=== PATIENT | male | born 1975 | race Caucasian/White ===

== ENCOUNTER 2023-03-08 08:37 | Outpatient (OUT) | payer OTHER, SELFPAY ==
--- NOTE | 2023-03-08 08:51 | CT_ITS ---
[address] [address] Patient Name: BUCK DISLA MRN: [id number] date: 1975 Sex: M Assigned Patient Location: CT Current Patient Location: CT Accession/Order Number: [id number] Exam Date: 03/08/2023 08:54 Report Date: 03/08/2023 15:41 At the request of: MAYNOR HILLMAN Procedure: CT chest wo con EXAMINATION: CT chest wo con HISTORY: Solitary Lung Nodule R91.1 COMPARISON: CTA chest 12/01/2021 TECHNIQUE: Multi-planar CT images were obtained without and/or with IV contrast as indicated by examination type. Axial, Coronal, and Sagittal images. Dose reduction techniques were achieved by using automated exposure control and/or adjustment of mA and/or kV according to patient size and/or use of iterative reconstruction technique. FINDINGS: LUNGS: Stable 5 mm opacity within right middle lobe; scarring versus nodule. No new or suspicious nodules. No acute infiltrates or significant chronic interstitial changes. PLEURA: No mass, effusion, or pneumothorax. VASCULATURE: No abnormality. HANK: No mass or adenopathy. MEDIASTINUM: No mass or adenopathy. CARDIAC: No enlargement, pericardial thickening, or significant calcification. AORTA: No aneurysm or dissection. CHEST WALL: No mass or axillary adenopathy. BONES: No bone lesion or fracture. LIMITED ABDOMEN: Left nephrolithiasis. Limited images of the upper abdomen. OTHER: Negative. CT/CT chest wo con IMPRESSION: 1. Stable right middle lobe 5 mm nodule versus scarring. No suspicious nodules. No additional follow-up recommended. 2. No acute infiltrates. 3. Left nephrolithiasis. Electronically authenticated by: VINAYAK ROSS Date: 03/08/2023 15:41
[2023-03-08 09:03] LABS: Basophils Absolute Auto 0.1 10^3/uL (0.0-0.1); Eosinophils Absolute Auto 0.6 10^3/uL (0.0-0.7); Eosinophils Percent Auto 6.5 % (0.9-7.0); Hematocrit 46.6 % (42.0-54.0); Hemoglobin 15.8 g/dL (14.0-18.0); Immature Granulocytes Abs Auto 0.05 10^3/uL (0.00-0.03); Immature Granulocytes Pct Auto 0.6 % (0.0-0.5); Lymphocytes Absolute Auto 2.7 10^3/uL (1.2-3.8); Mean Corpuscular HGB Conc 33.9 g/dL (29.9-35.2); Mean Corpuscular Hemoglobin 31.7 pg (25.9-34.0); Mean Corpuscular Volume 93.4 fL (80.0-94.0); Monocytes Absolute Auto 0.7 10^3/uL (0.3-0.8); Monocytes Percent Auto 8.1 % (1.7-12.0); Neutrophils Absolute Auto 4.9 10^3/uL (1.4-6.5); Neutrophils Percent Auto 53.8 % (43.0-75.0); Platelet Count 344 10^3/uL (150-450); Red Blood Count 4.99 10^6/uL (4.70-6.10); Red Cell Distribution Width 11.9 % (11.0-15.0); White Blood Count 9.1 10^3/uL (4.0-11.0)
[2023-03-08 10:12] LABS: Alanine Aminotransferase 47 U/L (16-63); Albumin Level 3.7 g/dL (3.4-5.0); Alkaline Phosphatase 109 U/L (46-116); Aspartate Amino Transferase 31 U/L (15-37); BUN Creatinine Ratio 20.2; Bilirubin Total 0.5 mg/dL (0.2-1.0); Calcium 9.4 mg/dL (8.5-10.1); Carbon Dioxide 25.5 mmol/L (21.0-32.0); Chloride 103 mmol/L (98-107); Chol HDL Ratio 4.4; Cholesterol 242 mg/dL (<=200); Estimated GFR (African America >60 (>=60); Estimated GFR (Non-African Ame >60 (>=60); Globulin 3.8 g/dL; Glucose 112 mg/dL (74-106); HDL Cholesterol 55 mg/dL (40-60); Potassium 4.5 mmol/L (3.5-5.1); Sodium 136 mmol/L (136-145); Total Protein 7.5 g/dL (6.4-8.2); Triglycerides 213 mg/dL (<=150); VLDL CHOLESTEROL 42.6 mg/dL
[2023-03-08 10:23] LABS: Prostate Specific Antigen Scrn 1.03 ng/mL (<=4.00)
[2023-03-08 10:46] LABS: Estimated Average Glucose 123 mg/dL; Glycohemoglobin A1C 5.9 % (4.5-6.2)
== END 2023-03-08 08:38 | disposition home or self-care (01) ==
LOC: CT 08:37
PROVIDERS: PCP Family Medicine; Visit Provider Family Medicine
DX: E78.5 Hyperlipidemia, unspecified (principal); Z00.00 Encounter for general adult medical examination without abnormal findings; R73.09 Other abnormal glucose; Z12.5 Encounter for screening for malignant neoplasm of prostate; R91.1 Solitary pulmonary nodule; N20.0 Calculus of kidney
CPT/HCPCS: 36415; 71250; 80053; 80061; 83036; 85025; G0103

== ENCOUNTER 2023-09-27 08:15 | Outpatient (OUT) | payer OTHER, SELFPAY ==
--- NOTE | 2023-09-27 08:18 | US_ITS ---
The [address] [address] Patient Name: BUCK DISLA MRN: [id number] date: 1975 Sex: M Assigned Patient Location: US Current Patient Location: Accession/Order Number: [id number] Exam Date: 09/27/2023 08:45 Report Date: 09/27/2023 14:57 At the request of: MAYNOR HILLMAN Procedure: US renal bladder EXAMINATION: US renal bladder HISTORY: Gross Hematuria R31.0 ; right flank pain COMPARISON: No relevant comparison available. TECHNIQUE: Ultrasound examination was performed of the kidneys and urinary bladder. FINDINGS: RIGHT KIDNEY: No evidence of pelvocaliectasis, mass, or calculi. Normal renal cortical parenchymal echogenicity. Color Doppler demonstrates blood flow within the kidney. Kidney: 11.5 x 6.9 x 5.3 cm LEFT KIDNEY: Contains 2 nonobstructing stones, largest is 7 mm. No evidence of pelvocaliectasis or mass. Normal renal cortical parenchymal echogenicity. Color Doppler demonstrates blood flow within the kidney. Kidney: 12.6 x 6.3 x 6.7 cm BLADDER: No visible wall thickening, mass, or calculi. Post void residual: 0 mL URETERAL JETS: Visualized bilaterally. US/US renal bladder IMPRESSION: 1. Nonobstructing left nephrolithiasis. Otherwise unremarkable kidneys and bladder. Electronically authenticated by: VINAYAK ROSS Date: 09/27/2023 14:57
--- OUTSIDE RECORDS SUMMARY | 2023-09-27 08:22 | XMS_ITS | CCD ---
Author Organization [facility] Care Team Providers Care Resource Technician Name Role Phone Maynor Hough MD Unavailable AMINATA, DR ROJAS Admitting Unavailable ABBSHERICE, DR ROJAS Attending Unavailable KADY, DR MCGUIRE Primary Care Unavailable AMINATA, DR ROJAS Consulting Unavailable KADY, DR MCGUIRE Primary Care Unavailable NELSY, DR JOELLEN Martel Consulting Unavailable FAWWAD, WREN H Admitting Unavailable FAWDAVID, WREN H Attending Unavailable KADY, DR MCGUIRE Consulting Unavailable SILVA, DR VIRGILIO Lan Consulting Unavailable ANITA, DR BUCK Pritchett Consulting Unavailable Trinh, DR Doll Consulting Unavailable SAMSA, LEANNE Consulting Unavailable FAWWAD, WREN H Consulting Unavailable WONG, SATURNINO Consulting Unavailable KADY, DR MCGUIRE Admitting Unavailable KADY, DR MCGUIRE Attending Unavailable KADY, DR MCGUIRE Primary Care Unavailable KADY, DR MCGUIRE Consulting Unavailable Trinh, DR Doll Consulting Unavailable KADY, DR MCGUIRE Admitting Unavailable KADY, DR MCGUIRE Attending Unavailable KADY, DR MCGUIRE Primary Care Unavailable KADY, DR MCGUIRE Consulting Unavailable ANITA, DR BUCK Pritchett Consulting Unavailable KADY, DR MCGUIRE Admitting Unavailable KADY, DR MCGUIRE Attending Unavailable KADY, DR MCGUIRE Primary Care Unavailable KADY, DR MCGUIRE Consulting Unavailable Trinh, DR Doll Consulting Unavailable Jessica Borjas PA-C Admitting Unavail able Jessica Borjas PA-C Attending Unavail able MAYNOR HOUGH Primary Care Unavailable Maynor Hough Primary Care Unavailable Iesha Carlisle Attending Unavailable Iesha Carlisle Admitting Unavailable Problems Active Problems Problem Classification Problem Date Documented Da te Episodic/Chronic Other injuries and conditions due to external causes (1 source) Unspecified injury of left foot, initial encounter; Translations: [Unspecified injury of left foot, initial encounter] Onset: 4 Episodic Other nervous system disorders (1 source) Other chronic pain; Translations: [OTHER CHRONIC PAIN] Onset: 2 Chronic Phlebitis; thrombophlebitis and thromboembolism (10 sources) Phlebitis and thrombophlebitis of superficial vessels of left lower extremity; Translations: [Acute embolism and thrombosis of unspecified deep veins of left lower extremity] Onset: 2 Episodic Substance-related disorders (1 source) Nicotine dependence, cigarettes, uncomplicated; Translations: [NICOTINE DEPEND CIGARETTES UNCOMP] Onset: 2 Chronic Unclassified (1 source) Acute embolism and thrombosis of left peroneal vein; Translations: [ACUTE EMBOL AND THROMBOS LT PERONL VN] Onset: 2 Unclassified (1 source) CONTACT W/AND (SUSP) EXPOS COVID-19; Translations: [CONTACT W/AND (SUSP) EXPOS COVID-19] Onset: 2 Unclassified (1 source) LOW BACK PAIN, UNSPECIFIED; Translations: [LOW BACK PAIN, UNSPECIFIED] Onset: 2 Past or Other Problems Problem Classification Problem Date Documented Da te Episodic/Chronic Other aftercare (1 source) FDC (current) use of anticoagulants; Translations: [FOLD SKIVER CURRNT USE ANTICOAGULANTS] Onset: 12-13-2021 Episodic Other lower respiratory disease (1 source) Other nonspecific abnormal finding of lung field; Translations: [OTH NONSPECIFIC ABN FIND LNG FIELD] Onset: 12-13-2021 Episodic Other screening for suspected conditions (not mental disorders or infectious disease) (2 sources) Abnormal coagulation profile; Translations: [Encounter for screening for malignant neoplasm of prostate] Onset: 11-26-2021 Episodic Pulmonary heart disease (1 source) Other pulmonary embolism without acute cor pulmonale; Translations: [OTH PULM EMBO W/O AC COR PULMONALE] Onset: 12-13-2021 Episodic Residual codes; unclassified (4 sources) Edema, unspecified; Translations: [EDEMA UNSPECIFIED] Onset: 11-23-2021 Episodic Spondylosis; intervertebral disc disorders; other back problems (1 source) Radiculopathy, lumbar region; Translations: [RADICULOPATHY LUMBAR REGION] Onset: 12-13-2021 Episodic Results Test Name Value Interpretation Reference Range Facility XR foot LT min 3V*on 024 XR foot LT min 3V* [facility] [place] [address] [place], [place] [address] XRay Report Signed Patient: Buck Disla MR#: [id number] 56 : 1975 Acct:[id number] Age/Sex: 48 / M ADM Date: 06/14/23 Loc: [id number] Room: Type: [facility] Attending Dr: Iesha Carlisle LICENSED 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 LEFT FOOT - 3 views CLINICAL HISTORY: Injury to left foot today. Now with pain distal metatarsals. COMPARISON: None FINDINGS: Soft tissue swelling is noted. 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 Contour deformity involving the distal aspect of the third digit. Questionable linear lucency involving the proximal phalanx of the first digit possibly related to fracture. Plantar spurring. Scattered degenerative change without bony erosions. XR/XR foot LT min 3V* IMPRESSION: SOFT TISSUE SWELLING IS NOTED WITH SOFT TISSUE CONTOUR DEFORMITY INVOLVING THE DISTAL ASPECT OF THE THIRD DIGIT. QUESTIONABLE LINEAR LUCENCY INVOLVING THE PROXIMAL PHALANX OF THE FIRST DIGIT POSSIBLY RELATED TO UNDERLYING FRACTURE. FOLLOW-UP IS RECOMMENDED. Impression dictated by: Antonio Ramirez Jr., D.O.06/14/2023 10:19 AM Dictation Location: [place] [address] Transcribed By: [facility] 06/14/23 1019 Dictated By: Antonio Ramirez Jr, DO 06/14/23 1017 Signed By: 06/14/23 1019 [facility] Coding Summaryon 07-20-2022 Coding Summary HTMLBase 64 DdeffvorRJt4oOx+PGhlYW Q+WA5TIZYrS07ssBFbuV1N M6qHJQ6PFDLGSLIKOH9NVF 7uiUY3YWfmQ5MdbgFp IczftPQiEM32JZr0ZFG5qX egIMdudL9pjGIiZ9q6EiNe PX62tR39ULfcNKLbJaI2Jp ZpbjsgbWFy R8puQxCftUQmSug+PHRhYm xlIHdpZHRoPScxMDAlJyBz hAehAX7gEc9fDTVxZEJvtA xhcHNlOiBj j3zyOUKzQLixEA8tlZgeU8 FbzGO4GAUud9w5Ol37nFM+ BLJwAHB3iOavBFksk043Zg Tag9zdKLX5 nOYfVXyoSPL8K62rv9H2HQ UeUVAtVRG8yZD9dY1ztSzh cnslQ2HtdHVsRiD3ORN3lF HsvH8dcDex saohbR8dGgy+Y15LFD9KGO JJKU4ZVrn5L6OzMlnrzDY+ OG83UZLbGF10jBCthLOck3 fscGa4MeTv RIJrRQL0jQwuRHbgp7YmNT GzW70mkFAec8R5YBZzjLvc sRYbDeNehEP1gG9aHCgoif dim8tliouo Whexy4lskp54tP41C29nFY ivLUMbKKA2GHSaRHUdxWhw ft2urA7lXb7+WCbco7xff4 wizUs5LxNk GSRcoiOgyYrnAKA1p3UtWg 00I2YjjJykp6VcMpj4ga35 eYSoo7N6oOL8EQdcSTSnxU 6lZAlgCwR3 KDXvGtApiW24jQCpJEnvYm 2hpKnhjQezTJ6rVIJxmbli NAIesB1xSXEalIGwqIoiEV 4wNTBpbjtm y100NuBqLFT4KIWngCInS0 MbgB6bIsDdDYGzXNUcI4Gd yPPyKAapZ749JKpeOwP5XS SwetEvM6Pc FFJuaKjgSxB4h4V5Ke4Es8 NeejquONI6KJaxLFM6NyXf NzIhTcU8J4IkYev7VXVtaD kiWN8bS1Yu JEFkphqyjcrudIN6GNRcQJ HexA65pGJoYBgpQf5by4Q6 n102VZBcHUMlfJ40Mt4cpT ogMTBwdCBU lX6ryfnbu1lvekdwMkQpRC YyVZm2QYx0XAQaaZnaTcBw EWV5KeD6QBR1nSXajO8teN vquvqwoI9u Oyc+O11nxD7kQSU7XHK1ed xqJOTusoGzEK38IS00W5Um PjwvdGFibGU+PGRpdiBzdH mcJA6kZiAk k3qvn0CkWDqeX2UdTIMlYE gmYpy6JDRbNUO2kMO6nG2y GNDqEDpby2V0sOC6H2Bktd Lhbj6dt4yx XIPnKBrcR44haRSvm9V6GC ZepSL5UVBewMfwZmJbpE50 Oyc+SWOxvLbfh7AgNstqu6 tag2rwhHb3 ViYmIHMgwiHmzLbtUII3x2 SoCp40M27bUTisMURlHTPe BFOgGUJxlDlzvi5khU4bDx 8+PGNvbCB3 nYF8dI5gMJVbTxC3JWwyZ3 95RgQeyYXmHvpvf0wsk1ht vPq5KnFiYVQrgmPszVibNV T5a3CuQz72 N68eLMvbOGQrAKNdXURiGD CwqJtbfr9hwY6qKi6+PC9j j0smju89pA11nCG+PHRkIH A2kJemUWbk SLQosZ2tSRosNrO9LASfVf KskH41rCZiFRdeQi8xfZbq gUspWO8zOJGlnihze960Or Uvm9rkCNPx mEIdFRiyVHP1L30zm4S1IQ VqZWNhHBS8jYZ6fG3gfUdh bjogbGVmdDsgdmVydGljYW poSPduR586 IHRvcDsnPlBhdGllbnQgTm IuYWi0T2WeMtw5FQPcxRwa KK4ewVTxLDwlZt1cnGougB koRQ1pFWWr lsetw525OfGlh2ufZMYxzN TsKJtxXZG0W97in6C9RYCy ZYJzPFM0uBP8tA9wzNgfow ogbGVmdDsg maWcsNmtKTddZXqqM538RH RvcDsnPkJpcnRoIERhdGU6 RE22BK42cNSdq1T0kDH9L4 BhZGRpbmct qpashTZ0PUVtUMUjrT82Qa 4gpYrpLj3dEQKsFEN0ECBc bQHiY0VraQ3pArLxYBIuPJ CfH0KpoSMi SBetW363DFddDiX6NLZjao ChW4RwMKBmdZfpZdY8j7Z7 Zf5UX8Y7TD54KI80lHKgm7 H7iRL2N3Au KXCdviuztteqhQW0GJXdWN JshE79Zh3hjIbjNy4nFVRg BQM0BXGgjKLuA1GnrM2iPf AjMDAwMDAw T9DpjVNnVQlhC471FElcXc B4PGMdpwWlR8VqVNJcqDkp IeT8w9J8Dy4BKNc8SX20RZ 64sIOpn9X7 cJB0T8KjOSKxhmqctkhxfA I8NLWyQHUskZ36Gx1oeIvo Fp0bESHvUQJ2LZWuwWKaR9 YfjN2yZbJt RLDeUPEbV0FclVGmVCbpV0 78SUnvKaB4EYYmanFxA5Lf DEBcpEoyZwB3k3F9Sq4KKT YnAM20JQX4 oKP6ZH57JN52C1AxEookiF FibGU+PHRhYmxlIHdpZHRo GWdtRYRjTnRvnYprKZ7cOx 9yZGVyLWNv lIdtuRVdXyXxu3tsPGMwGM ndID2swTryL5EavSK9FDZo v2f4Rp27J71aO1KuzHX+PG ZreYH4iDR3 yA0pBnFkReW3HBvaG342Ki ChsBTzWbmxj7nsg8fejZb2 QuT5COKvwnOlmXapIMN6x7 QeVp31W05s IHdpZHRoPSIxNSUiIHZhbG sdlx4hxW5fBi1+PGNvbCB3 qVJ8bH1gKuWuQzL1UTgtH1 49InRvcCIv Oorje4jdq0lwfDj1JnCyJI ZwbfIvzXsiUWR8q0WtSe52 F8FmrDvqt1OxKcy2xq40dN Mrw8C4mRA0 T2RqHGQzpfpgtHQumAquKS 5aKUEucdudWPAdoU0kHXRg C7v2TgGrCgS5DVufC2Moeu Q0CCNkqTKn FTlcPBN4W33oe7U9HVGaBW BqBAT5dGT2gA9wlOalacfq bGVmdDsgdmVydGljYWwtYW wpL626LZFj bXkvZMFktW7gWCJpsCTwwI fbEE8oTCFczysvChEOBZuX XohoWJCESUViI2BTZdC3W8 WeUaj6IWBd aWkrNM3gfZNbUXnvRa3wwT vvbLxcTY9nSHVdtamhIYQe sH8xGTJwzFFfeWbyOH1zYY Wtdtwqy525 HvBqKKP1HJPnyGEdN5MfgE 1yFaWiCBYdQLDcL0MvhGJo HJacE848JKmpOkH9OKFyyr XsA0YvCJBx tZgyYgS5v4L9Nk4iXk5fIH 8nFGs5TG38HW85sTHhm4V7 gSG5P1YgOSTrdsisogzwqQ I7JVPlXWNn hS48hCGcDLhjJs1we8F1r3 13HEDxKFOqjR64Ig0ppDmn WRZxoYEZuN9zrdezt8ydsh ogIzAwMDAw LZy4EGb4VTSmrSpbGcBsOU U4HvT5JDG5gFCueW6zyBtm vfrvtD3jFvb+NDggWWVhcn Y3D7WxLsn8 RGTffUwuDE6dsMPrWTcnBx 8nrZhczVvfTS6xOXBowvif FTRnpZ3kMZCavKNboHziKO 4wNTBpbjtm x457FxQoPDQ3XZBxfGPxH1 QlnN1sTqFwNDIjRGCnF3Su uHHiRGauL637TKlaMcO4NI DuknAyI1Qj YPLvdQsiDpW1d8D6Bx4QPL iTCB26ZT27qHQyi0Z8wSW5 H9ImYXNbjkhtgffwnTX4RQ TwOMWdfN61 gHYvSJanIl1hf9J1c940BH KiBOKyeS29Ew5ioOzvALCt cRORgW9vlmpxi3zzoqvaJh AwMDAwMDt0 MJh6RXFzbZgfKvLrKQD9Ze S5ETA7zCEhpR0mxFqbqqpj pL2aYkw+N8Z7O8PrRwgerJ I+DO89CYIl UZ40rZRisKOlb6pbsHq7Zv CsGPOeTEI9dEnzBJghi7Tj JXYdC66qtPHma4X7PZTnrZ xhcHNlOyBl iOA1lV4zBZoymslze1qxbv hfXpobd3oixu80jL49P85b IHdpZHRoPSIzMCUiIHZhbG jcxv6sfF5j Ii8+KIWycAF1tGO7uN1bEz FcZaT6KQyxF674UgYovAXs Gfmdd7vdn6rieNn7VbHxRR IgdmFsaWdu LKN2v1WsMi59S77iRCykFU IcCIYpNWUcFJNifZfxws3n fH0nDl3+AW0di9dtgx91bK 48dHI+PHRk WYK3dQxcBHgaBZXsuE8iRG dvZlH9CTNmSmGqdK78sHIw QOviCh8luHtyxXsvAY3zWK Ebrhfex728 UqTae2mqPDCdpYTaWQiaEH D9J85wo7Z4UJShKECqHVN2 cAZ9iR5vrRgnobadeWGhiB sgdmVydGlj OEhgONeoH711YYBjtBopYt FnbOHuD0srwcNZIQ1hNgxk dGQ+THWbIWZ8wOvwVVwqAP PgfV4dDBUt H4g5AcRdFxU6WFvqB7Kzoy Q8LOAopOIqGZGyvENAhK9f jguqs6khjxfwUaRzCNXjZK i7IFw7CQUh wDjcZnOyZFN0CuG0PCD9wV WktK7qdEijrpealU6cUym+ RklOOjwvdGQ+VUUsWEZ4hL xlPSdwYWRk lC8pXVUoA2p3LyDuQyH6XR egD7LxhgZ9ZDTupCLmTVGr vFJRrJ6mujqie1cnlfwzDf AwMDAwMDt0 TQr3VEWruPtaKfXcCMN0Aj C8MJQ1zTUjfP7zrWgaltgn rW1sEdp+TVJOOjwvdGQ+PH SgYUM0oEpj KOiePTEezD0gPLBuI4k1Wm XoOvX9KNkzL3TdcxE4WTNx zJCiIWJroHCFfB1hnykgh4 xvcjogIzAw XWKrEOb3MMd0LFYhgAdvJn JtHCS0SqK4ERL7gIPtbT1f iWuvynkqxL2bDvl+UGF5ZX C7QN52ID18 E2NoWdcmmCAerEQ+PHRhYm xlIHdpZHRoPScxMDAlJyBz pMasQG5pHz8mLOPgIFYabP xhcHNlOiBj b2x (more content not included)... 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 COMPARISON: 03/15/2022. TECHNIQUE: Evaluation of the lower extremity venous system is performed bilaterally. Venous duplex examination performed using B-mode, color flow and spectral analysis. FINDINGS: The right lower extremity demonstrates no evidence of venous thrombus in the deep or superficial system. The left lower extremity demonstrates deep vein thrombus with a chronic appearance in the femoral, popliteal, and peroneal veins. There has been slight interval improvement, without evidence of interval propagation or development of acute deep vein thrombus. IMPRESSION: 1. Left femoral, popliteal and peroneal vein chronic deep vein thrombus which has improved in the interval. 2. The right leg is negative. Final Dictated by: Maurice Smith Dictated DT/TM: 07/19/22 11:41 Signed (Electronic Signature): Maurice Smith 07/19/22 3:13 pm Technologist: [facility] Provider Orderson 05-20-2022 Provider Orders [id number] [facility] US JUAN DOP LEG BILon 023 US JUAN DOP LEG BETO EXAMINATION: US JUAN DOP LEG BETO HISTORY: Venous embolism COMPARISON: Ultrasound venous Doppler leg left 12/31/2021 FINDINGS: REGION: Bilateral lower extremities THROMBI: Thrombus within left leg extending from proximal femoral vein through the posterior tibial vein. Partial compressibility of the proximal femoral vein and posterior tibial vein. Noncompressible mid and distal femoral vein and popliteal vein with no appreciable flow. No thrombus within right lower extremity. COMPRESSIBILITY: Noncompressible segments. FLOW: Areas of no flow within left leg. OTHER: None. IMPRESSION: 1. Right leg: No deep vein thrombus. 2. Left leg: Extensive deep vein thrombus; only slightly improved compared to 12/31/2021. Electronically authenticated by: VINAYAK ROSS Date: 2022-03-15 10:21 [facility] US JUAN DOP LEG LTon 10-21-20 22 US JUAN DOP LEG LT EXAMINATION: US JUAN DOP LEG LT HISTORY: Phlebitis of superficial veins of lower extremity COMPARISON: 12/06/2021 TECHNIQUE: Grayscale, color and Doppler ultrasound FINDINGS: Region: Left leg Thrombus: Extensive thrombus identified throughout the left leg extending from the common iliac vein to the posterior tibial vein and the midcalf this appears overall decreased from the prior exam Flow: Areas of decreased and absent flow corresponding to thrombus Compressibility: Decreased and absent corresponding to thrombus Augmentation: Absent Other: Subcutaneous edema Results called by the technologist to Monika at the ordering physician's office at the time of exam IMPRESSION: Extensive left leg deep vein thrombus decreased from the prior exam *Exam performed in accordance with [facility] practice guidelines- Peripheral venous ultrasound, June 06, 2009. Electronically authenticated by: BUCK HOWARD Date: 2021-12-31 15:22 Normal [facility] CBC AUTO DIFFon 12-07-2021 BASO # 0.1 103/ul Normal 0.0-0.1 [facility] Comment on above: Performed By: #### P TTHEP #### [facility] [address] [place] [address] Dr. Dimas Bustos Basophils/100 WBC (Bld) 0.8 % Normal 0.2-2.0 [facility] Comment on above: Performed By: #### P TTHEP #### [facility] [address] [place] [address] Dr. Dimas Bustos EO # 0.2 103/ul Normal 0.0-0.7 [facility] Comment on above: Performed By: #### P TTHEP #### [facility] [address] [place] [address] Dr. Dimas Bustos Eosinophils/100 WBC (Bld) 1.5 % Normal 0.9-7.0 [facility] Comment on above: Performed By: #### P TTHEP #### [facility] [address] [place] [address] Dr. Dimas Bustos Erythrocyte distribution width (RBC) [Ratio] 12.3 % Normal 11.0-15.0 [facility] Comment on above: Performed By: #### P TTHEP #### [facility] [address] [place] [address] [address] Dimas Bustos Hematocrit (Bld) [Volume fraction] 41.4 % Critically low 42.0-54.0 [facility] Comment on above: Performed By: #### P TTHEP #### [facility] [address] [place] [address] Dr. Dimas Bustos Hemoglobin (Bld) [Mass/Vol] 13.9 g/dL Critically low 14.0-18.0 [facility] Comment on above: Performed By: #### P TTHEP #### [facility] [address] [place] [address] [address] Dimas Bustos IG # 0.30 10e3/ul Critically high 0.00-0.03 [facility] Comment on above: Performed By: #### P TTHEP #### [facility] [address] [place] [address] Dr. Dimas Bustos IG % 2.5 % Critically high 0.0-0.5 [facility] Comment on above: Performed By: #### P TTHEP #### [facility] [address] [place] [address] Dr. Dimas Bustos LYMPH # 2.8 103/ul Normal 1.2-3.8 [facility] Comment on above: Performed By: #### P TTHEP #### [facility] [address] [place] [address] Dr. Dimas Bustos Lymphocytes/100 WBC (Bld) 23.3 % Normal 20.5-60.0 [facility] Comment on above: Performed By: #### P TTHEP #### [facility] [address] [place] [address] Dr. Dimas Bustos MANUAL DIFF REQ NO Normal [facility] Comment on above: Performed By: #### P TTHEP #### [facility] [address] [place] [address] Dr. Dimas Bustos MCH (RBC) [Entitic mass] 31.2 pg Normal 25.9-34.0 [facility] Comment on above: Performed By: #### P TTHEP #### [facility] [address] [place] [address] [address] Dimas Bustos MCHC (RBC) [Mass/Vol] 33.6 g/dL Normal 29.9-35.2 [facility] Comment on above: Performed By: #### P TTHEP #### [facility] [address] [place] [address] Dr. Dimas Bustos MCV (RBC) [Entitic vol] 93.0 fL Normal 80.0-94.0 [facility] Comment on above: Performed By: #### P TTHEP #### [facility] [address] [place] [address] Dr. Dimas Bustos MONO # 0.9 103/ul Critically high 0.3-0.8 [facility] Comment on above: Performed By: #### P TTHEP #### [facility] [address] [place] [address] Dr. Dimas Bustos Monocytes/100 WBC (Bld) 7.5 % Normal 1.7-12.0 [facility] Comment on above: Performed By: #### P TTHEP #### [facility] [address] [place] [address] Dr. Dimas Bustos NEUT # 7.8 103/ul Critically high 1.4-6.5 [facility] Comment on above: Performed By: #### P TTHEP #### [facility] [address] [place] [address] Dr. Dimas Bustos Neutrophils/100 WBC (Bld) 64.4 % Normal 43.0-75.0 [facility] Comment on above: Performed By: #### P TTHEP #### [facility] [address] [place] [address] Dr. Dimas Bustos Platelet mean volume (Bld) [Entitic vol] 8.9 fL Critically low 9.5-13.5 [facility] Comment on above: Performed By: #### P TTHEP #### [facility] [address] [place] [address] Dr. Dimas Bustos PLT 420 103/ul Normal 150-450 [facility] Comment on above: Performed By: #### P TTHEP #### [facility] [address] [address] [address] Dimas Bustos RBC 4.45 106/ul Critically low 4.70-6.10 [facility] Comment on above: Performed By: #### P TTHEP #### [facility] [address] [address] [address] Dimas Bustos WBC 12.1 103/ul Critically high 4.0-11.0 [facility] Comment on above: Performed By: #### P TTHEP #### [facility] [address] [place] [address] Dr. Dimas Bustos PROF 14(COMP METB)on 022 Albumin [Mass/Vol] 2.8 g/dL Critically low 3.4-5.0 [facility] Comment on above: Performed By: #### C MP #### [facility] [address] [place] [address] Dr. Dimas Bustos Albumin/Globulin [Mass ratio] 0.6 {ratio} Normal [facility] Comment on above: Performed By: #### C MP #### [facility] [address] [place] [address] Dr. Dimas Bustos ALP [Catalytic activity/Vol] 113 U/L Normal 46-116 [facility] Comment on above: Performed By: #### C MP #### [facility] [address] [address] [address] Dimas Bustos ALT [Catalytic activity/Vol] 56 U/L Normal 16-63 [facility] Comment on above: Performed By: #### C MP #### [facility] [address] [place] [address] Dr. Dimas Bustos Anion gap [Moles/Vol] 15.7 mmol/L Normal [facility] Comment on above: Performed By: #### C MP #### [facility] [address] [place] [address] Dr. Dimas Bustos AST [Catalytic activity/Vol] 22 U/L Normal 15-37 [facility] Comment on above: Performed By: #### C MP #### [facility] [address] [address] [address] Dimas Bustos Bilirubin [Mass/Vol] 0.2 mg/dL Normal 0.2-1.0 [facility] Comment on above: Performed By: #### C MP #### [facility] [address] [address] [address] Dimas Bustos Calcium [Mass/Vol] 9.4 mg/dL Normal 8.5-10.1 [facility] Comment on above: Performed By: #### C MP #### [facility] [address] [address] [address] Dimas Bustos Chloride [Moles/Vol] 100 mmol/L Normal 98-107 [facility] Comment on above: Performed By: #### C MP #### [facility] [address] [place] [address] Dr. Dimas Bustos CO2 [Moles/Vol] 24.5 mmol/L Normal 21.0-32.0 [facility] Comment on above: Performed By: #### C MP #### [facility] [address] [place] [address] Dr. Dimas Bustos Creatinine [Mass/Vol] 0.80 mg/dL Normal 0.70-1.30 [facility] Comment on above: Performed By: #### C MP #### [facility] [address] [place] [address] Dr. Dimas Bustos EGFR-AF QATARI >60 Normal >=60 [facility] Comment on above: Performed By: #### C MP #### [facility] [address] [place] [address] Dr. Dimas Bustos EGFR-NON AF QATARI >60 Normal >=60 [facility] Comment on above: Performed By: #### C MP #### [facility] [address] [place] [address] Dr. Dimas Bustos Globulin (S) [Mass/Vol] 4.5 g/dL Normal [facility] Comment on above: Performed By: #### C MP #### [facility] [address] [place] [address] Dr. Dimas Bustos Glucose [Mass/Vol] 123 mg/dL Critically high 74-106 [facility] Comment on above: Performed By: #### C MP #### [facility] [address] [address] [address] Dimas Bustos Potassium [Moles/Vol] 4.2 mmol/L Normal 3.5-5.1 [facility] Comment on above: Performed By: #### C MP #### [facility] [address] [address] [address] Dimas Bustos Protein [Mass/Vol] 7.3 g/dL Normal 6.4-8.2 [facility] Comment on above: Performed By: #### C MP #### [facility] [address] [address] [address] Dimas Bustos Sodium [Moles/Vol] 136 mmol/L Normal 136-145 [facility] Comment on above: Performed By: #### C MP #### [facility] [address] [address] [address] Dimas Bustos Urea nitrogen [Mass/Vol] 17.0 mg/dL Normal 7.0-18.0 [facility] Comment on above: Performed By: #### C MP #### [facility] [address] [address] [address] Dimas Bustos Urea nitrogen/Creatinine [Mass ratio] 21.2 mg/mg Normal [facility] Comment on above: Performed By: #### C MP #### [facility] [address] [address] [address] Dimas Bustos PROTIMEon 12-07-2021 INR Coag (PPP) [Relative time] 1.42 {INR} Normal [facility] Comment on above: Performed By: #### C VDTB #### [facility] [address] [address] [address] Dimas Bustos INR GUIDELINES SEE BELOW Normal [facility] Comment on above: Result Comment: GEOVANNI RED INR: 2.0 - 3.0 CONDITIONS NOT LISTED BELOW 2.5 - 3.5 FOR PROSTHETIC HEART VALVE REPLACEMENT 2.5 - 3.5 RECURRENT THROMBOSIS Performed By: #### C VDTBH #### [facility] [address] [place] [address] Dr. Dimas Bustos PT Coag (PPP) [Time] 15.0 s Critically high 9.0-11.6 [facility] Comment on above: Performed By: #### C VDTBH #### [facility] [address] [place] [address] Dr. Dimas Bustos PTT HEPARIN MONITORon 2021 aPTT Coag (Bld) [Time] 68.4 s Critically high 39.5-54.2 [facility] Comment on above: Performed By: #### C VDTBH #### [facility] [address] [place] [address] Dr. Dimas Bustos CBC AUTO DIFFon 12-06-2021 BASO # 0.1 103/ul Normal 0.0-0.1 [facility] Comment on above: Performed By: #### P TTHEP #### [facility] [address] [place] [address] Dr. Dimas Bustos Basophils/100 WBC (Bld) 0.7 % Normal 0.2-2.0 [facility] Comment on above: Performed By: #### P TTHEP #### [facility] [address] [place] [address] Dr. Dimas Bustos EO # 0.3 103/ul Normal 0.0-0.7 [facility] Comment on above: Performed By: #### P TTHEP #### [facility] [address] [place] [address] Dr. Dimas Bustos Eosinophils/100 WBC (Bld) 2.2 % Normal 0.9-7.0 [facility] Comment on above: Performed By: #### P TTHEP #### [facility] [address] [place] [address] Dr. Dimas Bustos Erythrocyte distribution width (RBC) [Ratio] 12.4 % Normal 11.0-15.0 [facility] Comment on above: Performed By: #### P TTHEP #### [facility] [address] [place] [address] Dr. Dimas Bustos Hematocrit (Bld) [Volume fraction] 42.3 % Normal 42.0-54.0 [facility] Comment on above: Performed By: #### P TTHEP #### [facility] [address] [place] [address] Dr. Dimas Bustos Hemoglobin (Bld) [Mass/Vol] 14.2 g/dL Normal 14.0-18.0 [facility] Comment on above: Performed By: #### P TTHEP #### [facility] [address] [address] [address] Dimas Bustos IG # 0.20 10e3/ul Critically high 0.00-0.03 [facility] Comment on above: Performed By: #### P TTHEP #### [facility] [address] [place] [address] Dr. Dimas Bustos IG % 1.8 % Critically high 0.0-0.5 [facility] Comment on above: Performed By: #### P TTHEP #### [facility] [address] [place] [address] Dr. Dimas Bustos LYMPH # 2.9 103/ul Normal 1.2-3.8 [facility] Comment on above: Performed By: #### P TTHEP #### [facility] [address] [place] [address] Dr. Dimas Bustos Lymphocytes/100 WBC (Bld) 25.1 % Normal 20.5-60.0 [facility] Comment on above: Performed By: #### P TTHEP #### [facility] [address] [place] [address] Dr. Dimas Bustos MANUAL DIFF REQ NO Normal [facility] Comment on above: Performed By: #### P TTHEP #### [facility] [address] [place] [address] Dr. Dimas Bustos MCH (RBC) [Entitic mass] 31.6 pg Normal 25.9-34.0 [facility] Comment on above: Performed By: #### P TTHEP #### [facility] [address] [address] [address] Dimas Bustos MCHC (RBC) [Mass/Vol] 33.6 g/dL Normal 29.9-35.2 [facility] Comment on above: Performed By: #### P TTHEP #### [facility] [address] [place] [address] Dr. Dimas Bustos MCV (RBC) [Entitic vol] 94.0 fL Normal 80.0-94.0 [facility] Comment on above: Performed By: #### P TTHEP #### [facility] [address] [place] [address] Dr. Dimas Bustos MONO # 0.9 103/ul Critically high 0.3-0.8 [facility] Comment on above: Performed By: #### P TTHEP #### [facility] [address] [place] [address] Dr. Dimas Bustos Monocytes/100 WBC (Bld) 7.7 % Normal 1.7-12.0 [facility] Comment on above: Performed By: #### P TTHEP #### [facility] [address] [place] [address] Dr. Dimas Bustos NEUT # 7.1 103/ul Critically high 1.4-6.5 [facility] Comment on above: Performed By: #### P TTHEP #### [facility] [address] [place] [address] Dr. Dimas Bustos Neutrophils/100 WBC (Bld) 62.5 % Normal 43.0-75.0 [facility] Comment on above: Performed By: #### P TTHEP #### [facility] [address] [place] [address] Dr. Dimas Bustos Platelet mean volume (Bld) [Entitic vol] 8.8 fL Critically low 9.5-13.5 [facility] Comment on above: Performed By: #### P TTHEP #### [facility] [address] [place] [address] Dr. Dimas Bustos PLT 373 103/ul Normal 150-450 [facility] Comment on above: Performed By: #### P TTHEP #### [facility] [address] [address] [address] Dimas Bustos RBC 4.50 106/ul Critically low 4.70-6.10 [facility] Comment on above: Performed By: #### P TTHEP #### [facility] [address] [address] [address] Dimas Bustos WBC 11.4 103/ul Critically high 4.0-11.0 [facility] Comment on above: Performed By: #### P TTHEP #### [facility] [address] [address] [address] Dimas Bustos PROF 14(COMP METB)on 022 Albumin [Mass/Vol] 2.7 g/dL Critically low 3.4-5.0 [facility] Comment on above: Performed By: #### P TTHEP #### [facility] [address] [place] [address] Dr. Dimas Bustos Albumin/Globulin [Mass ratio] 0.6 {ratio} Normal [facility] Comment on above: Performed By: #### P TTHEP #### [facility] [address] [address] [address] Dimas Bustos ALP [Catalytic activity/Vol] 100 U/L Normal 46-116 [facility] Comment on above: Performed By: #### P TTHEP #### [facility] [address] [address] [address] Dimas Bustos ALT [Catalytic activity/Vol] 51 U/L Normal 16-63 [facility] Comment on above: Performed By: #### P TTHEP #### [facility] [address] [address] [address] Dimas Bustos Anion gap [Moles/Vol] 8.8 mmol/L Normal [facility] Comment on above: Performed By: #### P TTHEP #### [facility] [address] [address] [address] Dimas Bustos AST [Catalytic activity/Vol] 21 U/L Normal 15-37 [facility] Comment on above: Performed By: #### P TTHEP #### [facility] [address] [address] [address] Dimas Bustos Bilirubin [Mass/Vol] 0.2 mg/dL Normal 0.2-1.0 [facility] Comment on above: Performed By: #### P TTHEP #### [facility] [address] [place] [address] Dr. Dimas Bustos Calcium [Mass/Vol] 9.6 mg/dL Normal 8.5-10.1 [facility] Comment on above: Performed By: #### P TTHEP #### [facility] [address] [address] [address] Dimas Bustos Chloride [Moles/Vol] 101 mmol/L Normal 98-107 [facility] Comment on above: Performed By: #### P TTHEP #### [facility] [address] [place] [address] Dr. Dimas Bustos CO2 [Moles/Vol] 31.2 mmol/L Normal 21.0-32.0 [facility] Comment on above: Performed By: #### P TTHEP #### [facility] [address] [place] [address] Dr. Dimas Bustos Creatinine [Mass/Vol] 0.84 mg/dL Normal 0.70-1.30 [facility] Comment on above: Performed By: #### P TTHEP #### [facility] [address] [place] [address] Dr. Dimas Bustos EGFR-AF QATARI >60 Normal >=60 [facility] Comment on above: Performed By: #### P TTHEP #### [facility] [address] [place] [address] Dr. Dimas Bustos EGFR-NON AF QATARI >60 Normal >=60 [facility] Comment on above: Performed By: #### P TTHEP #### [facility] [address] [place] [address] Dr. Dimas Bustos Globulin (S) [Mass/Vol] 4.5 g/dL Normal [facility] Comment on above: Performed By: #### P TTHEP #### [facility] [address] [address] [address] Dimas Bustos Glucose [Mass/Vol] 113 mg/dL Critically high 74-106 [facility] Comment on above: Performed By: #### P TTHEP #### [facility] [address] [address] [address] Dimas Bustos Potassium [Moles/Vol] 5.0 mmol/L Normal 3.5-5.1 [facility] Comment on above: Performed By: #### P TTHEP #### [facility] [address] [address] [address] Dimas Bustos Protein [Mass/Vol] 7.2 g/dL Normal 6.4-8.2 [facility] Comment on above: Performed By: #### P TTHEP #### [facility] [address] [place] [address] Dr. Dimas Bustos Sodium [Moles/Vol] 136 mmol/L Normal 136-145 [facility] Comment on above: Performed By: #### P TTHEP #### [facility] [address] [address] [address] Dimas Bustos Urea nitrogen [Mass/Vol] 14.0 mg/dL Normal 7.0-18.0 [facility] Comment on above: Performed By: #### P TTHEP #### [facility] [address] [place] [address] Dr. Dimas Bustos Urea nitrogen/Creatinine [Mass ratio] 16.7 mg/mg Normal [facility] Comment on above: Performed By: #### P TTHEP #### [facility] [address] [address] [address] Dimas Bustos PROTIMEon 12-06-2021 INR Coag (PPP) [Relative time] 1.22 {INR} Normal [facility] Comment on above: Performed By: #### P TTHEP #### [facility] [address] [place] [address] Dr. Dimas Bustos INR GUIDELINES SEE BELOW Normal [facility] Comment on above: Result Comment: GEOVANNI RED INR: 2.0 - 3.0 CONDITIONS NOT LISTED BELOW 2.5 - 3.5 FOR PROSTHETIC HEART VALVE REPLACEMENT 2.5 - 3.5 RECURRENT THROMBOSIS Performed By: #### P TTHEP #### [facility] [address] [place] [address] Dr. Dimas Bustos PT Coag (PPP) [Time] 13.0 s Critically high 9.0-11.6 [facility] Comment on above: Performed By: #### P TTHEP #### [facility] [address] [place] [address] Dr. Dimas Bustos PTTon 12-06-2021 aPTT Coag (Bld) [Time] 61.4 s Critically high 22.3-36.2 [facility] Comment on above: Performed By: #### P TTHEP #### [facility] [address] [place] [address] Dr. Dimas Bustos US JUAN DOP LEG LTon 12-07-19 US JUAN DOP LEG LT EXAMINATION: US JUAN DOP LEG LT HISTORY: Acute DVT of left femoral vein COMPARISON: Ultrasound venous Doppler leg left 11/23/2021 FINDINGS: REGION: Left lower extremity THROMBI: Occlusive thrombus extending from external iliac artery through the femoral, popliteal, and involving the proximal aspect of the posterior tibial, peroneal, and anterior tibial veins. Thrombus within the deep femoral vein and proximal great saphenous vein. COMPRESSIBILITY: Noncompressibility. FLOW: Absent flow. OTHER: None. IMPRESSION: 1. Extensive, occlusive deep vein thrombus throughout left lower extremity; progressed since prior study, now extending into the proximal calf veins. Electronically authenticated by: VINAYAK ROSS Date: 2021-12-06 09:03 Normal [facility] CBC AUTO DIFFon 12-05-2021 BASO # 0.1 103/ul Normal 0.0-0.1 [facility] Comment on above: Performed By: #### C BC #### [facility] [address] [place] [address] Dr. Dimas Bustos Basophils/100 WBC (Bld) 0.5 % Normal 0.2-2.0 [facility] Comment on above: Performed By: #### C BC #### [facility] [address] [address] [address] Dimas Bustos EO # 0.2 103/ul Normal 0.0-0.7 [facility] Comment on above: Performed By: #### C BC #### [facility] [address] [place] [address] Dr. Dimas Bustos Eosinophils/100 WBC (Bld) 1.6 % Normal 0.9-7.0 [facility] Comment on above: Performed By: #### C BC #### [facility] [address] [place] [address] Dr. Dimas Bustos Erythrocyte distribution width (RBC) [Ratio] 12.2 % Normal 11.0-15.0 [facility] Comment on above: Performed By: #### C BC #### [facility] [address] [place] [address] Dr. Dimas Bustos Hematocrit (Bld) [Volume fraction] 41.6 % Critically low 42.0-54.0 [facility] Comment on above: Performed By: #### C BC #### [facility] [address] [place] [address] Dr. Dimas Bustos Hemoglobin (Bld) [Mass/Vol] 13.8 g/dL Critically low 14.0-18.0 [facility] Comment on above: Performed By: #### C BC #### [facility] [address] [place] [address] Dr. Dimas Bustos IG # 0.09 10e3/ul Critically high 0.00-0.03 [facility] Comment on above: Performed By: #### C BC #### [facility] [address] [place] [address] Dr. Dimas Bustos IG % 0.9 % Critically high 0.0-0.5 [facility] Comment on above: Performed By: #### C BC #### [facility] [address] [place] [address] Dr. Dimas Bustos LYMPH # 2.1 103/ul Normal 1.2-3.8 [facility] Comment on above: Performed By: #### C BC #### [facility] [address] [place] [address] Dr. Dimas Bustos Lymphocytes/100 WBC (Bld) 20.2 % Critically low 20.5-60.0 [facility] Comment on above: Performed By: #### C BC #### [facility] [address] [place] [address] Dr. Dimas Bustos MANUAL DIFF REQ NO Normal [facility] Comment on above: Performed By: #### C BC #### [facility] [address] [place] [address] Dr. Dimas Bustos MCH (RBC) [Entitic mass] 30.7 pg Normal 25.9-34.0 [facility] Comment on above: Performed By: #### C BC #### [facility] [address] [place] [address] Dr. Dimas Bustos MCHC (RBC) [Mass/Vol] 33.2 g/dL Normal 29.9-35.2 [facility] Comment on above: Performed By: #### C BC #### [facility] [address] [place] [address] Dr. Dimas Bustos MCV (RBC) [Entitic vol] 92.4 fL Normal 80.0-94.0 [facility] Comment on above: Performed By: #### C BC #### [facility] [address] [place] [address] Dr. Dimas Bustos MONO # 0.9 103/ul Critically high 0.3-0.8 [facility] Comment on above: Performed By: #### C BC #### [facility] [address] [place] [address] Dr. Dimas Bustos Monocytes/100 WBC (Bld) 8.4 % Normal 1.7-12.0 [facility] Comment on above: Performed By: #### C BC #### [facility] [address] [place] [address] Dr. Dimas Bustos NEUT # 6.9 103/ul Critically high 1.4-6.5 [facility] Comment on above: Performed By: #### C BC #### [facility] [address] [place] [address] Dr. Dimas Bustos Neutrophils/100 WBC (Bld) 68.4 % Normal 43.0-75.0 [facility] Comment on above: Performed By: #### C BC #### [facility] [address] [place] [address] Dr. Dimas Bustos Platelet mean volume (Bld) [Entitic vol] 9.2 fL Critically low 9.5-13.5 [facility] Comment on above: Performed By: #### C BC #### [facility] [address] [place] [address] Dr. Dimas Bustos PLT 371 103/ul Normal 150-450 [facility] Comment on above: Performed By: #### C BC #### [facility] [address] [place] [address] Dr. Dimas Bustos RBC 4.50 106/ul Critically low 4.70-6.10 [facility] Comment on above: Performed By: #### C BC #### [facility] [address] [place] [address] Dr. Dimas Bustos WBC 10.1 103/ul Normal 4.0-11.0 [facility] Comment on above: Performed By: #### C BC #### [facility] [address] [place] [address] Dr. Dimas Bustos PROF 14(COMP METB)on 022 Albumin [Mass/Vol] 2.7 g/dL Critically low 3.4-5.0 [facility] Comment on above: Performed By: #### C MP #### [facility] [address] [place] [address] Dr. Dimas Bustos Albumin/Globulin [Mass ratio] 0.6 {ratio} Normal [facility] Comment on above: Performed By: #### C MP #### [facility] [address] [place] [address] Dr. Dimas Bustos ALP [Catalytic activity/Vol] 98 U/L Normal 46-116 [facility] Comment on above: Performed By: #### C MP #### [facility] [address] [place] [address] Dr. Dimas Bustos ALT [Catalytic activity/Vol] 43 U/L Normal 16-63 [facility] Comment on above: Performed By: #### C MP #### [facility] [address] [place] [address] Dr. Dimas Bustos Anion gap [Moles/Vol] 9.9 mmol/L Normal [facility] Comment on above: Performed By: #### C MP #### [facility] [address] [place] [address] Dr. Dimas Bustos AST [Catalytic activity/Vol] 17 U/L Normal 15-37 [facility] Comment on above: Performed By: #### C MP #### [facility] [address] [place] [address] Dr. Dimas Bustos Bilirubin [Mass/Vol] 0.3 mg/dL Normal 0.2-1.0 [facility] Comment on above: Performed By: #### C MP #### [facility] [address] [place] [address] Dr. Dimas Bustos Calcium [Mass/Vol] 9.5 mg/dL Normal 8.5-10.1 [facility] Comment on above: Performed By: #### C MP #### [facility] [address] [place] [address] Dr. Dimas Bustos Chloride [Moles/Vol] 103 mmol/L Normal 98-107 [facility] Comment on above: Performed By: #### C MP #### [facility] [address] [place] [address] Dr. Dimas Bustos CO2 [Moles/Vol] 28.2 mmol/L Normal 21.0-32.0 [facility] Comment on above: Performed By: #### C MP #### [facility] [address] [place] [address] Dr. Dimas Bustos Creatinine [Mass/Vol] 0.77 mg/dL Normal 0.70-1.30 [facility] Comment on above: Performed By: #### C MP #### [facility] [address] [place] [address] Dr. Dimas Bustos EGFR-AF QATARI >60 Normal >=60 [facility] Comment on above: Performed By: #### C MP #### [facility] [address] [address] [address] Dimas Bustos EGFR-NON AF QATARI >60 Normal >=60 [facility] Comment on above: Performed By: #### C MP #### [facility] [address] [address] [address] Dimas Bustos Globulin (S) [Mass/Vol] 4.6 g/dL Normal [facility] Comment on above: Performed By: #### C MP #### [facility] [address] [address] [address] Dimas Bustos Glucose [Mass/Vol] 119 mg/dL Critically high 74-106 [facility] Comment on above: Performed By: #### C MP #### [facility] [address] [address] [address] Dimas Bustos Potassium [Moles/Vol] 4.1 mmol/L Normal 3.5-5.1 [facility] Comment on above: Performed By: #### C MP #### [facility] [address] [address] [address] Dimas Bustos Protein [Mass/Vol] 7.3 g/dL Normal 6.4-8.2 [facility] Comment on above: Performed By: #### C MP #### [facility] [address] [address] [address] Dimas Bustos Sodium [Moles/Vol] 137 mmol/L Normal 136-145 [facility] Comment on above: Performed By: #### C MP #### [facility] [address] [address] [address] Dimas Bustos Urea nitrogen [Mass/Vol] 11.0 mg/dL Normal 7.0-18.0 [facility] Comment on above: Performed By: #### C MP #### [facility] [address] [address] [address] Dimas Bustos Urea nitrogen/Creatinine [Mass ratio] 14.3 mg/mg Normal [facility] Comment on above: Performed By: #### C MP #### [facility] [address] [place] [address] Dr. Dimas Bustos PROTIMEon 12-05-2021 INR Coag (PPP) [Relative time] 1.16 {INR} Normal [facility] Comment on above: Performed By: #### P TTHEP #### [facility] [address] [place] [address] Dr. Dimas Bustos INR GUIDELINES SEE BELOW Normal [facility] Comment on above: Result Comment: GEOVANNI RED INR: 2.0 - 3.0 CONDITIONS NOT LISTED BELOW 2.5 - 3.5 FOR PROSTHETIC HEART VALVE REPLACEMENT 2.5 - 3.5 RECURRENT THROMBOSIS Performed By: #### P TTHEP #### [facility] [address] [place] [address] Dr. Dimas Bustos PT Coag (PPP) [Time] 12.4 s Critically high 9.0-11.6 [facility] Comment on above: Performed By: #### P TTHEP #### [facility] [address] [place] [address] Dr. Dimas Bustos PTTon 12-05-2021 aPTT Coag (Bld) [Time] 50.7 s Critically high 22.3-36.2 [facility] Comment on above: Performed By: #### P TT #### [facility] [address] [place] [address] Dr. Dimas Bustos aPTT Coag (Bld) [Time] 51.3 s Critically high 22.3-36.2 [facility] Comment on above: Performed By: #### P TTHEP #### [facility] [address] [place] [address] Dr. Dimas Bustos aPTT Coag (Bld) [Time] 52.7 s Critically high 22.3-36.2 [facility] Comment on above: Performed By: #### C VDTBH #### [facility] [address] [place] [address] Dr. Dimas Bustos PTT HEPARIN MONITORon 2021 aPTT Coag (Bld) [Time] 42.3 s Normal 39.5-54.2 [facility] Comment on above: Performed By: #### P TTHEP #### [facility] [address] [place] [address] Dr. Dimas Bustos CBC AUTO DIFFon 12-04-2021 BASO # 0.0 103/ul Normal 0.0-0.1 [facility] Comment on above: Performed By: #### C BC #### [facility] [address] [place] [address] Dr. Dimas Bustos Basophils/100 WBC (Bld) 0.3 % Normal 0.2-2.0 [facility] Comment on above: Performed By: #### C BC #### [facility] [address] [place] [address] Dr. Dimas Bustos EO # 0.1 103/ul Normal 0.0-0.7 [facility] Comment on above: Performed By: #### C BC #### [facility] [address] [place] [address] Dr. Dimas Bustos Eosinophils/100 WBC (Bld) 1.2 % Normal 0.9-7.0 [facility] Comment on above: Performed By: #### C BC #### [facility] [address] [place] [address] Dr. Dimas Bustos Erythrocyte distribution width (RBC) [Ratio] 12.3 % Normal 11.0-15.0 [facility] Comment on above: Performed By: #### C BC #### [facility] [address] [place] [address] Dr. Dimas Bustos Hematocrit (Bld) [Volume fraction] 39.8 % Critically low 42.0-54.0 [facility] Comment on above: Performed By: #### C BC #### [facility] [address] [place] [address] Dr. Dimas Bustos Hemoglobin (Bld) [Mass/Vol] 13.5 g/dL Critically low 14.0-18.0 [facility] Comment on above: Performed By: #### C BC #### [facility] [address] [place] [address] Dr. Dimas Bustos IG # 0.07 10e3/ul Critically high 0.00-0.03 [facility] Comment on above: Performed By: #### C BC #### [facility] [address] [place] [address] Dr. Dimas Bustos IG % 0.6 % Critically high 0.0-0.5 [facility] Comment on above: Performed By: #### C BC #### [facility] [address] [place] [address] Dr. Dimas Bustos LYMPH # 1.8 103/ul Normal 1.2-3.8 [facility] Comment on above: Performed By: #### C BC #### [facility] [address] [place] [address] Dr. Dimas Bustos Lymphocytes/100 WBC (Bld) 16.6 % Critically low 20.5-60.0 [facility] Comment on above: Performed By: #### C BC #### [facility] [address] [place] [address] Dr. Dimas Bustos MANUAL DIFF REQ NO Normal [facility] Comment on above: Performed By: #### C BC #### [facility] [address] [place] [address] Dr. Dimas Bustos MCH (RBC) [Entitic mass] 31.5 pg Normal 25.9-34.0 [facility] Comment on above: Performed By: #### C BC #### [facility] [address] [place] [address] Dr. Dimas Bustos MCHC (RBC) [Mass/Vol] 33.9 g/dL Normal 29.9-35.2 [facility] Comment on above: Performed By: #### C BC #### [facility] [address] [place] [address] Dr. Dimas Bustos MCV (RBC) [Entitic vol] 92.8 fL Normal 80.0-94.0 [facility] Comment on above: Performed By: #### C BC #### [facility] [address] [place] [address] Dr. Dimas Bustos MONO # 0.9 103/ul Critically high 0.3-0.8 [facility] Comment on above: Performed By: #### C BC #### [facility] [address] [address] [address] Dimas Bustos Monocytes/100 WBC (Bld) 7.9 % Normal 1.7-12.0 [facility] Comment on above: Performed By: #### C BC #### [facility] [address] [address] [address] Dimas Bustos NEUT # 8.0 103/ul Critically high 1.4-6.5 [facility] Comment on above: Performed By: #### C BC #### [facility] [address] [address] [address] Dimas Bustos Neutrophils/100 WBC (Bld) 73.4 % Normal 43.0-75.0 [facility] Comment on above: Performed By: #### C BC #### [facility] [address] [place] [address] Dr. Dimas Bustos Platelet mean volume (Bld) [Entitic vol] 8.9 fL Critically low 9.5-13.5 [facility] Comment on above: Performed By: #### C BC #### [facility] [address] [place] [address] Dr. Dimas Bustos PLT 329 103/ul Normal 150-450 [facility] Comment on above: Performed By: #### C BC #### [facility] [address] [address] [address] Dimas Bustos RBC 4.29 106/ul Critically low 4.70-6.10 [facility] Comment on above: Performed By: #### C BC #### [facility] [address] [place] [address] Dr. Dimas Bustos WBC 10.9 103/ul Normal 4.0-11.0 [facility] Comment on above: Performed By: #### C BC #### [facility] [address] [place] [address] Dr. Dimas Bustos PROF 14(COMP METB)on 022 Albumin [Mass/Vol] 2.6 g/dL Critically low 3.4-5.0 e [facility] Comment on above: Performed By: #### C VDTBH #### [facility] [address] [address] [address] Dimas Bustos Albumin/Globulin [Mass ratio] 0.6 {ratio} Normal [facility] Comment on above: Performed By: #### C VDTBH #### [facility] [address] [address] [address] Dimas Bustos ALP [Catalytic activity/Vol] 97 U/L Normal 46-116 [facility] Comment on above: Performed By: #### C VDTBH #### [facility] [address] [address] [address] Dimas Bustos ALT [Catalytic activity/Vol] 33 U/L Normal 16-63 [facility] Comment on above: Performed By: #### C VDTBH #### [facility] [address] [address] [address] Dimas Bustos Anion gap [Moles/Vol] 12.8 mmol/L Normal [facility] Comment on above: Performed By: #### C VDTBH #### [facility] [address] [address] [address] Dimas Bustos AST [Catalytic activity/Vol] 13 U/L Critically low 15-37 [facility] Comment on above: Performed By: #### C VDTBH #### [facility] [address] [address] [address] Dimas Bustos Bilirubin [Mass/Vol] 0.2 mg/dL Normal 0.2-1.0 [facility] Comment on above: Performed By: #### C VDTBH #### [facility] [address] [address] [address] Dimas Bustos Calcium [Mass/Vol] 9.1 mg/dL Normal 8.5-10.1 [facility] Comment on above: Performed By: #### C VDTBH #### [facility] [address] [address] [address] Dimas Bustos Chloride [Moles/Vol] 102 mmol/L Normal 98-107 [facility] Comment on above: Performed By: #### C VDTBH #### [facility] [address] [address] [address] Dimas Bustos CO2 [Moles/Vol] 26.6 mmol/L Normal 21.0-32.0 [facility] Comment on above: Performed By: #### C VDTBH #### [facility] [address] [address] [address] Dimas Bustos Creatinine [Mass/Vol] 0.76 mg/dL Normal 0.70-1.30 [facility] Comment on above: Performed By: #### C VDTBH #### [facility] [address] [address] [address] Dimas Bustos EGFR-AF QATARI >60 Normal >=60 [facility] Comment on above: Performed By: #### C VDTBH #### [facility] [address] [address] [address] Dimas Bustos EGFR-NON AF QATARI >60 Normal >=60 [facility] Comment on above: Performed By: #### C VDTBH #### [facility] [address] [address] [address] Dimas Bustos Globulin (S) [Mass/Vol] 4.4 g/dL Normal [facility] Comment on above: Performed By: #### C VDTBH #### [facility] [address] [address] [address] Dimas Bustos Glucose [Mass/Vol] 117 mg/dL Critically high 74-106 [facility] Comment on above: Performed By: #### C VDTBH #### [facility] [address] [address] [address] Dimas Bustos Potassium [Moles/Vol] 4.4 mmol/L Normal 3.5-5.1 [facility] Comment on above: Performed By: #### C VDTBH #### [facility] [address] [address] [address] Dimas Bustos Protein [Mass/Vol] 7.0 g/dL Normal 6.4-8.2 [facility] Comment on above: Performed By: #### C VDTBH #### [facility] [address] [place] [address] Dr. Dimas Bustos Sodium [Moles/Vol] 137 mmol/L Normal 136-145 [facility] Comment on above: Performed By: #### C VDTBH #### [facility] [address] [place] [address] Dr. Dimas Bustos Urea nitrogen [Mass/Vol] 11.0 mg/dL Normal 7.0-18.0 [facility] Comment on above: Performed By: #### C VDTBH #### [facility] [address] [place] [address] Dr. Dimas Bustos Urea nitrogen/Creatinine [Mass ratio] 14.5 mg/mg Normal [facility] Comment on above: Performed By: #### C VDTBH #### [facility] [address] [place] [address] Dr. Dimas Bustos PROTIMEon 12-04-2021 INR Coag (PPP) [Relative time] 1.03 {INR} Normal [facility] Comment on above: Performed By: #### P TTHEP #### [facility] [address] [place] [address] Dr. Dimas Bustos INR GUIDELINES SEE BELOW Normal [facility] Comment on above: Result Comment: GEOVANNI RED INR: 2.0 - 3.0 CONDITIONS NOT LISTED BELOW 2.5 - 3.5 FOR PROSTHETIC HEART VALVE REPLACEMENT 2.5 - 3.5 RECURRENT THROMBOSIS Performed By: #### P TTHEP #### [facility] [address] [place] [address] Dr. Dimas Bustos PT Coag (PPP) [Time] 11.1 s Normal 9.0-11.6 [facility] Comment on above: Performed By: #### P TTHEP #### [facility] [address] [place] [address] Dr. Dimas Bustos PTT HEPARIN MONITORon 2021 aPTT Coag (Bld) [Time] 41.6 s Normal 39.5-54.2 [facility] Comment on above: Performed By: #### P TTHEP #### [facility] [address] [place] [address] Dr. Dimas Bustos aPTT Coag (Bld) [Time] 42.1 s Normal 39.5-54.2 [facility] Comment on above: Performed By: #### P TT #### [facility] [address] [place] [address] Dr. Dimas Bustos aPTT Coag (Bld) [Time] 42.4 s Normal 39.5-54.2 [facility] Comment on above: Performed By: #### P TTHEP #### [facility] [address] [place] [address] Dr. Dimas Bustos aPTT Coag (Bld) [Time] 40.7 s Normal 39.5-54.2 [facility] Comment on above: Performed By: #### C VDTBH #### [facility] [address] [place] [address] Dr. Dimas Bustos CBC AUTO DIFFon 12-03-2021 BASO # 0.0 103/ul Normal 0.0-0.1 [facility] Comment on above: Performed By: #### P TTHEP #### [facility] [address] [place] [address] Dr. Dimas Bustos Basophils/100 WBC (Bld) 0.3 % Normal 0.2-2.0 [facility] Comment on above: Performed By: #### P TTHEP #### [facility] [address] [place] [address] Dr. Dimas Bustos EO # 0.1 103/ul Normal 0.0-0.7 [facility] Comment on above: Performed By: #### P TTHEP #### [facility] [address] [place] [address] Dr. Dimas Bustos Eosinophils/100 WBC (Bld) 0.8 % Critically low 0.9-7.0 [facility] Comment on above: Performed By: #### P TTHEP #### [facility] [address] [place] [address] Dr. Dimas Bustos Erythrocyte distribution width (RBC) [Ratio] 12.3 % Normal 11.0-15.0 [facility] Comment on above: Performed By: #### P TTHEP #### [facility] [address] [place] [address] Dr. Dimas Bustos Hematocrit (Bld) [Volume fraction] 40.8 % Critically low 42.0-54.0 [facility] Comment on above: Performed By: #### P TTHEP #### [facility] [address] [place] [address] Dr. Dimas Bustos Hemoglobin (Bld) [Mass/Vol] 13.8 g/dL Critically low 14.0-18.0 [facility] Comment on above: Performed By: #### P TTHEP #### [facility] [address] [place] [address] Dr. Dimas Bustos IG # 0.06 10e3/ul Critically high 0.00-0.03 [facility] Comment on above: Performed By: #### P TTHEP #### [facility] [address] [place] [address] Dr. Dimas Bustos IG % 0.5 % Normal 0.0-0.5 [facility] Comment on above: Performed By: #### P TTHEP #### [facility] [address] [place] [address] Dr. Dimas Bustos LYMPH # 1.6 103/ul Normal 1.2-3.8 [facility] Comment on above: Performed By: #### P TTHEP #### [facility] [address] [place] [address] Dr. Dimas Bustos Lymphocytes/100 WBC (Bld) 13.7 % Critically low 20.5-60.0 [facility] Comment on above: Performed By: #### P TTHEP #### [facility] [address] [place] [address] Dr. Dimas Bustos MANUAL DIFF REQ NO Normal [facility] Comment on above: Performed By: #### P TTHEP #### [facility] [address] [place] [address] Dr. Dimas Bustos MCH (RBC) [Entitic mass] 31.4 pg Normal 25.9-34.0 [facility] Comment on above: Performed By: #### P TTHEP #### [facility] [address] [place] [address] Dr. Dimas Bustos MCHC (RBC) [Mass/Vol] 33.8 g/dL Normal 29.9-35.2 [facility] Comment on above: Performed By: #### P TTHEP #### [facility] [address] [place] [address] Dr. Dimas Bustos MCV (RBC) [Entitic vol] 92.7 fL Normal 80.0-94.0 [facility] Comment on above: Performed By: #### P TTHEP #### [facility] [address] [place] [address] Dr. Dimas Bustos MONO # 1.0 103/ul Critically high 0.3-0.8 [facility] Comment on above: Performed By: #### P TTHEP #### [facility] [address] [place] [address] Dr. Dimas Bustos Monocytes/100 WBC (Bld) 8.5 % Normal 1.7-12.0 [facility] Comment on above: Performed By: #### P TTHEP #### [facility] [address] [place] [address] Dr. Dimas Bustos NEUT # 8.8 103/ul Critically high 1.4-6.5 [facility] Comment on above: Performed By: #### P TTHEP #### [facility] [address] [place] [address] Dr. Dimas Bustos Neutrophils/100 WBC (Bld) 76.2 % Critically high 43.0-75.0 [facility] Comment on above: Performed By: #### P TTHEP #### [facility] [address] [place] [address] Dr. Dimas Bustos Platelet mean volume (Bld) [Entitic vol] 8.7 fL Critically low 9.5-13.5 [facility] Comment on above: Performed By: #### P TTHEP #### [facility] [address] [address] [address] Dimas Bustos PLT 309 103/ul Normal 150-450 [facility] Comment on above: Performed By: #### P TTHEP #### [facility] [address] [address] [address] Dimas Bustos RBC 4.40 106/ul Critically low 4.70-6.10 [facility] Comment on above: Performed By: #### P TTHEP #### [facility] [address] [address] [address] Dimas Bustos WBC 11.5 103/ul Critically high 4.0-11.0 [facility] Comment on above: Performed By: #### P TTHEP #### [facility] [address] [place] [address] Dr. Dimas Bustos PROF 14(COMP METB)on 022 Albumin [Mass/Vol] 2.7 g/dL Critically low 3.4-5.0 [facility] Comment on above: Performed By: #### P TTHEP #### [facility] [address] [address] [address] Dimas Bustos Albumin/Globulin [Mass ratio] 0.7 {ratio} [facility] Comment on above: Performed By: #### P TTHEP #### [facility] [address] [address] [address] Dimas Bustos ALP [Catalytic activity/Vol] 87 U/L Normal 46-116 [facility] Comment on above: Performed By: #### P TTHEP #### [facility] [address] [address] [address] Dimas Bustos ALT [Catalytic activity/Vol] 23 U/L Normal 16-63 [facility] Comment on above: Performed By: #### P TTHEP #### [facility] [address] [address] [address] Dimas Bustos Anion gap [Moles/Vol] 10.6 mmol/L Normal [facility] Comment on above: Performed By: #### P TTHEP #### [facility] [address] [address] [address] Dimas Bustos AST [Catalytic activity/Vol] 9 U/L Critically low 15-37 [facility] Comment on above: Performed By: #### P TTHEP #### [facility] [address] [address] [address] Dimas Bustos Bilirubin [Mass/Vol] 0.4 mg/dL Normal 0.2-1.0 [facility] Comment on above: Performed By: #### P TTHEP #### [facility] [address] [address] [address] Dimas Bustos Calcium [Mass/Vol] 8.7 mg/dL Normal 8.5-10.1 [facility] Comment on above: Performed By: #### P TTHEP #### [facility] [address] [place] [address] Dr. Dimas Bustos Chloride [Moles/Vol] 102 mmol/L Normal 98-107 [facility] Comment on above: Performed By: #### P TTHEP #### [facility] [address] [address] [address] Dimas Bustos CO2 [Moles/Vol] 26.5 mmol/L Normal 21.0-32.0 [facility] Comment on above: Performed By: #### P TTHEP #### [facility] [address] [place] [address] Dr. Dimas Bustos Creatinine [Mass/Vol] 0.71 mg/dL Normal 0.70-1.30 [facility] Comment on above: Performed By: #### P TTHEP #### [facility] [address] [address] [address] Dimas Bustos EGFR-AF QATARI >60 Normal >=60 [facility] Comment on above: Performed By: #### P TTHEP #### [facility] [address] [address] [address] Dimas Bustos EGFR-NON AF QATARI >60 Normal >=60 [facility] Comment on above: Performed By: #### P TTHEP #### [facility] [address] [address] [address] Dimas Bustos Globulin (S) [Mass/Vol] 4.1 g/dL Normal [facility] Comment on above: Performed By: #### P TTHEP #### [facility] [address] [address] [address] Dimas Bustos Glucose [Mass/Vol] 120 mg/dL Critically high 74-106 [facility] Comment on above: Performed By: #### P TTHEP #### [facility] [address] [place] [address] Dr. Dimas Bustos Potassium [Moles/Vol] 4.1 mmol/L Normal 3.5-5.1 [facility] Comment on above: Performed By: #### P TTHEP #### [facility] [address] [place] [address] Dr. Dimas Bustos Protein [Mass/Vol] 6.8 g/dL Normal 6.4-8.2 [facility] Comment on above: Performed By: #### P TTHEP #### [facility] [address] [place] [address] Dr. Dimas Bustos Sodium [Moles/Vol] 135 mmol/L Critically low 136-145 [facility] Comment on above: Performed By: #### P TTHEP #### [facility] [address] [place] [address] Dr. Dimas Bustos Urea nitrogen [Mass/Vol] 13.0 mg/dL Normal 7.0-18.0 [facility] Comment on above: Performed By: #### P TTHEP #### [facility] [address] [place] [address] Dr. Dimas Bustos Urea nitrogen/Creatinine [Mass ratio] 18.3 mg/mg Normal [facility] Comment on above: Performed By: #### P TTHEP #### [facility] [address] [place] [address] Dr. Dimas Bustos PROTIMEon 12-03-2021 INR Coag (PPP) [Relative time] 0.98 {INR} Normal [facility] Comment on above: Performed By: #### C VDTBH #### [facility] [address] [place] [address] Dr. Dimas Bustos INR GUIDELINES SEE BELOW Normal [facility] Comment on above: Result Comment: GEOVANNI RED INR: 2.0 - 3.0 CONDITIONS NOT LISTED BELOW 2.5 - 3.5 FOR PROSTHETIC HEART VALVE REPLACEMENT 2.5 - 3.5 RECURRENT THROMBOSIS Performed By: #### C VDTBH #### [facility] [address] [place] [address] Dr. Dimas Bustos PT Coag (PPP) [Time] 10.6 s Normal 9.0-11.6 [facility] Comment on above: Performed By: #### C VDTBH #### [facility] [address] [place] [address] Dr. Dimas Bustos PTT HEPARIN MONITORon 2021 aPTT Coag (Bld) [Time] 37.9 s Critically low 39.5-54.2 [facility] Comment on above: Performed By: #### P TTHEP #### [facility] [address] [place] [address] Dr. Dimas Bustos aPTT Coag (Bld) [Time] 35.2 s Critically low 39.5-54.2 [facility] Comment on above: Performed By: #### C MP #### [facility] [address] [place] [address] Dr. Dimas Bustos aPTT Coag (Bld) [Time] 39.3 s Critically low 39.5-54.2 [facility] Comment on above: Performed By: #### P TTHEP #### [facility] [address] [place] [address] Dr. Dimas Bustos aPTT Coag (Bld) [Time] 37.2 s Critically low 39.5-54.2 [facility] Comment on above: Performed By: #### P TTHEP #### [facility] [address] [place] [address] Dr. Dimas Bustos CARDIAC JOELLEN ADMITon 022 CK [Catalytic activity/Vol] 66 U/L Normal 39-308 [facility] Comment on above: Performed By: #### P TTHEP #### [facility] [address] [address] [address] Dimas Bustos CK.MB [Mass/Vol] 0.93 ng/mL Normal <=3.60 [facility] Comment on above: Performed By: #### P TTHEP #### [facility] [address] [address] [address] Dimas Bustos HSTROP 6.7 pg/mL Normal 4.0-76.1 [facility] Comment on above: Result Comment: CUT- OFF POINTS HAVE BEEN ESTABLISHED BASED ON THE FOURTH UNIVERSAL DEFINITIONS OF MYOCARDIAL INFARCTION. THE UPPER REFERENCE LIMIT (URL) OF TROPONIN, DEFINED THE 99TH PERCENTILE OF cTnI DISTRIBUTION IN A REFERENCE POPULATION, HAS BEEN CONFIRMED THE DECISION THRESHOLD FOR [place] DIAGNOSIS. Performed By: #### P TTHEP #### [facility] [address] [address] [address] Dimas Bustos KRIS 39 ng/mL Normal 16-96 [facility] Comment on above: Performed By: #### P TTHEP #### [facility] [address] [place] [address] Dr. Dimas Bustos CBC AUTO DIFFon 12-02-2021 BASO # 0.0 103/ul Normal 0.0-0.1 [facility] Comment on above: Performed By: #### P TT #### [facility] [address] [address] [address] Dimas Bustos Basophils/100 WBC (Bld) 0.3 % Normal 0.2-2.0 [facility] Comment on above: Performed By: #### P TT #### [facility] [address] [address] [address] Dimas Bustos EO # 0.1 103/ul Normal 0.0-0.7 [facility] Comment on above: Performed By: #### P TT #### [facility] [address] [place] [address] Dr. Dimas Bustos Eosinophils/100 WBC (Bld) 0.6 % Critically low 0.9-7.0 [facility] Comment on above: Performed By: #### P TT #### [facility] [address] [address] [address] Dimas Bustos Erythrocyte distribution width (RBC) [Ratio] 12.4 % Normal 11.0-15.0 [facility] Comment on above: Performed By: #### P TT #### [facility] [address] [place] [address] Dr. Dimas Bustos Hematocrit (Bld) [Volume fraction] 40.0 % Critically low 42.0-54.0 [facility] Comment on above: Performed By: #### P TT #### [facility] [address] [address] [address] Dimas Bustos Hemoglobin (Bld) [Mass/Vol] 13.7 g/dL Critically low 14.0-18.0 [facility] Comment on above: Performed By: #### P TT #### [facility] [address] [place] [address] Dr. Dimas Bustos IG # 0.07 10e3/ul Critically high 0.00-0.03 [facility] Comment on above: Performed By: #### P TT #### [facility] [address] [place] [address] Dr. Dimas Bustos IG % 0.5 % Normal 0.0-0.5 [facility] Comment on above: Performed By: #### P TT #### [facility] [address] [place] [address] Dr. Dimas Bustos LYMPH # 1.8 103/ul Normal 1.2-3.8 [facility] Comment on above: Performed By: #### P TT #### [facility] [address] [place] [address] Dr. Dimas Bustos Lymphocytes/100 WBC (Bld) 12.9 % Critically low 20.5-60.0 [facility] Comment on above: Performed By: #### P TT #### [facility] [address] [place] [address] Dr. Dimas Bustos MANUAL DIFF REQ NO Normal [facility] Comment on above: Performed By: #### P TT #### [facility] [address] [address] [address] Dimas Bustos MCH (RBC) [Entitic mass] 31.8 pg Normal 25.9-34.0 [facility] Comment on above: Performed By: #### P TT #### [facility] [address] [address] [address] Dimas Bustos MCHC (RBC) [Mass/Vol] 34.3 g/dL Normal 29.9-35.2 [facility] Comment on above: Performed By: #### P TT #### [facility] [address] [address] [address] Dimas Bustos MCV (RBC) [Entitic vol] 92.8 fL Normal 80.0-94.0 [facility] Comment on above: Performed By: #### P TT #### [facility] [address] [place] [address] Dr. Dimas Bustos MONO # 1.4 103/ul Critically high 0.3-0.8 [facility] Comment on above: Performed By: #### P TT #### [facility] [address] [place] [address] Dr. Dimas Bustos Monocytes/100 WBC (Bld) 10.0 % Normal 1.7-12.0 [facility] Comment on above: Performed By: #### P TT #### [facility] [address] [place] [address] Dr. Dimas Bustos NEUT # 10.3 103/ul Critically high 1.4-6.5 [facility] Comment on above: Performed By: #### P TT #### [facility] [address] [place] [address] Dr. Dimas Bustos Neutrophils/100 WBC (Bld) 75.7 % Critically high 43.0-75.0 [facility] Comment on above: Performed By: #### P TT #### [facility] [address] [place] [address] Dr. Dimas Bustos Platelet mean volume (Bld) [Entitic vol] 8.6 fL Critically low 9.5-13.5 [facility] Comment on above: Performed By: #### P TT #### [facility] [address] [place], [place] [address] Dr. Dimas Bustos PLT 280 103/ul Normal 150-450 [facility] Comment on above: Performed By: #### P TT #### [facility] [address] [place], [place] [address] Dr. Dimas Bustos RBC 4.31 106/ul Critically low 4.70-6.10 [facility] Comment on above: Performed By: #### P TT #### [facility] [address] [place], [place] [address] Dr. Dimas Bustos WBC 13.7 103/ul Critically high 4.0-11.0 [facility] Comment on above: Performed By: #### P TT #### [facility] [address] [place], [place] [address] Dr. Dimas Bustos ECHOCARDIO M/2D COMPLETEon 0 12-02-2021 ECHOCARDIO M/2D COMPLETE Patient: BUCK DISLA Exam Date: 12/02/2021 : 1975 Gender:M Ordering : SATURNINO WONG Admission #: [id number] Family : DR MAYNOR HOUGH . Order #: [id number] CLICK HERE TO VIEW EXAM ECHOCARDIOGRAM REPORT PROCEDURE: CARDIO PULMONARY ECHOCARDIO M/2D COMP INDICATIONS: Pulmonary embolism COMPARISON: None. DESCRIPTION: COMPLETE ECHOCARDIOGRAM Real-time transthoracic echocardiography with 2D, M-mode, spectral and color flow Doppler performed. QUALITY: Technical quality was good. LEFT VENTRICLE: Normal chamber size. Mild concentric left ventricular hypertrophy. Global left ventricular systolic function is normal. LV EF: Visual estimation of left ventricular ejection fraction is 60% DIASTOLIC: Normal diastolic function. ATRIAL SEPTUM: LEFT ATRIUM: Normal chamber size. RIGHT ATRIUM: Mild dilatation. RIGHT VENTRICLE: Normal chamber size. Normal right ventricular systolic function. TRICUSPID VALVE: Normal mobility and thickness. No stenosis with trivial regurgitation. No evidence of pulmonary hypertension. RVSP is 19 mmHg MITRAL VALVE: Normal mobility and thickness. No mitral valve prolapse. No evidence of mitral valve stenosis. There is no mitral annular calcification. No mitral regurgitation. AORTIC VALVE: Normal trileaflet appearance. No visible sclerosis. Normal leaflet mobility. No evidence of aortic valve stenosis. No aortic regurgitation. AORTIC ROOT: Normal diameter and appearance. PULMONIC VALVE: Normal thickness and mobility. No stenosis. No regurgitation. PERICARDIUM: No evidence of pericardial effusion. IVC: Collapses with inspirations. Normal size PLEURA: CONCLUSION: 1. Normal left ventricular systolic function. LVEF is 60%. 2. Normal right ventricular size and systolic function. 3. Mildly dilated right atrium. 4. No significant valvular dysfunction. 5. Normal right-sided pressures. 6. No pericardial effusion. Adult Echocardiography Procedure Report Left Ventricle LVEDD (3.7 - 5.6 cm): 4.96 cm LVESD (2.2 - 4.0 cm): 3.14 cm LVIVS thickness (0.6 - 1.2 cm): 1.19 cm LVPW thickness (0.5 - 1.0 cm): 0.88 cm e': 0.15 m/s E - e': 5.28 LVOT Max Gradient: 6.54 mm[Hg] Peak Velocity (LVOT): 1.28 m/s LVOT Diameter 2.17 cm Left Ventricular Ejection Fraction: 60% Left Atrium LA Volume Index (2D A2C): 77.53 ml, 77.53 ml Left Atrium Systolic Dimension: 4.40 cm Mitral Valve MV E to A Ratio: 0.85 Mitral Valve A-Wave Peak Velocity: 0.92 m/s Mitral Valve E-Wave Peak Velocity: 0.79 m/s Right Ventricle RV Internal Diastolic Dimension: 4.64 cm Aorta AO Root Diam: 3.15 cm Ascending Ao Diam: 3.11 cm Aortic Valve AoV Area (Peak Curtis): 3.38 cm2, 3.38 cm2 Peak Velocity(Antegrade Flow): 1.40 m/s Peak Gradient(Antegrade Flow): 7.87 mm[Hg] Mean Velocity(Antegrade Flow): 0.88 m/s Mean Gradient(Antegrade Flow): 3.71 mm[Hg] Velocity Time Integral: 25.19 cm Tricuspid Valve Peak Velocity (Regurgitant Flow): 1.31 m/s, 1.61 m/s, 2.06 m/s Pulmonic Valve Mean Gradient: 3.58 mm[Hg], 4.02 mm[Hg] Mean Velocity: 0.88 m/s, 0.94 m/s Peak Velocity: 1.31 m/s, 1.45 m/s Peak Gradient: 6.86 mm[Hg], 8.45 mm[Hg] Right Atrium Right Atrium Systolic Pressure: 103.30 ml, 103.30 ml Dictated by: See Davis M.D. on 12/03/2021 at 17:25 Approved by: See Davis M.D. on 12/03/2021 at 17:34 Normal [facility] MRI [place] WO CONon 12-03-19 MRI [place] WO CON EXAMINATION: MRI [place] WO CON HISTORY: Lumbar radiculopathy , left leg pain and weakness COMPARISON: No relevant comparison available. TECHNIQUE: A variety of imaging planes and parameters were utilized for visualization of suspected pathology. FINDINGS: For the purposes of numbering, sagittal T2 image # 8 extends from the T12 vertebral body superiorly to the S3 level inferiorly. PARASPINAL AREA: Normal with no visible mass. BONES: Normal alignment with no acute fracture or spondylolisthesis CORD/CAUDA EQUINA: Normal caliber, contour, and signal intensity. Cystic area posterior to S2, likely incidental DISC LEVELS: 12-L1: No significant disc/facet abnormality, spinal stenosis, or foraminal stenosis. L1-L2: Moderate disc space narrowing and disc desiccation. Mild diffuse disc/osteophyte complex. Moderate anterior spondylosis. No central canal or foraminal stenosis L2-L3: No significant disc/facet abnormality, spinal stenosis, or foraminal stenosis. L3-L4: No significant disc/facet abnormality, spinal stenosis, or foraminal stenosis. L4-L5: Disc desiccation. 2 mm anterolisthesis of L4 in relation L5. Bilateral facet osteoarthropathy. No significant disc bulge or herniation. Ligament flavum hypertrophy. Mild trefoil narrowing of the central canal axial image 19. No foraminal stenosis L5-S1: No significant disc/facet abnormality, spinal stenosis, or foraminal stenosis. IMPRESSION: Degenerative changes most significant at L1-L2 and L4-L5 as detailed above Electronically authenticated by: BUCK HOWARD Date: 2021-12-02 13:12 Normal [facility] PROF CHEM 8 (BAS METB)on Anion gap [Moles/Vol] 10.8 mmol/L Normal [facility] Comment on above: Performed By: #### C MP #### [facility] [address] [address] [address] Dimas Bustos Calcium [Mass/Vol] 8.6 mg/dL Normal 8.5-10.1 [facility] Comment on above: Performed By: #### C MP #### [facility] [address] [address] [address] Dimas Bustos Chloride [Moles/Vol] 102 mmol/L Normal 98-107 [facility] Comment on above: Performed By: #### C MP #### [facility] [address] [address] [address] Dimas Bustos CO2 [Moles/Vol] 25.1 mmol/L Normal 21.0-32.0 [facility] Comment on above: Performed By: #### C MP #### [facility] [address] [place] [address] Dr. Dimas Bustos Creatinine [Mass/Vol] 0.79 mg/dL Normal 0.70-1.30 [facility] Comment on above: Performed By: #### C MP #### [facility] [address] [place] [address] Dr. Dimas Bustos EGFR-AF QATARI >60 Normal >=60 [facility] Comment on above: Performed By: #### C MP #### [facility] [address] [place] [address] Dr. Dimas Bustos EGFR-NON AF QATARI >60 Normal >=60 [facility] Comment on above: Performed By: #### C MP #### [facility] [address] [address] [address] Dimas Bustos Glucose [Mass/Vol] 122 mg/dL Critically high 74-106 [facility] Comment on above: Performed By: #### C MP #### [facility] [address] [address] [address] Dimas Bustos Potassium [Moles/Vol] 3.9 mmol/L Normal 3.5-5.1 [facility] Comment on above: Performed By: #### C MP #### [facility] [address] [address] [address] Dimas Bustos Sodium [Moles/Vol] 134 mmol/L Critically low 136-145 [facility] Comment on above: Performed By: #### C MP #### [facility] [address] [place] [address] Dr. Dimas Bustos Urea nitrogen [Mass/Vol] 18.0 mg/dL Normal 7.0-18.0 [facility] Comment on above: Performed By: #### C MP #### [facility] [address] [place] [address] Dr. Dimas Bustos Urea nitrogen/Creatinine [Mass ratio] 22.8 mg/mg Normal [facility] Comment on above: Performed By: #### C MP #### [facility] [address] [place] [address] Dr. Dimas Bustos PTT HEPARIN MONITORon 2021 aPTT Coag (Bld) [Time] 36.5 s Critically low 39.5-54.2 [facility] Comment on above: Performed By: #### P TTHEP #### [facility] [address] [place] [address] Dr. Dimas Bustos aPTT Coag (Bld) [Time] 39.0 s Critically low 39.5-54.2 [facility] Comment on above: Performed By: #### P TTHEP #### [facility] [address] [place] [address] Dr. Dimas Bustos BNPon 12-01-2021 Natriuretic peptide B (Bld) [Mass/Vol] 153.0 pg/mL Normal <=450.0 [facility] Comment on above: Performed By: #### P TTHEP #### [facility] [address] [place] [address] Dr. Dimas Bustos CBC AUTO DIFFon 12-01-2021 BASO # 0.1 103/ul Normal 0.0-0.1 [facility] Comment on above: Performed By: #### P TT #### [facility] [address] [place] [address] Dr. Dimas Bustos Basophils/100 WBC (Bld) 0.4 % Normal 0.2-2.0 [facility] Comment on above: Performed By: #### P TT #### [facility] [address] [address] [address] Dimas Bustos EO # 0.1 103/ul Normal 0.0-0.7 [facility] Comment on above: Performed By: #### P TT #### [facility] [address] [address] [address] Dimas Bustos Eosinophils/100 WBC (Bld) 0.6 % Critically low 0.9-7.0 [facility] Comment on above: Performed By: #### P TT #### [facility] [address] [place] [address] Dr. Dimas Bustos Erythrocyte distribution width (RBC) [Ratio] 12.6 % Normal 11.0-15.0 [facility] Comment on above: Performed By: #### P TT #### [facility] [address] [place] [address] Dr. Dimas Bustos Hematocrit (Bld) [Volume fraction] 44.5 % Normal 42.0-54.0 [facility] Comment on above: Performed By: #### P TT #### [facility] [address] [place] [address] Dr. Dimas Bustos Hemoglobin (Bld) [Mass/Vol] 15.4 g/dL Normal 14.0-18.0 [facility] Comment on above: Performed By: #### P TT #### [facility] [address] [place] [address] Dr. Dimas Bustos IG # 0.09 10e3/ul Critically high 0.00-0.03 [facility] Comment on above: Performed By: #### P TT #### [facility] [address] [place] [address] Dr. Dimas Bustos IG % 0.6 % Critically high 0.0-0.5 [facility] Comment on above: Performed By: #### P TT #### [facility] [address] [place] [address] Dr. Dimas Bustos LYMPH # 1.9 103/ul Normal 1.2-3.8 [facility] Comment on above: Performed By: #### P TT #### [facility] [address] [place] [address] Dr. Dimas Bustos Lymphocytes/100 WBC (Bld) 13.1 % Critically low 20.5-60.0 [facility] Comment on above: Performed By: #### P TT #### [facility] [address] [place] [address] Dr. Dimas Bustos MANUAL DIFF REQ NO Normal [facility] Comment on above: Performed By: #### P TT #### [facility] [address] [place] [address] Dr. Dimas Bustos MCH (RBC) [Entitic mass] 31.8 pg Normal 25.9-34.0 [facility] Comment on above: Performed By: #### P TT #### [facility] [address] [place] [address] Dr. Dimas Bustos MCHC (RBC) [Mass/Vol] 34.6 g/dL Normal 29.9-35.2 [facility] Comment on above: Performed By: #### P TT #### [facility] [address] [place] [address] Dr. Dimas Bustos MCV (RBC) [Entitic vol] 91.9 fL Normal 80.0-94.0 [facility] Comment on above: Performed By: #### P TT #### [facility] [address] [place] [address] Dr. Dimas Bustos MONO # 1.3 103/ul Critically high 0.3-0.8 [facility] Comment on above: Performed By: #### P TT #### [facility] [address] [place] [address] Dr. Dimas Bustos Monocytes/100 WBC (Bld) 8.8 % Normal 1.7-12.0 [facility] Comment on above: Performed By: #### P TT #### [facility] [address] [place] [address] Dr. Dimas Bustos NEUT # 10.8 103/ul Critically high 1.4-6.5 [facility] Comment on above: Performed By: #### P TT #### [facility] [address] [address] [address] Dimas Bustos Neutrophils/100 WBC (Bld) 76.5 % Critically high 43.0-75.0 [facility] Comment on above: Performed By: #### P TT #### [facility] [address] [address] [address] Dimas Bustos Platelet mean volume (Bld) [Entitic vol] 8.7 fL Critically low 9.5-13.5 [facility] Comment on above: Performed By: #### P TT #### [facility] [address] [address] [address] Dimas Bustos PLT 313 103/ul Normal 150-450 [facility] Comment on above: Performed By: #### P TT #### [facility] [address] [place] [address] Dr. Dimas Bustos RBC 4.84 106/ul Normal 4.70-6.10 [facility] Comment on above: Performed By: #### P TT #### [facility] [address] [place] [address] Dr. Dimas Bustos WBC 14.2 103/ul Critically high 4.0-11.0 [facility] Comment on above: Performed By: #### P TT #### [facility] [address] [place] [address] Dr. Dimas Bustos CTA CHEST WO W CONon 12-01- 022 CTA CHEST WO W CON EXAMINATION: CTA JANY ST WO W CON HISTORY: SHORTNESS OF BREATH COMPARISON: No relevant comparison available. TECHNIQUE: Axial, Coronal, and Sagittal images were created without and with IV contrast. Dose reduction techniques were achieved by using automated exposure control and/or adjustment of mA and/or kV according to patient size and/or use of iterative reconstruction technique. FINDINGS: LUNGS: Moderate mosaic groundglass attenuation scattered throughout both lungs. Scattered subcentimeter pulmonary nodules largest measuring 5.9 mm right middle lobe, axial image 61 PLEURA: No mass, effusion, or pneumothorax. VASCULATURE: 5 mm filling defect is demonstrated in the right lower lobe pulmonary artery axial image 56 coronal image 60. HANK: No mass or adenopathy. MEDIASTINUM: No mass or adenopathy. CARDIAC: No enlargement, pericardial thickening, or significant calcification. No evidence of right ventricular strain AORTA: No aneurysm or dissection. CHEST WALL: No mass or axillary adenopathy. BONES: No bone lesion or fracture. LIMITED ABDOMEN: No suspicious findings. Limited images of the upper abdomen. OTHER: Findings discussed with the ordering physician the paKira, by telephone at 9:40 PM IMPRESSION: 5 mm focus of pulmonary thromboembolic disease right lower lobe pulmonary artery Moderate mosaic groundglass attenuation, consider a viral or atypical pnuemonia or pulmonary edema Scattered pulmonary nodules measuring up to 5.9 mm, nonspecific Electronically authenticated by: BUCK HOWARD Date: 2021-12-01 21:51 Normal [facility] Covid-19 PCR (CVDTBH)on 11-12 SARS-CoV-2 (COVID-19) RNA JURGEN+probe Ql (Unsp spec) Not detected Normal NOT DETECTED [facility] Comment on above: Result Comment: When diagnostic testing is negative, the possibility of a false negative should be considered in the context of a patient's recent exposures and the presence of clinical signs and symptoms consistent with SARS-CoV-2. This test is not yet approved or cleared by the [place] FDA. When there are no FDA-approved or cleared tests available, and other criteria are met, FDA can make tests available under an emergency access mechanism called an Emergency Use Authorization (EUA). The EUA for this test is supported by the [place] Inspector of Health and Human Service's declaration that circumstances exist to justify the emergency use of in vitro diagnostics for the detection and/or diagnosis of the virus that causes COVID-19. This EUA will remain in effect for the duration of the COVID-19 declaration justifying emergency of IVDs, unless it is terminated or revoked by the FDA (after which the test may no longer be used). Performed By: #### C VDTBH #### [facility] [address] [place] [address] Dr. Dimas Bustos PROF 14(COMP METB)on 022 Albumin [Mass/Vol] 3.4 g/dL Normal 3.4-5.0 [facility] Comment on above: Performed By: #### C MP #### [facility] [address] [place] [address] [id number] [address] Dimas Bustos Albumin/Globulin [Mass ratio] 0.8 {ratio} Normal [facility] Comment on above: Performed By: #### C MP #### [facility] [address] [place] [address] Dr. Dimas Bustos ALP [Catalytic activity/Vol] 121 U/L Critically high 46-116 [facility] Comment on above: Performed By: #### C MP #### [facility] [address] [place] [address] Dr. Dimas Bustos ALT [Catalytic activity/Vol] 26 U/L Normal 16-63 [facility] Comment on above: Performed By: #### C MP #### [facility] [address] [place] [address] Dr. Dimas Bustos Anion gap [Moles/Vol] 14.9 mmol/L Normal [facility] Comment on above: Performed By: #### C MP #### [facility] [address] [place] [address] Dr. Dimas Bustos AST [Catalytic activity/Vol] 13 U/L Critically low 15-37 [facility] Comment on above: Performed By: #### C MP #### [facility] [address] [place] [address] Dr. Dimas Bustos Bilirubin [Mass/Vol] 1.2 mg/dL Critically high 0.2-1.0 [facility] Comment on above: Performed By: #### C MP #### [facility] [address] [place] [address] Dr. Dimas Bustos Calcium [Mass/Vol] 9.2 mg/dL Normal 8.5-10.1 [facility] Comment on above: Performed By: #### C MP #### [facility] [address] [place] [address] Dr. Dimas Bustos Chloride [Moles/Vol] 100 mmol/L Normal 98-107 [facility] Comment on above: Performed By: #### C MP #### [facility] [address] [place] [address] Dr. Dimas Bustos CO2 [Moles/Vol] 23.0 mmol/L Normal 21.0-32.0 [facility] Comment on above: Performed By: #### C MP #### [facility] [address] [address] [address] Dimas Bustos Creatinine [Mass/Vol] 0.96 mg/dL Normal 0.70-1.30 [facility] Comment on above: Performed By: #### C MP #### [facility] [address] [address] [address] Dimas Bustos EGFR-AF QATARI >60 Normal >=60 [facility] Comment on above: Performed By: #### C MP #### [facility] [address] [address] [address] Dimas Bustos EGFR-NON AF QATARI >60 Normal >=60 [facility] Comment on above: Performed By: #### C MP #### [facility] [address] [place] [address] Dr. Dimas Bustos Globulin (S) [Mass/Vol] 4.2 g/dL Normal [facility] Comment on above: Performed By: #### C MP #### [facility] [address] [place] [address] Dr. Dimas Bustos Glucose [Mass/Vol] 127 mg/dL Critically high 74-106 [facility] Comment on above: Performed By: #### C MP #### [facility] [address] [place] [address] Dr. Dimas Bustos Potassium [Moles/Vol] 3.9 mmol/L Normal 3.5-5.1 [facility] Comment on above: Performed By: #### C MP #### [facility] [address] [address] [address] Dimas Bustos Protein [Mass/Vol] 7.6 g/dL Normal 6.4-8.2 [facility] Comment on above: Performed By: #### C MP #### [facility] [address] [address] [address] Dimas Bustos Sodium [Moles/Vol] 134 mmol/L Critically low 136-145 Th [facility] Comment on above: Performed By: #### C MP #### [facility] [address] [place] [address] Dr. Dimas Bustos Urea nitrogen [Mass/Vol] 13.0 mg/dL Normal 7.0-18.0 [facility] Comment on above: Performed By: #### C MP #### [facility] [address] [place] [address] Dr. Dimas Bustos Urea nitrogen/Creatinine [Mass ratio] 13.5 mg/mg Normal [facility] Comment on above: Performed By: #### C MP #### [facility] [address] [place] [address] Dr. Dimas Bustos PROTIMEon 12-01-2021 INR Coag (PPP) [Relative time] 0.98 {INR} Normal [facility] Comment on above: Performed By: #### P TT #### [facility] [address] [place] [address] Dr. Dimas Bustos INR GUIDELINES SEE BELOW Normal [facility] Comment on above: Result Comment: GEOVANNI RED INR: 2.0 - 3.0 CONDITIONS NOT LISTED BELOW 2.5 - 3.5 FOR PROSTHETIC HEART VALVE REPLACEMENT 2.5 - 3.5 RECURRENT THROMBOSIS Performed By: #### P TT #### [facility] [address] [place] [address] Dr. Dimas Bustos PT Coag (PPP) [Time] 10.6 s Normal 9.0-11.6 [facility] Comment on above: Performed By: #### P TT #### [facility] [address] [place] [address] Dr. Dimas Bustos PTTon 12-01-2021 aPTT Coag (Bld) [Time] 33.3 s Normal 22.3-36.2 [facility] Comment on above: Performed By: #### P TT #### [facility] [address] [place] [address] Dr. Dimas Bustos US JUAN DOP LEG LTon 11-24-19 US JUAN DOP LEG LT EXAMINATION: US JUAN DOP LEG LT HISTORY: Edema of left lower leg ; follow-up left leg thrombus COMPARISON: Ultrasound venous Doppler leg left 11/20/2021 FINDINGS: REGION: Left lower extremity THROMBI: Occlusive and nonocclusive thrombus extending from common iliac vein through popliteal vein. Thrombus also seen within the deep femoral vein and great saphenous vein. COMPRESSIBILITY: Compressible noncompressible segments. FLOW: Multiple areas with little to no flow. OTHER: None. IMPRESSION: 1. Extensive thrombus throughout the left lower extremity from common femoral vein through popliteal vein. Findings are stable to very minimally progressed. No improvement. Electronically authenticated by: VINAYAK ROSS Date: 2021-11-23 13:00 Normal [facility] INSULINon 11-22-2021 Insulin 16.3 uIU/mL Normal 2.6-24.9 [facility] Comment on above: Performed By: #### P TT #### [facility] [address] [address] [address] Dimas Bustos T4, T3U, FTI LABCORPon 11-21 Free Thyroxine Index 2.7 Normal 1.2-4.9 [facility] Comment on above: Performed By: #### P TT #### [facility] [address] [address] [address] Dimas Bustos T3 Uptake 26 % Normal 24-39 [facility] Comment on above: Performed By: #### P TT #### [facility] [address] [address] [address] Dimas Bustos T4 [Mass/Vol] 10.5 ug/dL Normal 4.5-12.0 [facility] Comment on above: Performed By: #### P TT #### [facility] [address] [address] [address] Dimas Bustos TESTOSTERONE, TOTALon 2021 Testosterone [Mass/Vol] 319 ng/dL Normal 264-916 [facility] Comment on above: Result Comment: Adul t male reference interval is based on a population of healthy nonobese males (BMI <30) between 19 and 39 years old. james Self.al. JCEM 2017,102;[id number]. PMID: [id number]. Performed By: #### P TTHEP #### [facility] [address] [address] [address] Dimas Bustos CBC AUTO DIFFon 11-20-2021 BASO # 0.1 103/ul Normal 0.0-0.1 [facility] Comment on above: Performed By: #### C MP #### [facility] [address] [address] [address] Dimas Bustos Basophils/100 WBC (Bld) 0.6 % Normal 0.2-2.0 [facility] Comment on above: Performed By: #### C MP #### [facility] [address] [address] [address] Dimas Bustos EO # 0.1 103/ul Normal 0.0-0.7 [facility] Comment on above: Performed By: #### C MP #### [facility] [address] [address] [address] Dimas Bustos Eosinophils/100 WBC (Bld) 0.8 % Critically low 0.9-7.0 [facility] Comment on above: Performed By: #### C MP #### [facility] [address] [place] [address] Dr. Dimas Bustos Erythrocyte distribution width (RBC) [Ratio] 12.9 % Normal 11.0-15.0 [facility] Comment on above: Performed By: #### C MP #### [facility] [address] [place] [address] Dr. Dimas Bustos Hematocrit (Bld) [Volume fraction] 47.7 % Normal 42.0-54.0 [facility] Comment on above: Performed By: #### C MP #### [facility] [address] [place] [address] Dr. Dimas Bustos Hemoglobin (Bld) [Mass/Vol] 16.1 g/dL Normal 14.0-18.0 [facility] Comment on above: Performed By: #### C MP #### [facility] [address] [place] [address] Dr. Dimas Bustos IG # 0.32 10e3/ul Critically high 0.00-0.03 [facility] Comment on above: Performed By: #### C MP #### [facility] [address] [place] [address] Dr. Dimas uBstos IG % 2.0 % Critically high 0.0-0.5 [facility] Comment on above: Performed By: #### C MP #### [facility] [address] [place] [address] Dr. Dimas Bustos LYMPH # 2.8 103/ul Normal 1.2-3.8 [facility] Comment on above: Performed By: #### C MP #### [facility] [address] [place] [address] Dr. Dimas Bustos Lymphocytes/100 WBC (Bld) 17.6 % Critically low 20.5-60.0 [facility] Comment on above: Performed By: #### C MP #### [facility] [address] [place] [address] Dr. Dimas Bustos MANUAL DIFF REQ NO Normal [facility] Comment on above: Performed By: #### C MP #### [facility] [address] [place] [address] Dr. Dimas Bustos MCH (RBC) [Entitic mass] 31.7 pg Normal 25.9-34.0 [facility] Comment on above: Performed By: #### C MP #### [facility] [address] [place] [address] Dr. Dimas Bustos MCHC (RBC) [Mass/Vol] 33.8 g/dL Normal 29.9-35.2 [facility] Comment on above: Performed By: #### C MP #### [facility] [address] [place] [address] Dr. Dimas Bustos MCV (RBC) [Entitic vol] 93.9 fL Normal 80.0-94.0 [facility] Comment on above: Performed By: #### C MP #### [facility] [address] [place] [address] Dr. Dimas Bustos MONO # 1.2 103/ul Critically high 0.3-0.8 [facility] Comment on above: Performed By: #### C MP #### [facility] [address] [place] [address] Dr. Dimas Bustos Monocytes/100 WBC (Bld) 7.7 % Normal 1.7-12.0 [facility] Comment on above: Performed By: #### C MP #### [facility] [address] [place] [address] Dr. Dimas Bustos NEUT # 11.3 103/ul Critically high 1.4-6.5 [facility] Comment on above: Performed By: #### C MP #### [facility] [address] [place] [address] Dr. Dimas Bustos Neutrophils/100 WBC (Bld) 71.3 % Normal 43.0-75.0 [facility] Comment on above: Performed By: #### C MP #### [facility] [address] [place] [address] Dr. Dimas Bustos Platelet mean volume (Bld) [Entitic vol] 8.9 fL Critically low 9.5-13.5 [facility] Comment on above: Performed By: #### C MP #### [facility] [address] [place] [address] Dr. Dimas Bustos PLT 331 103/ul Normal 150-450 [facility] Comment on above: Performed By: #### C MP #### [facility] [address] [place] [address] Dr. Dimas Bustos RBC 5.08 106/ul Normal 4.70-6.10 [facility] Comment on above: Performed By: #### C MP #### [facility] [address] [place] [address] Dr. Dimas Bustos WBC 15.8 103/ul Critically high 4.0-11.0 [facility] Comment on above: Performed By: #### C MP #### [facility] [address] [place] [address] Dr. Dimas Bustos CULTURE URINEon 11-20-2021 CULTURE URINE Culture Observations : NO GROWTH. Normal [facility] Comment on above: Performed By: #### C VDTBH #### [facility] [address] [place] [address] Dr. Dimas Bustos GLYCOHEMOGLOBIN A1Con 2021 ADA RECOMMENDATION SEE BELOW Normal [facility] Comment on above: Result Comment: ADA RECOMMENDED LIMIT 4.0 - 6.0 ADA THERAPEUTIC TARGET < 7.0 ACTION SUGGESTED > 7.0 Performed By: #### C VDTBH #### [facility] [address] [place] [address] Dr. Dimas Bustos Glucose [Mass/Vol] 117 mg/dL Normal [facility] Comment on above: Performed By: #### C VDTBH #### [facility] [address] [address] [address] Dimas Bustos HbA1c (Bld) [Mass fraction] 5.7 % Normal 4.5-6.2 [facility] Comment on above: Performed By: #### C VDTBH #### [facility] [address] [place] [address] Dr. Dimas Bustos LIPID PROFILEon 11-20-2021 CHOL-HDL RATIO NORM SEE BELOW Normal [facility] Comment on above: Result Comment: 3.3 - 4.4 LOW RISK 4.4 - 7.1 AVERAGE RISK 7.1 - 11.0 MODERATE RISK >11.0 HIGH RISK Performed By: #### P TTHEP #### [facility] [address] [place] [address] Dr. Dimas Bustos Cholesterol [Mass/Vol] 232 mg/dL Critically high <=200 [facility] Comment on above: Performed By: #### P TTHEP #### [facility] [address] [place] [address] Dr. Dimas Bustos Cholesterol in HDL [Mass/Vol] 73 mg/dL Critically high 40-60 [facility] Comment on above: Performed By: #### P TTHEP #### [facility] [address] [address] [address] Dimas Bustos Cholesterol in LDL [Mass/Vol] 138.8 mg/dL Normal [facility] Comment on above: Performed By: #### P TTHEP #### [facility] [address] [place] [address] Dr. Dimas Bustos Cholesterol.total/Ch olesterol in HDL [Mass ratio] 3.2 {ratio} Normal [facility] Comment on above: Performed By: #### P TTHEP #### [facility] [address] [address] [address] Dimas Bustos HDL NORMAL > or = 60 mg/dl - LO W CARDIOVASCULAR RISK <40 mg/dl - HIGH CARDIOVASCULAR RISK Normal [facility] Comment on above: Performed By: #### P TTHEP #### [facility] [address] [address] [address] Dimas Bustos LDL CALC NORMAL SEE BELOW Normal [facility] Comment on above: Result Comment: <100 mg/dl OPTIMAL 100 - 129 mg/dl NEAR OR ABOVE OPTIMAL 130 - 159 mg/dl BORDERLINE HIGH 160 - 189 mg/dl HIGH >190 mg/dl VERY HIGH Performed By: #### P TTHEP #### [facility] [address] [place] [address] Dr. Dimas Bustos Triglyceride [Mass/Vol] 101 mg/dL Normal <=150 [facility] Comment on above: Performed By: #### P TTHEP #### [facility] [address] [address] [address] Dimas Bustos VLDL CALC 20.2 mg/dL Normal [facility] Comment on above: Performed By: #### P TTHEP #### [facility] [address] [place] [address] Dr. Dimas Bustos PROF 14(COMP METB)on 022 Albumin [Mass/Vol] 3.7 g/dL Normal 3.4-5.0 [facility] Comment on above: Performed By: #### C VDTBH #### [facility] [address] [place] [address] Dr. Dimas Bustos Albumin/Globulin [Mass ratio] 0.9 {ratio} Normal [facility] Comment on above: Performed By: #### C VDTBH #### [facility] [address] [place] [address] Dr. Dimas Bustos ALP [Catalytic activity/Vol] 112 U/L Normal 46-116 [facility] Comment on above: Performed By: #### C VDTBH #### [facility] [address] [address] [address] Dimas Bustos ALT [Catalytic activity/Vol] 38 U/L Normal 16-63 [facility] Comment on above: Performed By: #### C VDTBH #### [facility] [address] [address] [address] Dimas Bustos Anion gap [Moles/Vol] 13.6 mmol/L Normal [facility] Comment on above: Performed By: #### C VDTBH #### [facility] [address] [address] [address] Dimas Bustos AST [Catalytic activity/Vol] 14 U/L Critically low 15-37 [facility] Comment on above: Performed By: #### C VDTBH #### [facility] [address] [address] [address] Dimas Bustos Bilirubin [Mass/Vol] 0.5 mg/dL Normal 0.2-1.0 [facility] Comment on above: Performed By: #### C VDTBH #### [facility] [address] [address] [address] Dimas Bustos Calcium [Mass/Vol] 9.2 mg/dL Normal 8.5-10.1 [facility] Comment on above: Performed By: #### C VDTBH #### [facility] [address] [address] [address] Dimas Bustos Chloride [Moles/Vol] 101 mmol/L Normal 98-107 [facility] Comment on above: Performed By: #### C VDTBH #### [facility] [address] [address] [address] Dimas Bustos CO2 [Moles/Vol] 29.9 mmol/L Normal 21.0-32.0 [facility] Comment on above: Performed By: #### C VDTBH #### [facility] [address] [address] [address] Dimas Bustos Creatinine [Mass/Vol] 0.88 mg/dL Normal 0.70-1.30 [facility] Comment on above: Performed By: #### C VDTBH #### [facility] [address] [address] [address] Dimas Bustos EGFR-AF QATARI >60 Normal >=60 [facility] Comment on above: Performed By: #### C VDTBH #### [facility] [address] [address] [address] Dimas Bustos EGFR-NON AF QATARI >60 Normal >=60 [facility] Comment on above: Performed By: #### C VDTBH #### [facility] [address] [address] [address] Dimas Bustos Globulin (S) [Mass/Vol] 3.9 g/dL Normal [facility] Comment on above: Performed By: #### C VDTBH #### [facility] [address] [place] [address] Dr. Dimas Bustos Glucose [Mass/Vol] 115 mg/dL Critically high 74-106 [facility] Comment on above: Performed By: #### C VDTBH #### [facility] [address] [address] [address] Dimas Bustos Potassium [Moles/Vol] 4.5 mmol/L Normal 3.5-5.1 [facility] Comment on above: Performed By: #### C VDTBH #### [facility] [address] [place] [address] Dr. Dmias Bustos Protein [Mass/Vol] 7.6 g/dL Normal 6.4-8.2 [facility] Comment on above: Performed By: #### C VDTBH #### [facility] [address] [address] [address] Dimas Bustos Sodium [Moles/Vol] 140 mmol/L Normal 136-145 [facility] Comment on above: Performed By: #### C VDTBH #### [facility] [address] [address] [address] Dimas Bustos Urea nitrogen [Mass/Vol] 17.0 mg/dL Normal 7.0-18.0 [facility] Comment on above: Performed By: #### C VDTBH #### [facility] [address] [place] [address] Dr. Dimas Bustos Urea nitrogen/Creatinine [Mass ratio] 19.3 mg/mg Normal [facility] Comment on above: Performed By: #### C VDTBH #### [facility] [address] [place] [address] Dr. Dimas Bustos TSHon 11-20-2021 TSH 3.616 uIU/mL Normal 0.358-3.740 [facility] Comment on above: Performed By: #### P TTHEP #### [facility] [address] [place] [address] Dr. Dimas Bustos UA RANDOM W/MICROSCOPICon BACTERIA NONE SEEN Normal NONE SEEN [facility] Comment on above: Performed By: #### P TT #### [facility] [address] [place] [address] Dr. Dimas Bustos Bilirubin Ql (U) Negative Normal NEGATIVE [facility] Comment on above: Performed By: #### P TT #### [facility] [address] [place] [address] Dr. Dimas Bustos CAST NONE SEEN Normal NONE SEEN [facility] Comment on above: Performed By: #### P TT #### [facility] [address] [place] [address] Dr. Dimas Bustos Clarity (U) CLEAR Normal CLEAR [facility] Comment on above: Performed By: #### P TT #### [facility] [address] [place] [address] Dr. Dimas Bustos Color (U) YELLOW Normal YELLOW [facility] Comment on above: Performed By: #### P TT #### [facility] [address] [place] [address] Dr. Dimas Bustos Crystals LM Nom (Urine sed) NONE SEEN Normal NONE SEEN [facility] Comment on above: Performed By: #### P TT #### [facility] [address] [place] [address] Dr. Dimas Bustos Epithelial cells LM Ql (Urine sed) RARE Normal NONE SEEN /RARE [facility] Comment on above: Performed By: #### P TT #### [facility] [address] [address] [address] Dimas Bustos Glucose Ql (U) Negative Normal NEGATIVE [facility] Comment on above: Performed By: #### P TT #### [facility] [address] [place] [address] Dr. Dimas Bustos Hemoglobin Ql (U) Negative Normal NEGATIVE [facility] Comment on above: Performed By: #### P TT #### [facility] [address] [address] [address] Dimas Bustos Ketones Ql (U) Negative Normal NEGATIVE [facility] Comment on above: Performed By: #### P TT #### [facility] [address] [place] [address] Dr. Dimas Bustos LEUKOCYTES Negative Normal NEGATIVE [facility] Comment on above: Performed By: #### P TT #### [facility] [address] [place] [address] Dr. Dimas Bustos MUCOUS NONE SEEN Normal NONE SEEN [facility] Comment on above: Performed By: #### P TT #### [facility] [address] [place] [address] Dr. Dimas Bustos Nitrite Ql (U) Negative Normal NEGATIVE [facility] Comment on above: Performed By: #### P TT #### [facility] [address] [place] [address] Dr. Dimas Bustos pH (U) 7.0 [pH] Normal 5-9 [facility] Comment on above: Performed By: #### P TT #### [facility] [address] [place] [address] Dr. Dimas Bustos RBC NONE SEEN Abnormal 0-2 [facility] Comment on above: Performed By: #### P TT #### [facility] [address] [place] [address] Dr. Dimas Bustos SPEC GRAVITY 1.015 Normal 1.005-<=1.025 [facility] Comment on above: Performed By: #### P TT #### [facility] [address] [place] [address] Dr. Dimas Bustos UA PROTEIN Negative Normal NEGATIVE/ TRACE [facility] Comment on above: Performed By: #### P TT #### [facility] [address] [address] [address] Dimas Bustos Urobilinogen Qn (U) 0.2 {Adeline'U}/dL Normal 0.2 - 1. 0 [facility] Comment on above: Performed By: #### P TT #### [facility] [address] [address] [address] Dimas Bustos WBC NONE SEEN Normal NONE SEEN [facility] Comment on above: Performed By: #### P TT #### [facility] [address] [address] [address] Dimas Bustos US JUAN DOP LEG LTon 11-21-19 US JUAN DOP LEG LT EXAMINATION: US JUAN DOP LEG LT HISTORY: Deep venous thrombosis of lower extremity (disorder) ; follow-up thrombus with patient on blood thinner COMPARISON: No relevant comparison available. FINDINGS: REGION: Left lower extremity THROMBI: Nonocclusive thrombus within common femoral vein, deep femoral vein, and femoral vein. Thrombus also noted within proximal great saphenous vein. COMPRESSIBILITY: Noncompressible segments. FLOW: Normal waveform and antegrade flow between 5 and 20 cm/s. OTHER: No thrombus within popliteal vein and calf veins. IMPRESSION: 1. Nonocclusive deep vein thrombus within common femoral vein through distal femoral vein, deep femoral vein, and great saphenous vein. 2. Patient is reportedly on blood thinner with known thrombus. No recent studies for comparison. Electronically authenticated by: VINAYAK ROSS Date: 2021-11-20 11:15 Normal [facility] Encounters Encounter Date Encounter Type Care Provider Facility Start: 06-14-2023 End: 06-14-2023 ambulatory Maynor Hough Facility:[facility] Start: 07-19-2022 End: 07-20-2022 ambulatory Jessica Borjas PA-C Facility:[facility] Start: 03-15-[address] CRYSTAL COATES Facility :[facility] Start: 12-31-2021 End: 01-01-[address] MAYNOR HOUGH Facility:[facility] Start: 12-02-2021 End: 12-07-2021 Evaluation and management of inpatient DR MAYNOR HOUGH Facility:[facility] Start: 11-26-2021 Encounter for genera l adult medical examination without abnormal findings DR MAYNOR HOUGH [facility] Start: 11-24-2021 Telephone encounter No Pcp Ref erring Physician Comment on above: External Referrals/r esources Start: 11-23-2021 End: 11-24-[address] MAYNOR HOUGH Facility:[facility] Start: 11-20-2021 End: 11-21-[address] MAYNOR HOUGH Facility:[facility] Start: 11-20-2021 End: 11-21-2021 Encounter for general adult medical examination without abnormal findings DR MAYNOR HOUGH Facility:[facility] Procedures Date Procedure Procedure Detail Performing Clinician Start: 11-20-[address] CRYSTAL COATES Comment on above: Performed By: #### P TTHEP #### [facility] [address] [place] [address] Dr. Dimas Bustos Payers Date Payer Category Payer Self-pay 1975 Unknown [id number] [id number] [id number] 1975 Unknown [id number] 2.16.84 [id number] 1975 Unknown [id number] 2.16.84 [id number] 1974 Unknown [id number] 2.16.84 [id number] 1974 Unknown [id number] 2.16.84 [id number] 1974 Unknown [id number] 2.16.8 [id number] 1959 Unknown [id number] Unknown [id number] 2.16.8 [id number] Social History Date Type Detail [facility] Start: 1975 Sex Assigned At Not on file [facility] Note 11-24-2021 Telephone Encounter - Natalie Glass - 11/24/2021 8:44 AM EDT Note Date & Type Note Facility 11-24-2021 Miscellaneous Notes Summary: VASCULAR Patient: Buck Disla Date of : 1975 Patient phone number: [phone] Referring Provider for the encounter: Maynor Hough Requesting Provider: Reason for requesting visit (RFV/signs and symptoms/diagnosis): deep venous thrombophlebitis leg Person calling: Via RP Fax Return call to: self Medical Records/Insurance Card scanned into [employer]: Comments: documented in this encounter [facility] Summary Purpose Family History No Family History Records FoundNo Family History Records FoundNo Family History Records Found Advance Directives No Advanced Directives Records FoundNo Advanced Directives Records FoundNo Advanced Directives Records Found Additional Source Comments Source Comments (unrecognize d section and content) In the event this informatio n is protected by the Federal Confidentiality of Alcohol and Drug Abuse Patient Records regulations: The Federal rules restrict any use of the information to criminally investigate or prosecute any alcohol or drug abuse patient.[facility] Reason for Visit (unrecogniz ed section and content) Reason Comments External Referrals/resources Care Teams (unrecognized sec tion and content) Resource Technician Relationship Specialty Start Date End Date Maynor Hough MD [address] [place] [address] Referring Family Practice 11/24/21 (unrecognized sect ion and content) No Status Records FoundNo Status Records FoundNo Status Records Found INFORMATION SOURCE (unrecogn ized section and content) DATE CREATED AUTHOR 03/15/2022 [facility] DATE CREATED AUTHOR 'S ORGANIZ ATION 07/21/2022 [facility] DATE CREATED AUTHOR AUTHOR'S ORGANYRIS ATION 06/15/2023 [facility] FOR RECORDS PERTAINING TO PATIENTS WHO ARE OR HAVE BEEN ENROLLED IN A CHEMICAL DEPENDENCY/SUBSTANCEABUSE PROGRAM, SOME INFORMATION MAY BE OMITTED. This clinical summary was aggregated from multiple sources. Caution should be exercised in using it in the provision of clinical care. This summary normalizes information from multiple sources, and as a consequence, information in this document may materially change the coding, format and clinical context of patient data. In addition, data may be omitted in some cases. CLINICAL DECISIONS SHOULD BE BASED ON THE PRIMARY CLINICAL RECORDS. [facility] [employer] [facility]. provides no warranty or guarantee of the accuracy or completeness of information in this document.
== END 2023-09-27 08:16 | disposition home or self-care (01) ==
LOC: US 08:15
PROVIDERS: PCP Family Medicine; Visit Provider Family Medicine
DX: R31.0 Gross hematuria (principal); N20.0 Calculus of kidney
CPT/HCPCS: 76770

== ENCOUNTER 2023-11-20 10:08 | Outpatient (OUT) | payer OTHER, SELFPAY ==
--- NOTE | 2023-11-20 10:13 | XR_ITS ---
The [address] [address] Patient Name: BUCK DISLA MRN: [id number] date: 1975 Sex: M Assigned Patient Location: [facility] Current Patient Location: Accession/Order Number: [id number] Exam Date: 11/20/2023 10:17 Report Date: 11/22/2023 09:30 At the request of: XIMENA OCHOA Procedure: XR abdomen 1V EXAMINATION: XR abdomen 1V HISTORY: Kidney Stone COMPARISON: No relevant comparison available. FINDINGS: KIDNEY/URETER - RIGHT: No visible renal or ureteral calcifications. KIDNEY/URETER - LEFT: 2 stones within lower pole, largest is 5 mm. PELVIS: No visible ureteral calcifications. Any visible calcifications favor phleboliths. BOWEL: No abnormal dilation or deviation. BONES: No acute abnormality. OTHER: Filter within IVC. XR/XR abdomen 1V IMPRESSION: 1. Left nephrolithiasis. Electronically authenticated by: VINAYAK ROSS Date: 11/22/2023 09:30
== END 2023-11-20 10:09 | disposition home or self-care (01) ==
LOC: RAD 10:09
PROVIDERS: PCP Family Medicine; Visit Provider Urology
DX: N20.0 Calculus of kidney (principal)
CPT/HCPCS: 74018

== ENCOUNTER 2024-04-30 08:49 | Outpatient (OUT) | payer OTHER, SELFPAY ==
--- NOTE | 2024-04-30 08:53 | CT_ITS ---
The [address] [address] Patient Name: BUCK DISLA MRN: [id number] date: 1975 Sex: M Assigned Patient Location: CT Current Patient Location: CT Accession/Order Number: [id number] Exam Date: 05/01/2024 12:26 Report Date: 05/01/2024 12:58 At the request of: MAYNOR HILLMAN MD Procedure: CT chest wo con CT CHEST WITHOUT CONTRAST COMPARISON: 03/08/2023 and 12/01/2021 CLINICAL DATA: Follow-up pulmonary nodule. Spiral images were obtained through the chest without contrast. Images were reviewed using both narrow and wide window settings. This CT exam was performed using one or more following dose reduction techniques: Automated exposure control, adjustment of the mA and/or kV according to patient size, or use of iterative reconstruction technique. The heart is within normal limits for size. No pericardial effusion is present. No aortic aneurysm is seen. There is no pathologic lymphadenopathy. Mild degenerative changes are noted at the spine. There is also subtle dextroscoliotic curvature. Minor patchy nodular parenchymal change is seen at the left lower lobe and perihilar left upper lobe, new since the prior. This might be infectious or inflammatory. No additional consolidation is present. No pleural effusion or pneumothorax is seen. There is nodular thickening associated with the major and right minor fissures. This may relate to intrapulmonary lymph nodes. In the right middle lobe, there is still in elongate nodular density approximately 7 - 8 mm in greatest dimension. It is slightly larger on lung windows though there is still no apparent soft tissue component. No other developing pulmonary nodularity is seen. Limited cuts through the upper abdomen suggest possible fatty liver. There is left nephrolithiasis. A partially imaged IVC filter is seen. CT/CT chest wo con IMPRESSION: DEVELOPING MINOR INFILTRATIVE CHANGE INVOLVING THE LEFT LUNG. RIGHT MIDDLE LOBE NODULAR DENSITY, SLIGHTLY LARGER. CT FOLLOW-UP IS SUGGESTED. Impression dictated by: Julia Duran M.D.05/01/2024 12:58 PM Dictation Location: [place] [address] Electronically authenticated by: [id number] Y Date: 05/01/2024 12:58
--- OUTSIDE RECORDS SUMMARY | 2024-04-30 08:59 | XMS_ITS | CCD ---
Author Organization [facility] CliniSyil Care Team Providers Care Meat Clerk Name Role Phone Maynor Hough MD Unavailable AMINATA, DR ROJAS Admitting Unavailable ABBSHERICE, DR ROJAS Attending Unavailable KADY, DR MCGUIRE Primary Care Unavailable AMINATA, DR ROJAS Consulting Unavailable KADY, DR MCGUIRE Primary Care Unavailable WHITTINGTON, DR JOELLEN Martel Consulting Unavailable FAWDAVID, WREN H Admitting Unavailable EVERETT WREN H Attending Unavailable KADY, DR MCGUIRE Consulting Unavailable SILVA, DR VIRGILIO Lan Consulting Unavailable ANITA, DR UBCK Pritchett Consulting Unavailable Trinh, DR Doll Consulting [...] Carlisle Attending Unavailable Iesha Carlisle Admitting Unavailable Maynor Hough Primary Care Physician [phone] Johnie OCHOA Attending Unavailable Maynor Hough Referring Unavailable Johnie OCHOA Admitting Unavailable Johnie OCHOA Attending Unavailable Johnie OCHOA Attending Unavailable Johnie OCHOA Attending Unavailable Johnie OCHOA Referring Unavailable Johnie OCHOA Admitting Unavailable Medications Current Medications Medication Drug Class(es) Dates Sig (Normalized) Sig (Original) 24 hr alfuzosin hydrochloride 10 mg extended release oral tablet (3 sources) alpha-Adrenergic Mark Anthony Start: 11-20-2023 End: 11-14-2024 take 1 tablet by mouth once daily alfuzosin 10 mg ER Tab 10 mg = 1 tab(s), Oral, Daily, X 30 day(s), # 30 tab(s), Refills(s) 11, Pharmacy: [facility] [id number], 190, cm, 11/20/23 9:10:00 EDT, Height/Length Dosing, 120, kg, 11/20/23 9:10:00 EDT, Weight Dosing Start Date: 11/20/23 Stop Date: 11/14/24 Status: Ordered apixaban 2.5 mg oral tablet (3 sources) Factor Xa Inhibitor Start: 11-20-2023 take 1 tablet by mouth twice daily Eliquis 2.5 mg oral tablet 2.5 mg = 1 tab(s), Oral, BID, # 60 tab(s), Refills(s) 0 Start Date: 11/20/23 Status: Ordered doxycycline hyclate 100 mg oral capsule (1 source) Tetracycline-cla ss Drug Start: 12-12-2023 End: 12-26-2023 take 1 capsule by mouth twice daily doxycycline hyclate 100 mg Cap 100 mg = 1 cap(s), Oral, BID, X 14 day(s), # 28 cap(s), Refills(s) 0, Pharmacy: [facility] [id number], 190, cm, 12/12/23 8:56:00 EDT, Height/Length Dosing, 120, kg, 12/12/23 8:56:00 EDT, Weight Dosing Start Date: 12/12/23 Stop Date: 12/26/23 Status: Ordered Completed/Discontinued Medications Medication Drug Class(es) Dates Sig (Normalized) Sig (Original) ciprofloxacin 500 mg oral tablet (3 sources) Quinolone Antimicrobial Start: 11-20-2023 Cipro 500 mg Tab 500 mg = 1 tab(s), Oral, As Directed, Patient to take 1 tab the day before procedure and the 2nd tab the day of procedure once completed, # 2 tab(s), Refills(s) 0, Pharmacy: [facility] [id number], 190, cm, 11/20/23 9:10:00 EDT, Height/Length Dosing, 120, kg, 11/20/23 9:10:00 EDT, Weight Dosing Start Date: 11/20/23 Status: Ordered Problems Active Problems Problem Classification Problem Date Documented Da te Episodic/Chronic Calculus of urinary tract (4 sources) Kidney stone; Translations: [Calculus of kidney] Onset: 4 Episodic Genitourinary symptoms and ill-defined conditions (4 sources) Blood in urine; Translations: [Gross hematuria] Onset: 4 Episodic Hyperplasia of prostate (4 sources) Benign prostatic hypertrophy with outflow obstruction; Translations: [Benign prostatic hyperplasia with lower urinary tract symptoms] Onset: 4 Chronic Other aftercare (1 source) Long-term current use of anticoagulant; Translations: [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] Onset: 4 Episodic Other and unspecified benign neoplasm (3 sources) Polyp of colon 11-15-2023 Episodic Other injuries and conditions due to external causes (1 source) Unspecified injury of left foot, initial encounter; Translations: [Unspecified injury of left foot, initial encounter] Onset: 4 Episodic Other lower respiratory disease (3 sources) Nodule of lung 11-15-2023 Episodic Other nervous system disorders (1 source) Other chronic pain; Translations: [OTHER CHRONIC PAIN] Onset: 2 Chronic Other screening for suspected conditions (not mental disorders or infectious disease) (3 sources) Abnormal coagulation profile; Translations: [Encounter for screening for malignant neoplasm of prostate] Onset: 2 Episodic Phlebitis; thrombophlebitis and thromboembolism (13 sources) Phlebitis and thrombophlebitis of superficial vessels of left lower extremity; Translations: [Acute embolism and thrombosis of unspecified deep veins of left lower extremity] Onset: 2 Episodic Pulmonary heart disease (4 sources) Other pulmonary embolism without acute cor pulmonale; Translations: [Pulmonary embolism] Onset: 2 11-15-2023 Episodic Screening and history of mental health and substance abuse codes (4 sources) H/O: Disorder; Translations: [Personal history of nicotine dependence] Onset: 4 Episodic Spondylosis; intervertebral disc disorders; other back problems (4 sources) Radiculopathy, lumbar region; Translations: [Lumbar radiculopathy] Onset: 2 11-15-2023 Episodic Substance-related disorders (1 source) Nicotine dependence, [...] Translations: [LOW BACK PAIN, UNSPECIFIED] Onset: 2 Unclassified (3 sources) Drug therapy finding 11-20-2023 Unclassified (3 sources) Patient encounter status 11-20-2023 Past or Other Problems Problem Classification Problem Date Documented Da te Episodic/Chronic Other aftercare (1 source) 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; Translations: [SHIP LINER CURRNT USE ANTICOAGULANTS] Onset: 12-13-2021 Episodic Other lower respiratory disease (1 source) Other nonspecific abnormal finding of lung field; Translations: [OTH NONSPECIFIC ABN FIND LNG FIELD] Onset: 12-13-2021 Episodic Residual codes; unclassified (4 sources) Edema, unspecified; Translations: [EDEMA UNSPECIFIED] Onset: 11-23-2021 Episodic Results Test Name Value Interpretation Reference Range Facility Main OR Intraoperative Recor don 12-12-2023 Main OR Intraoperative Record Main OR Intraoperative Record IntraOp Document Type FTURO Summary Primary Physician: Johnie OCHOA MD Finalized Date/Time: 12/12/23 09:44:49 Pt. Name: BUCK DISLA/Sex: 1975 Male Med Rec #: [id number] Physician: Johnie OCHOA MD Financial #: [id number] Pt. Type: O Room/Bed: / Admit/Disch: 12/12/23 08:09:22 - Institution: Case Times FTURO Entry 1 Patient Times In Room 12/12/23 09:28:00 Out Room 12/12/23 09:43:00 Procedure Times Start 12/12/23 09:32:00 Stop 12/12/23 09:36:00 Anesthesia Times Last Modified By: Sukhdeep AGUERO, Arcelia Acevedo 12/12/23 09:43:52 Case Attendance FTURO Entry 1 Entry 2 Entry 3 Case Attendee GABRIELA SOLANO, Johnie Tarango RN, Arcelia Multani CST, Tyra Acevedo Role Performed Surgeon - Primary Farmworker - Primary Scrub - Primary Time In 12/12/23 09:28:00 12/12/23 09:28:00 12/12/23 09:28:00 Time Out 12/12/23 09:43:00 12/12/23 09:43:00 12/12/23 09:43:00 Procedure CYSTOSCOPY LOCAL(.) CYSTOSCOPY LOCAL(.) CYSTOSCOPY LOCAL(.) Comments Last Modified By: Sukhdeep AGUERO, Arcelia Tarango RN, Arcelia Tarango RN, Arcelia Acevedo 12/12/23 Aileen Acevedo 12/12/23 Aileen Acevedo 12/12/23 09:44:12 09:44:12 09:44:12 Surgical Procedures FTURO Entry 1 Procedure Description Procedure CYSTOSCOPY LOCAL Modifiers . Surgeon Description CYSTOSCOPY Primary Procedure Yes Primary Surgeon Johnie OCHOA MD Start 12/12/23 09:32:00 Stop 12/12/23 09:36:00 Anesthesia Type Local Surgical Service Urology Wound Class 2 - Clean-Contaminated Last Modified By: Arcelia Tarango RN 12/12/23 09:36:14 General Case Data FTURO Pre-Care Text: Classifies surgical wound, implements aseptic technique, initiates traffic control Entry 1 Case Information OR URO 1 FT Case Level None Wound Class 2 - Clean-Contaminated Specialty Urology Preop Diagnosis HEMATURIA, KIDNEY STONE Postop Same As Preop Yes LEFT Postop Diagnosis HEMATURIA, KIDNEY STONE Outcomes Met? Yes LEFT Last Modified By: Sukhdeep AGUERO, Arcelia Acevedo 12/12/23 09:29:47 Post-Care Text: The patient is free from signs and symptoms of infection EU IntraOp - FTURO Pre-Care Text: Implements protective measures prior to operative or invasive procedure, confirms identity before the operative or invasive procedure, verifies operative procedure, surgical site, and laterality Entry 1 EU Perioperative Protocols Procedure(s) CYSTOSCOPY LOCAL(.) Patient Identity Birthday, ID Band Verified (select at Check, Patient least 2): Participation Consents / H and P H&P, Surgery/Procedure Operative Site N/A Verified Consent Marking Verified Surgical Site Yes Laterality Verified n/a Verified Procedure Verified Yes Correct Patient Yes Position Verified Availability Equipment, Medication Time Out Johnie OCHOA MD, Verified (If Participants Arcelia Tarango RN Applicable) Nerissa Collier CST, Kimberly A Time Out Complete 12/12/23 09:31:00 Allergies Reviewed? Yes Allergies Reviewed Self/Patient With Body Position Supine Prep Area PENIS Prep Agents Betadine Solution Skin. Condition Unable to Visualize Description PARTIALLY CLOTHED AND DRAPED Additional None Specimens Collected Vitals - EU Blood Pressure 149/87 Pulse 62 bpm Respirations 18 br/min SPO2 98 % I&O - EU Outcomes Met? Yes Last Modified By: Arcelia Tarango RN 12/12/23 09:31:45 Post-Care Text: The patient is free from signs and symptoms of injury caused by extraneous objects Sign Out FTURO Entry 1 Before Patient Leaves OR Nurse verbally Yes Nurse verbally Yes confirms with the confirms with the team the name of team that the procedure(s) instrument, sponge, recorded and needle counts are correct (or N/A) Nurse verbally n/a Nurse verbally n/a confirms with the confirms with the team how the team whether there specimen is labeled are any equipment (including patient problems to be name), if applicable addressed Sign Out Complete 12/12/23 09:36:00 Last Modified By: Arcelia Tarango RN 12/12/23 09:36:13 Case Comments Finalized By: Arcelia Tarango RN Document Signatures Signed By: Arcelia Tarango RN 12/12/23 09:44 Normal [facility] Main OR Preoperative Recordo n 12-12-2023 Main OR Preoperative Record Main OR Preoperative Record Holding Area Document Type FTURO Summary Primary Physician: Johnie OCHOA MD Finalized Date/Time: 12/12/23 08:56:33 Pt. Name: BUCK DISLA /Sex: 1975 Male Med Rec #: [id number] Physician: Johnie OCHOA MD Financial #: [id number] Pt. Type: O Room/Bed: / Admit/Disch: 12/12/23 08:09:22 - Institution: Case Times Holding FTURO Pre-Care Text: Verifies consent for planned procedure, identifies individual values and wishes concerning care, includes family members in perioperative teaching Secures patient's records' belongings, and valuables, maintains patient's dignity and privacy, and maintains patient confidentiality Entry 1 In Holding 12/12/23 08:54:00 Outcomes Met? Yes Last Modified By: Sarah Talbot 12/12/23 08:54:03 Post-Care Text: The patient participates in decisions affecting his or her perioperative plan of care The patient's right to privacy is maintained Surgery Checklist FTURO Entry 1 Patient Birthday, ID Band Procedure History and Physical, Identification: Check, Patient Verification: Surgical Consent, With Participation Patient NPO after Midnight: n/a Date/Time: 12/12/23 08:54:00 Personal Items clothes, phone and Limitations: n/a Comment: wallet Complaints of Pain: n/a Pain Comment: n/a Skin Integrity Unable to Visualize Vitals - EU Blood Pressure 149/87 Pulse 62 bpm Respirations 18 br/min SPO2 98 % Additional None Specimens Comment n/a Specimens Collected Residual Amount - 0 RN Reviewed Yes Post Void Last Modified By: Sarah Talbot 12/12/23 08:55:39 Finalized By: Sarah Talbot Document Signatures Signed By: Sarah Talbot 12/12/23 08:55 Sarah Talbot 12/12/23 08:56 Normal [facility] Operative Reporton Operative Report Operative Report Patient: BUCK DISLA Age: 48 years Sex: Male : 1975 Associated Diagnoses: None Author: Johnie OCHOA MD Procedure Operative Information Details: Date/ Time: 12/12/2023 09:46:00. Pre-Op Dx: Gross Hematuria - R31.0. Post-Op Dx: Same. Anesthesia Type: Local. Procedure: Local Cystoscopy. Complications: None. Risks/Benefits/Inform ed Consent: Surgical risks, benefits, details of the procedure have been explained to the patient, Full informed consent has been obtained. Intraoperative Information Prepped: Patient is brought back to the endoscopy suite, Patient is placed in supine position, Patient prepped in the usual fashion with Betadine solution, 2% Xylocaine Jelly is placed per Urethra, After waiting several minutes the Cystoscope is introduced. The Urethra is: Normal. The Prostatic Urethra is: Moderate Hypertrophy. The Bladder is: Trabeculated (Moderate (2), No bladder tumors). The ureteral orifices: Show efflux of clear urine. Devices Implanted: None. Removal: Cystoscope is removed, The patient tolerated it well. Postoperative Information Discharge: Patient is discharged home with antibiotic coverage, Follow up arranged. He will continue Uroxatrol. He will start doxycycline 100 mg twice daily for 2 weeks. We will evaluate his renal ultrasound.. Normal [facility] Comment on above: Result Comment: Elec tronically Signed By: GABRIELA SOLANO, Johnie Roberts.br\Date and Time Signed: 12/12/23 09:50 EDT Patient Educationon 12-12-19 Patient Education Patient Education Normal [facility] UroVysion Fish and Urine Cyt o ([facility])on 11-27-2023 UVFISH & UC Diagnosis Info Invalid Interpretation Code [facility] Comment on above: Result Comment: A:Ur ine,Urine:Voided Interpretation - Adequate cellularity for evaluation. Interpretation - The UroVysion FISH study detected normal copy numbers for chromosomes 3, 7, 17, and 9p21. 47 cells were analyzed in this evaluation. No evidence of aneuploidy for chromosomes 3, 7, or 17 or deletion of the 9p21 locus was found in cells present in this specimen. This test does not rule out the possibility of a low grade non-invasive papillary urothelial carcinoma. These findings should be correlated with cytology and cystoscopy results.* MicroScopic Description - MicroScopic Description - Electronically signed by : on: 11/27/2023 11:33:21 Performed By: #### 1 [id number] #### [facility] [address] [place] [address] Ambulatory Visit Summaryon 0 11-20-2023 Ambulatory Visit Summary Ambulatory Visit Summary BUCK DISLA :1975 Visit Date:11/20/2023 Ambulatory Visit Instructions Your Diagnosis Gross hematuria Kidney stone BPH with obstruction/lower urinary tract symptoms Screening PSA (prostate specific antigen) Anticoagulated Tests Performed XR Abdomen 1 View -- Results Pending -- Please visit your patient portal for your results or contact your primary care physician. 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 Discharge Vitals Heart Rate (Peripheral) 88 Blood Pressure 142/90 Height 190 cm Height 75 in Weight 120 kg Weight 264 lb BMI 33.24 What to do next You Need to Schedule the Following Appointments Follow Up with GABRIELA SOLANO, Johnie Martel, TORRIE When: Where: [facility] [address] [place] [address]- Medications What How Much When Instructions Unchanged apixaban (Eliquis 2.5 mg oral tablet) 1 Tablets By Mouth 2 times a day Contact prescribing physician if questions or concerns Allergies No Known Allergies Problems Ongoing - Any problem that you are currently receiving treatment for. Acute deep vein thrombosis of right lower extremity Anticoagulated Apical lung nodule Bilateral lumbar radiculopathy BPH with obstruction/lower urinary tract symptoms Colon polyp Gross hematuria Kidney stone Pulmonary embolism Screening PSA (prostate specific antigen) Patient Survey You may receive a survey via text or e-mail asking about your office visit. Please share your experience with us by completing your survey. We appreciate your feedback and thank you for choosing us for your care. Education Materials Dietary Guidelines to Help Prevent Kidney Stones Kidney stones are deposits of minerals and salts that form inside your kidneys. Your risk of developing kidney stones may be greater depending on your diet, your lifestyle, the medicines you take, and whether you have certain medical conditions. Most people can lower their risks of developing kidney stones by following these dietary guidelines. Your dietitian may give you more specific instructions depending on your overall health and the type of kidney stones you tend to develop. What are tips for following this plan? Reading food labels ? Choose foods with no salt added or low-salt labels. Limit your salt (sodium) intake to less than 1,500 mg a day. ? Choose foods with calcium for each meal and snack. Try to eat about 300 mg of calcium at each meal. Foods that contain 200?500 mg of calcium a serving include: ? 8 oz (237 mL) of milk, calcium-fortifiednon- dairy milk, and calcium-fortifiedfrui t juice. Calcium-fortified means that calcium has been added to these drinks. ? 8 oz (237 mL) of kefir, yogurt, and soy yogurt. ? 4 oz (114 g) of tofu. ? 1 oz (28 g) of cheese. ? 1 cup (150 g) of dried figs. ? 1 cup (91 g) of cooked broccoli. ? One 3 oz (85 g) can of sardines or mackerel. Most people need 1,000?1,500 mg of calcium a day. Talk to your dietitian about how much calcium is recommended for you. Shopping ? Buy plenty of fresh fruits and vegetables. Most people do not need to avoid fruits and vegetables, even if these foods contain nutrients that may contribute to kidney stones. ? When shopping for convenience foods, choose: ? Whole pieces of fruit. ? Pre-made salads with dressing on the side. ? Low-fat fruit and yogurt smoothies. ? Avoid buying frozen meals or prepared deli foods. These can be high in sodium. ? Look for foods with live cultures, such as yogurt and kefir. ? Choose high-fiber grains, such as whole-wheat breads, oat bran, and wheat cereals. Cooking ? Do not add salt to food when cooking. Place a salt shaker on the table and allow each person to add their own salt to taste. ? Use vegetable protein, such as beans, textured vegetable protein (TVP), or tofu, instead of meat in pasta, casseroles, and soups. Meal planning ? Eat less salt, if told by your dietitian. To do this: ? Avoid eating processed or pre-made food. ? Avoid eating fast food. ? Eat less animal protein, including cheese, meat, poultry, or fish, if told by your dietitian. To do this: ? Limit the number of times you have meat, poultry, fish, or cheese each week. Eat a diet free of meat at least 2 days a week. ? Eat only one serving each day of meat, poultry, fish, or seafood. ? When you prepare animal proteins, cut pieces into small portion sizes. For most meat and fish, one serving is about the size of the palm of your hand. ? Eat at least five serv (more content not included)... Normal [facility] UroVysion Fish and Urine Cyt o ([facility])on 11-20-2023 [facility] Method of Extraction Voided Normal [facility] Comment on above: Performed By: #### 1 [id number] #### [facility] [address] [place] [address] [facility] Number of Jars 1 Invalid Interpretation Code [facility] Comment on above: Performed By: #### 1 [id number] #### [facility] [address] [place] [address] [facility] Specimen Clean Catch Normal [facility] Comment on above: Performed By: #### 1 [id number] #### [facility] [address] [place] [address] [facility] Type of Service Technical Only Normal [facility] Comment on above: Performed By: #### 1 [id number] #### [facility] [address] [place] [address] XR foot LT min 3V*on 024 XR foot LT min 3V* [facility] Main [address] [address] XRay Report Signed Patient: Buck Disla MR#: [id number] 55 : 1975 Acct:[id number] Age/Sex: 48 / M ADM Date: 06/14/23 Loc: [id number] Room: Type: [facility] Attending Dr: Iesha Carlisle APRN Copies to: Iesha Carlisle APRN Ordering Provider: Iehsa Carlisle APRN Date of Service: 06/14/23 XR/XR [...] Ramirez Jr., D.O.06/14/2023 10:19 AM Dictation Location: [place] [address] Transcribed By: [facility] 06/14/23 1019 Dictated By: Antonio Ramirez Jr, DO 06/14/23 1017 Signed By: 06/14/23 1019 [facility] Coding Summaryon 07-20-2022 Coding Summary HTMLBase 64 IxqojwfxFVe0yUh+PGhlY WQ+ZR4NMWIoV34djSBaoC 3CU9zLCG7FPJIUXDBJNY3 PSD6cjWN6IYnjP4XgweDt BjawaNWyEQ43IUk4RTO1f FmsSHhqvI1foGGzE2r8Gr NkYX88yG63VPuwFUHiTfK 3LjZpbjsgbWFy D9pyZgOmoFDpGso+PHRhY mxlIHdpZHRoPScxMDAlJy CqbPomQK6eCs5sBXUmBUH vbGxhcHNlOiBj h6zzWACyIJwvJP6lcAdaY 6ZwkGT0OJQct5w6Ev55aK I+UDTsTJZ3zBkdDFqbx19 8TvTrw2jgURD1 qIPfJMtkUUT9R03wi6J4R BObTSXuNHP2uSR7oR2wzD nqigeqY5FipLNmDcI6IKF 5dROrjH0raDxy xlbuzB1xYcy+J26WOO5AH TZHDY3RSps8B1QfWbqehJ I+TU02VNPtCH49vEBwmUF ze2gdkEg4BeJg TTOcGHA6nIliEDidw7AiT TRnJ07zxPCxt5A7SXGkhT apjAWvMnCszET3jQ1pYVh novwfg7hbbqqr Luydm4akub43gG12V18xS OsdABJsLII4GNTtFUMnlH qsqj8xjW9nOl2+LVxcg5t tp0ecgGk0AhBa AGVexiVqzFtuBLL4o3KrV w22I2BmuVczm6GqVxt7yl 24qLLqz8U4gFL7GUahZAH baV2lEKdaBzA5 ZPPtYmYlbK91mMPsKJokQ s9qlWeegHldKI3dSBSfao pbUSRrsN0oDZYrbROusKf eBR5eLYKlxvhv f447GnScZKU2RBSgsNDhM 4YvyF3uXlXzJSVvGLNeX5 PluHUoCJnlU248ZYsjCbX 5RRGataAfC8No BYZvtTxwYoY4g9W1Vh9Ir 2LnbmkgJWZ7SItoUAV9Rm AhBiJzElM2B9GnXyc9OOB jzWeaLH9lR2Dk QLTqaaqqyswpfTH8LALhG IVukY54oXZcGGusAb5zv5 E9v454URTeIQUplN73Uj5 udDogMTBwdCBU wZ5dcifkw5yrcvqtQkVnB NMiYQq8ZZj4GTSijUhmIf PkAXK5BtM1KAY5yYYclW8 roUycepojtU8a Oyc+I06tgG5kFRT6SEH2c bofVQCgppYyWW73BD81J9 RyPjwvdGFibGU+PGRpdiB qxJnnXR9kHbLv m2tpt8ZaNLvzV3RfTPXlB BggKzm9QDBaHLJ8hDG0qZ 2uENVmELcpx8Q9kOM0R1N sdnYozj8tx0jm VPLoSNgwI42qfLKnx4S1Q VKslOY5NXLbzQtyHgTimY 93Oyc+XFJduFbed5DzLpz jk6sjb1iibQl3 RoTvIXGpibDhoOtbCFJ9n 7KzAa07K78oHSaxMGVdNJ UgGMMdXKVejZarnn1dhH8 wIi8+PGNvbCB3 iJB4xA5aUVHiDlJ6QEuoU 478XqBbfSTjXzamq9wpi7 manMp0BpYoPPYqccMkiAr jCYL3m1WxCw00 Z95zCEqdIUNqEZWtPZAwZ TRttGpkne9ehS7kTm3+PC 4kz0torj53uG80sFE+PHR uCQH8hDyoJQwi SCZtdX0mTToxJzS3NEEbR mPigS58pJNtAUyuZn7xyR aupPmlWM4gMOZjdixoc52 3PeEox8kuBVGv rMQmHWrpLHF1H31gr0L8Z PThMNOsNLM0nYQ7jR4ndW lnbjogbGVmdDsgdmVydGl uZQgaXQxuM580 IHRvcDsnPlBhdGllbnQgT nTvZEd6K6DzMii7TDFtyP qtSW5dmHIxWQcqOc0bbFs bbJnlFW6nYIYs mirpg677ZsLaw5ftCVJwq EJjXNdmJFO6L65oj6Z3BP HjRAEhUVR1pOA8kU3rhQi nbjogbGVmdDsg aoPpvLxkNIyxKSsgP752L HRvcDsnPkJpcnRoIERhdG G9UT45MH01wLJuy0M1dEX 2H9DxIYHtkutk nzneaHY1MWZcMHCmrW41L j4duKcjPr3aSITjDCK2TV GyuDGxO3XnfG8wExIrVQZ nCNZhQ8BgmEKz QVnnV734UCatQjE9SNWow dKqE2EaQWThrKugErF7b6 P3Po9MM6Y8KO15JP29cQJ hy0Y2hJT0P8Gk EALitrtdoochwEI2CKBlU AVniO63Jl2ueOfySt0tDN QgUUV2EIVvwDVgN8KbdM6 yOiAjMDAwMDAw F1CwbYQqVExhJ138ILikW hO6LJAiwvOeN8GySXUsvX gaVrD1g8V6Sk5CJOz0OI9 1HL77lOBad1Z9 wTP0M3SqPSZclavpmqygq QP0PIKmZWHmeD84Tp0piR lhQt6mDWGgWCV9YRBjyGM aP2RhaW2vDuGo WHYpWRZgN7YbtFWuLLkrI 697PEehIgD7DLAeybPbL0 RcYVJmyEkqDcT4f6A7Ne8 UZPJsGG87HVK8 gKX9IE99MD93R6SgVykrj GFibGU+PHRhYmxlIHdpZH RoPScxMDAlJyBzdHlsZT0 qRw2eZJXbRWNv qCqwhIUwDiAfs3bqSURhU KfhZG4vfIaxW3YkhHX2SL Msw9q0Tq18T74zU1ClbYC +NSEwvOE4iAK2 lF7vIuViKwN2DLlnV195Q uXsrQFdGurvf5nyi2mlgD p3ReN0JOTqxyAxdRewBGD 2i3UgIc66P11b IHdpZHRoPSIxNSUiIHZhb Yzloc3sjU6hFr1+PGNvbC M6vNQ9xM5sSiVzVfQ7ZFe gI599XhQobJCe Veooo2ahb2slkGi3UmIqH LGngqNsbJycXRY0y8KwEz 24D4IhtOrbn5JsThm8rc9 8pDRsi7O6zBE4 X6LcXAIulkpnoTGdgMprO L8bUNEcupwpMJPxmP8ePW RvS3g0IrYdLzR9PYetB3A bhmX3NKTzhMMo YThiAKC1Z50vo7G5OCOdI ULrFKT0wYX2zX9gpTxeyu ogbGVmdDsgdmVydGljYWw lYZiwG281PFHt jGulXSVpeX8rHDGxeDYja FqbGJ8lJTVdxmriGhGFVW xROscoEGQYBOMsW2JIUmZ 9D3ZdLdv0IXNm qOrxSK7zcAUsJMrqOv4gb UqjvEqvBM5gFDZmpiadKO AzyW6oVVJhbTDfnSbbIN9 gRLEsvkjnx412 ElJlTXK5FGBriYCjG4Gkn Z0kGsXqOWJiUOZyN7PwgB DbVOizZ961EGnuLhP1WXC xaoVhO6ZbHLZn nTzxLdY3z3F2Rj7dNj5oU P9rNFo7DT95PR13kUTey9 C4aHR2H9ZaRNRvfodmgzc saCG8NJKlQFUy xN16bNRqZApnUs2es8K3w 183DKGvXMQfzH27Pf1hxQ bgXLCdxFKOoH5waipwn2s vcjogIzAwMDAw IEd3MFu9KGGzvCgrUcAkM FI3BlW2GKB8nSFeeY9gtE mhfpwxnL0gEvr+NDggWWV aqcC3S4BaLgi5 OGQfdUtwVA5qeRUvGXahH f7fqYoixCmxKB4oRJHkhe wuHDJzyZ0lLCGcyJFjlYn zDY4eNMJqpmwz d048VuKpVSG6SRYxgZAaD 4DuzX9aTyLjSQIcKASeD1 ZoyXTwCFwiL424YMqzDzC 2HEPsleKgN3Kp GNPczDdsDtU6n8V5Ou5TG UwXEH86SO67oFVvm6V0tL H4F6BaVFYibyilvmcofXI 1AQZoKOIxdK65 uZJzEXfuQs2ys3N9f202K GFtNMSpwT86Jl7cmLksUY NltUIOlJ6sdzkls0filhg gIzAwMDAwMDt0 ZFp3UKLclPozNdOeVDA3H zQ3EOV9gJFgfG0laXoqns xqgQ4uQfk+Z4D0K5XuOtb vdHI+QA96RWUp AY14cGDthCHfs9grcMl2B aLoXQWwLZL7yBylBEulh1 YxNTCaF33uyFIah8H2BOG vbGxhcHNlOyBl nMA0cG1oEGexfqkmx8bba xrlSaxgb9nxqi59vD05R3 9sIHdpZHRoPSIzMCUiIHZ ngVwgsw4yyP1t Ii8+VKHxkUV1yRU3qV8qY xXcLnH2ACejD591OeMqmZ VrExeat7ahy9ppkLm0GrX wJSIgdmFsaWdu OLS3a2VeAi47F26iNSfvM HRoPSIyMCUiIHZhbGlnbj 8xfG7vJi2+TD9ow5accg4 1lQ48lGS+PHRk DGT0hDytBIelNXZblJ2oD QbmKyG2QLQyXfNobE80hD DpJQrmZw8plYpbeVjyUQ6 hQCIekwauh588 AeQst1nyQVNgvWMwUFzbK PG5S53dk1L9AAWmKSCrDT T7aKH0wH0lyRvnrkzbvLN mdDsgdmVydGlj WIrhHBhkV523CLYblSnbY tMmgTWuZ1meizDEDU2vAd wvdGQ+JGHtKQO4cCpqCYb pRWNwkX8gESCz W5a0WsEfIaB0JKchA2Zfk rA9FBNfhZRzOAFafOWGeV 6dvhbas8owdpurBoDvZFC zPCc1NSf1ASBo rOsgIkUbNFN7OmH1HTR0n ZUugV8dlLtfowlyyG0jRm c+RklOOjwvdGQ+PHRkIHN 0eWxlPSdwYWRk kB6fXWQsS2g5WgRuPkU2Y EstS7HsobJ9MFIspYVmIA SyaBUMvJ7zwileo9iufmt gIzAwMDAwMDt0 LXx7TLLjzUgePjXbSNZ5U jA9HFS9kFXteB2tnGejsb rrzX5pFfz+TVJOOjwvdGQ +XACdAJR6jRbo LWfqNLAfmC4zOPPrM0b5A rJsKgN9HVepA7HydoN4NW MyaQQoTIJqpTALtH0awkf bb1qdtyriYcRl KLMuLLn6RSc5QTBjsYfjL hGsLXM1CyZ3EQT9cIPcuK 8pdBrgjzocvH8uXan+UGF 4HTR6ZW22FV58 H3BvFpludEMunDR+PHRhY mxlIHdpZHRoPScxMDAlJy XpxYcvNA3kYt5zMFHnFBK vbGxhcHNlOiBj b2x (more content not included)... Normal [facility] US LE Venous Duplex Bilatera elaine [...] Signature): Maurice Smith 07/19/22 3:13 pm Technologist: BETINA Arciniega [facility] Provider Orderson 05-20-2022 Provider Orders [id number] [facility] US JUAN DOP LEG BILon 023 US [...] authenticated by: VINAYAK ROSS Date: 2022-03-15 10:21 Normal [facility] US JUAN DOP LEG LTon 01-01-20 22 US JUAN DOP LEG LT EXAMINATION: [...] prior exam *Exam performed in accordance with [facility]UM practice guidelines- Peripheral venous ultrasound, June 06, 2009. Electronically authenticated by: BUCK HOWARD Date: 2021-12-31 15:22 Normal [facility] CBC AUTO DIFFon 12-07-2021 BASO # 0.1 103/ul Normal 0.0-0.1 [facility] Comment on above: Performed By: #### P TTHEP #### [facility] [address] [place] [address] Dr. Dimas Bustos Basophils/100 WBC (Bld) 0.8 % Normal 0.2-2.0 [facility] Comment on above: Performed By: #### P TTHEP #### [facility] [address] [place] [address] Dr. Dimas Bustos EO # 0.2 103/ul Normal 0.0-0.7 [facility] Comment on above: Performed By: #### P TTHEP #### [facility] [address] [place] [address] Dr. Dimas Bustos Eosinophils/100 WBC (Bld) 1.5 % Normal 0.9-7.0 [facility] Comment on above: Performed By: #### P TTHEP #### [facility] [address] [place] [address] Dr. Dimas Bustos Erythrocyte distribution width (RBC) [Ratio] 12.3 % Normal 11.0-15.0 [facility] Comment on above: Performed By: #### P TTHEP #### [facility] [address] [place] [address] Dr. Dimas Bustos Hematocrit (Bld) [Volume fraction] 41.4 % Critically low 42.0-54.0 [facility] Comment on above: Performed By: #### P TTHEP #### [facility] [address] [place] [address] Dr. Dimas Bustos Hemoglobin (Bld) [Mass/Vol] 13.9 g/dL Critically low 14.0-18.0 [facility] Comment on above: Performed By: #### P TTHEP #### [facility] [address] [place] [address] Dr. Dimas Bustos IG # 0.30 10e3/ul Critically high 0.00-0.03 [facility] Comment on above: Performed By: #### P TTHEP #### [facility] [address] [place] [address] Dr. Dimas Bustos IG % 2.5 % Critically high 0.0-0.5 [facility] Comment on above: Performed By: #### P TTHEP #### [facility] [address] [place] [address] Dr. Dimas Bustos LYMPH # 2.8 103/ul Normal 1.2-3.8 [facility] Comment on above: Performed By: #### P TTHEP #### [facility] [address] [place] [address] Dr. Dimas Bustos Lymphocytes/100 WBC (Bld) 23.3 % Normal 20.5-60.0 [facility] Comment on above: Performed By: #### P TTHEP #### [facility] [address] [place] [address] Dr. Dimas Bustos MANUAL DIFF REQ NO Normal [facility] Comment on above: Performed By: #### P TTHEP #### [facility] [address] [place] [address] Dr. Dimas Bustos MCH (RBC) [Entitic mass] 31.2 pg Normal 25.9-34.0 [facility] Comment on above: Performed By: #### P TTHEP #### [facility] [address] [place] [address] Dr. Dimas Bustos MCHC (RBC) [Mass/Vol] 33.6 g/dL Normal 29.9-35.2 [facility] Comment on above: Performed By: #### P TTHEP #### [facility] [address] [place] [address] Dr. Dimas Bustos MCV (RBC) [Entitic vol] 93.0 fL Normal 80.0-94.0 [facility] Comment on above: Performed By: #### P TTHEP #### [facility] [address] [place] [address] Dr. Dimas Bustos MONO # 0.9 103/ul Critically high 0.3-0.8 [facility] Comment on above: Performed By: #### P TTHEP #### [facility] [address] [place] [address] Dr. Dimas Bustos Monocytes/100 WBC (Bld) 7.5 % Normal 1.7-12.0 [facility] Comment on above: Performed By: #### P TTHEP #### [facility] [address] [address] [address] Dimas Bustos NEUT # 7.8 103/ul Critically high 1.4-6.5 [facility] Comment on above: Performed By: #### P TTHEP #### [facility] [address] [address] [address] Dimas Bustos Neutrophils/100 WBC (Bld) 64.4 % Normal 43.0-75.0 [facility] Comment on above: Performed By: #### P TTHEP #### [facility] [address] [place] [address] Dr. Dimas Bustos Platelet mean volume (Bld) [Entitic vol] 8.9 fL Critically low 9.5-13.5 [facility] Comment on above: Performed By: #### P TTHEP #### [facility] [address] [place] [address] Dr. Dimas Bustos PLT 420 103/ul Normal 150-450 [facility] Comment on above: Performed By: #### P TTHEP #### [facility] [address] [place] [address] Dr. Dimas Bustos RBC 4.45 106/ul Critically low 4.70-6.10 [facility] Comment on above: Performed By: #### P TTHEP #### [facility] [address] [place] [address] Dr. Dimas Bustos WBC 12.1 103/ul Critically high 4.0-11.0 [facility] Comment on above: Performed By: #### P TTHEP #### [facility] [address] [place] [address] Dr. Dimas Bustos PROF 14(COMP METB)on 022 Albumin [Mass/Vol] 2.8 g/dL Critically low 3.4-5.0 [facility] Comment on above: Performed By: #### C MP #### [facility] [address] [address] [address] Dimas Bustos Albumin/Globulin [Mass ratio] 0.6 {ratio} Normal [facility] Comment on above: Performed By: #### C MP #### [facility] [address] [address] [address] Dimas Bustos ALP [Catalytic activity/Vol] 113 U/L Normal 46-116 [facility] Comment on above: Performed By: #### C MP #### [facility] [address] [place] [address] Dr. Dimas Bustos ALT [Catalytic activity/Vol] 56 U/L Normal 16-63 [facility] Comment on above: Performed By: #### C MP #### [facility] [address] [place] [address] Dr. Dimas Bustos Anion gap [Moles/Vol] 15.7 mmol/L Normal [facility] Comment on above: Performed By: #### C MP #### [facility] [address] [place] [address] Dr. Dimas Bustos AST [Catalytic activity/Vol] 22 U/L Normal 15-37 [facility] Comment on above: Performed By: #### C MP #### [facility] [address] [place] [address] Dr. Dimas Bustos Bilirubin [Mass/Vol] 0.2 mg/dL Normal 0.2-1.0 [facility] Comment on above: Performed By: #### C MP #### [facility] [address] [place] [address] Dr. Dimas Bustos Calcium [Mass/Vol] 9.4 mg/dL Normal 8.5-10.1 [facility] Comment on above: Performed By: #### C MP #### [facility] [address] [place] [address] Dr. Dimas Bustos Chloride [Moles/Vol] 100 mmol/L Normal 98-107 [facility] Comment on above: Performed By: #### C MP #### [facility] [address] [place] [address] Dr. Dimas Bustos CO2 [Moles/Vol] 24.5 mmol/L Normal 21.0-32.0 [facility] Comment on above: Performed By: #### C MP #### [facility] [address] [address] [address] Dimas Bustos Creatinine [Mass/Vol] 0.80 mg/dL Normal 0.70-1.30 [facility] Comment on above: Performed By: #### C MP #### [facility] [address] [address] [address] Dimas Bustos EGFR-AF MACANESE >60 Normal >=60 [facility] Comment on above: Performed By: #### C MP #### [facility] [address] [address] [address] Dimas Bustos EGFR-NON AF MACANESE >60 Normal >=60 [facility] Comment on above: Performed By: #### C MP #### [facility] [address] [address] [address] Dimas Bustos Globulin (S) [Mass/Vol] 4.5 g/dL Normal [facility] Comment on above: Performed By: #### C MP #### [facility] [address] [address] [address] Dimas Bustos Glucose [Mass/Vol] 123 mg/dL Critically high 74-106 [facility] Comment on above: Performed By: #### C MP #### [facility] [address] [address] [address] Dimas Bustos Potassium [Moles/Vol] 4.2 mmol/L Normal 3.5-5.1 [facility] Comment on above: Performed By: #### C MP #### [facility] [address] [address] [address] Dimas Bustos Protein [Mass/Vol] 7.3 g/dL Normal 6.4-8.2 [facility] Comment on above: Performed By: #### C MP #### [facility] [address] [address] [address] Dimas Bustos Sodium [Moles/Vol] 136 mmol/L Normal 136-145 [facility] Comment on above: Performed By: #### C MP #### [facility] [address] [place] [address] Dr. Dimas Bustos Urea nitrogen [Mass/Vol] 17.0 mg/dL Normal 7.0-18.0 [facility] Comment on above: Performed By: #### C MP #### [facility] [address] [place] [address] Dr. Dimas Bustos Urea nitrogen/Creatinine [Mass ratio] 21.2 mg/mg Normal [facility] Comment on above: Performed By: #### C MP #### [facility] [address] [place] [address] Dr. Dimas Bustos PROTIMEon 12-07-2021 INR Coag (PPP) [Relative time] 1.42 {INR} Normal [facility] Comment on above: Performed By: #### C VDTBH #### [facility] [address] [place] [address] Dr. Dimas Bustso INR GUIDELINES SEE BELOW Normal [facility] Comment on above: Result Comment: GEOVANNI RED INR: 2.0 - 3.0 CONDITIONS NOT LISTED BELOW 2.5 - 3.5 FOR PROSTHETIC HEART VALVE REPLACEMENT 2.5 - 3.5 RECURRENT THROMBOSIS Performed By: #### C VDTBH #### [facility] [address] [place] [address] Dr. Dimas Bustos PT Coag (PPP) [Time] 15.0 s Critically high 9.0-11.6 [facility] Comment on above: Performed By: #### C VDTBH #### [facility] [address] [place] [address] Dr. Dimas Bustos PTT HEPARIN MONITORon 2021 aPTT Coag (Bld) [Time] 68.4 s Critically high 39.5-54.2 [facility] Comment on above: Performed By: #### C VDTBH #### [facility] [address] [place] [address] Dr. Dimas Bustos CBC AUTO DIFFon 12-06-2021 BASO # 0.1 103/ul Normal 0.0-0.1 [facility] Comment on above: Performed By: #### P TTHEP #### [facility] [address] [place] [address] Dr. Dimas Bustos Basophils/100 WBC (Bld) 0.7 % Normal 0.2-2.0 [facility] Comment on above: Performed By: #### P TTHEP #### [facility] [address] [place] [address] Dr. Dimas Bustos EO # 0.3 103/ul Normal 0.0-0.7 [facility] Comment on above: Performed By: #### P TTHEP #### [facility] [address] [place] [address] Dr. Dimas Bustos Eosinophils/100 WBC (Bld) 2.2 % Normal 0.9-7.0 [facility] Comment on above: Performed By: #### P TTHEP #### [facility] [address] [place] [address] Dr. Dimas Bustos Erythrocyte distribution width (RBC) [Ratio] 12.4 % Normal 11.0-15.0 [facility] Comment on above: Performed By: #### P TTHEP #### [facility] [address] [place] [address] Dr. Dimas Bustos Hematocrit (Bld) [Volume fraction] 42.3 % Normal 42.0-54.0 [facility] Comment on above: Performed By: #### P TTHEP #### [facility] [address] [place] [address] Dr. Dimas Bustos Hemoglobin (Bld) [Mass/Vol] 14.2 g/dL Normal 14.0-18.0 [facility] Comment on above: Performed By: #### P TTHEP #### [facility] [address] [place] [address] Dr. Dimas Bustos IG # 0.20 10e3/ul Critically high 0.00-0.03 [facility] Comment on above: Performed By: #### P TTHEP #### [facility] [address] [place] [address] Dr. Dimas Bustos IG % 1.8 % Critically high 0.0-0.5 [facility] Comment on above: Performed By: #### P TTHEP #### [facility] [address] [place] [address] Dr. Dimas Bustos LYMPH # 2.9 103/ul Normal 1.2-3.8 [facility] Comment on above: Performed By: #### P TTHEP #### [facility] [address] [place] [address] Dr. Dimas Bustos Lymphocytes/100 WBC (Bld) 25.1 % Normal 20.5-60.0 [facility] Comment on above: Performed By: #### P TTHEP #### [facility] [address] [place] [address] Dr. Dimas Bustos MANUAL DIFF REQ NO Normal [facility] Comment on above: Performed By: #### P TTHEP #### [facility] [address] [place] [address] Dr. Dimas Bustos MCH (RBC) [Entitic mass] 31.6 pg Normal 25.9-34.0 [facility] Comment on above: Performed By: #### P TTHEP #### [facility] [address] [place] [address] Dr. Dimas Bustos MCHC (RBC) [Mass/Vol] 33.6 g/dL Normal 29.9-35.2 [facility] Comment on above: Performed By: #### P TTHEP #### [facility] [address] [place] [address] Dr. Dimas Bustos MCV (RBC) [Entitic vol] 94.0 fL Normal 80.0-94.0 [facility] Comment on above: Performed By: #### P TTHEP #### [facility] [address] [place] [address] Dr. Dimas Bustos MONO # 0.9 103/ul Critically high 0.3-0.8 [facility] Comment on above: Performed By: #### P TTHEP #### [facility] [address] [place] [address] Dr. Dimas Bustos Monocytes/100 WBC (Bld) 7.7 % Normal 1.7-12.0 [facility] Comment on above: Performed By: #### P TTHEP #### [facility] [address] [address] [address] Dimas Bustos NEUT # 7.1 103/ul Critically high 1.4-6.5 [facility] Comment on above: Performed By: #### P TTHEP #### [facility] [address] [address] [address] Dimas Bustos Neutrophils/100 WBC (Bld) 62.5 % Normal 43.0-75.0 [facility] Comment on above: Performed By: #### P TTHEP #### [facility] [address] [place] [address] Dr. Dimas Bustos Platelet mean volume (Bld) [Entitic vol] 8.8 fL Critically low 9.5-13.5 [facility] Comment on above: Performed By: #### P TTHEP #### [facility] [address] [place] [address] Dr. Dimas Bustos PLT 373 103/ul Normal 150-450 [facility] Comment on above: Performed By: #### P TTHEP #### [facility] [address] [place] [address] Dr. Dimas Bustos RBC 4.50 106/ul Critically low 4.70-6.10 [facility] Comment on above: Performed By: #### P TTHEP #### [facility] [address] [address] [address] Dimas Bustos WBC 11.4 103/ul Critically high 4.0-11.0 [facility] Comment on above: Performed By: #### P TTHEP #### [facility] [address] [place] [address] Dr. Dimas Bustos PROF 14(COMP METB)on 022 Albumin [Mass/Vol] 2.7 g/dL Critically low 3.4-5.0 [facility] Comment on above: Performed By: #### P TTHEP #### [facility] [address] [place] [address] Dr. Dimas Bustos Albumin/Globulin [Mass ratio] 0.6 {ratio} Normal [facility] Comment on above: Performed By: #### P TTHEP #### [facility] [address] [address] [address] Dimas Bustos ALP [Catalytic activity/Vol] 100 U/L Normal 46-116 [facility] Comment on above: Performed By: #### P TTHEP #### [facility] [address] [place] [address] Dr. Dimas Bustos ALT [Catalytic activity/Vol] 51 U/L Normal 16-63 [facility] Comment on above: Performed By: #### P TTHEP #### [facility] [address] [place] [address] Dr. Dimas Bustos Anion gap [Moles/Vol] 8.8 mmol/L Normal [facility] Comment on above: Performed By: #### P TTHEP #### [facility] [address] [place] [address] Dr. Dimas Bustos AST [Catalytic activity/Vol] 21 U/L Normal 15-37 [facility] Comment on above: Performed By: #### P TTHEP #### [facility] [address] [place] [address] Dr. Dimas Bustos Bilirubin [Mass/Vol] 0.2 mg/dL Normal 0.2-1.0 [facility] Comment on above: Performed By: #### P TTHEP #### [facility] [address] [place] [address] Dr. Dimas Bustos Calcium [Mass/Vol] 9.6 mg/dL Normal 8.5-10.1 [facility] Comment on above: Performed By: #### P TTHEP #### [facility] [address] [place] [address] Dr. Dimas Bustos Chloride [Moles/Vol] 101 mmol/L Normal 98-107 [facility] Comment on above: Performed By: #### P TTHEP #### [facility] [address] [place], [place] [address] Dr. Dimas Bustos CO2 [Moles/Vol] 31.2 mmol/L Normal 21.0-32.0 [facility] Comment on above: Performed By: #### P TTHEP #### [facility] [address] [place] [address] Dr. Dimas Bustos Creatinine [Mass/Vol] 0.84 mg/dL Normal 0.70-1.30 [facility] Comment on above: Performed By: #### P TTHEP #### [facility] [address] [place] [address] Dr. Dimas Bustos EGFR-AF MACANESE >60 Normal >=60 [facility] Comment on above: Performed By: #### P TTHEP #### [facility] [address] [place] [address] Dr. Dimas Bustos EGFR-NON AF MACANESE >60 Normal >=60 [facility] Comment on above: Performed By: #### P TTHEP #### [facility] [address] [place] [address] Dr. Dimas Bustos Globulin (S) [Mass/Vol] 4.5 g/dL Normal [facility] Comment on above: Performed By: #### P TTHEP #### [facility] [address] [place] [address] Dr. Dimas Bustos Glucose [Mass/Vol] 113 mg/dL Critically high 74-106 [facility] Comment on above: Performed By: #### P TTHEP #### [facility] [address] [place] [address] Dr. Dimas Bustos Potassium [Moles/Vol] 5.0 mmol/L Normal 3.5-5.1 [facility] Comment on above: Performed By: #### P TTHEP #### [facility] [address] [place] [address] Dr. Dimas Bustos Protein [Mass/Vol] 7.2 g/dL Normal 6.4-8.2 [facility] Comment on above: Performed By: #### P TTHEP #### [facility] [address] [place] [address] Dr. iDmas Bustos Sodium [Moles/Vol] 136 mmol/L Normal 136-145 [facility] Comment on above: Performed By: #### P TTHEP #### [facility] [address] [place] [address] Dr. Dimas Bustos Urea nitrogen [Mass/Vol] 14.0 mg/dL Normal 7.0-18.0 [facility] Comment on above: Performed By: #### P TTHEP #### [facility] [address] [place] [address] Dr. Dimas Bustos Urea nitrogen/Creatinine [Mass ratio] 16.7 mg/mg Normal [facility] Comment on above: Performed By: #### P TTHEP #### [facility] [address] [place] [address] Dr. Dimas Bustos PROTIMEon 12-06-2021 INR Coag (PPP) [Relative time] 1.22 {INR} Normal [facility] Comment on above: Performed By: #### P TTHEP #### [facility] [address] [place] [address] Dr. Dimas Bustos INR GUIDELINES SEE BELOW Normal [facility] Comment on above: Result Comment: GEOVANNI RED INR: 2.0 - 3.0 CONDITIONS NOT LISTED BELOW 2.5 - 3.5 FOR PROSTHETIC HEART VALVE REPLACEMENT 2.5 - 3.5 RECURRENT THROMBOSIS Performed By: #### P TTHEP #### [facility] [address] [place] [address] Dr. Dimas Bustos PT Coag (PPP) [Time] 13.0 s Critically high 9.0-11.6 [facility] Comment on above: Performed By: #### P TTHEP #### [facility] [address] [place] [address] Dr. Dimas Bustos PTTon 12-06-2021 aPTT Coag (Bld) [Time] 61.4 s Critically high 22.3-36.2 [facility] Comment on above: Performed By: #### P TTHEP #### [facility] [address] [place] [address] Dr. Dimas Bustos US JUAN DOP LEG [...] VINAYAK ROSS Date: 2021-12-06 09:03 Normal [facility] CBC AUTO DIFFon 12-05-2021 BASO # 0.1 103/ul Normal 0.0-0.1 [facility] Comment on above: Performed By: #### C BC #### [facility] [address] [place] [address] Dr. Dimas Bustos Basophils/100 WBC (Bld) 0.5 % Normal 0.2-2.0 [facility] Comment on above: Performed By: #### C BC #### [facility] [address] [place] [address] Dr. Dimas Bustos EO # 0.2 103/ul Normal 0.0-0.7 [facility] Comment on above: Performed By: #### C BC #### [facility] [address] [address] [address] Dimas Bustos Eosinophils/100 WBC (Bld) 1.6 % Normal 0.9-7.0 [facility] Comment on above: Performed By: #### C BC #### [facility] [address] [place] [address] Dr. Dimas Bustos Erythrocyte distribution width (RBC) [Ratio] 12.2 % Normal 11.0-15.0 [facility] Comment on above: Performed By: #### C BC #### [facility] [address] [place] [address] Dr. Dimas Bustos Hematocrit (Bld) [Volume fraction] 41.6 % Critically low 42.0-54.0 [facility] Comment on above: Performed By: #### C BC #### [facility] [address] [place] [address] Dr. Dimas Bustos Hemoglobin (Bld) [Mass/Vol] 13.8 g/dL Critically low 14.0-18.0 [facility] Comment on above: Performed By: #### C BC #### [facility] [address] [place] [address] Dr. Dimas Bustos IG # 0.09 10e3/ul Critically high 0.00-0.03 [facility] Comment on above: Performed By: #### C BC #### [facility] [address] [place] [address] Dr. Dimas Bustos IG % 0.9 % Critically high 0.0-0.5 [facility] Comment on above: Performed By: #### C BC #### [facility] [address] [place] [address] Dr. Dimas Bustos LYMPH # 2.1 103/ul Normal 1.2-3.8 [facility] Comment on above: Performed By: #### C BC #### [facility] [address] [place] [address] Dr. Dimas Bustos Lymphocytes/100 WBC (Bld) 20.2 % Critically low 20.5-60.0 [facility] Comment on above: Performed By: #### C BC #### [facility] [address] [place] [address] Dr. Dimas Bustos MANUAL DIFF REQ NO Normal [facility] Comment on above: Performed By: #### C BC #### [facility] [address] [place] [address] Dr. Dimas Bustos MCH (RBC) [Entitic mass] 30.7 pg Normal 25.9-34.0 [facility] Comment on above: Performed By: #### C BC #### [facility] [address] [place] [address] Dr. Dimas Bustos MCHC (RBC) [Mass/Vol] 33.2 g/dL Normal 29.9-35.2 [facility] Comment on above: Performed By: #### C BC #### [facility] [address] [address] [address] Dimas Bustos MCV (RBC) [Entitic vol] 92.4 fL Normal 80.0-94.0 [facility] Comment on above: Performed By: #### C BC #### [facility] [address] [address] [address] Dimas Bustos MONO # 0.9 103/ul Critically high 0.3-0.8 [facility] Comment on above: Performed By: #### C BC #### [facility] [address] [place] [address] Dr. Dimas Bustos Monocytes/100 WBC (Bld) 8.4 % Normal 1.7-12.0 [facility] Comment on above: Performed By: #### C BC #### [facility] [address] [place] [address] Dr. Dimas Bustos NEUT # 6.9 103/ul Critically high 1.4-6.5 [facility] Comment on above: Performed By: #### C BC #### [facility] [address] [place] [address] Dr. Dimas Bustos Neutrophils/100 WBC (Bld) 68.4 % Normal 43.0-75.0 [facility] Comment on above: Performed By: #### C BC #### [facility] [address] [address] [address] Dimas Bsutos Platelet mean volume (Bld) [Entitic vol] 9.2 fL Critically low 9.5-13.5 [facility] Comment on above: Performed By: #### C BC #### [facility] [address] [place] [address] Dr. Dimas Bustos PLT 371 103/ul Normal 150-450 [facility] Comment on above: Performed By: #### C BC #### [facility] [address] [place] [address] Dr. Dimas Bustos RBC 4.50 106/ul Critically low 4.70-6.10 [facility] Comment on above: Performed By: #### C BC #### [facility] [address] [address] [address] Dimas Bustos WBC 10.1 103/ul Normal 4.0-11.0 [facility] Comment on above: Performed By: #### C BC #### [facility] [address] [place] [address] Dr. Dimas Bustos PROF 14(COMP METB)on 022 Albumin [Mass/Vol] 2.7 g/dL Critically low 3.4-5.0 [facility] Comment on above: Performed By: #### C MP #### [facility] [address] [place] [address] Dr. Dimas Bustos Albumin/Globulin [Mass ratio] 0.6 {ratio} Normal [facility] Comment on above: Performed By: #### C MP #### [facility] [address] [place] [address] Dr. Dimas Bustos ALP [Catalytic activity/Vol] 98 U/L Normal 46-116 [facility] Comment on above: Performed By: #### C MP #### [facility] [address] [place] [address] Dr. Dimas Bustos ALT [Catalytic activity/Vol] 43 U/L Normal 16-63 [facility] Comment on above: Performed By: #### C MP #### [facility] [address] [place] [address] Dr. Dimas Bustos Anion gap [Moles/Vol] 9.9 mmol/L Normal [facility] Comment on above: Performed By: #### C MP #### [facility] [address] [place] [address] Dr. Dimas Bustos AST [Catalytic activity/Vol] 17 U/L Normal 15-37 [facility] Comment on above: Performed By: #### C MP #### [facility] [address] [place] [address] Dr. Dimas Bustos Bilirubin [Mass/Vol] 0.3 mg/dL Normal 0.2-1.0 [facility] Comment on above: Performed By: #### C MP #### [facility] [address] [address] [address] Dimas Bustos Calcium [Mass/Vol] 9.5 mg/dL Normal 8.5-10.1 [facility] Comment on above: Performed By: #### C MP #### [facility] [address] [address] [address] Dimas Bustos Chloride [Moles/Vol] 103 mmol/L Normal 98-107 [facility] Comment on above: Performed By: #### C MP #### [facility] [address] [address] [address] Dimas Bustos CO2 [Moles/Vol] 28.2 mmol/L Normal 21.0-32.0 [facility] Comment on above: Performed By: #### C MP #### [facility] [address] [place] [address] Dr. Dimas Bustos Creatinine [Mass/Vol] 0.77 mg/dL Normal 0.70-1.30 [facility] Comment on above: Performed By: #### C MP #### [facility] [address] [place] [address] Dr. Dimas Bustos EGFR-AF MACANESE >60 Normal >=60 [facility] Comment on above: Performed By: #### C MP #### [facility] [address] [place] [address] Dr. Dimas Bustos EGFR-NON AF MACANESE >60 Normal >=60 [facility] Comment on above: Performed By: #### C MP #### [facility] [address] [place] [address] Dr. Dimas Bustos Globulin (S) [Mass/Vol] 4.6 g/dL Normal [facility] Comment on above: Performed By: #### C MP #### [facility] [address] [place] [address] Dr. Dimas Bustos Glucose [Mass/Vol] 119 mg/dL Critically high 74-106 [facility] Comment on above: Performed By: #### C MP #### [facility] [address] [place] [address] Dr. Dimas Bustos Potassium [Moles/Vol] 4.1 mmol/L Normal 3.5-5.1 [facility] Comment on above: Performed By: #### C MP #### [facility] [address] [address] [address] Dimas Bustos Protein [Mass/Vol] 7.3 g/dL Normal 6.4-8.2 [facility] Comment on above: Performed By: #### C MP #### [facility] [address] [address] [address] Dimas Bustos Sodium [Moles/Vol] 137 mmol/L Normal 136-145 [facility] Comment on above: Performed By: #### C MP #### [facility] [address] [place] [address] Dr. Dimas Bustos Urea nitrogen [Mass/Vol] 11.0 mg/dL Normal 7.0-18.0 [facility] Comment on above: Performed By: #### C MP #### [facility] [address] [place] [address] Dr. Dimas Bustos Urea nitrogen/Creatinine [Mass ratio] 14.3 mg/mg Normal [facility] Comment on above: Performed By: #### C MP #### [facility] [address] [place] [address] Dr. Dimas Bustos PROTIMEon 12-05-2021 INR Coag (PPP) [Relative time] 1.16 {INR} Normal [facility] Comment on above: Performed By: #### P TTHEP #### [facility] [address] [place] [address] Dr. Dimas Bustos INR GUIDELINES SEE BELOW Normal [facility] Comment on above: Result Comment: GEOVANNI RED INR: 2.0 - 3.0 CONDITIONS NOT LISTED BELOW 2.5 - 3.5 FOR PROSTHETIC HEART VALVE REPLACEMENT 2.5 - 3.5 RECURRENT THROMBOSIS Performed By: #### P TTHEP #### [facility] [address] [place] [address] Dr. Dimas Bustos PT Coag (PPP) [Time] 12.4 s Critically high 9.0-11.6 [facility] Comment on above: Performed By: #### P TTHEP #### [facility] [address] [place] [address] Dr. Dimas Bustos PTTon 12-05-2021 aPTT Coag (Bld) [Time] 50.7 s Critically high 22.3-36.2 [facility] Comment on above: Performed By: #### P TT #### [facility] [address] [place] [address] Dr. Dimas Bustos aPTT Coag (Bld) [Time] 51.3 s Critically high 22.3-36.2 [facility] Comment on above: Performed By: #### P TTHEP #### [facility] [address] [place] [address] Dr. Dimas Bustos aPTT Coag (Bld) [Time] 52.7 s Critically high 22.3-36.2 [facility] Comment on above: Performed By: #### C VDTBH #### [facility] [address] [place] [address] Dr. Dimas Bustos PTT HEPARIN MONITORon 2021 aPTT Coag (Bld) [Time] 42.3 s Normal 39.5-54.2 [facility] Comment on above: Performed By: #### P TTHEP #### [facility] [address] [place] [address] Dr. Dimas Bustos CBC AUTO DIFFon 12-04-2021 BASO # 0.0 103/ul Normal 0.0-0.1 [facility] Comment on above: Performed By: #### C BC #### [facility] [address] [place] [address] Dr. Dimas Bustos Basophils/100 WBC (Bld) 0.3 % Normal 0.2-2.0 [facility] Comment on above: Performed By: #### C BC #### [facility] [address] [place] [address] Dr. Dimas Bustos EO # 0.1 103/ul Normal 0.0-0.7 [facility] Comment on above: Performed By: #### C BC #### [facility] [address] [address] [address] Dimas Bustos Eosinophils/100 WBC (Bld) 1.2 % Normal 0.9-7.0 [facility] Comment on above: Performed By: #### C BC #### [facility] [address] [place] [address] Dr. Dimas Bustos Erythrocyte distribution width (RBC) [Ratio] 12.3 % Normal 11.0-15.0 [facility] Comment on above: Performed By: #### C BC #### [facility] [address] [place] [address] Dr. Dimas Bustos Hematocrit (Bld) [Volume fraction] 39.8 % Critically low 42.0-54.0 [facility] Comment on above: Performed By: #### C BC #### [facility] [address] [place] [address] Dr. Dimas Bustos Hemoglobin (Bld) [Mass/Vol] 13.5 g/dL Critically low 14.0-18.0 [facility] Comment on above: Performed By: #### C BC #### [facility] [address] [place] [address] Dr. Dimas Bustos IG # 0.07 10e3/ul Critically high 0.00-0.03 [facility] Comment on above: Performed By: #### C BC #### [facility] [address] [place] [address] Dr. Dimas Bustos IG % 0.6 % Critically high 0.0-0.5 [facility] Comment on above: Performed By: #### C BC #### [facility] [address] [place] [address] Dr. Dimas Bustos LYMPH # 1.8 103/ul Normal 1.2-3.8 [facility] Comment on above: Performed By: #### C BC #### [facility] [address] [place] [address] Dr. Dimas Bustos Lymphocytes/100 WBC (Bld) 16.6 % Critically low 20.5-60.0 [facility] Comment on above: Performed By: #### C BC #### [facility] [address] [place] [address] Dr. Dimas Bustos MANUAL DIFF REQ NO Normal [facility] Comment on above: Performed By: #### C BC #### [facility] [address] [place] [address] Dr. Dimas Bustos MCH (RBC) [Entitic mass] 31.5 pg Normal 25.9-34.0 [facility] Comment on above: Performed By: #### C BC #### [facility] [address] [place] [address] Dr. Dimas Bustos MCHC (RBC) [Mass/Vol] 33.9 g/dL Normal 29.9-35.2 [facility] Comment on above: Performed By: #### C BC #### [facility] [address] [place] [address] Dr. Dimas Bustos MCV (RBC) [Entitic vol] 92.8 fL Normal 80.0-94.0 [facility] Comment on above: Performed By: #### C BC #### [facility] [address] [place] [address] Dr. Dimas Bustos MONO # 0.9 103/ul Critically high 0.3-0.8 [facility] Comment on above: Performed By: #### C BC #### [facility] [address] [place] [address] Dr. Dimas Bustos Monocytes/100 WBC (Bld) 7.9 % Normal 1.7-12.0 [facility] Comment on above: Performed By: #### C BC #### [facility] [address] [place] [address] Dr. Dimas Bustos NEUT # 8.0 103/ul Critically high 1.4-6.5 [facility] Comment on above: Performed By: #### C BC #### [facility] [address] [place] [address] Dr. Dimas Bustos Neutrophils/100 WBC (Bld) 73.4 % Normal 43.0-75.0 [facility] Comment on above: Performed By: #### C BC #### [facility] [address] [place] [address] Dr. Dimas Bustos Platelet mean volume (Bld) [Entitic vol] 8.9 fL Critically low 9.5-13.5 [facility] Comment on above: Performed By: #### C BC #### [facility] [address] [address] [address] Dimas Bustos PLT 329 103/ul Normal 150-450 [facility] Comment on above: Performed By: #### C BC #### [facility] [address] [place] [address] Dr. Dimas Bustos RBC 4.29 106/ul Critically low 4.70-6.10 [facility] Comment on above: Performed By: #### C BC #### [facility] [address] [place] [address] Dr. Dimas Bustos WBC 10.9 103/ul Normal 4.0-11.0 [facility] Comment on above: Performed By: #### C BC #### [facility] [address] [place] [address] Dr. Dimas Bustos PROF 14(COMP METB)on 022 Albumin [Mass/Vol] 2.6 g/dL Critically low 3.4-5.0 [facility] Comment on above: Performed By: #### C VDTBH #### [facility] [address] [place] [address] Dr. Dimas Bustos Albumin/Globulin [Mass ratio] 0.6 {ratio} Normal [facility] Comment on above: Performed By: #### C VDTBH #### [facility] [address] [place] [address] Dr. Dimas Bustos ALP [Catalytic activity/Vol] 97 U/L Normal 46-116 [facility] Comment on above: Performed By: #### C VDTBH #### [facility] [address] [place] [address] Dr. Dimas Bustos ALT [Catalytic activity/Vol] 33 U/L Normal 16-63 [facility] Comment on above: Performed By: #### C VDTBH #### [facility] [address] [address] [address] Dimas Bustos Anion gap [Moles/Vol] 12.8 mmol/L Normal [facility] Comment on above: Performed By: #### C VDTBH #### [facility] [address] [address] [address] Dimas Bustos AST [Catalytic activity/Vol] 13 U/L Critically low 15-37 [facility] Comment on above: Performed By: #### C VDTBH #### [facility] [address] [place] [address] Dr. Dimas Bustos Bilirubin [Mass/Vol] 0.2 mg/dL Normal 0.2-1.0 [facility] Comment on above: Performed By: #### C VDTBH #### [facility] [address] [place] [address] Dr. Dimas Bustos Calcium [Mass/Vol] 9.1 mg/dL Normal 8.5-10.1 [facility] Comment on above: Performed By: #### C VDTBH #### [facility] [address] [place] [address] Dr. Dimas Bustos Chloride [Moles/Vol] 102 mmol/L Normal 98-107 [facility] Comment on above: Performed By: #### C VDTBH #### [facility] [address] [place] [address] Dr. Dimas Bustos CO2 [Moles/Vol] 26.6 mmol/L Normal 21.0-32.0 [facility] Comment on above: Performed By: #### C VDTBH #### [facility] [address] [place] [address] Dr. Dimas Bustos Creatinine [Mass/Vol] 0.76 mg/dL Normal 0.70-1.30 [facility] Comment on above: Performed By: #### C VDTBH #### [facility] [address] [place] [address] Dr. Dimas Bustos EGFR-AF MACANESE >60 Normal >=60 [facility] Comment on above: Performed By: #### C VDTBH #### [facility] [address] [address] [address] Dimas Bustos EGFR-NON AF MACANESE >60 Normal >=60 [facility] Comment on above: Performed By: #### C VDTBH #### [facility] [address] [address] [address] Dimas Bustos Globulin (S) [Mass/Vol] 4.4 g/dL Normal [facility] Comment on above: Performed By: #### C VDTBH #### [facility] [address] [address] [address] Dimas Bustos Glucose [Mass/Vol] 117 mg/dL Critically high 74-106 [facility] Comment on above: Performed By: #### C VDTBH #### [facility] [address] [place] [address] Dr. Dimas Bustos Potassium [Moles/Vol] 4.4 mmol/L Normal 3.5-5.1 [facility] Comment on above: Performed By: #### C VDTBH #### [facility] [address] [place] [address] Dr. Dimas Bustos Protein [Mass/Vol] 7.0 g/dL Normal 6.4-8.2 [facility] Comment on above: Performed By: #### C VDTBH #### [facility] [address] [place] [address] Dr. Dimas Bustos Sodium [Moles/Vol] 137 mmol/L Normal 136-145 [facility] Comment on above: Performed By: #### C VDTBH #### [facility] [address] [place] [address] Dr. Dimas Bustos Urea nitrogen [Mass/Vol] 11.0 mg/dL Normal 7.0-18.0 [facility] Comment on above: Performed By: #### C VDTBH #### [facility] [address] [place] [address] Dr. Dimas Bustos Urea nitrogen/Creatinine [Mass ratio] 14.5 mg/mg Normal [facility] Comment on above: Performed By: #### C VDTBH #### [facility] [address] [place] [address] Dr. Dimas Bustos PROTIMEon 12-04-2021 INR Coag (PPP) [Relative time] 1.03 {INR} Normal [facility] Comment on above: Performed By: #### P TTHEP #### [facility] [address] [place] [address] Dr. Dimas Bustos INR GUIDELINES SEE BELOW Normal [facility] Comment on above: Result Comment: GEOVANNI RED INR: 2.0 - 3.0 CONDITIONS NOT LISTED BELOW 2.5 - 3.5 FOR PROSTHETIC HEART VALVE REPLACEMENT 2.5 - 3.5 RECURRENT THROMBOSIS Performed By: #### P TTHEP #### [facility] [address] [place] [address] Dr. Dimas Bustos PT Coag (PPP) [Time] 11.1 s Normal 9.0-11.6 [facility] Comment on above: Performed By: #### P TTHEP #### [facility] [address] [place] [address] Dr. Dimas Bustos PTT HEPARIN MONITORon 2021 aPTT Coag (Bld) [Time] 41.6 s Normal 39.5-54.2 [facility] Comment on above: Performed By: #### P TTHEP #### [facility] [address] [place] [address] Dr. Dimas Bustos aPTT Coag (Bld) [Time] 42.1 s Normal 39.5-54.2 [facility] Comment on above: Performed By: #### P TT #### [facility] [address] [place] [address] Dr. Dimas Bustos aPTT Coag (Bld) [Time] 42.4 s Normal 39.5-54.2 [facility] Comment on above: Performed By: #### P TTHEP #### [facility] [address] [place] [address] Dr. Dimas Bustos aPTT Coag (Bld) [Time] 40.7 s Normal 39.5-54.2 [facility] Comment on above: Performed By: #### C VDTBH #### [facility] [address] [place] [address] Dr. Dimas Bustos CBC AUTO DIFFon 12-03-2021 BASO # 0.0 103/ul Normal 0.0-0.1 [facility] Comment on above: Performed By: #### P TTHEP #### [facility] [address] [place] [address] Dr. Dimas Bustos Basophils/100 WBC (Bld) 0.3 % Normal 0.2-2.0 [facility] Comment on above: Performed By: #### P TTHEP #### [facility] [address] [place] [address] Dr. Dimas Bustos EO # 0.1 103/ul Normal 0.0-0.7 [facility] Comment on above: Performed By: #### P TTHEP #### [facility] [address] [place] [address] Dr. Dimas Bustos Eosinophils/100 WBC (Bld) 0.8 % Critically low 0.9-7.0 [facility] Comment on above: Performed By: #### P TTHEP #### [facility] [address] [place] [address] Dr. Dimas Bustos Erythrocyte distribution width (RBC) [Ratio] 12.3 % Normal 11.0-15.0 [facility] Comment on above: Performed By: #### P TTHEP #### [facility] [address] [place] [address] Dr. Dimas Bustos Hematocrit (Bld) [Volume fraction] 40.8 % Critically low 42.0-54.0 [facility] Comment on above: Performed By: #### P TTHEP #### [facility] [address] [place] [address] Dr. Dimas Bustos Hemoglobin (Bld) [Mass/Vol] 13.8 g/dL Critically low 14.0-18.0 [facility] Comment on above: Performed By: #### P TTHEP #### [facility] [address] [place] [address] Dr. Dimas Bustos IG # 0.06 10e3/ul Critically high 0.00-0.03 [facility] Comment on above: Performed By: #### P TTHEP #### [facility] [address] [place] [address] Dr. Dimas Bustos IG % 0.5 % Normal 0.0-0.5 [facility] Comment on above: Performed By: #### P TTHEP #### [facility] [address] [address] [address] Dimas Bustos LYMPH # 1.6 103/ul Normal 1.2-3.8 [facility] Comment on above: Performed By: #### P TTHEP #### [facility] [address] [place] [address] Dr. Dimas Bustos Lymphocytes/100 WBC (Bld) 13.7 % Critically low 20.5-60.0 [facility] Comment on above: Performed By: #### P TTHEP #### [facility] [address] [place] [address] Dr. Dimas Bustos MANUAL DIFF REQ NO Normal [facility] Comment on above: Performed By: #### P TTHEP #### [facility] [address] [place] [address] Dr. Dimas Bustos MCH (RBC) [Entitic mass] 31.4 pg Normal 25.9-34.0 [facility] Comment on above: Performed By: #### P TTHEP #### [facility] [address] [place] [address] Dr. Dimas Bustos MCHC (RBC) [Mass/Vol] 33.8 g/dL Normal 29.9-35.2 [facility] Comment on above: Performed By: #### P TTHEP #### [facility] [address] [place] [address] Dr. Dimas Bustos MCV (RBC) [Entitic vol] 92.7 fL Normal 80.0-94.0 [facility] Comment on above: Performed By: #### P TTHEP #### [facility] [address] [place] [address] Dr. Dimas Bustos MONO # 1.0 103/ul Critically high 0.3-0.8 [facility] Comment on above: Performed By: #### P TTHEP #### [facility] [address] [place] [address] Dr. Dimas Bustos Monocytes/100 WBC (Bld) 8.5 % Normal 1.7-12.0 [facility] Comment on above: Performed By: #### P TTHEP #### [facility] [address] [place] [address] Dr. Dimas Bustos NEUT # 8.8 103/ul Critically high 1.4-6.5 [facility] Comment on above: Performed By: #### P TTHEP #### [facility] [address] [place] [address] Dr. Dimas Bustos Neutrophils/100 WBC (Bld) 76.2 % Critically high 43.0-75.0 [facility] Comment on above: Performed By: #### P TTHEP #### [facility] [address] [place] [address] Dr. Dimas Bustos Platelet mean volume (Bld) [Entitic vol] 8.7 fL Critically low 9.5-13.5 [facility] Comment on above: Performed By: #### P TTHEP #### [facility] [address] [place] [address] Dr. Dimas Bustos PLT 309 103/ul Normal 150-450 [facility] Comment on above: Performed By: #### P TTHEP #### [facility] [address] [place] [address] Dr. Dimas Bustos RBC 4.40 106/ul Critically low 4.70-6.10 [facility] Comment on above: Performed By: #### P TTHEP #### [facility] [address] [place] [address] Dr. Dimas Bustos WBC 11.5 103/ul Critically high 4.0-11.0 [facility] Comment on above: Performed By: #### P TTHEP #### [facility] [address] [place] [address] Dr. Dimas Bustos PROF 14(COMP METB)on 022 Albumin [Mass/Vol] 2.7 g/dL Critically low 3.4-5.0 [facility] Comment on above: Performed By: #### P TTHEP #### [facility] [address] [place] [address] Dr. Dimas Bustos Albumin/Globulin [Mass ratio] 0.7 {ratio} Normal [facility] Comment on above: Performed By: #### P TTHEP #### [facility] [address] [place] [address] Dr. Dimas Bustos ALP [Catalytic activity/Vol] 87 U/L Normal 46-116 [facility] Comment on above: Performed By: #### P TTHEP #### [facility] [address] [place] [address] Dr. Dimas Bustos ALT [Catalytic activity/Vol] 23 U/L Normal 16-63 [facility] Comment on above: Performed By: #### P TTHEP #### [facility] [address] [place] [address] Dr. Dimas Bustos Anion gap [Moles/Vol] 10.6 mmol/L Normal [facility] Comment on above: Performed By: #### P TTHEP #### [facility] [address] [place] [address] Dr. Dimas Bustos AST [Catalytic activity/Vol] 9 U/L Critically low 15-37 [facility] Comment on above: Performed By: #### P TTHEP #### [facility] [address] [place] [address] Dr. Dimas Bustos Bilirubin [Mass/Vol] 0.4 mg/dL Normal 0.2-1.0 [facility] Comment on above: Performed By: #### P TTHEP #### [facility] [address] [place] [address] Dr. Dimas Bustos Calcium [Mass/Vol] 8.7 mg/dL Normal 8.5-10.1 [facility] Comment on above: Performed By: #### P TTHEP #### [facility] [address] [place] [address] Dr. Dimas Bustos Chloride [Moles/Vol] 102 mmol/L Normal 98-107 [facility] Comment on above: Performed By: #### P TTHEP #### [facility] [address] [address] [address] Dimas Bustos CO2 [Moles/Vol] 26.5 mmol/L Normal 21.0-32.0 [facility] Comment on above: Performed By: #### P TTHEP #### [facility] [address] [place] [address] Dr. Dimas Bustos Creatinine [Mass/Vol] 0.71 mg/dL Normal 0.70-1.30 [facility] Comment on above: Performed By: #### P TTHEP #### [facility] [address] [place] [address] Dr. Dimas Bustos EGFR-AF MACANESE >60 Normal >=60 [facility] Comment on above: Performed By: #### P TTHEP #### [facility] [address] [place] [address] Dr. Dimas Bustos EGFR-NON AF MACANESE >60 Normal >=60 [facility] Comment on above: Performed By: #### P TTHEP #### [facility] [address] [place] [address] Dr. Dimas Bustos Globulin (S) [Mass/Vol] 4.1 g/dL Normal [facility] Comment on above: Performed By: #### P TTHEP #### [facility] [address] [place] [address] Dr. Dimas Bustos Glucose [Mass/Vol] 120 mg/dL Critically high 74-106 [facility] Comment on above: Performed By: #### P TTHEP #### [facility] [address] [place] [address] Dr. Dimas Bustos Potassium [Moles/Vol] 4.1 mmol/L Normal 3.5-5.1 [facility] Comment on above: Performed By: #### P TTHEP #### [facility] [address] [place] [address] Dr. Dimas Bustos Protein [Mass/Vol] 6.8 g/dL Normal 6.4-8.2 [facility] Comment on above: Performed By: #### P TTHEP #### [facility] [address] [place] [address] Dr. Dimas Bustos Sodium [Moles/Vol] 135 mmol/L Critically low 136-145 Th [facility] Comment on above: Performed By: #### P TTHEP #### [facility] [address] [place] [address] Dr. Dimas Bustos Urea nitrogen [Mass/Vol] 13.0 mg/dL Normal 7.0-18.0 [facility] Comment on above: Performed By: #### P TTHEP #### [facility] [address] [place] [address] Dr. Dimas Bustos Urea nitrogen/Creatinine [Mass ratio] 18.3 mg/mg Normal [facility] Comment on above: Performed By: #### P TTHEP #### [facility] [address] [place] [address] Dr. Dimas Bustos PROTIMEon 12-03-2021 INR Coag (PPP) [Relative time] 0.98 {INR} Normal [facility] Comment on above: Performed By: #### C VDTBH #### [facility] [address] [place] [address] Dr. Dimas Bustos INR GUIDELINES SEE BELOW Normal [facility] Comment on above: Result Comment: GEOVANNI RED INR: 2.0 - 3.0 CONDITIONS NOT LISTED BELOW 2.5 - 3.5 FOR PROSTHETIC HEART VALVE REPLACEMENT 2.5 - 3.5 RECURRENT THROMBOSIS Performed By: #### C VDTBH #### [facility] [address] [place] [address] Dr. Dimas Bustos PT Coag (PPP) [Time] 10.6 s Normal 9.0-11.6 [facility] Comment on above: Performed By: #### C VDTBH #### [facility] [address] [place] [address] Dr. Dimas Bustos PTT HEPARIN MONITORon 2021 aPTT Coag (Bld) [Time] 37.9 s Critically low 39.5-54.2 [facility] Comment on above: Performed By: #### P TTHEP #### [facility] [address] [place] [address] Dr. Dimas Bustos aPTT Coag (Bld) [Time] 35.2 s Critically low 39.5-54.2 [facility] Comment on above: Performed By: #### C MP #### [facility] [address] [place] [address] Dr. Dimas Bustos aPTT Coag (Bld) [Time] 39.3 s Critically low 39.5-54.2 [facility] Comment on above: Performed By: #### P TTHEP #### [facility] [address] [place] [address] Dr. Dimas Bustos aPTT Coag (Bld) [Time] 37.2 s Critically low 39.5-54.2 [facility] Comment on above: Performed By: #### P TTHEP #### [facility] [address] [place] [address] Dr. Dimas Bustos CARDIAC JOELLEN ADMITon 022 CK [Catalytic activity/Vol] 66 U/L Normal 39-308 [facility] Comment on above: Performed By: #### P TTHEP #### [facility] [address] [place] [address] Dr. Dimas Bustos CK.MB [Mass/Vol] 0.93 ng/mL Normal <=3.60 [facility] Comment on above: Performed By: #### P TTHEP #### [facility] [address] [place] [address] Dr. Dimas Bustos HSTROP 6.7 pg/mL Normal 4.0-76.1 [facility] Comment on above: Result Comment: CUT- OFF POINTS HAVE BEEN ESTABLISHED BASED ON THE FOURTH UNIVERSAL DEFINITIONS OF MYOCARDIAL INFARCTION. THE UPPER REFERENCE LIMIT (URL) OF TROPONIN, DEFINED THE 99TH PERCENTILE OF cTnI DISTRIBUTION IN A REFERENCE POPULATION, HAS BEEN CONFIRMED THE DECISION THRESHOLD FOR MN DIAGNOSIS. Performed By: #### P TTHEP #### [facility] [address] [address] [address] Dimas Bustos KRIS 39 ng/mL Normal 16-96 [facility] Comment on above: Performed By: #### P TTHEP #### [facility] [address] [address] [address] Dimas Bustos CBC AUTO DIFFon 12-02-2021 BASO # 0.0 103/ul Normal 0.0-0.1 [facility] Comment on above: Performed By: #### P TT #### [facility] [address] [place] [address] Dr. Dimas Bustos Basophils/100 WBC (Bld) 0.3 % Normal 0.2-2.0 [facility] Comment on above: Performed By: #### P TT #### [facility] [address] [place] [address] Dr. Dimas Bustos EO # 0.1 103/ul Normal 0.0-0.7 [facility] Comment on above: Performed By: #### P TT #### [facility] [address] [place] [address] Dr. Dimas Bustos Eosinophils/100 WBC (Bld) 0.6 % Critically low 0.9-7.0 [facility] Comment on above: Performed By: #### P TT #### [facility] [address] [place] [address] Dr. Dimas Bustos Erythrocyte distribution width (RBC) [Ratio] 12.4 % Normal 11.0-15.0 [facility] Comment on above: Performed By: #### P TT #### [facility] [address] [place] [address] Dr. Dimas Bustos Hematocrit (Bld) [Volume fraction] 40.0 % Critically low 42.0-54.0 [facility] Comment on above: Performed By: #### P TT #### [facility] [address] [place] [address] Dr. Dimas Bustos Hemoglobin (Bld) [Mass/Vol] 13.7 g/dL Critically low 14.0-18.0 [facility] Comment on above: Performed By: #### P TT #### [facility] [address] [address] [address] Dimas Bustos IG # 0.07 10e3/ul Critically high 0.00-0.03 [facility] Comment on above: Performed By: #### P TT #### [facility] [address] [place] [address] Dr. Dimas Bustos IG % 0.5 % Normal 0.0-0.5 [facility] Comment on above: Performed By: #### P TT #### [facility] [address] [place] [address] Dr. Dimas Bustos LYMPH # 1.8 103/ul Normal 1.2-3.8 [facility] Comment on above: Performed By: #### P TT #### [facility] [address] [place] [address] Dr. Dimas Bustos Lymphocytes/100 WBC (Bld) 12.9 % Critically low 20.5-60.0 [facility] Comment on above: Performed By: #### P TT #### [facility] [address] [place] [address] Dr. Dimas Bustos MANUAL DIFF REQ NO Normal [facility] Comment on above: Performed By: #### P TT #### [facility] [address] [place] [address] Dr. Dimas Bustos MCH (RBC) [Entitic mass] 31.8 pg Normal 25.9-34.0 [facility] Comment on above: Performed By: #### P TT #### [facility] [address] [place] [address] Dr. Dimas Bustos MCHC (RBC) [Mass/Vol] 34.3 g/dL Normal 29.9-35.2 [facility] Comment on above: Performed By: #### P TT #### [facility] [address] [place] [address] Dr. Dimas Bustos MCV (RBC) [Entitic vol] 92.8 fL Normal 80.0-94.0 [facility] Comment on above: Performed By: #### P TT #### [facility] [address] [place] [address] Dr. Dimas Bustos MONO # 1.4 103/ul Critically high 0.3-0.8 [facility] Comment on above: Performed By: #### P TT #### [facility] [address] [place] [address] Dr. Dimas Bustos Monocytes/100 WBC (Bld) 10.0 % Normal 1.7-12.0 [facility] Comment on above: Performed By: #### P TT #### [facility] [address] [place] [address] Dr. Dimas Bustos NEUT # 10.3 103/ul Critically high 1.4-6.5 [facility] Comment on above: Performed By: #### P TT #### [facility] [address] [place] [address] Dr. Dimas Bustos Neutrophils/100 WBC (Bld) 75.7 % Critically high 43.0-75.0 [facility] Comment on above: Performed By: #### P TT #### [facility] [address] [place] [address] Dr. Dimas Bustos Platelet mean volume (Bld) [Entitic vol] 8.6 fL Critically low 9.5-13.5 [facility] Comment on above: Performed By: #### P TT #### [facility] [address] [place] [address] Dr. Dimas Bustos PLT 280 103/ul Normal 150-450 [facility] Comment on above: Performed By: #### P TT #### [facility] [address] [place] [address] Dr. Dimas Bustos RBC 4.31 106/ul Critically low 4.70-6.10 [facility] Comment on above: Performed By: #### P TT #### [facility] [address] [place] [address] Dr. Dimas Bustos WBC 13.7 103/ul Critically high 4.0-11.0 [facility] Comment on above: Performed By: #### P TT #### [facility] [address] [place] [address] Dr. Dimas Bustos ECHOCARDIO M/2D COMPLETEon 0 9-22-2022 ECHOCARDIO M/2D COMPLETE Patient: BUCK DISLA Exam Date: 12/02/2021 : 1975 Gender:M Ordering : SATURNINO WONG Admission #: [id number] Family : DR MCGUIRE EMORYOren . Order #: [id number] CLICK HERE TO VIEW EXAM ECHOCARDIOGRAM REPORT [...] Davis M.D. on 12/03/2021 at 17:34 Normal [facility] MRI LSPINE WO CONon 12-03-19 MRI [facility] [address] WO CON EXAMINATION: MRI [facility] [address] WO CON HISTORY: Lumbar radiculopathy , left [...] BUCK HOWARD Date: 2021-12-02 13:12 Normal [facility] PROF CHEM 8 (BAS METB)on Anion gap [Moles/Vol] 10.8 mmol/L Normal [facility] Comment on above: Performed By: #### C MP #### [facility] [address] [place] [address] Dr. Dimas Bustos Calcium [Mass/Vol] 8.6 mg/dL Normal 8.5-10.1 [facility] Comment on above: Performed By: #### C MP #### [facility] [address] [address] [address] Dimas Bustos Chloride [Moles/Vol] 102 mmol/L Normal 98-107 [facility] Comment on above: Performed By: #### C MP #### [facility] [address] [address] [address] Dimas Bustos CO2 [Moles/Vol] 25.1 mmol/L Normal 21.0-32.0 [facility] Comment on above: Performed By: #### C MP #### [facility] [address] [address] [address] Dimas Bustos Creatinine [Mass/Vol] 0.79 mg/dL Normal 0.70-1.30 [facility] Comment on above: Performed By: #### C MP #### [facility] [address] [address] [address] Dimas Bustos EGFR-AF MACANESE >60 Normal >=60 [facility] Comment on above: Performed By: #### C MP #### [facility] [address] [address] [address] Dimas Bustos EGFR-NON AF MACANESE >60 Normal >=60 [facility] Comment on above: Performed By: #### C MP #### [facility] [address] [address] [address] Dimas Bustos Glucose [Mass/Vol] 122 mg/dL Critically high 74-106 T [facility] Comment on above: Performed By: #### C MP #### [facility] [address] [place] [address] Dr. Dimas Bustos Potassium [Moles/Vol] 3.9 mmol/L Normal 3.5-5.1 [facility] Comment on above: Performed By: #### C MP #### [facility] [address] [address] [address] Dimas Bustos Sodium [Moles/Vol] 134 mmol/L Critically low 136-145 [facility] Comment on above: Performed By: #### C MP #### [facility] [address] [place] [address] Dr. Dimas Bustos Urea nitrogen [Mass/Vol] 18.0 mg/dL Normal 7.0-18.0 [facility] Comment on above: Performed By: #### C MP #### [facility] [address] [place] [address] Dr. Dimas Bustos Urea nitrogen/Creatinine [Mass ratio] 22.8 mg/mg Normal [facility] Comment on above: Performed By: #### C MP #### [facility] [address] [place] [address] Dr. Dimas Bustos PTT HEPARIN MONITORon 2021 aPTT Coag (Bld) [Time] 36.5 s Critically low 39.5-54.2 [facility] Comment on above: Performed By: #### P TTHEP #### [facility] [address] [place] [address] Dr. Dimas Bustos aPTT Coag (Bld) [Time] 39.0 s Critically low 39.5-54.2 [facility] Comment on above: Performed By: #### P TTHEP #### [facility] [address] [place] [address] Dr. Dimas Bustos BNPon 12-01-2021 Natriuretic peptide B (Bld) [Mass/Vol] 153.0 pg/mL Normal <=450.0 [facility] Comment on above: Performed By: #### P TTHEP #### [facility] [address] [place] [address] Dr. Dimas Bustos CBC AUTO DIFFon 12-01-2021 BASO # 0.1 103/ul Normal 0.0-0.1 [facility] Comment on above: Performed By: #### P TT #### [facility] [address] [place] [address] Dr. Dimas Bustos Basophils/100 WBC (Bld) 0.4 % Normal 0.2-2.0 [facility] Comment on above: Performed By: #### P TT #### [facility] [address] [place] [address] Dr. Dimas Bustos EO # 0.1 103/ul Normal 0.0-0.7 [facility] Comment on above: Performed By: #### P TT #### [facility] [address] [place] [address] Dr. Dimas Bustos Eosinophils/100 WBC (Bld) 0.6 % Critically low 0.9-7.0 [facility] Comment on above: Performed By: #### P TT #### [facility] [address] [place] [address] Dr. Dimas Bustos Erythrocyte distribution width (RBC) [Ratio] 12.6 % Normal 11.0-15.0 [facility] Comment on above: Performed By: #### P TT #### [facility] [address] [place] [address] Dr. Dimas Bustos Hematocrit (Bld) [Volume fraction] 44.5 % Normal 42.0-54.0 [facility] Comment on above: Performed By: #### P TT #### [facility] [address] [place] [address] Dr. Dimas Bustos Hemoglobin (Bld) [Mass/Vol] 15.4 g/dL Normal 14.0-18.0 [facility] Comment on above: Performed By: #### P TT #### [facility] [address] [address] [address] Dimas Bustos IG # 0.09 10e3/ul Critically high 0.00-0.03 [facility] Comment on above: Performed By: #### P TT #### [facility] [address] [place] [address] Dr. Dimas Bustos IG % 0.6 % Critically high 0.0-0.5 [facility] Comment on above: Performed By: #### P TT #### [facility] [address] [address] [address] Dimas Bustos LYMPH # 1.9 103/ul Normal 1.2-3.8 [facility] Comment on above: Performed By: #### P TT #### [facility] [address] [place] [address] Dr. Dimas Bustos Lymphocytes/100 WBC (Bld) 13.1 % Critically low 20.5-60.0 [facility] Comment on above: Performed By: #### P TT #### [facility] [address] [place] [address] Dr. Dimas Bustos MANUAL DIFF REQ NO Normal [facility] Comment on above: Performed By: #### P TT #### [facility] [address] [place] [address] Dr. Dimas Bustos MCH (RBC) [Entitic mass] 31.8 pg Normal 25.9-34.0 [facility] Comment on above: Performed By: #### P TT #### [facility] [address] [place] [address] Dr. Dimas Bustos MCHC (RBC) [Mass/Vol] 34.6 g/dL Normal 29.9-35.2 [facility] Comment on above: Performed By: #### P TT #### [facility] [address] [address] [address] Dimas Bustos MCV (RBC) [Entitic vol] 91.9 fL Normal 80.0-94.0 [facility] Comment on above: Performed By: #### P TT #### [facility] [address] [address] [address] Dimas Bustos MONO # 1.3 103/ul Critically high 0.3-0.8 [facility] Comment on above: Performed By: #### P TT #### [facility] [address] [place] [address] Dr. Dimas Bustos Monocytes/100 WBC (Bld) 8.8 % Normal 1.7-12.0 [facility] Comment on above: Performed By: #### P TT #### [facility] [address] [address] [address] Dimas Bustos NEUT # 10.8 103/ul Critically high 1.4-6.5 [facility] Comment on above: Performed By: #### P TT #### [facility] [address] [place] [address] Dr. Dimas Bustos Neutrophils/100 WBC (Bld) 76.5 % Critically high 43.0-75.0 [facility] Comment on above: Performed By: #### P TT #### [facility] [address] [address] [address] Dimas Bustos Platelet mean volume (Bld) [Entitic vol] 8.7 fL Critically low 9.5-13.5 [facility] Comment on above: Performed By: #### P TT #### [facility] [address] [place] [address] Dr. Dimas Bustos PLT 313 103/ul Normal 150-450 [facility] Comment on above: Performed By: #### P TT #### [facility] [address] [place] [address] Dr. Dimas Bustos RBC 4.84 106/ul Normal 4.70-6.10 [facility] Comment on above: Performed By: #### P TT #### [facility] [address] [place], [place] [address] Dr. Dimas Bustos WBC 14.2 103/ul Critically high 4.0-11.0 [facility] Comment on above: Performed By: #### P TT #### [facility] [address] [place], [place] [address] Dr. Dimas Bustos CTA CHEST WO W CONon 022 CTA CHEST WO W CON EXAMINATION: CTA CHEST WO W CON HISTORY: SHORTNESS OF BREATH [...] Findings discussed with the ordering physician the Kira potter, by telephone at 9:40 PM IMPRESSION: 5 mm focus of pulmonary thromboembolic disease right lower lobe pulmonary artery Moderate mosaic groundglass attenuation, consider a viral or atypical pnuemonia or pulmonary edema Scattered pulmonary nodules measuring up to 5.9 mm, nonspecific Electronically authenticated by: BUCK HOWARD Date: 2021-12-01 21:51 Normal [facility] Covid-19 PCR (CVDTB)on 11-12 SARS-CoV-2 (COVID-19) RNA JURGEN+probe Ql (Unsp spec) Not detected Normal NOT DETECTED [facility] Comment on above: Result Comment: When [...] for this test is supported by the [employer] and Human Service's declaration that [...] longer be used). Performed By: #### C VDTB #### [facility] [address] [place] [address] Dr. Dimas Bustos PROF 14(COMP METB)on 022 Albumin [Mass/Vol] 3.4 g/dL Normal 3.4-5.0 [facility] Comment on above: Performed By: #### C MP #### [facility] [address] [place] [address] Dr. Dimas Bustos Albumin/Globulin [Mass ratio] 0.8 {ratio} Normal [facility] Comment on above: Performed By: #### C MP #### [facility] [address] [place] [address] Dr. Dimas Bustos ALP [Catalytic activity/Vol] 121 U/L Critically high 46-116 [facility] Comment on above: Performed By: #### C MP #### [facility] [address] [place] [address] Dr. Dimas Bustos ALT [Catalytic activity/Vol] 26 U/L Normal 16-63 [facility] Comment on above: Performed By: #### C MP #### [facility] [address] [place] [address] Dr. Dimas Bustos Anion gap [Moles/Vol] 14.9 mmol/L Normal [facility] Comment on above: Performed By: #### C MP #### [facility] [address] [address] [address] Dimas Bustos AST [Catalytic activity/Vol] 13 U/L Critically low 15-37 [facility] Comment on above: Performed By: #### C MP #### [facility] [address] [address] [address] Dimas Bustos Bilirubin [Mass/Vol] 1.2 mg/dL Critically high 0.2-1.0 [facility] Comment on above: Performed By: #### C MP #### [facility] [address] [address] [address] Dimas Bustos Calcium [Mass/Vol] 9.2 mg/dL Normal 8.5-10.1 [facility] Comment on above: Performed By: #### C MP #### [facility] [address] [place] [address] Dr. Dimas Bustos Chloride [Moles/Vol] 100 mmol/L Normal 98-107 [facility] Comment on above: Performed By: #### C MP #### [facility] [address] [address] [address] Dimas Bustos CO2 [Moles/Vol] 23.0 mmol/L Normal 21.0-32.0 [facility] Comment on above: Performed By: #### C MP #### [facility] [address] [address] [address] Dimas Bustos Creatinine [Mass/Vol] 0.96 mg/dL Normal 0.70-1.30 [facility] Comment on above: Performed By: #### C MP #### [facility] [address] [address] [address] Dimas Bustos EGFR-AF MACANESE >60 Normal >=60 [facility] Comment on above: Performed By: #### C MP #### [facility] [address] [place] [address] Dr. Dimas Bustos EGFR-NON AF MACANESE >60 Normal >=60 [facility] Comment on above: Performed By: #### C MP #### [facility] [address] [place] [address] Dr. Dimas Bustos Globulin (S) [Mass/Vol] 4.2 g/dL Normal [facility] Comment on above: Performed By: #### C MP #### [facility] [address] [address] [address] Dimas Bustos Glucose [Mass/Vol] 127 mg/dL Critically high 74-106 [facility] Comment on above: Performed By: #### C MP #### [facility] [address] [address] [address] Dimas Bustos Potassium [Moles/Vol] 3.9 mmol/L Normal 3.5-5.1 [facility] Comment on above: Performed By: #### C MP #### [facility] [address] [place] [address] Dr. Dimas Bustos Protein [Mass/Vol] 7.6 g/dL Normal 6.4-8.2 [facility] Comment on above: Performed By: #### C MP #### [facility] [address] [place] [address] Dr. Dimas Bustos Sodium [Moles/Vol] 134 mmol/L Critically low 136-145 [facility] Comment on above: Performed By: #### C MP #### [facility] [address] [place] [address] Dr. Dimas Bustos Urea nitrogen [Mass/Vol] 13.0 mg/dL Normal 7.0-18.0 [facility] Comment on above: Performed By: #### C MP #### [facility] [address] [address] [address] Dimas Bustos Urea nitrogen/Creatinine [Mass ratio] 13.5 mg/mg Normal [facility] Comment on above: Performed By: #### C MP #### [facility] [address] [place] [address] Dr. Dimas Bustos PROTIMEon 12-01-2021 INR Coag (PPP) [Relative time] 0.98 {INR} Normal [facility] Comment on above: Performed By: #### P TT #### [facility] [address] [place] [address] Dr. Dimas Bustos INR GUIDELINES SEE BELOW Normal [facility] Comment on above: Result Comment: GEOVANNI RED INR: 2.0 - 3.0 CONDITIONS NOT LISTED BELOW 2.5 - 3.5 FOR PROSTHETIC HEART VALVE REPLACEMENT 2.5 - 3.5 RECURRENT THROMBOSIS Performed By: #### P TT #### [facility] [address] [address] [address] Dimas Bustos PT Coag (PPP) [Time] 10.6 s Normal 9.0-11.6 [facility] Comment on above: Performed By: #### P TT #### [facility] [address] [address] [address] Dimas Bustos PTTon 12-01-2021 aPTT Coag (Bld) [Time] 33.3 s Normal 22.3-36.2 [facility] Comment on above: Performed By: #### P TT #### [facility] [address] [address] [address] Dimas Bustos US JUAN DOP LEG LTon 11-24-19 22 US JUAN DOP LEG LT EXAMINATION: [...] by: VINAYAK ROSS Date: 2021-11-23 13:00 Normal [facility] INSULINon 11-22-2021 Insulin 16.3 uIU/mL Normal 2.6-24.9 [facility] Comment on above: Performed By: #### P TT #### [facility] [address] [address] [address] Dimas Bustos T4, T3U, FTI LABCORPon 11-21 Free Thyroxine Index 2.7 Normal 1.2-4.9 [facility] Comment on above: Performed By: #### P TT #### [facility] [address] [place] [address] Dr. Dimas Bustos T3 Uptake 26 % Normal 24-39 [facility] Comment on above: Performed By: #### P TT #### [facility] [address] [place] [address] Dr. Dimas Bustos T4 [Mass/Vol] 10.5 ug/dL Normal 4.5-12.0 [facility] Comment on above: Performed By: #### P TT #### [facility] [address] [place] [address] Dr. Dimas Bustos TESTOSTERONE, TOTALon 2021 Testosterone [Mass/Vol] 319 ng/dL Normal 264-916 [facility] Comment on above: Result Comment: Adul t male reference interval is based on a population of healthy nonobese males (BMI <30) between 19 and 39 years old. james Self.al. JCEM 2017,102;3366-6695. PMID: [id number]. Performed By: #### P TTHEP #### [facility] [address] [place] [address] Dr. Dimas Bustos CBC AUTO DIFFon 11-20-2021 BASO # 0.1 103/ul Normal 0.0-0.1 [facility] Comment on above: Performed By: #### C MP #### [facility] [address] [place] [address] Dr. Dimas Bustos Basophils/100 WBC (Bld) 0.6 % Normal 0.2-2.0 [facility] Comment on above: Performed By: #### C MP #### [facility] [address] [place] [address] Dr. Dimas Bustos EO # 0.1 103/ul Normal 0.0-0.7 [facility] Comment on above: Performed By: #### C MP #### [facility] [address] [place] [address] Dr. Dimas Bustos Eosinophils/100 WBC (Bld) 0.8 % Critically low 0.9-7.0 [facility] Comment on above: Performed By: #### C MP #### [facility] [address] [place] [address] Dr. Dimas Bustos Erythrocyte distribution width (RBC) [Ratio] 12.9 % Normal 11.0-15.0 [facility] Comment on above: Performed By: #### C MP #### [facility] [address] [place] [address] Dr. Dimas Bustos Hematocrit (Bld) [Volume fraction] 47.7 % Normal 42.0-54.0 [facility] Comment on above: Performed By: #### C MP #### [facility] [address] [place] [address] Dr. Dimas Bustos Hemoglobin (Bld) [Mass/Vol] 16.1 g/dL Normal 14.0-18.0 [facility] Comment on above: Performed By: #### C MP #### [facility] [address] [place] [address] Dr. Dimas Bustos IG # 0.32 10e3/ul Critically high 0.00-0.03 [facility] Comment on above: Performed By: #### C MP #### [facility] [address] [place] [address] Dr. Dimas Bustos IG % 2.0 % Critically high 0.0-0.5 [facility] Comment on above: Performed By: #### C MP #### [facility] [address] [place] [address] Dr. Dimas Bustos LYMPH # 2.8 103/ul Normal 1.2-3.8 [facility] Comment on above: Performed By: #### C MP #### [facility] [address] [place] [address] Dr. Dimas Bustos Lymphocytes/100 WBC (Bld) 17.6 % Critically low 20.5-60.0 [facility] Comment on above: Performed By: #### C MP #### [facility] [address] [place] [address] Dr. Dimas Bustos MANUAL DIFF REQ NO Normal [facility] Comment on above: Performed By: #### C MP #### [facility] [address] [address] [address] Dimas Bustos MCH (RBC) [Entitic mass] 31.7 pg Normal 25.9-34.0 [facility] Comment on above: Performed By: #### C MP #### [facility] [address] [address] [address] Dimas Bustos MCHC (RBC) [Mass/Vol] 33.8 g/dL Normal 29.9-35.2 [facility] Comment on above: Performed By: #### C MP #### [facility] [address] [address] [address] Dimas Bustos MCV (RBC) [Entitic vol] 93.9 fL Normal 80.0-94.0 [facility] Comment on above: Performed By: #### C MP #### [facility] [address] [place] [address] Dr. Dimas Bustos MONO # 1.2 103/ul Critically high 0.3-0.8 [facility] Comment on above: Performed By: #### C MP #### [facility] [address] [address] [address] Dimas Bustos Monocytes/100 WBC (Bld) 7.7 % Normal 1.7-12.0 [facility] Comment on above: Performed By: #### C MP #### [facility] [address] [address] [address] Dimas Bustos NEUT # 11.3 103/ul Critically high 1.4-6.5 [facility] Comment on above: Performed By: #### C MP #### [facility] [address] [address] [address] Dimas Bustos Neutrophils/100 WBC (Bld) 71.3 % Normal 43.0-75.0 [facility] Comment on above: Performed By: #### C MP #### [facility] [address] [place] [address] Dr. Dimas Bustos Platelet mean volume (Bld) [Entitic vol] 8.9 fL Critically low 9.5-13.5 [facility] Comment on above: Performed By: #### C MP #### [facility] [address] [address] [address] Dimas Bustos PLT 331 103/ul Normal 150-450 [facility] Comment on above: Performed By: #### C MP #### [facility] [address] [address] [address] Dimas Bustos RBC 5.08 106/ul Normal 4.70-6.10 [facility] Comment on above: Performed By: #### C MP #### [facility] [address] [address] [address] Dimas Bustos WBC 15.8 103/ul Critically high 4.0-11.0 [facility] Comment on above: Performed By: #### C MP #### [facility] [address] [address] [address] Dimas Bustos CULTURE URINEon 11-20-2021 CULTURE URINE Culture Observations : NO GROWTH. Normal [facility] Comment on above: Performed By: #### C VDTBH #### [facility] [address] [place] [address] Dr. Dimas Bustos GLYCOHEMOGLOBIN A1Con 2021 ADA RECOMMENDATION SEE BELOW Normal [facility] Comment on above: Result Comment: ADA RECOMMENDED LIMIT 4.0 - 6.0 ADA THERAPEUTIC TARGET < 7.0 ACTION SUGGESTED > 7.0 Performed By: #### C VDTBH #### [facility] [address] [address] [address] Dimas Bustos Glucose [Mass/Vol] 117 mg/dL Normal [facility] Comment on above: Performed By: #### C VDTBH #### [facility] [address] [address] [address] Dimas Bustos HbA1c (Bld) [Mass fraction] 5.7 % Normal 4.5-6.2 [facility] Comment on above: Performed By: #### C VDTBH #### [facility] [address] [address] [address] Dimas Bustos LIPID PROFILEon 11-20-2021 CHOL-HDL RATIO NORM SEE BELOW Normal [facility] Comment on above: Result Comment: 3.3 - 4.4 LOW RISK 4.4 - 7.1 AVERAGE RISK 7.1 - 11.0 MODERATE RISK >11.0 HIGH RISK Performed By: #### P TTHEP #### [facility] [address] [address] [address] Dimas Bustos Cholesterol [Mass/Vol] 232 mg/dL Critically high <=200 [facility] Comment on above: Performed By: #### P TTHEP #### [facility] [address] [address] [address] Dimas Bustos Cholesterol in HDL [Mass/Vol] 73 mg/dL Critically high 40-60 [facility] Comment on above: Performed By: #### P TTHEP #### [facility] [address] [address] [address] Dimas Bustos Cholesterol in LDL [Mass/Vol] 138.8 mg/dL Normal [facility] Comment on above: Performed By: #### P TTHEP #### [facility] [address] [address] [address] Dimas Bustos Cholesterol.total/Ch olesterol in HDL [Mass ratio] 3.2 {ratio} Normal [facility] Comment on above: Performed By: #### P TTHEP #### [facility] [address] [address] [address] Dimas Bustos HDL NORMAL > or = 60 mg/dl - LO W CARDIOVASCULAR RISK <40 mg/dl - HIGH CARDIOVASCULAR RISK Normal [facility] Comment on above: Performed By: #### P TTHEP #### [facility] [address] [address] [address] Dimas Bustos LDL CALC NORMAL SEE BELOW Normal [facility] Comment on above: Result Comment: <100 mg/dl OPTIMAL 100 - 129 mg/dl NEAR OR ABOVE OPTIMAL 130 - 159 mg/dl BORDERLINE HIGH 160 - 189 mg/dl HIGH >190 mg/dl VERY HIGH Performed By: #### P TTHEP #### [facility] [address] [address] [address] Dimas Bustos Triglyceride [Mass/Vol] 101 mg/dL Normal <=150 [facility] Comment on above: Performed By: #### P TTHEP #### [facility] [address] [place] [address] Dr. Dimas Bustos VLDL CALC 20.2 mg/dL Normal [facility] Comment on above: Performed By: #### P TTHEP #### [facility] [address] [address] [address] Dimas Bustos PROF 14(COMP METB)on 022 Albumin [Mass/Vol] 3.7 g/dL Normal 3.4-5.0 [facility] Comment on above: Performed By: #### C VDTBH #### [facility] [address] [place] [address] Dr. Dimas Bustos Albumin/Globulin [Mass ratio] 0.9 {ratio} Normal [facility] Comment on above: Performed By: #### C VDTBH #### [facility] [address] [place] [address] Dr. Dimas Bustos ALP [Catalytic activity/Vol] 112 U/L Normal 46-116 [facility] Comment on above: Performed By: #### C VDTBH #### [facility] [address] [place] [address] Dr. Dimas Bustos ALT [Catalytic activity/Vol] 38 U/L Normal 16-63 [facility] Comment on above: Performed By: #### C VDTBH #### [facility] [address] [place] [address] Dr. Dimas Bustos Anion gap [Moles/Vol] 13.6 mmol/L Normal [facility] Comment on above: Performed By: #### C VDTBH #### [facility] [address] [place] [address] Dr. Dimas Bustos AST [Catalytic activity/Vol] 14 U/L Critically low 15-37 [facility] Comment on above: Performed By: #### C VDTBH #### [facility] [address] [place] [address] Dr. Dimas Bustos Bilirubin [Mass/Vol] 0.5 mg/dL Normal 0.2-1.0 [facility] Comment on above: Performed By: #### C VDTBH #### [facility] [address] [place] [address] Dr. Dimas Bustos Calcium [Mass/Vol] 9.2 mg/dL Normal 8.5-10.1 [facility] Comment on above: Performed By: #### C VDTBH #### [facility] [address] [place] [address] Dr. Dimas Bustos Chloride [Moles/Vol] 101 mmol/L Normal 98-107 [facility] Comment on above: Performed By: #### C VDTBH #### [facility] [address] [place] [address] Dr. Dimas Bustos CO2 [Moles/Vol] 29.9 mmol/L Normal 21.0-32.0 [facility] Comment on above: Performed By: #### C VDTBH #### [facility] [address] [place] [address] Dr. Dimas Bustos Creatinine [Mass/Vol] 0.88 mg/dL Normal 0.70-1.30 [facility] Comment on above: Performed By: #### C VDTBH #### [facility] [address] [place] [address] Dr. Dimas Bustos EGFR-AF MACANESE >60 Normal >=60 [facility] Comment on above: Performed By: #### C VDTBH #### [facility] [address] [place] [address] Dr. Dimas Bustos EGFR-NON AF MACANESE >60 Normal >=60 [facility] Comment on above: Performed By: #### C VDTBH #### [facility] [address] [place] [address] Dr. Dimas Bustos Globulin (S) [Mass/Vol] 3.9 g/dL Normal [facility] Comment on above: Performed By: #### C VDTBH #### [facility] [address] [place] [address] Dr. Dimas Bustos Glucose [Mass/Vol] 115 mg/dL Critically high 74-106 [facility] Comment on above: Performed By: #### C VDTBH #### [facility] [address] [place] [address] Dr. Dimas Bustos Potassium [Moles/Vol] 4.5 mmol/L Normal 3.5-5.1 [facility] Comment on above: Performed By: #### C VDTBH #### [facility] [address] [place] [address] Dr. Dimas Bustos Protein [Mass/Vol] 7.6 g/dL Normal 6.4-8.2 [facility] Comment on above: Performed By: #### C VDTBH #### [facility] [address] [place] [address] Dr. Dimas Bustos Sodium [Moles/Vol] 140 mmol/L Normal 136-145 [facility] Comment on above: Performed By: #### C VDTBH #### [facility] [address] [place] [address] Dr. Dimas Bustos Urea nitrogen [Mass/Vol] 17.0 mg/dL Normal 7.0-18.0 [facility] Comment on above: Performed By: #### C VDTBH #### [facility] [address] [place] [address] Dr. Dimas Bustos Urea nitrogen/Creatinine [Mass ratio] 19.3 mg/mg Normal [facility] Comment on above: Performed By: #### C VDTBH #### [facility] [address] [place] [address] Dr. Dimas Bustos TSHon 11-20-2021 TSH 3.616 uIU/mL Normal 0.358-3.740 [facility] Comment on above: Performed By: #### P TTHEP #### [facility] [address] [place] [address] Dr. Dimas Bustos UA RANDOM W/MICROSCOPICon BACTERIA NONE SEEN Normal NONE SEEN [facility] Comment on above: Performed By: #### P TT #### [facility] [address] [place] [address] Dr. Dimas Bustos Bilirubin Ql (U) Negative Normal NEGATIVE [facility] Comment on above: Performed By: #### P TT #### [facility] [address] [address] [address] Dimas Bustos CAST NONE SEEN Normal NONE SEEN [facility] Comment on above: Performed By: #### P TT #### [facility] [address] [place] [address] Dr. Dimas Bustos Clarity (U) CLEAR Normal CLEAR [facility] Comment on above: Performed By: #### P TT #### [facility] [address] [address] [address] Dimas Bustos Color (U) YELLOW Normal YELLOW [facility] Comment on above: Performed By: #### P TT #### [facility] [address] [place] [address] Dr. Dimas Bustos Crystals LM Nom (Urine sed) NONE SEEN Normal NONE SEEN [facility] Comment on above: Performed By: #### P TT #### [facility] [address] [place] [address] Dr. Dimas Bustos Epithelial cells LM Ql (Urine sed) RARE Normal NONE SEEN /RARE [facility] Comment on above: Performed By: #### P TT #### [facility] [address] [place] [address] Dr. Dimas Bustos Glucose Ql (U) Negative Normal NEGATIVE [facility] Comment on above: Performed By: #### P TT #### [facility] [address] [place] [address] Dr. Dimas Bustos Hemoglobin Ql (U) Negative Normal NEGATIVE [facility] Comment on above: Performed By: #### P TT #### [facility] Laboratory [address] [address] [address] Dimas Bustos Ketones Ql (U) Negative Normal NEGATIVE [facility] Comment on above: Performed By: #### P TT #### [facility] [address] [place] [address] Dr. Dimas Bustos LEUKOCYTES Negative Normal NEGATIVE [facility] Comment on above: Performed By: #### P TT #### [facility] [address] [address] [address] Dimas Bustos MUCOUS NONE SEEN Normal NONE SEEN [facility] Comment on above: Performed By: #### P TT #### [facility] [address] [place] [address] Dr. Dimas Bustos Nitrite Ql (U) Negative Normal NEGATIVE [facility] Comment on above: Performed By: #### P TT #### [facility] [address] [place] [address] Dr. Dimas Bustos pH (U) 7.0 [pH] Normal 5-9 [facility] Comment on above: Performed By: #### P TT #### [facility] [address] [place] [address] Dr. Dimas Bustos RBC NONE SEEN Abnormal 0-2 [facility] Comment on above: Performed By: #### P TT #### [facility] [address] [place] [address] Dr. Dimas Bustos SPEC GRAVITY 1.015 Normal 1.005-<=1.025 [facility] Comment on above: Performed By: #### P TT #### [facility] [address] [place] [address] Dr. Dimas Bustos UA PROTEIN Negative Normal NEGATIVE/ TRACE [facility] Comment on above: Performed By: #### P TT #### [facility] [address] [place] [address] Dr. Dimas Bustos Urobilinogen Qn (U) 0.2 {Adeline'U}/dL Normal 0.2 - 1. 0 [facility] Comment on above: Performed By: #### P TT #### [facility] [address] [place] [address] Dr. Dimas Bustos WBC NONE SEEN Normal NONE SEEN [facility] Comment on above: Performed By: #### P TT #### [facility] [address] [place] [address] Dr. Dimas Bustos US JUAN DOP LEG LTon 11-21-19 22 US JUAN DOP LEG LT EXAMINATION: [...] by: VINAYAK ROSS Date: 2021-11-20 11:15 Normal [facility] Vital Signs Date Time Vital Sign Value Performing Clinician Sylvia lyons 11-20-2023 09:04-0400 Blood Pressure Location Johnie OCHOA [facility] 11-20-2023 09:04-0400 Diastolic blood pressure 90 mm[Hg] Johnie OCHOA [facility] 11-20-2023 09:04-0400 Heart rate 88 /min Johnie OCHOA [facility] 11-20-2023 09:04-0400 Systolic blood pressure 142 mm[Hg] Johnie OCHOA [facility] Encounters Encounter Date Encounter Type Care Provider Facility Start: 05-03-2024 ambulatory Johnie OCHOA Facili ty:[facility] Start: 12-12-2023 End: 12-12-2023 ambulatory Johnie OCHOA Facility:[facility] Start: 12-12-2023 End: 12-12-2023 Patient encounter procedure Johnie OCHOA [facility] Start: 11-20-2023 End: 11-20-2023 ambulatory Johnie OCHOA Facility:[facility] Start: 11-20-2023 End: 11-20-2023 Lab Drop off Johnie OCHOA [facility] Start: 11-20-2023 End: 11-20-2023 ambulatory Johnie OCHOA Facility:[facility] Start: 11-20-2023 End: 11-20-2023 Patient encounter procedure Johnie OCHOA [facility] Start: 09-28-2023 ambulatory Johnie OCHOA Facility :[facility] Start: 06-14-2023 End: 06-14-2023 ambulatory Maynor Hough Facility:[facility] Start: 07-19-2022 End: 07-20-2022 ambulatory Jessica Borjas PA-C Facility:[facility] Start: 03-15-[address] CRYSTAL COATES Facility :[facility] Start: 12-31-2021 End: 01-01-[address] MAYNOR HOUGH Facility:[facility] Start: 12-02-2021 End: 12-07-2021 Evaluation and management of inpatient DR MAYNOR HOUGH Facility:[facility] Start: 11-26-2021 Encounter for genera l adult medical examination without abnormal findings DR MAYNOR HOUGH [facility] Start: 11-24-2021 Telephone encounter No Pcp [...] above: Performed By: #### P TTHEP #### [facility] [address] [place] [address] Dr. Dimas Bustos Start: 03-13-2021 Removal of thrombus Tanya moreno GABRIELA Start: 10-22-2019 Amputation of toe Patri greg GABRIELA Cholecystectomy Johnie SUNDAYEdyta JUSTICE Immunizations Immunization Date Immunization Notes Care Provider Hari wallace 04-03-2020 tetanus toxoid, redu saul diphtheria toxoid, and acellular pertussis vaccine, adsorbed Johnie OHCOA [facility] Payers Date Payer Category Payer Self-pay 1975 Unknown [id number] 2.16.84 [id number] 1975 Unknown [id number] 2.16.84 [id number] 1975 Unknown [id number] 2.16.84 [id number] 1975 Unknown [id number] 2.16.84 [id number] 1975 Unknown [id number] 2.16.84 [id number] 1975 Unknown [id number] 2.16.8 [id number] 1975 Unknown [id number] 2.16.8 [id number] 1975 Unknown [id number] 2.16.8 [id number] 1975 Unknown [id number] 2.16.8 [id number] 1975 Unknown [id number] 2.16.8 [id number] 1959 Unknown [id number] Unknown [id number] 2.16.8 [id number] Social History Date Type Detail Facility Tobacco smoking status NMIS Tobacco smoking consumption unknown [facility] Start: 1975 Sex Assigned At Not on file [facility] Start: 11-20-2023 Tobacco smoking status Never smoked tobacco (finding) [facility] Tobacco smoking status Ex-smoker (finding) [facility] Tobacco smoking status Never [facility] Sex Assigned At Male [facility] Functional Status Date Assessment Result Facility 12-12-2023 Functional Status N/A [facility] 11-20-2023 Functional Status N/A [facility] Clinical Notes 11-24-2021 to 11-20-2023 Telephone Encounter - Natalie Glass - 11/24/2021 8:44 AM EDT Note Date & Type Note Facility 11-20-2023 Hospital Discharg e instructions Follow Up Care 11/20/2023 16:18:52 With:Johnie OCHOA Address: [address] [place] [id number] Business (1) When:04/13/2024 09:44:12 [facility] 11-20-2023 Hospital Discharg e instructions Patient Education 11/20/2023 08:13:17 Dietary Guidelines to Help Prevent Kidney Stones Dietary Guidelines to Help Prevent Kidney Stones Kidney stones are deposits of minerals and salts that form inside your kidneys. Your risk of developing kidney stones may be greater depending on your diet, your lifestyle, the medicines you take, and whether you have certain medical conditions. Most people can lower their risks of developing kidney stones by following these dietary guidelines. Your dietitian may give you more specific instructions depending on your overall health and the type of kidney stones you tend to develop. What are tips for following this plan? Reading food labels Choose foods with no salt added or low-salt labels. Limit your salt (sodium) intake to less than 1,500 mg a day. Choose foods with calcium for each meal and snack. Try to eat about 300 mg of calcium at each meal. Foods that contain 200 500 mg of calcium a serving include: ?8 oz (237 mL) of milk, gfwllmc-lsaeukdewiyk-stzxz milk, and calcium-fortifiedfruit juice. Calcium-fortified means that calcium has been added to these drinks. ?8 oz (237 mL) of kefir, yogurt, and soy yogurt. ?4 oz (114 g) of tofu. ?1 oz (28 g) of cheese. ?1 cup (150 g) of dried figs. ?1 cup (91 g) of cooked broccoli. ?One 3 oz (85 g) can of sardines or mackerel. Most people need 1,000 1,500 mg of calcium a day. Talk to your dietitian about how much calcium is recommended for you. Shopping Buy plenty of fresh fruits and vegetables. Most people do not need to avoid fruits and vegetables, even if these foods contain nutrients that may contribute to kidney stones. When shopping for convenience foods, choose: ?Whole pieces of fruit. ?Pre-made salads with dressing on the side. ?Low-fat fruit and yogurt smoothies. Avoid buying frozen meals or prepared deli foods. These can be high in sodium. Look for foods with live cultures, such as yogurt and kefir. Choose high-fiber grains, such as whole-wheat breads, oat bran, and wheat cereals. Cooking Do not add salt to food when cooking. Place a salt shaker on the table and allow each person to add their own salt to taste. Use vegetable protein, such as beans, textured vegetable protein (TVP), or tofu, instead of meat in pasta, casseroles, and soups. Meal planning Eat less salt, if told by your dietitian. To do this: ?Avoid eating processed or pre-made food. ?Avoid eating fast food. Eat less animal protein, including cheese, meat, poultry, or fish, if told by your dietitian. To do this: ?Limit the number of times you have meat, poultry, fish, or cheese each week. Eat a diet free of meat at least 2 days a week. ?Eat only one serving each day of meat, poultry, fish, or seafood. ?When you prepare animal proteins, cut pieces into small portion sizes. For most meat and fish, one serving is about the size of the palm of your hand. Eat at least five servings of fresh fruits and vegetables each day. To do this: ?Keep fruits and vegetables on hand for snacks. ?Eat one piece of fruit or a handful of berries with breakfast. ?Have a salad and fruit at lunch. ?Have two kinds of vegetables at dinner. You may be told to limit foods that are high in a substance called oxalate. These include: ?Spinach (cooked), rhubarb, beets, sweet potatoes, and Kosovan chard. ?Peanuts. ?Potato chips, czech fries, and baked potatoes with skin on. ?Nuts and nut products. ?Chocolate. If you regularly take a diuretic medicine, make sure to eat at least 1 or 2 servings of fruits or vegetables that are high in potassium each day. These include: ?Avocado. ?Banana. ?[place], prune, carrot, or tomato juice. ?Baked potato. ?Cabbage. ?Beans and split peas. Lifestyle Drink enough fluid to keep your urine pale yellow. This is the most important thing you can do. Spread your fluid intake throughout the day. If you drink alcohol: ?Limit how much you have to: ?0 1 drink a day for women who are not . ?0 2 drinks a day for men. ?Know how much alcohol is in your drink. In the [place] one drink equals one 12 oz bottle of beer (355 mL), one 5 oz glass of wine (148 mL), or one 1 oz glass of hard liquor (44 mL). Lose weight if told by your health care provider. Work with your dietitian to find an eating plan and weight loss strategies that work best for you. General information Talk to your health care provider and dietitian about taking daily supplements. Depending on your health and the cause of your kidney stones, you may be told: ?Do not take high-dose supplements of vitamin C (1,000 mg a day or more). ?To take a calcium supplement. ?To take a daily probiotic supplement. ?To take other supplements such as magnesium, fish oil, or vitamin B6. Take dhgg-okl-jcoqdvd and prescription medicines only as told by your health care provider. These include supplements. What foods should I limit? Limit your intake of the following foods, or eat them as told by your dietitian. Vegetables Spinach. Rhubarb. Beets. Canned vegetables. Pickles. Olives. Baked potatoes with skin. Grains Wheat bran. Baked goods. Salted crackers. Cereals high in sugar. Meats and other proteins Nuts. Nut butters. Large portions of meat, poultry, or fish. Salted, precooked, or cured meats, such as sausages, meat loaves, and hot dogs. Dairy Cheeses. Beverages Regular soft drinks. Regular vegetable juice. Seasonings and condiments Seasoning blends with salt. Salad dressings. Soy sauce. Ketchup. Barbecue sauce. Other foods Canned soups. Canned pasta sauce. Casseroles. Pizza. Lasagna. Frozen meals. Potato chips. Yakut fries. The items listed above may not be a complete list of foods and beverages you should limit. Contact a dietitian for more information. What foods should I avoid? Talk to your dietitian about specific foods you should avoid based on the type of kidney stones you have and your overall health. Fruits Grapefruit. The item listed above may not be a complete list of foods and beverages you should avoid. Contact a dietitian for more information. Summary Kidney stones are deposits of minerals and salts that form inside your kidneys. You can lower your risk of kidney stones by making changes to your diet. The most important thing you can do is drink enough fluid. Drink enough fluid to keep your urine pale yellow. Talk to your dietitian about how much calcium you should have each day, and eat less salt and animal protein as told by your dietitian. This information is not intended to replace advice given to you by your health care provider. Make sure you discuss any questions you have with your health care provider. Document Revised: 06/09/2022 Document Reviewed: 06/09/2022 [employer] Patient Education 2023 [employer] Alert[employer]. Follow Up Care 10/02/2023 13:19:58 With:GABRIELA SOLANO, Johnie Martel, URL Address: [facility] [address], [place] [address]- When: Unknown [facility] 11-20-2023 Note Urology Office/Clini c Note Chief Complaint referral- kidney stones HPI Staff New pt referred by Dr. Maynor Hough for kidney stones. Never seen in our office before (verified on [employer]). Had gross hematuria at PCP appt 09/25/23 and was rx'd Levaquin 750mg qd [id number]. JALEN 09/27/23 [facility] showed nonobstructing left nephrolithiasis. PSA 11/20/21 - 0.63 03/08/23 - 1.03 pt was given abx a few mth ago and he states it did help., but still has frequency and urgency. pt states he has had issues with blood in urine Dysuria: no Incomplete bladder emptying: no Hematuria: did in the past, none today Frequency: q1-2 hrs Urgency: yes Nocturia: 2-3x Stream: weak at times Leaking: no Post void dripping:sometimes Wearing pads/ Depends: Urge incontinence:no Stress incontinence: no Incontinence without Sensory Awareness: no Abdominal pain:no Flank pain: right side at times Sexual complaints: History of Present Illness Tests reviewed: reviewed UA, referral records, US I have reviewed the previous health record information and history for this patient from Dr. Maynor Hough . I have reviewed and verified the staff HPI to be accurate for this encounter. Review of Systems PHQ Score Initial Depression Screen Score: 0 SCORE ROS - Provider Constitutional: denies weight loss, denies hot flashes. Eyes: denies eye problems. Gastrointestinal: denies nausea, denies vomiting. Cardiovascular: denies chest pain or angina. Integumentary: no dryness Musculoskeletal: denies musculoskeletal symptoms. ENMT: denies otolaryngeal symptoms. Respiratory: no shortness of breath. Heme/Lymph: denies easy bleeding tendency, denies easy bruising tendency. Psychiatric: no confusion, no anxiety. Genitourinary: See HPI. Physical Exam Vitals & Measurements HR: 88(Peripheral) BP: 142/90 HT: 75 in HT: 190 cm WT: 120 kg WT: 264 lb BMI: 33.24 General Appearance: alert, no distress, well nourished, well developed male. Assessment/Plan Buck is a 48 yo male new pt referred by Dr. Maynor Hough due to kidney stones. LILIANA 23. 1. Gross hematuria (R31.0: Gross hematuria) UA 09/25/23 - large blood, neg for nitrites and leuks. UA today negative for blood and infection. Had heavy hematuria x 3 days in September. No pain. Wonders if he passed a stone at that time. Saw Dr. Hough who ordered US and gave pt Levaquin 750 mg x 10 days and Triamcinolone. Explained hematuria workup and possible causes of hematuria. The patient is aware that a distinct etiology of the hematuria may not be clear upon conclusion of the workup. Will initiate hematuria workup to include upper urinary tract imaging, as well as evaluation of the urinary cells with urine cytology and possible a FISH test. A cystoscopy will be scheduled to rule out lower urinary tract pathology. The rationale for this workup has been discussed, and all questions have been answered. Informed consent will be obtained. Prophylactic antibiotics will be given. -Will send urine for FISH/cytology today (if specimen permits). -Will schedule cysto. The risks and benefits for cystoscopy have been discussed. The risks include bleeding, infection, and irritation of the bladder and urinary channel, among others. The patient, after being informed of procedural details and after questions have been answered, wishes to proceed. Full informed consent has been obtained. Will order Local anesthesia. Prophylactic abx sent to [facility]. 2. Kidney stone (N20.0: Calculus of kidney) [facility] 09/27/23 [facility] - Two nonobstructing L renal stones, largest is 7 mm. PVR 0 cc. Reviewed imaging with pt, unlikely to pass on his own based on size. Discussed surgical intervention options including ESWL if visible on x-ray (less invasive, lower stone free rate) and ureteroscopy/laser litho with possible stent placement (more invasive, higher stone free rate). Risks and benefits of each discussed. Not a candidate for ESWL due to BT. Will need to be off BT for laser litho. Counseled pt on risks of renal stone leaving kidney and causing acute event. -KUB soon. -Will schedule L URS, L laser litho, possible stent placement pending xray above. The procedural risks, benefits, details, and treatment alternatives have been discussed with the patient. These include bleeding, infection, inability to break or retrieve all of the stone, injury to the ureter (the tube which connects the kidney to the bladder), injury to the kidney scarring of the ureter, and need for repeat procedures, among others. Full informed consent has been obtained. Will order General anesthesia. 3. BPH with obstruction/lower urinary tract symptoms (N40.1: Benign prostatic hyperplasia with lower urinary tract symptoms) IPSS 13. Shares he does have difficulty voiding. Steady stream, not hesitant. Sometimes has sudden onset of urge with mild dribbling prior to getting to the bathroom but reports only small volume, feels he doesn't empty completely. Hx of UTI in many years ago, also had (more content not included)... [facility] Comment on above: Result Comment: Elec tronically Signed By: Johnie OCHOA MD\.br\Date and Time Signed: 11/20/23 09:54 EDT\.br\Electronically Co-Signed By: Janet Ramos\.br\Date and Time Co-Signed: 11/20/23 09:50 EDT 11-20-2023 Note Patient Education Nephrology Dietary Guidelines to Help Prevent Kidney Stones Kidney stones are deposits of minerals and salts that form inside your kidneys. Your risk of developing kidney stones may be greater depending on your diet, your lifestyle, the medicines you take, and whether you have certain medical conditions. Most people can lower their risks of developing kidney stones by following these dietary guidelines. Your dietitian may give you more specific instructions depending on your overall health and the type of kidney stones you tend to develop. What are tips for following this plan? Reading food labels ? Choose foods with no salt added or low-salt labels. Limit your salt (sodium) intake to less than 1,500 mg a day. ? Choose foods with calcium for each meal and snack. Try to eat about 300 mg of calcium at each meal. Foods that contain 200?500 mg of calcium a serving include: ? 8 oz (237 mL) of milk, cawkjxc-bhsaqdgkqwgo-jhnms milk, and calcium-fortifiedfruit juice. Calcium-fortified means that calcium has been added to these drinks. ? 8 oz (237 mL) of kefir, yogurt, and soy yogurt. ? 4 oz (114 g) of tofu. ? 1 oz (28 g) of cheese. ? 1 cup (150 g) of dried figs. ? 1 cup (91 g) of cooked broccoli. ? One 3 oz (85 g) can of sardines or mackerel. Most people need 1,000?1,500 mg of calcium a day. Talk to your dietitian about how much calcium is recommended for you. Shopping ? Buy plenty of fresh fruits and vegetables. Most people do not need to avoid fruits and vegetables, even if these foods contain nutrients that may contribute to kidney stones. ? When shopping for convenience foods, choose: ? Whole pieces of fruit. ? Pre-made salads with dressing on the side. ? Low-fat fruit and yogurt smoothies. ? Avoid buying frozen meals or prepared deli foods. These can be high in sodium. ? Look for foods with live cultures, such as yogurt and kefir. ? Choose high-fiber grains, such as whole-wheat breads, oat bran, and wheat cereals. Cooking ? Do not add salt to food when cooking. Place a salt shaker on the table and allow each person to add their own salt to taste. ? Use vegetable protein, such as beans, textured vegetable protein (TVP), or tofu, instead of meat in pasta, casseroles, and soups. Meal planning ? Eat less salt, if told by your dietitian. To do this: ? Avoid eating processed or pre-made food. ? Avoid eating fast food. ? Eat less animal protein, including cheese, meat, poultry, or fish, if told by your dietitian. To do this: ? Limit the number of times you have meat, poultry, fish, or cheese each week. Eat a diet free of meat at least 2 days a week. ? Eat only one serving each day of meat, poultry, fish, or seafood. ? When you prepare animal proteins, cut pieces into small portion sizes. For most meat and fish, one serving is about the size of the palm of your hand. ? Eat at least five servings of fresh fruits and vegetables each day. To do this: ? Keep fruits and vegetables on hand for snacks. ? Eat one piece of fruit or a handful of berries with breakfast. ? Have a salad and fruit at lunch. ? Have two kinds of vegetables at dinner. ? You may be told to limit foods that are high in a substance called oxalate. These include: ? Spinach (cooked), rhubarb, beets, sweet potatoes, and Kosovan chard. ? Peanuts. ? Potato chips, czech fries, and baked potatoes with skin on. ? Nuts and nut products. ? Chocolate. ? If you regularly take a diuretic medicine, make sure to eat at least 1 or 2 servings of fruits or vegetables that are high in potassium each day. These include: ? Avocado. ? Banana. ? [place], prune, carrot, or tomato juice. ? Baked potato. ? Cabbage. ? Beans and split peas. Lifestyle ? Drink enough fluid to keep your urine pale yellow. This is the most important thing you can do. Spread your fluid intake throughout the day. ? If you drink alcohol: ? Limit how much you have to: ? 0?1 drink a day for women who are not . ? 0?2 drinks a day for men. ? Know how much alcohol is in your drink. In the [place] one drink equals one 12 oz bottle of beer (355 mL), one 5 oz glass of wine (148 mL), or one 1? oz glass of hard liquor (44 mL). ? Lose weight if told by your health care provider. Work with your dietitian to find an eating plan and weight loss strategies that work best for you. General information ? Talk to your health care provider and dietitian about taking daily supplements. Depending on your health and the cause of your kidney stones, you may be told: ? Do not take high-dose supplements of vitamin C (1,000 mg a day or more). ? To take a calcium supplement. ? To take a daily probiotic supplement. ? To take other supplements such as magnesium, fish oil, or vitamin B6. ? Take hyok-jnh-xqrusve and prescription medicines only as told by your health care provider. These include suppleme (more content not included)... [facility] 11-24-2021 Miscellaneous Notes Summary: VASCULAR Patient: Buck Disla Date of : 1975 Patient phone number: [phone] Referring Provider for the encounter: Maynor Hough Requesting Provider: Reason for requesting visit (RFV/signs and symptoms/diagnosis): deep venous thrombophlebitis leg Person calling: Via Fax Return call to: self Medical Records/Insurance Card scanned into [employer]: Comments: documented in this encounter [facility] Evaluation + Plan note Future Appointments Appointment Date:12/11/2023 01:00:00 PM Scheduled Provider: Location:[facility] Appointment Type:Urology CALL PAT FT Appointment Date:12/12/2023 09:30:00 AM Scheduled Provider: Location:[facility] Appointment Type:Urology FT [facility] Evaluation + Plan note Future Appointments Appointment Date:12/11/2023 01:00:00 PM Scheduled Provider: Location:[facility] Appointment Type:Urology CALL PAT FT Appointment Date:12/12/2023 09:30:00 AM Scheduled Provider: Location:[facility] Appointment Type:Urology FT Diagnostic Tests [facility]) 11/20/23 [facility] Evaluation + Plan note Future Appointments Appointment Date:05/03/2024 10:15:00 AM Scheduled Provider:Johnie OCHOA MD Location:[facility] Appointment Type:URO Office Visit [facility] Hospital course Narrative No data available for this section [facility] Hospital Discharge instructions No data available for this section [facility] Progress note No data available for this section [facility] Summary Purpose Family History No Family History Records FoundNo Family History Records FoundNo Family History Records Found No data available for this section No data available for this section No Family History Records Found No data available for this section No Family History Records Found Advance Directives No [...] or prosecute any alcohol or drug abuse patient.[facility] Reason for Visit (unrecogniz ed section and content) Reason Comments External Referrals/resources Care Teams (unrecognized sec tion and content) 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 Start Date End Date Maynor Hough MD [address] [place] [address] Referring Family Practice 11/24/21 (unrecognized sect ion and content) No Status Records FoundNo Status Records FoundNo Status Records FoundNo Status Records FoundNo Status Records Found INFORMATION SOURCE (unrecogn ized section and content) DATE CREATED AUTHOR [facility]/2022 [facility] DATE CREATED AUTHOR AUTHOR'S ORGANIZ ATION 07/21/2022 [facility] DATE CREATED AUTHOR AUTHOR'S ORGANIZ ATION 06/15/2023 [facility] DATE CREATED AUTHOR AUTHOR'S ORGANIZ ATION 11/27/2023 [facility] DATE CREATED AUTHOR AUTHOR'S ORGANIZ ATION 12/16/2023 [facility] FOR RECORDS PERTAINING TO PATIENTS WHO [...] BE BASED ON THE PRIMARY CLINICAL RECORDS. [employer] provides no warranty or guarantee of the accuracy or completeness of information in this document.
== END 2024-04-30 08:50 | disposition home or self-care (01) ==
LOC: CT 08:50
PROVIDERS: PCP Family Medicine; Visit Provider Family Medicine
DX: R91.1 Solitary pulmonary nodule (principal); R91.8 Other nonspecific abnormal finding of lung field
CPT/HCPCS: 71250

== ENCOUNTER 2024-05-08 09:57 | Outpatient (OUT) | payer OTHER, SELFPAY ==
--- OUTSIDE RECORDS SUMMARY | 2024-05-08 10:05 | XMS_ITS | CCD ---
Author Organization [facility] Care Team Providers Care Pelletizer Operator Name Role Phone Maynor Hough MD Unavailable AMINATA, DR ROJAS Admitting Unavailable ABBSHERICE, DR ROJAS Attending Unavailable KADY, DR MCGUIRE Primary Care Unavailable AMINATA, DR ROJAS Consulting Unavailable KADY, DR MCGUIRE Primary Care Unavailable NELSY, DR JOELLEN Martel Consulting Unavailable FAWDAVID, WREN H Admitting Unavailable ALISE FLOYDIKH H Attending Unavailable KADY, DR MCGUIRE Consulting [...] Primary Care Unavailable Maynor Hough Primary Care Physician [phone] Johnie OCHOA Attending Unavailable Maynor Hough Referring Unavailable Johnie OCHOA Admitting Unavailable Johnie OCHOA Attending Unavailable Johnie OCHOA Attending Unavailable Johnie OCHOA Attending Unavailable Johnie OCHOA Referring Unavailable Johnie OCHOA Admitting Unavailable ALFREDODAVINAZULEMAJessicaFIORLEWIS FLORA Attending Unavail able Alba Batista Admitting Unavailable Maynor Hough Primary Care Unavailable Alba Batista Attending Unavailable Maynor Hough Primary Care Unavailable Iesha Carlisle Attending Unavailable Iesha Carlisle Admitting Unavailable Medications Current Medications Medication Drug Class(es) Dates Sig (Normalized) Sig (Original) 24 hr alfuzosin hydrochloride 10 mg extended release oral tablet (4 sources) alpha-Adrenergic Mark Anthony Start: 11-20-2023 End: 11-14-2024 take 1 tablet by mouth once daily alfuzosin 10 mg ER Tab 10 mg = 1 tab(s), Oral, Daily, X 30 day(s), # 30 tab(s), Refills(s) 11, Pharmacy: [facility] [id number], 190, cm, 11/20/23 9:10:00 EDT, Height/Length Dosing, 120, kg, 11/20/23 9:10:00 EDT, Weight Dosing Start Date: 11/20/23 Stop Date: 11/14/24 Status: Ordered apixaban 2.5 mg oral tablet (4 sources) Factor Xa Inhibitor Start: 11-20-2023 take [...] day(s), # 28 cap(s), Refills(s) 0, Pharmacy: [facility] [id number], 190, cm, 12/12/23 8:56:00 EDT, Height/Length Dosing, 120, kg, 12/12/23 8:56:00 EDT, Weight Dosing Start Date: 12/12/23 Stop Date: 12/26/23 Status: Ordered Completed/Discontinued Medications Medication Drug Class(es) Dates Sig (Normalized) Sig (Original) ciprofloxacin 500 mg oral tablet (4 sources) Quinolone Antimicrobial Start: 11-20-2023 Cipro 500 mg Tab 500 mg = 1 tab(s), Oral, As Directed, Patient to take 1 tab the day before procedure and the 2nd tab the day of procedure once completed, # 2 tab(s), Refills(s) 0, Pharmacy: [facility] [id number], 190, cm, 11/20/23 9:10:00 EDT, Height/Length Dosing, 120, kg, 11/20/23 9:10:00 EDT, Weight Dosing Start Date: 11/20/23 Status: Ordered Problems Active Problems Problem Classification Problem Date Documented Da te Episodic/Chronic Calculus of urinary tract (6 sources) Kidney stone; Translations: [Calculus of kidney] Onset: 4 Episodic Genitourinary symptoms and ill-defined conditions (5 sources) Blood in urine; Translations: [Gross hematuria] Onset: 4 Episodic Hyperplasia of prostate (5 sources) Benign prostatic hypertrophy with outflow obstruction; Translations: [Benign prostatic hyperplasia with lower urinary tract symptoms] Onset: 4 Chronic Other aftercare (1 source) Long-term current use of anticoagulant; Translations: [intermediate (current) use of anticoagulants] Onset: 4 Episodic Other and unspecified benign neoplasm (4 sources) Polyp of colon 11-15-2023 Episodic Other lower respiratory disease (4 sources) Nodule of lung 11-15-2023 Episodic Other nervous system disorders (1 source) Other chronic pain; Translations: [OTHER CHRONIC PAIN] Onset: 2 Chronic Other screening for suspected conditions (not mental disorders or infectious disease) (3 sources) Abnormal coagulation profile; Translations: [Encounter for screening for malignant neoplasm of prostate] Onset: 2 Episodic Phlebitis; thrombophlebitis and thromboembolism (14 sources) Phlebitis and thrombophlebitis of superficial vessels of left lower extremity; Translations: [Acute embolism and thrombosis of unspecified deep veins of left lower extremity] Onset: 2 Episodic Pulmonary heart disease (5 sources) Other pulmonary embolism without acute cor pulmonale; Translations: [Pulmonary embolism] Onset: 2 11-15-2023 Episodic Screening and history of mental health and substance abuse codes (5 sources) H/O: Disorder; Translations: [Personal history of nicotine dependence] Onset: 4 Episodic Spondylosis; intervertebral disc disorders; other back problems (5 sources) Radiculopathy, lumbar region; Translations: [Lumbar radiculopathy] [...] [LOW BACK PAIN, UNSPECIFIED] Onset: 2 Unclassified (4 sources) Drug therapy finding 11-20-2023 Unclassified (4 sources) Patient encounter status 11-20-2023 Past or Other Problems Problem Classification Problem Date Documented Da te Episodic/Chronic Other aftercare (1 source) 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; Translations: [JAIL CURRNT USE ANTICOAGULANTS] Onset: 12-13-2021 Episodic Other injuries and conditions due to external causes (1 source) Unspecified injury of left foot, initial encounter; Translations: [Unspecified injury of left foot, initial encounter] Onset: 06-14-2023 Episodic Other lower respiratory disease (1 source) Other nonspecific abnormal finding of lung field; Translations: [OTH NONSPECIFIC ABN FIND LNG FIELD] Onset: 12-13-2021 Episodic Residual codes; unclassified (4 sources) Edema, unspecified; Translations: [EDEMA UNSPECIFIED] Onset: 11-23-2021 Episodic Results Test Name Value Interpretation Reference Range Facility B-Type Natriuretic Peptideon 05-04-2024 Natriuretic peptide B (Bld) [Mass/Vol] 87.0 pg/mL Normal 5-100 [facility] Comment on above: Result Comment: PERF ORMED BY: [facility] [place] [address] PATHOLOGIST HOSPITAL AIDE JENNIFER STYLES M.D. Performed By: #### C BC, BNP, HS TROP #### [address] Basic Metabolic Panelon 04-14 Anion gap [Moles/Vol] 10.9 mmol/L Normal 6.0-15.0 [facility] Comment on above: Performed By: #### H EPATIC, BMP, LIPASE #### [address] Calcium [Mass/Vol] 9.1 mg/dL Normal 8.6-10.3 [facility] Comment on above: Performed By: #### H EPATIC, BMP, LIPASE #### [address] Chloride [Moles/Vol] 108 mmol/L High 98-107 [facility] Comment on above: Performed By: #### H EPATIC, BMP, LIPASE #### [address] CO2 [Moles/Vol] 26.0 mmol/L Normal 21.0-31.0 [facility] Comment on above: Performed By: #### H EPATIC, BMP, LIPASE #### [address] Creatinine [Mass/Vol] 0.85 mg/dL Normal 0.70-1.30 [facility] Comment on above: Performed By: #### H EPATIC, BMP, LIPASE #### [address] Creatinine Clr Calc Pharmacy 149.38 Normal [facility] Comment on above: Performed By: #### H EPATIC, BMP, LIPASE #### [place] [address] [place] GFR/1.73 sq M.predicted MDRD (S/P/Bld) [Vol rate/Area] mL/min/{1.73_m2} Normal [facility] Comment on above: Performed By: #### H EPATIC, BMP, LIPASE #### [place] [address] Glucose [Mass/Vol] 115 mg/dL High 70-100 [facility] Comment on above: Result Comment: [facility] Glucose Reference Range is dependent on time and content of last meal. Glucose of more than 200 mg/dL in a nonstressed, ambulatory subject supports the diagnosis of Diabetes Mellitus. ADA recommended reference range Performed By: #### H EPATIC, BMP, LIPASE #### [facility] [address] Potassium [Moles/Vol] 3.9 mmol/L Normal 3.5-5.1 [facility] Comment on above: Performed By: #### H EPATIC, BMP, LIPASE #### [facility] [address] Sodium [Moles/Vol] 141 mmol/L Normal 136-145 [facility] Comment on above: Performed By: #### H EPATIC, BMP, LIPASE #### [address] Urea nitrogen [Mass/Vol] 24 mg/dL Normal 7-25 [facility] Comment on above: Performed By: #### H EPATIC, BMP, LIPASE #### [address] abdomen pelvis wo conon 0 05-04-2024 CT abdomen pelvis wo con [facility] [place] [address] [place] [address] CT Scan Report Signed Patient: Buck Disla MR#: [id number] 56 : 1975 Acct:[id number] Age/Sex: 48 / M ADM Date: 05/04/24 Loc: ER Room: Type: [facility] ER Attending Dr: Copies to: Alba Batista MD Ordering Provider: Alba Batista MD Date of Service: 05/04/24 CT/CT abdomen pelvis wo con: r/o stone, flank pain on L CT ABDOMEN AND PELVIS WITHOUT INTRAVENOUS CONTRAST: CLINICAL HISTORY: Left flank pain for 2 to 3 days, increasing nausea COMPARISON: None TECHNIQUE: Spiral images were obtained through the abdomen and pelvis without intravenous contrast. This CT exam was performed using one or more following dose reduction techniques: Automated exposure control, adjustment of the mA and/or kV according to patient size, or use of iterative reconstruction technique. FINDINGS: Lung Bases: [Left lower lobe nodular opacity possibly infectious or inflammatory.] Organs:Fatty liver. Gallbladder absent. Spleen, adrenals, pancreas, unremarkable. No right-sided calculi or hydronephrosis. There is mild left-sided hydronephrosis caused by a left ureteral pelvic junction calculus measuring 5 mm. Additional left-sided calculi up to 5 mm in size, nonobstructive.[ GI: Mild retained stool. No bowel obstruction. Appendix unremarkable. Colonic diverticulosis.[ Pelvis:[Bladder unremarkable. Prostate unremarkable. Peritoneum/Retroperit oneum:IVC filter. No free air or fluid.[ Abd wall/Bones:Degenerati ve changes lower lumbar spine. L4-L5 anterolisthesis. Facet arthropathy lumbosacral junction. Small fat-containing umbilical hernia.[ CT/CT abdomen pelvis wo con IMPRESSION: Left-sided hydronephrosis caused by 5 mm calculus left ureter pelvic junction Additional left-sided calculi, nonobstructive. Left lower lobe nodularity and airspace disease possibly infectious or inflammatory. Possibly aspiration. Consider [address] follow-up Impression dictated by: Morro Frost M.D.05/04/2024 11:48 AM Dictation Location: [place] [address] Transcribed By: [facility] 05/04/24 1148 Dictated By: Morro Frost MD 05/04/24 1143 Signed By: 05/04/24 1148 Normal [facility] Complete Blood Count Auto Di ffon 05-04-2024 Basophils (Bld) [#/Vol] 0.1 10*3/uL Normal 0.0-0.2 [facility] Comment on above: Result Comment: PERF ORMED BY: [place] [address] PATHOLOGIST HOSPITAL AIDE JENNIFER STYLES M.D. Performed By: #### C BC, BNP, HS TROP #### [address] Basophils/100 WBC (Bld) 0.6 % Normal . [facility] Comment on above: Performed By: #### C BC, BNP, HS TROP #### [address] Eosinophils (Bld) [#/Vol] 0.2 10*3/uL Normal 0.0-0.45 [facility] Comment on above: Performed By: #### C BC, BNP, HS TROP #### [address] Eosinophils/100 WBC (Bld) 1.9 % Normal . [facility] Comment on above: Performed By: #### C BC, BNP, HS TROP #### [address] Erythrocyte distribution width (RBC) [Ratio] 12.6 % Normal 12.0-14.8 [facility] Comment on above: Performed By: #### C BC, BNP, HS TROP #### [address] Hematocrit (Bld) [Volume fraction] 38.8 % Normal 38.8-50.0 [facility] Comment on above: Performed By: #### C BC, BNP, HS TROP #### [address] Hemoglobin (Bld) [Mass/Vol] 13.3 g/dL Normal 13.0-17.0 [facility] Comment on above: Performed By: #### C BC, BNP, HS TROP #### [address] Lymphocytes (Bld) [#/Vol] 1.9 10*3/uL Normal 1.00-4.8 [facility] Comment on above: Performed By: #### C BC, BNP, HS TROP #### [address] Lymphocytes/100 WBC (Bld) 15.0 % Normal . [facility] Comment on above: Performed By: #### C BC, BNP, HS TROP #### [address] MCH (RBC) [Entitic mass] 31.5 pg Normal 27.5-35.2 [facility] Comment on above: Performed By: #### C BC, BNP, HS TROP #### [address] MCV (RBC) [Entitic vol] 91.6 fL Normal 83.5-101 [facility] Comment on above: Performed By: #### C BC, BNP, HS TROP #### [address] Mean Corpuscular HGB Conc 34.3 g/dL Normal 32.5-35.6 [facility] Comment on above: Performed By: #### C BC, BNP, HS TROP #### [address] Monocytes (Bld) [#/Vol] 1.3 10*3/uL High 0.0-0.8 [facility] Comment on above: Performed By: #### C BC, BNP, HS TROP #### [address] Monocytes/100 WBC (Bld) 16.45 % Normal 0.00-20.00 [facility] Comment on above: Performed By: #### C BC, BNP, HS TROP #### [address] Monocytes/100 WBC (Bld) 10.3 % Normal . [facility] Comment on above: Performed By: #### C BC, BNP, HS TROP #### [place] [address] [place] Neutrophils (Bld) [#/Vol] 9.1 10*3/uL High 1.8-7.7 [facility] Comment on above: Performed By: #### C BC, BNP, HS TROP #### [address] Neutrophils/100 WBC (Bld) 72.2 % Normal . [facility] Comment on above: Performed By: #### C BC, BNP, HS TROP #### [facility] [address] NRBC% 0.1 /100{WBC} Normal 0-0.5 [facility] Comment on above: Performed By: #### C BC, BNP, HS TROP #### [facility] [address] Platelet mean volume (Bld) [Entitic vol] 7.5 fL Normal 6.6-10.1 [facility] Comment on above: Performed By: #### C BC, BNP, HS TROP #### [facility] [address] [place] [address] [place] Platelets (Bld) [#/Vol] 309 10*3/uL Normal 150-450 [facility] Comment on above: Performed By: #### C BC, BNP, HS TROP #### [facility] [address] [place] [address] [place] RBC (Bld) [#/Vol] 4.24 10*6/uL Normal 3.90-5.60 [facility] Comment on above: Performed By: #### C BC, BNP, HS TROP #### [facility] [address] [place] [address] [place] WBC (Bld) [#/Vol] 12.6 10*3/uL High 4.1-10.5 [facility] Comment on above: Performed By: #### C BC, BNP, HS TROP #### [address] ECG 12 lead ECGon 05-04-2024 ECG 12 lead ECG [facility] [place] [address] [place] [address] Electrocardiograph Report Signed Patient: Buck Disla MR#: [id number] 56 : 1975 Acct:[id number] Age/Sex: 48 / M ADM Date: 05/04/24 Loc: ER Room: Type: [facility] ER Attending Dr: Ordering Provider: Alba Batista MD Date of Service: 05/04/24 ECG/ECG 12 lead ECG: Abdominal Pain Copies to: Test Reason : Blood Pressure : 175/89 mmHG Vent. Rate : 65 BPM Atrial Rate : 65 BPM P-R Int : 220 ms QRS Dur : 82 ms QT Int : 382 ms P-R-T Axes : 81 45 47 degrees QTcB Int : 397 ms Sinus rhythm with 1st degree AV block Nonspecific T wave abnormality When compared with ECG of 19-Jul-2006 03:22, No significant change was found Confirmed by Alba Batista MD ([id number]) on 05/04/2024 10:52:45 AM Referred By: Electronically Signed By: Alba Batista MD Transcribed By: MUS Signed By Alba Batista MD 04/14 05/07 1052 Normal [facility] Hepatic Panelon 05-04-2024 Albumin [Mass/Vol] 4.1 g/dL Normal 3.5-5.7 [facility] Comment on above: Performed By: #### H EPATIC, BMP, LIPASE #### [address] Albumin/Globulin [Mass ratio] 1.7 {ratio} Normal [facility] Comment on above: Performed By: #### H EPATIC, BMP, LIPASE #### [address] ALP [Catalytic activity/Vol] 80 U/L Normal 34-104 [facility] Comment on above: Performed By: #### H EPATIC, BMP, LIPASE #### [address] ALT [Catalytic activity/Vol] 31 U/L Normal 7-52 [facility] Comment on above: Performed By: #### H EPATIC, BMP, LIPASE #### [address] AST [Catalytic activity/Vol] 26 U/L Normal 13-39 [facility] Comment on above: Performed By: #### H EPATIC, BMP, LIPASE #### [address] Bilirubin [Mass/Vol] 0.6 mg/dL Normal 0.3-1.0 [facility] Comment on above: Performed By: #### H EPATIC, BMP, LIPASE #### [address] Bilirubin,Indirect 0.5 mg/dL Normal [facility] Comment on above: Performed By: #### H EPATIC, BMP, LIPASE #### [address] Bilirubin.indirect [Mass/Vol] 0.10 mg/dL Normal 0.03-0.18 [facility] Comment on above: Performed By: #### H EPATIC, BMP, LIPASE #### [address] Globulin (S) [Mass/Vol] 2.4 g/dL Normal [facility] Comment on above: Performed By: #### H EPATIC, BMP, LIPASE #### [address] Protein [Mass/Vol] 6.5 g/dL Normal 6.4-8.9 [facility] Comment on above: Performed By: #### H EPATIC, BMP, LIPASE #### [address] Lipaseon 05-04-2024 Lipase [Catalytic activity/Vol] 13.0 U/L Normal 11.0-82.0 [facility] Comment on above: Result Comment: PERF ORMED BY: [place] [address] PATHOLOGIST HOSPITAL AIDE JENNIFER STYLES M.D. Performed By: #### H EPATIC, BMP, LIPASE #### [address] Troponin I High Sensitivityo n 05-04-2024 Troponin I High Sensitivity 11 Normal 0-20 [facility] Comment on above: Result Comment: The Troponin units of report have been changed to meet the Chest Pain Accreditation requirement, element EC5.M1l2. Troponin units are changed from pg/ml to ng/L. Also, the decimal is removed and results are in whole numbers. PERFORMED BY: [place] [address] PATHOLOGIST HOSPITAL AIDE JENNIFER STYLES M.D. Performed By: #### H S TROP #### [address] Troponin I High Sensitivity 11 Normal 0-20 [facility] Comment on above: Result Comment: The Troponin units of report have been changed to meet the Chest Pain Accreditation requirement, element EC5.M1l2. Troponin units are changed from pg/ml to ng/L. Also, the decimal is removed and results are in whole numbers. PERFORMED BY: [place] [address] PATHOLOGIST HOSPITAL AIDE JENNIFER STYLES M.D. Performed By: #### C BC, BNP, HS TROP #### [address] Urinalysison 05-04-2024 Appearance (U) Clear Normal Clear [facility] Comment on above: Order Comment: Name Collection Type:: Clean-Voided Midstream Performed By: #### U A ####[address] Bilirubin,Urine Negative Normal Negative [facility] Comment on above: Order Comment: Name Collection Type:: Clean-Voided Midstream Performed By: #### U A ####[address] Color (U) Light-Yellow Normal Yellow [facility] Comment on above: Order Comment: Name Collection Type:: Clean-Voided Midstream Performed By: #### U A ####[address] Glucose Ql (U) Normal Normal Normal [facility] Comment on above: Order Comment: Name Collection Type:: Clean-Voided Midstream Performed By: #### U A ####[place] [id number] [place] Ketones Ql (U) Negative Normal Negative [facility] Comment on above: Order Comment: Name Collection Type:: Clean-Voided Midstream Performed By: #### U A ####[address] [address] [place] Leukocyte esterase Test strip Ql (U) Negative Normal Negative [facility] Comment on above: Order Comment: Name Collection Type:: Clean-Voided Midstream Performed By: #### U A ####[address] [address] [place] Nitrite,Urine Negative Normal Negative [facility] Comment on above: Order Comment: Name Collection Type:: Clean-Voided Midstream Performed By: #### U A ####[address] [address] [place] Occult Blood,Urine Negative Normal Negative [facility] Comment on above: Order Comment: Name Collection Type:: Clean-Voided Midstream Result Comment: PERF ORMED BY: [facility] [address] [place] [address] PATHOLOGIST HOSPITAL AIDE JENNIFER STYLES M.D. Performed By: #### U A ####[address] [address] [place] pH (U) 5.0 [pH] Normal 5.0-9.0 [facility] Comment on above: Order Comment: Name Collection Type:: Clean-Voided Midstream Performed By: #### U A ####[address] [address] [place] Protein,Urine Negative Normal Negative [facility] Comment on above: Order Comment: Name Collection Type:: Clean-Voided Midstream Performed By: #### U A ####[address] [address] [place] Specificy [place],Urine 1.019 Normal 1.001-1.030 [facility] Comment on above: Order Comment: Name Collection Type:: Clean-Voided Midstream Performed By: #### U A ####[address] [address] [place] Urobilinogen,Urine Normal Normal Normal [facility] Comment on above: Order Comment: Name Collection Type:: Clean-Voided Midstream Performed By: #### U A ####[facility] [id number] [place] [id number] [place] XR chest 2V*on 05-04-2024 XR chest 2V* [facility] [place] [address] [place] [id number] XRay Report Signed Patient: Buck Disla MR#: [id number] 56 : 1975 Acct:[id number] Age/Sex: 48 / M ADM Date: 05/04/24 Loc: ER Room: Type: [facility] ER Attending Dr: Copies to: Alba Batista MD Ordering Provider: Alba Batista MD Date of Service: 05/04/24 XR/XR chest 2V*: Abdominal Pain PA AND LATERAL CHEST: CLINICAL HISTORY: Left flank pain, increasing nausea COMPARISON: None FINDINGS: Cardiac silhouette normal size. Lungs are clear. No effusion or pneumothorax. XR/XR chest 2V* IMPRESSION: NO ACUTE CARDIOPULMONARY ABNORMALITY. Impression dictated by: Morro Frost M.D.05/04/2024 9:50 AM Dictation Location: [facility]- Transcribed By: [facility] 05/04/24 0950 Dictated By: Morro Frost MD 05/04/2449 Signed By: 05/04/24 0950 Normal [facility] Main [place] Intraoperative Recor don 12-12-2023 Main OR Intraoperative Record Main [place] Intraoperative Record IntraOp Document Type FTURO Summary Primary Physician: Johnie OCHOA MD Finalized Date/Time: 12/12/23 09:44:49 Pt. Name: BUCK DISLA /Sex: 1975 Male Med Rec #: [id number] Physician: Johnie OCHOA MD Financial #: [id number] Pt. Type: O Room/Bed: / Admit/Disch: 12/12/23 [...] Tyra Acevedo Role Performed Surgeon - Primary Communications Systems Engineer - Primary Scrub - Primary Time In [...] Description CYSTOSCOPY Primary Procedure Yes Primary Surgeon GABRIELA SOLANO, Johnie Martel Start 12/12/23 09:32:00 Stop 12/12/23 09:36:00 Anesthesia [...] Out Johnie OCHOA MD, Verified (If Participants Sukhdeep AGUERO, Arcelia Applicable) Nerissa Collier CST, Kimberly A Time [...] By: Arcelia Tarango RN 12/12/23 09:44 Normal [facility] Main [place] Preoperative Recordo n 12-12-2023 Main OR Preoperative Record Main OR Preoperative Record Holding Area Document Type FTURO Summary Primary Physician: Johnie OCHOA MD Finalized Date/Time: 12/12/23 08:56:33 Pt. Name: BUCK DISLA/Sex: 1975 Male Med Rec #: [id number] Physician: Johnie OCHOA MD Financial #: [id number] Pt. Type: O Room/Bed: / Admit/Disch: 12/12/23 [...] 12/12/23 08:55 Sarah Talbot 12/12/23 08:56 Normal [facility] Operative Reporton Operative Report Operative Report Patient: [...] We will evaluate his renal ultrasound.. Normal [facility] Comment on above: Result Comment: Elec tronically Signed By: GABRIELA SOLANO, Johnie Amaya\Date and Time Signed: 12/12/23 09:50 EDT Patient Educationon 12-12-19 Patient Education Patient Education Normal [facility] [facility] ([facility])on 11-27-2023 UVFISH & UC Diagnosis Info Invalid Interpretation Code [facility] Comment on above: Result Comment: A:Ur ine,Urine:Voided [...] on: 11/27/2023 11:33:21 Performed By: #### 1 [id number] #### [facility] [address] [place] [address] Ambulatory Visit Summaryon 0 11-20-2023 Ambulatory Visit [...] Schedule the Following Appointments Follow Up with Johnie OCHOA MD, TORRIE When: Where: [facility] [address] [place] [address]- Medications What How Much When Instructions Unchanged [...] five serv (more content not included)... Normal [facility] ([facility])on 11-20-2023 [facility] Method of Extraction Voided Normal [facility] Comment on above: Performed By: #### 1 [id number] #### [facility] [address] [place] [address] [facility] Number of Jars 1 Invalid Interpretation Code [facility] Comment on above: Performed By: #### 1 [id number] #### [facility] [address] [place] [address] [facility] Specimen Clean Catch Normal [facility] Comment on above: Performed By: #### 1 [id number] #### [facility] [address] [place] [address] [facility] Type of Service Technical Only Normal [facility] Comment on above: Performed By: #### 1 [id number] #### [facility] [address] [place] [address] XR foot LT min 3V*on 024 XR foot LT min 3V* [facility] [place] [address] XRay Report Signed Patient: Buck Disla MR#: [id number] [birth year] : 1975 Acct:[id number] Age/Sex: 48 / M ADM Date: 06/14/23 Loc: [id number] Room: Type: [facility] Attending Dr: Iesha [place] APRN [...] Ramirez Jr., D.O.06/14/2023 10:19 AM Dictation Location: [place] [address] Transcribed By: [facility] 06/14/23 1019 Dictated By: Antonio Ramirez Jr, DO 06/14/23 1017 Signed By: 06/14/23 1019 Normal [facility] Coding Summaryon 07-20-2022 Coding Summary HTMLBase 64 LaqcmwycMKj1pZf+PGhlY WQ+CE6KMMEyU14faXIqrM 5VI5iUSU4GXFBPEQBEMJ2 MIV8elKX2CNioY2WbptVw ZiuvvBFyYX86XGw1RVX4k AtwPNzrxC9ycXJrY3q2Mv EzXB01zB41LOqsAAZqSfR 3LjZpbjsgbWFy I3pcEsSkkSZuYby+PHRhY mxlIHdpZHRoPScxMDAlJy YydUigOJ5uUd3dPLPhHHO vbGxhcHNlOiBj f9gpXKRzNEvpSW4icYqwB 6DixLG3XAFmf7e7Mz58yF I+FPLvNEE1iGbwSFdvr25 0YdSss5myWZF8 bLEeHTqjAMB9Q79ss1C6T AWpUSGuUSF9lZK0iF3amA jtxofoW4OqlGYqQbK6TKC 1aRRjvX0ufAxr sfomwC7uRli+L85YLW3YK YBMYZ2JUla0H4ReUaqliM I+BS68QIVcOU28bICicBO op0zxdTv3IqJe LYZwDSP7kUjsAExly1DdF ZZhA98gqGOxq3C0RRNxjC cykWZlOuJwxEL2mU8eQOq ztzugw1bfnrvp Mslbs1gzkj19nA74M26wH EbvFIYnLXZ9ARPnCDLsyE vmed0khO3sHz0+EDyuv5s ra7cwdEv9MqLe HZOgkwLipJemIQU4g6XsH m75U5EkrWufv2WfTxr4qx 12iPQlv4F9tGB6ADmbXLX apE5iECejEsL4 PZVxPuYpfX70fVLdDQueV f5pvJydkCxrFQ7pOTSmtf hxENQhtL8iKPUutCNmdGw kAH3rEBYuutkv g190MeWaMSF5FXCrqFNzE 2HodD3oMoQwXCDfNJKrN9 AutXAeWIalV821UDkdYzI 1SWVmipQbA0Kf UWCrfEiuZiV3o2B1Uf6Fd 9MzwqpuVMR7YLklSSS3Bq OkGoAdHcD9K8OmStx0KZY fdRqoRV6oT5Hq FIKwjboetwytdLW9KTFnQ HFnwC15bCMuKYnmSo6xh7 S4n167PIWvNMGmuG71Yv2 udDogMTBwdCBU wU6ngbmcg9omqpswOjHkY VWmDHo4NHe8HPXkwMvbEb KiCET6HxN5LQI6zAIdpZ3 leYnmxzoyeX4q Oyc+M17abM0rQUU2CSS1l rfxMFSxreDdWX16ZU66H4 RyPjwvdGFibGU+PGRpdiB ixBewVD3aFmDb v4zfl6NsBGycW6SrHBOlD PomNhe6IOFwWMZ5tLC1aS 1nPQLjJMgeh9N9uNL5Q0L hivBlim1lk1cr QXKsQGlgT98pkMKsv0E2K HDotHJ1XAMvnLjcThLabM 93Oyc+COEfbAfkc0MhFjs rn5jeh7lujOa4 DuEpWIXlotLlnIejEOS2b 2OnYw04N03qSRboTCJuVR FfQDDzGIWtxOrtej3vuH5 wIi8+PGNvbCB3 cKC9vO5kIITrHnW0AKsgM 286MnZdeCEwMkcek9sas5 pacTy1ZnJcRCFrvxLjkQj mUKH4e8KgVd58 N99gPCuhOIPcVYLmFSKkE DVxyPqlvx2rmX5aDt0+PC 1qf4sano26zV62uIZ+PHR hCWJ1wUjtDNdz MUNkhT4kURhiHnT3KQDiC cHqnQ88rZRsVManDh9tkK pxsXulGR1cHZZiwxxwv11 6XsVgy4fdJBTc gEVtGDqpEQG7A10oz2N6U XToLUZcFAL1aTJ7kA8fiU lnbjogbGVmdDsgdmVydGl gULdzLXfvU835 IHRvcDsnPlBhdGllbnQgT vMpWYm0P4QdEqy0WZTvfR nrUO1ulPWlMHzkPq1uvVl ovHmbJK5eQCLu omxte487BdSbe6uuOGVop DUaNSloYSO7S39my2W8GN IvONDxMJM8yDJ2uN2jrUy nbjogbGVmdDsg kdIqjQnaZKddLSehK141P HRvcDsnPkJpcnRoIERhdG T6LF91RB50fLMwd8I0cMU 5Z5QfCTSxticc bsldlES4NFRbBVPtqL27Q h5gxYwbTe9rABWuECY3VX TnxTLiV0GptR6tJdMqWCN lOWNaY9YytMFl QZkuZ131TTlqYxG2FCWoh bXlC2OjRJAmpIosFiM2q7 T5Gl5TS4F0OM82PE33oQK ko7T5dON5E0Jt UULubbwrvsulsNP1QUJeP KXvfP07Ll6nsXbcFs9iTV MnNJK1BYJxjUNaF3YmqQ3 yOiAjMDAwMDAw X2HqjHIeDPytF591NWvwJ aU3JUZuvwJsR8QwWSVvjX wsKtO4x3D2Zs6WNNg5MQ2 0KC74qEJfq4J9 kZL9H4JfSVUgnvyprrgne UE2TFSyDLDsrX99Cq6gtU ewRo2yUGVtCPR8HJUdmAC jY7GjlM9xLpQs DYSgVDFvH2SklIOgXBdcE 642HZogSdA0BGXljnFkX5 CmYLBqnYizHyL5p1K3Eq1 LOLObTP01AOE6 sNI4XO92GD22U2VjMwsoj GFibGU+PHRhYmxlIHdpZH RoPScxMDAlJyBzdHlsZT0 eIb0eLZSzCRWf uXusoRQvVnDvn0liVOExT AwfKA5sjHmvX5SbnIY0YY Zea3y8Iy13O57mD4KkhBC +ZNXgaRL9lIS6 yF4iKuSnRmC0WHxrA829Q tItrYIpRupch3jjk3fucA q1NbD5UWYxodZgsWddUUX 7q2IoRp38Z44h IHdpZHRoPSIxNSUiIHZhb Jvhql5igU1hXi3+PGNvbC Y4iSC0aK0iRhFjSvB6OVo fE277IbVarNWx Dkyyk3nmt2lhuGo3TpAnQ XLwmbHmoEudGES8m8KqTc 16V4NpvWlrs6LiMqm6jk6 7cNKkj1R9lKH0 U5KlERTfwhbkoLUpyKfvV U6uAYJbrjcaFWBeoH4aDJ VhO0b1WmZxAyN9TUvhU0B szvY3SPJzeWWr VJcoVDO6S74zd6E5XRCgA VTsHUN1xSO8cH7piYhzcm ogbGVmdDsgdmVydGljYWw rCPkzS458HAHa eKgfMIBvtQ4rPHOflLVkw BsfLT9vQYFaghkhQnAFMY gBXtcsTRCMKPNgY6COGsR 5R1XwGac0XMEc jFoeTQ9goZZmUGtnXr0xa RnjeMmpYX5bJJUncqtpLZ WytV3iGBOboKQhxDgtCH5 jQMTarkzcb579 ZoSiDEJ2WQNeqDSuL1Xbh X2lTtPxBLPsJJUuG4EkhM KwQMzoA634GNhgUtH9OHK ngyWtJ0JlOWVr sGozAcV9q8R8Mh1eXh1bQ P3uVOs7NH17GR05nVLba9 K7hHR9R7JbGTZyvwmpebe ljLF7YWUuMNXy uG85oJTqFJyjMl4gv3M3r 251UJRiIJAewE13Lf3wiL gsMPShpHBFlF4ddwutf3x vcjogIzAwMDAw VCb1BDq7DZAcdFhdYpXeI RD9IgJ4WJC5wSButL6ucK bjfzlrdL0tJpo+NDggWWV tjwW4I4NmOxc3 BLRojClrRP6mnZWzSDjiC o2lhSsknNieIK6fTHQebv khWELwpX1jCUNfyCCqrSt aQY7uTNPtcyra j492RuRnXGR5FINewOSiN 8DszG0ySnQbFAEmAZQlH8 DisDMfFBhaJ834VJmzZyG 9BXCcyiBjT7Vm WJNokDmgFaF7x7K7Rm6NZ CsQKE97AX91aBZnv9Y5dL J1B0LgYPXgpaggpstguUC 8AWRvDLIiaZ99 vFOpRHomSv1it9P7c048P NGeYKTwnN36Wp3yuSxqWS GgkCHUkA1kjtkby5vgquf gIzAwMDAwMDt0 VQv7MOSupKgaDaAhKLQ1P pK2IGH4tKZsnT4zfKnwvd kvfF1mYhu+A1L2O3CbVqi vdHI+VR26FXFn QZ84gQGyfZVac2cqwQv5Q sWaLECmGGH0rMfgKMljj8 NzRPEtO77hmFOat7S0WLX vbGxhcHNlOyBl lRA2jY9oOMhuunkpt5bvu nkgBtsnz5qoen35zV51S4 9sIHdpZHRoPSIzMCUiIHZ wdVqpbc1tjS5v Ii8+ELBttNC1vQM1xA7bF eLrMhI6OHdiL386IbLrbU RqGxxri6ojd2jrsHg2RqI wJSIgdmFsaWdu LYV6j7SfRn73K91gDChyP HRoPSIyMCUiIHZhbGlnbj 2abR1qOg1+AE7vz6hzap0 6oK82fTD+PHRk KOQ9bShdQKalXMNbdA2mC OchRuH8FFXnJlKfqH16rU FpAKgpQi2vqImboOjwBM1 pBOSdacqwi954 JiLya6osIHBbcRYdEQdzG VY3I70kn7L2DYEsFPDkNQ V9gVR4eU2vhJqnihzssCC mdDsgdmVydGlj QLuwCLppT630ILUmrKlpG gUslCGeT4aqjlEINF5yUn wvdGQ+HZGiRCM7dIhlGUi wKDBykY3jSDZf U1j7CnUeMeX0TUetR7Fif qP0MFPxjMMgNLCwbHIHfK 8aekfhb2xyhazeQzAnIFJ rEUm3ICl2EIJr aXdtLwHmAHO4YsO1YWE0v IAutU1vzVnlxxuueE8oSm c+RklOOjwvdGQ+PHRkIHN 0eWxlPSdwYWRk kO2xRVUmP5i9SmFhUhG4N ThnM1EnpyB8HJEuzKYwJI FhbQATuV8rkmptz5xmktx gIzAwMDAwMDt0 YUu3ESYgfQfrLwDnBQQ2D iT5GXB9fYNobE8glHboqk drfT4gYrx+TVJOOjwvdGQ +JAUiBET8uPey IRqvWZMtaP9bUDRmR6p4E bAcCvE4FRfkU5QdyjM6TC UrmGShORBlnWCWbN6wqul wc6vjtoolGqGd WCNfHTp7SUp2LSJiuEscO vHmHCW9MfH3YXV8mAXfuF 1qqEcfsalmqQ8ySfm+UGF 2CNI0UQ30KP68 V9ExPrajxYNdsSA+PHRhY mxlIHdpZHRoPScxMDAlJy IoxXsoTG4oAr6pIHJiUEY vbGxhcHNlOiBj b2x (more content not included)... [facility] US LE Venous Duplex Bilatera elaine [...] Signature): Maurice Smith 07/19/22 3:13 pm Technologist: [facility] Provider Orderson 05-20-2022 Provider Orders [id number] Normal [facility] US JUAN DOP LEG BILon 023 [...] by: VINAYAK ROSS Date: 2022-03-15 10:[address] [facility] US JUAN DOP LEG LTon 01-01-20 [...] June 06, 2009. Electronically authenticated by: BUCK HOAWRD Date: 2021-12-31 15:[address] [facility] CBC AUTO DIFFon 12-07-2021 BASO # 0.1 103/ul Normal 0.0-0.[address] [facility] Comment on above: Performed By: #### P TTHEP #### [facility] [address] [place] [address] [address] Dimas Bustos Basophils/100 WBC (Bld) 0.8 % Normal 0.2-2.[address] [facility] Comment on above: Performed By: #### P TTHEP #### [facility] [address] [place] [address] Dr. Dimas Bustos EO # 0.2 103/ul Normal 0.0-0.[address] [facility] Comment on above: Performed By: #### P TTHEP #### [facility] [address] [place] [address] Dr. Dimas Bustos Eosinophils/100 WBC (Bld) 1.5 % Normal 0.9-7.[address] [facility] Comment on above: Performed By: #### P TTHEP #### [facility] [address] [place] [address] Dr. Dimas Bustos Erythrocyte distribution width (RBC) [Ratio] 12.3 % Normal 11.0-15.[address] [facility] Comment on above: Performed By: #### P TTHEP #### [facility] [address] [place] [address] Dr. Dimas Bustos Hematocrit (Bld) [Volume fraction] 41.4 % Critically low 42.0-54.[address] [facility] Comment on above: Performed By: #### P TTHEP #### [facility] [address] [place] [address] Dr. Dimas Bustos Hemoglobin (Bld) [Mass/Vol] 13.9 g/dL Critically low 14.0-18.[address] [facility] Comment on above: Performed By: #### P TTHEP #### [facility] [address] [place] [address] Dr. Dimas Bustos IG # 0.30 10e3/ul Critically high 0.00-0.03 [facility] Comment on above: Performed By: #### P TTHEP #### [facility] [address] [place] [address] Dr. Dimas Bustos IG % 2.5 % Critically high 0.0-0.5 [facility] Comment on above: Performed By: #### P TTHEP #### [facility] [address] [place] [address] Dr. Dimas Bustos LYMPH # 2.8 103/ul Normal 1.2-3.[address] [facility] Comment on above: Performed By: #### P TTHEP #### [facility] [address] [place] [address] Dr. Dimas Bustos Lymphocytes/100 WBC (Bld) 23.3 % Normal 20.5-60.[address] [facility] Comment on above: Performed By: #### P TTHEP #### [facility] [address] [place] [address] Dr. Dimas Bustos MANUAL DIFF REQ NO Normal [facility] Comment on above: Performed By: #### P TTHEP #### [facility] [address] [place] [address] Dr. Dimas Bustos MCH (RBC) [Entitic mass] 31.2 pg Normal 25.9-34.[address] [facility] Comment on above: Performed By: #### P TTHEP #### [facility] [address] [place] [address] Dr. Dimas Bustos MCHC (RBC) [Mass/Vol] 33.6 g/dL Normal 29.9-35.[address] [facility] Comment on above: Performed By: #### P TTHEP #### [facility] [address] [place] [address] Dr. Dimas Bustos MCV (RBC) [Entitic vol] 93.0 fL Normal 80.0-94.[address] [facility] Comment on above: Performed By: #### P TTHEP #### [facility] [address] [place] [address] Dr. Dimas Bustos MONO # 0.9 103/ul Critically high 0.3-0.8 [facility] Comment on above: Performed By: #### P TTHEP #### [facility] [address] [place] [address] Dr. Dimas Bustos Monocytes/100 WBC (Bld) 7.5 % Normal 1.7-12.[address] [facility] Comment on above: Performed By: #### P TTHEP #### [facility] [address] [place] [address] Dr. Dimas Bustos NEUT # 7.8 103/ul Critically high 1.4-6.5 [facility] Comment on above: Performed By: #### P TTHEP #### [facility] [address] [place] [address] [address] Dimas Bustos Neutrophils/100 WBC (Bld) 64.4 % Normal 43.0-75.[address] [facility] Comment on above: Performed By: #### P TTHEP #### [facility] [address] [place] [address] [address] Dimas Bustos Platelet mean volume (Bld) [Entitic vol] 8.9 fL Critically low 9.5-13.[address] [facility] Comment on above: Performed By: #### P TTHEP #### [facility] [address] [place] [address] Dr. Dimas Bustos PLT 420 103/ul Normal 150-[address] [facility] Comment on above: Performed By: #### P TTHEP #### [facility] [address] [place] [address] Dr. Dimas Bustos RBC 4.45 106/ul Critically low 4.70-6.10 [facility] Comment on above: Performed By: #### P TTHEP #### [facility] [address] [place] [address] Dr. Dimas Bustos WBC 12.1 103/ul Critically high 4.0-11.0 [facility] Comment on above: Performed By: #### P TTHEP #### [facility] [address] [place] [address] Dr. Dimas Bustos PROF 14(COMP METB)on 022 Albumin [Mass/Vol] 2.8 g/dL Critically low 3.4-5.0 [facility] Comment on above: Performed By: #### C MP #### [facility] [address] [place] [address] Dr. Dimas Bustos Albumin/Globulin [Mass ratio] 0.6 {ratio} Normal [facility] Comment on above: Performed By: #### C MP #### [facility] [address] [place] [address] Dr. Dimas Bustos ALP [Catalytic activity/Vol] 113 U/L Normal 46-[address] [facility] Comment on above: Performed By: #### C MP #### [facility] [address] [place] [address] Dr. Dimas Bustos ALT [Catalytic activity/Vol] 56 U/L Normal 16-[address] [facility] Comment on above: Performed By: #### C MP #### [facility] [address] [place] [address] Dr. Dimas Bustos Anion gap [Moles/Vol] 15.7 mmol/L Normal [facility] Comment on above: Performed By: #### C MP #### [facility] [address] [place] [address] Dr. Dimas Bustos AST [Catalytic activity/Vol] 22 U/L Normal 15-[address] [facility] Comment on above: Performed By: #### C MP #### [facility] [address] [place] [address] Dr. Dimas Bustos Bilirubin [Mass/Vol] 0.2 mg/dL Normal 0.2-1.[address] [facility] Comment on above: Performed By: #### C MP #### [facility] [address] [place] [address] Dr. Dimas Bustos Calcium [Mass/Vol] 9.4 mg/dL Normal 8.5-10.1 [facility] Comment on above: Performed By: #### C MP #### [facility] [address] [place] [address] Dr. Dimas Bustos Chloride [Moles/Vol] 100 mmol/L Normal 98-107 [facility] Comment on above: Performed By: #### C MP #### [facility] [address] [place] [address] Dr. Dimas Bustos CO2 [Moles/Vol] 24.5 mmol/L Normal 21.0-32.0 [facility] Comment on above: Performed By: #### C MP #### [facility] [address] [place] [address] Dr. Dimas Bustos Creatinine [Mass/Vol] 0.80 mg/dL Normal 0.70-1.[address] [facility] Comment on above: Performed By: #### C MP #### [facility] [address] [place] [address] [address] Dimas Bustos EGFR-AF SAUDI ARABIAN >60 Normal >=60 [facility] Comment on above: Performed By: #### C MP #### [facility] [address] [place] [address] [address] Dimas Bustos EGFR-NON AF SAUDI ARABIAN >60 Normal >=[address] [facility] Comment on above: Performed By: #### C MP #### [facility] [address] [place] [address] [address] Dimas Bustos Globulin (S) [Mass/Vol] 4.5 g/dL Normal [facility] Comment on above: Performed By: #### C MP #### [facility] [address] [place] [address] Dr. Dimas Bustos Glucose [Mass/Vol] 123 mg/dL Critically high 74-106 [facility] Comment on above: Performed By: #### C MP #### [facility] [address] [address] [address] Dimas Bustos Potassium [Moles/Vol] 4.2 mmol/L Normal 3.5-5.[address] [facility] Comment on above: Performed By: #### C MP #### [facility] [address] [address] [address] Dimas Bustos Protein [Mass/Vol] 7.3 g/dL Normal 6.4-8.2 [facility] Comment on above: Performed By: #### C MP #### [facility] [address] [address] [address] Dimas Bustos Sodium [Moles/Vol] 136 mmol/L Normal 136-145 [facility] Comment on above: Performed By: #### C MP #### [facility] [address] [address] [address] Dimas Bustos Urea nitrogen [Mass/Vol] 17.0 mg/dL Normal 7.0-18.[address] [facility] Comment on above: Performed By: #### C MP #### [facility] [address] [place] [address] Dr. Dimas Bustos Urea nitrogen/Creatinine [Mass ratio] 21.2 mg/mg Normal [facility] Comment on above: Performed By: #### C MP #### [facility] [address] [place] [address] Dr. Dimas Bustos PROTIMEon 12-07-2021 INR Coag (PPP) [Relative time] 1.42 {INR} Normal [facility] Comment on above: Performed By: #### C VDTBH #### [facility] [address] [place] [address] Dr. Dimas Bustos INR GUIDELINES SEE BELOW Normal [facility] Comment on above: Result Comment: GEOVANNI RED INR: 2.0 - 3.0 CONDITIONS NOT LISTED BELOW 2.5 - 3.5 FOR PROSTHETIC HEART VALVE REPLACEMENT 2.5 - 3.5 RECURRENT THROMBOSIS Performed By: #### C VDTBH #### [facility] [address] [place] [address] Dr. Dimas Bustos PT Coag (PPP) [Time] 15.0 s Critically high 9.0-11.[address] [facility] Comment on above: Performed By: #### C VDTBH #### [facility] [address] [place] [address] Dr. Dimas Bustos PTT HEPARIN MONITORon 2021 aPTT Coag (Bld) [Time] 68.4 s Critically high 39.5-54.2 [facility] Comment on above: Performed By: #### C VDTBH #### [facility] [address] [place] [address] Dr. Dimas Bustos CBC AUTO DIFFon 12-06-2021 BASO # 0.1 103/ul Normal 0.0-0.[address] [facility] Comment on above: Performed By: #### P TTHEP #### [facility] [address] [place] [address] Dr. Dimas Bustos Basophils/100 WBC (Bld) 0.7 % Normal 0.2-2.[address] [facility] Comment on above: Performed By: #### P TTHEP #### [facility] [address] [address] [address] Dimas Bustos EO # 0.3 103/ul Normal 0.0-0.[address] [facility] Comment on above: Performed By: #### P TTHEP #### [facility] [address] [place] [address] Dr. Dimas Bustos Eosinophils/100 WBC (Bld) 2.2 % Normal 0.9-7.[address] [facility] Comment on above: Performed By: #### P TTHEP #### [facility] [address] [place] [address] Dr. Dimas Bustos Erythrocyte distribution width (RBC) [Ratio] 12.4 % Normal 11.0-15.[address] [facility] Comment on above: Performed By: #### P TTHEP #### [facility] [address] [place] [address] Dr. Dimas Bustos Hematocrit (Bld) [Volume fraction] 42.3 % Normal 42.0-54.[address] [facility] Comment on above: Performed By: #### P TTHEP #### [facility] [address] [place] [address] Dr. Dimas Bustos Hemoglobin (Bld) [Mass/Vol] 14.2 g/dL Normal 14.0-18.[address] [facility] Comment on above: Performed By: #### P TTHEP #### [facility] [address] [place] [address] Dr. Dimas Bustos IG # 0.20 10e3/ul Critically high 0.00-0.03 [facility] Comment on above: Performed By: #### P TTHEP #### [facility] [address] [place] [address] Dr. Dimas Bustos IG % 1.8 % Critically high 0.0-0.5 [facility] Comment on above: Performed By: #### P TTHEP #### [facility] [address] [place] [address] Dr. Dimas Bustos LYMPH # 2.9 103/ul Normal 1.2-3.[address] [facility] Comment on above: Performed By: #### P TTHEP #### [facility] [address] [place] [address] Dr. Dimas Bustos Lymphocytes/100 WBC (Bld) 25.1 % Normal 20.5-60.[address] [facility] Comment on above: Performed By: #### P TTHEP #### [facility] [address] [place] [address] Dr. Dimas Bustos MANUAL DIFF REQ NO Normal [facility] Comment on above: Performed By: #### P TTHEP #### [facility] [address] [place] [address] Dr. Dimas Bustos MCH (RBC) [Entitic mass] 31.6 pg Normal 25.9-34.[address] [facility] Comment on above: Performed By: #### P TTHEP #### [facility] [address] [place] [address] Dr. Dimas Bustos MCHC (RBC) [Mass/Vol] 33.6 g/dL Normal 29.9-35.[address] [facility] Comment on above: Performed By: #### P TTHEP #### [facility] [address] [place] [address] Dr. Dimas Bustos MCV (RBC) [Entitic vol] 94.0 fL Normal 80.0-94.[address] [facility] Comment on above: Performed By: #### P TTHEP #### [facility] [address] [place] [address] Dr. Dimas Bustos MONO # 0.9 103/ul Critically high 0.3-0.8 [facility] Comment on above: Performed By: #### P TTHEP #### [facility] [address] [place] [address] Dr. Dimas Bustos Monocytes/100 WBC (Bld) 7.7 % Normal 1.7-12.[address] [facility] Comment on above: Performed By: #### P TTHEP #### [facility] [address] [place] [address] Dr. Dimas Bustos NEUT # 7.1 103/ul Critically high 1.4-6.5 [facility] Comment on above: Performed By: #### P TTHEP #### [facility] [address] [place] [address] Dr. Dimas Bustos Neutrophils/100 WBC (Bld) 62.5 % Normal 43.0-75.[address] [facility] Comment on above: Performed By: #### P TTHEP #### [facility] [address] [place] [address] Dr. Dimas Bustos Platelet mean volume (Bld) [Entitic vol] 8.8 fL Critically low 9.5-13.[address] [facility] Comment on above: Performed By: #### P TTHEP #### [facility] [address] [place] [address] Dr. Dimas Bustos PLT 373 103/ul Normal 150-[address] [facility] Comment on above: Performed By: #### P TTHEP #### [facility] [address] [place] [address] Dr. Dimas Bustos RBC 4.50 106/ul Critically low 4.70-6.10 [facility] Comment on above: Performed By: #### P TTHEP #### [facility] [address] [place] [address] Dr. Dimas Bustos WBC 11.4 103/ul Critically high 4.0-11.0 [facility] Comment on above: Performed By: #### P TTHEP #### [facility] [address] [place] [address] Dr. Dimas Bustos PROF 14(COMP METB)on 022 Albumin [Mass/Vol] 2.7 g/dL Critically low 3.4-5.0 [facility] Comment on above: Performed By: #### P TTHEP #### [facility] [address] [place] [address] Dr. Dimas Bustos Albumin/Globulin [Mass ratio] 0.6 {ratio} Normal [facility] Comment on above: Performed By: #### P TTHEP #### [facility] [address] [place] [address] Dr. Dimas Bustos ALP [Catalytic activity/Vol] 100 U/L Normal 46-[address] [facility] Comment on above: Performed By: #### P TTHEP #### [facility] [address] [address] [address] Dimas Bustos ALT [Catalytic activity/Vol] 51 U/L Normal 16-[address] [facility] Comment on above: Performed By: #### P TTHEP #### [facility] [address] [address] [address] Dimas Bustos Anion gap [Moles/Vol] 8.8 mmol/L Normal [facility] Comment on above: Performed By: #### P TTHEP #### [facility] [address] [place] [address] Dr. Dimas Bustos AST [Catalytic activity/Vol] 21 U/L Normal 15-[address] [facility] Comment on above: Performed By: #### P TTHEP #### [facility] [address] [place] [address] Dr. Dimas Bustos Bilirubin [Mass/Vol] 0.2 mg/dL Normal 0.2-1.[address] [facility] Comment on above: Performed By: #### P TTHEP #### [facility] [address] [place] [address] Dr. Dimas Bustos Calcium [Mass/Vol] 9.6 mg/dL Normal 8.5-10.1 [facility] Comment on above: Performed By: #### P TTHEP #### [facility] [address] [place] [address] Dr. Dimas Bustos Chloride [Moles/Vol] 101 mmol/L Normal 98-[address] [facility] Comment on above: Performed By: #### P TTHEP #### [facility] [address] [address] [address] Dimas Bustos CO2 [Moles/Vol] 31.2 mmol/L Normal 21.0-32.0 [facility] Comment on above: Performed By: #### P TTHEP #### [facility] [address] [place] [address] Dr. Dimas Bustos Creatinine [Mass/Vol] 0.84 mg/dL Normal 0.70-1.[address] [facility] Comment on above: Performed By: #### P TTHEP #### [facility] [address] [place] [address] Dr. Dimas Bustos EGFR-AF SAUDI ARABIAN >60 Normal >=60 [facility] Comment on above: Performed By: #### P TTHEP #### [facility] [address] [address] [address] Dimas Bustos EGFR-NON AF SAUDI ARABIAN >60 Normal >=[address] [facility] Comment on above: Performed By: #### P TTHEP #### [facility] [address] [place] [address] Dr. Dimas Bustos Globulin (S) [Mass/Vol] 4.5 g/dL Normal [facility] Comment on above: Performed By: #### P TTHEP #### [facility] [address] [place] [address] Dr. Dimas Bustos Glucose [Mass/Vol] 113 mg/dL Critically high 74-106 [facility] Comment on above: Performed By: #### P TTHEP #### [facility] [address] [place] [address] Dr. Dimas Bustos Potassium [Moles/Vol] 5.0 mmol/L Normal 3.5-5.[address] [facility] Comment on above: Performed By: #### P TTHEP #### [facility] [address] [place] [address] Dr. Dimas Bustos Protein [Mass/Vol] 7.2 g/dL Normal 6.4-8.2 [facility] Comment on above: Performed By: #### P TTHEP #### [facility] [address] [place] [address] Dr. Dimas Bustos Sodium [Moles/Vol] 136 mmol/L Normal 136-145 [facility] Comment on above: Performed By: #### P TTHEP #### [facility] [address] [place] [address] Dr. Dimas Bustos Urea nitrogen [Mass/Vol] 14.0 mg/dL Normal 7.0-18.0 [facility] Comment on above: Performed By: #### P TTHEP #### [facility] [address] [place] [address] Dr. Dimas Bustos Urea nitrogen/Creatinine [Mass ratio] 16.7 mg/mg Normal [facility] Comment on above: Performed By: #### P TTHEP #### [facility] [address] [place] [address] Dr. Dimas Bustos PROTIMEon 12-06-2021 INR Coag (PPP) [Relative time] 1.22 {INR} Normal [facility] Comment on above: Performed By: #### P TTHEP #### [facility] [address] [place] [address] Dr. Dimas Bustos INR GUIDELINES SEE BELOW Normal [facility] Comment on above: Result Comment: GEOVANNI RED INR: 2.0 - 3.0 CONDITIONS NOT LISTED BELOW 2.5 - 3.5 FOR PROSTHETIC HEART VALVE REPLACEMENT 2.5 - 3.5 RECURRENT THROMBOSIS Performed By: #### P TTHEP #### [facility] [address] [place] [address] Dr. Dimas Bustos PT Coag (PPP) [Time] 13.0 s Critically high 9.0-11.[address] [facility] Comment on above: Performed By: #### P TTHEP #### [facility] [address] [place] [address] Dr. Dmias Bustos PTTon 12-06-2021 aPTT Coag (Bld) [Time] 61.4 s Critically high 22.3-36.[address] [facility] Comment on above: Performed By: #### P TTHEP #### [facility] [address] [place] [address] Dr. Dimas Bustos US JUAN DOP LEG [...] VINAYAK ROSS Date: 2021-12-06 09:03 Normal [facility] CBC AUTO DIFFon 12-05-2021 BASO # 0.1 103/ul Normal 0.0-0.[address] [facility] Comment on above: Performed By: #### C BC #### [facility] [address] [address] [address] Dimas Bustos Basophils/100 WBC (Bld) 0.5 % Normal 0.2-2.[address] [facility] Comment on above: Performed By: #### C BC #### [facility] [address] [address] [address] Dimas Bustos EO # 0.2 103/ul Normal 0.0-0.[address] [facility] Comment on above: Performed By: #### C BC #### [facility] [address] [address] [address] Dimas Bustos Eosinophils/100 WBC (Bld) 1.6 % Normal 0.9-7.[address] [facility] Comment on above: Performed By: #### C BC #### [facility] [address] [address] [address] Dimas Bustos Erythrocyte distribution width (RBC) [Ratio] 12.2 % Normal 11.0-15.[address] [facility] Comment on above: Performed By: #### C BC #### [facility] [address] [address] [address] Dimas Bustos Hematocrit (Bld) [Volume fraction] 41.6 % Critically low 42.0-54.[address] [facility] Comment on above: Performed By: #### C BC #### [facility] [address] [address] [address] Dimas Bustos Hemoglobin (Bld) [Mass/Vol] 13.8 g/dL Critically low 14.0-18.[address] [facility] Comment on above: Performed By: #### C BC #### [facility] [address] [place] [address] Dr. Dimas Bustos IG # 0.09 10e3/ul Critically high 0.00-0.03 [facility] Comment on above: Performed By: #### C BC #### [facility] [address] [place] [address] Dr. Dimas Bustos IG % 0.9 % Critically high 0.0-0.5 [facility] Comment on above: Performed By: #### C BC #### [facility] [address] [place] [address] Dr. Dimas Bustos LYMPH # 2.1 103/ul Normal 1.2-3.[address] [facility] Comment on above: Performed By: #### C BC #### [facility] [address] [place] [address] Dr. Dimas Bustos Lymphocytes/100 WBC (Bld) 20.2 % Critically low 20.5-60.[address] [facility] Comment on above: Performed By: #### C BC #### [facility] [address] [place] [address] Dr. Dimas Bustos MANUAL DIFF REQ NO Normal [facility] Comment on above: Performed By: #### C BC #### [facility] [address] [place] [address] Dr. Dimas Bustos MCH (RBC) [Entitic mass] 30.7 pg Normal 25.9-34.[address] [facility] Comment on above: Performed By: #### C BC #### [facility] [address] [place] [address] Dr. Dimas Bustos MCHC (RBC) [Mass/Vol] 33.2 g/dL Normal 29.9-35.[address] [facility] Comment on above: Performed By: #### C BC #### [facility] [address] [place] [address] Dr. Dimas Bustos MCV (RBC) [Entitic vol] 92.4 fL Normal 80.0-94.[address] [facility] Comment on above: Performed By: #### C BC #### [facility] [address] [address] [address] Dimas Bustos MONO # 0.9 103/ul Critically high 0.3-0.8 [facility] Comment on above: Performed By: #### C BC #### [facility] [address] [address] [address] Dimas Bustos Monocytes/100 WBC (Bld) 8.4 % Normal 1.7-12.[address] [facility] Comment on above: Performed By: #### C BC #### [facility] [address] [address] [address] Dimas Bustos NEUT # 6.9 103/ul Critically high 1.4-6.5 [facility] Comment on above: Performed By: #### C BC #### [facility] [address] [address] [address] Dimas Bustos Neutrophils/100 WBC (Bld) 68.4 % Normal 43.0-75.[address] [facility] Comment on above: Performed By: #### C BC #### [facility] [address] [address] [address] Dimas Bustos Platelet mean volume (Bld) [Entitic vol] 9.2 fL Critically low 9.5-13.[address] [facility] Comment on above: Performed By: #### C BC #### [facility] [address] [address] [address] Dimas Bustos PLT 371 103/ul Normal 150-450 [facility] Comment on above: Performed By: #### C BC #### [facility] [address] [address] [address] Dimas Bustos RBC 4.50 106/ul Critically low 4.70-6.10 [facility] Comment on above: Performed By: #### C BC #### [facility] [address] [address] [address] Dimas Bustos WBC 10.1 103/ul Normal 4.0-11.0 [facility] Comment on above: Performed By: #### C BC #### [facility] [address] [place] [address] Dr. Dimas Bustos PROF 14(COMP METB)on 022 Albumin [Mass/Vol] 2.7 g/dL Critically low 3.4-5.0 [facility] Comment on above: Performed By: #### C MP #### [facility] [address] [place] [address] Dr. Dimas Bustos Albumin/Globulin [Mass ratio] 0.6 {ratio} Normal [facility] Comment on above: Performed By: #### C MP #### [facility] [address] [place] [address] Dr. Dimas Bustos ALP [Catalytic activity/Vol] 98 U/L Normal 46-[address] [facility] Comment on above: Performed By: #### C MP #### [facility] [address] [place] [address] Dr. Dimas Bustos ALT [Catalytic activity/Vol] 43 U/L Normal 16-[address] [facility] Comment on above: Performed By: #### C MP #### [facility] [address] [place] [address] Dr. Dimas Bustos Anion gap [Moles/Vol] 9.9 mmol/L Normal [facility] Comment on above: Performed By: #### C MP #### [facility] [address] [place] [address] Dr. Dimas Bustos AST [Catalytic activity/Vol] 17 U/L Normal 15-[address] [facility] Comment on above: Performed By: #### C MP #### [facility] [address] [place] [address] Dr. Dimas Bustos Bilirubin [Mass/Vol] 0.3 mg/dL Normal 0.2-1.[address] [facility] Comment on above: Performed By: #### C MP #### [facility] [address] [place] [address] Dr. Dimas Bustos Calcium [Mass/Vol] 9.5 mg/dL Normal 8.5-10.1 [facility] Comment on above: Performed By: #### C MP #### [facility] [address] [address] [address] Dimas Bustos Chloride [Moles/Vol] 103 mmol/L Normal 98-107 [facility] Comment on above: Performed By: #### C MP #### [facility] [address] [place] [address] Dr. Dimas Bustos CO2 [Moles/Vol] 28.2 mmol/L Normal 21.0-32.0 [facility] Comment on above: Performed By: #### C MP #### [facility] [address] [place] [address] Dr. Dimas Bustos Creatinine [Mass/Vol] 0.77 mg/dL Normal 0.70-1.30 [facility] Comment on above: Performed By: #### C MP #### [facility] [address] [place] [address] Dr. Dimas Bustos EGFR-AF SAUDI ARABIAN >60 Normal >=60 [facility] Comment on above: Performed By: #### C MP #### [facility] [address] [place] [address] Dr. Dimas Bustos EGFR-NON AF SAUDI ARABIAN >60 Normal >=[address] [facility] Comment on above: Performed By: #### C MP #### [facility] [address] [place] [address] Dr. Dimas Bustos Globulin (S) [Mass/Vol] 4.6 g/dL Normal [facility] Comment on above: Performed By: #### C MP #### [facility] [address] [place] [address] Dr. Dimas Bustos Glucose [Mass/Vol] 119 mg/dL Critically high 74-106 [facility] Comment on above: Performed By: #### C MP #### [facility] [address] [place] [address] Dr. Dimas Bustos Potassium [Moles/Vol] 4.1 mmol/L Normal 3.5-5.[address] [facility] Comment on above: Performed By: #### C MP #### [facility] [address] [place] [address] Dr. Dimas Bustos Protein [Mass/Vol] 7.3 g/dL Normal 6.4-8.2 [facility] Comment on above: Performed By: #### C MP #### [facility] [address] [place] [address] Dr. Dimas Bustos Sodium [Moles/Vol] 137 mmol/L Normal 136-145 [facility] Comment on above: Performed By: #### C MP #### [facility] [address] [place] [address] Dr. Dimas Bustos Urea nitrogen [Mass/Vol] 11.0 mg/dL Normal 7.0-18.[address] [facility] Comment on above: Performed By: #### C MP #### [facility] [address] [place] [address] Dr. Dimas Bustos Urea nitrogen/Creatinine [Mass ratio] 14.3 mg/mg Normal [facility] Comment on above: Performed By: #### C MP #### [facility] [address] [place] [address] Dr. Dimas Bustos PROTIMEon 12-05-2021 INR Coag (PPP) [Relative time] 1.16 {INR} Normal [facility] Comment on above: Performed By: #### P TTHEP #### [facility] [address] [place] [address] Dr. Dimas Bustos INR GUIDELINES SEE BELOW Normal [facility] Comment on above: Result Comment: GEOVANNI RED INR: 2.0 - 3.0 CONDITIONS NOT LISTED BELOW 2.5 - 3.5 FOR PROSTHETIC HEART VALVE REPLACEMENT 2.5 - 3.5 RECURRENT THROMBOSIS Performed By: #### P TTHEP #### [facility] [address] [place] [address] Dr. Dimas Bustos PT Coag (PPP) [Time] 12.4 s Critically high 9.0-11.6 [facility] Comment on above: Performed By: #### P TTHEP #### [facility] [address] [place] [address] Dr. Dimas Bustos PTTon 12-05-2021 aPTT Coag (Bld) [Time] 50.7 s Critically high 22.3-36.2 [facility] Comment on above: Performed By: #### P TT #### [facility] [address] [place] [address] Dr. Dimas Bustos aPTT Coag (Bld) [Time] 51.3 s Critically high 22.3-36.[address] [facility] Comment on above: Performed By: #### P TTHEP #### [facility] [address] [place] [address] Dr. Dimas Bustos aPTT Coag (Bld) [Time] 52.7 s Critically high 22.3-36.2 [facility] Comment on above: Performed By: #### C VDTBH #### [facility] [address] [place] [address] Dr. Dimas Bustos PTT HEPARIN MONITORon 2021 aPTT Coag (Bld) [Time] 42.3 s Normal 39.5-54.2 [facility] Comment on above: Performed By: #### P TTHEP #### [facility] [address] [place] [address] Dr. Dimas Bustos CBC AUTO DIFFon 12-04-2021 BASO # 0.0 103/ul Normal 0.0-0.[address] [facility] Comment on above: Performed By: #### C BC #### [facility] [address] [place] [address] Dr. Dimas Bustos Basophils/100 WBC (Bld) 0.3 % Normal 0.2-2.0 [facility] Comment on above: Performed By: #### C BC #### [facility] [address] [place] [address] Dr. Dimas Bustos EO # 0.1 103/ul Normal 0.0-0.7 [facility] Comment on above: Performed By: #### C BC #### [facility] [address] [place] [address] Dr. Dimas Bustos Eosinophils/100 WBC (Bld) 1.2 % Normal 0.9-7.0 [facility] Comment on above: Performed By: #### C BC #### [facility] [address] [place] [address] Dr. Dimas Bustos Erythrocyte distribution width (RBC) [Ratio] 12.3 % Normal 11.0-15.[address] [facility] Comment on above: Performed By: #### C BC #### [facility] [address] [place] [address] Dr. iDmas Bustos Hematocrit (Bld) [Volume fraction] 39.8 % Critically low 42.0-54.[address] [facility] Comment on above: Performed By: #### C BC #### [facility] [address] [place] [address] Dr. Dimas Bustos Hemoglobin (Bld) [Mass/Vol] 13.5 g/dL Critically low 14.0-18.[address] [facility] Comment on above: Performed By: #### C BC #### [facility] [address] [place] [address] Dr. Dimas Bustos IG # 0.07 10e3/ul Critically high 0.00-0.03 [facility] Comment on above: Performed By: #### C BC #### [facility] [address] [place] [address] Dr. Dimas Bustos IG % 0.6 % Critically high 0.0-0.5 [facility] Comment on above: Performed By: #### C BC #### [facility] [address] [place] [address] Dr. Dimas Bustos LYMPH # 1.8 103/ul Normal 1.2-3.[address] [facility] Comment on above: Performed By: #### C BC #### [facility] [address] [place] [address] Dr. Dimas Bustos Lymphocytes/100 WBC (Bld) 16.6 % Critically low 20.5-60.[address] [facility] Comment on above: Performed By: #### C BC #### [facility] [address] [place] [address] Dr. Dimas Bustos MANUAL DIFF REQ NO Normal [facility] Comment on above: Performed By: #### C BC #### [facility] [address] [place] [address] Dr. Dimas Bustos MCH (RBC) [Entitic mass] 31.5 pg Normal 25.9-34.0 [facility] Comment on above: Performed By: #### C BC #### [facility] [address] [address] [address] Dimas Bustos MCHC (RBC) [Mass/Vol] 33.9 g/dL Normal 29.9-35.2 [facility] Comment on above: Performed By: #### C BC #### [facility] [address] [address] [address] Dimas Bustos MCV (RBC) [Entitic vol] 92.8 fL Normal 80.0-94.0 [facility] Comment on above: Performed By: #### C BC #### [facility] [address] [place] [address] Dr. Dimas Bustos MONO # 0.9 103/ul Critically high 0.3-0.8 [facility] Comment on above: Performed By: #### C BC #### [facility] [address] [place] [address] Dr. Dimas Bustos Monocytes/100 WBC (Bld) 7.9 % Normal 1.7-12.0 [facility] Comment on above: Performed By: #### C BC #### [facility] [address] [place] [address] Dr. Dimas Bustos NEUT # 8.0 103/ul Critically high 1.4-6.5 [facility] Comment on above: Performed By: #### C BC #### [facility] [address] [place] [address] Dr. Dimas Bustos Neutrophils/100 WBC (Bld) 73.4 % Normal 43.0-75.0 [facility] Comment on above: Performed By: #### C BC #### [facility] [address] [address] [address] Dimas Bustos Platelet mean volume (Bld) [Entitic vol] 8.9 fL Critically low 9.5-13.5 [facility] Comment on above: Performed By: #### C BC #### [facility] [address] [place] [address] Dr. Dimas Bustos PLT 329 103/ul Normal 150-[address] [facility] Comment on above: Performed By: #### C BC #### [facility] [address] [place] [address] Dr. Dimas Bustos RBC 4.29 106/ul Critically low 4.70-6.10 [facility] Comment on above: Performed By: #### C BC #### [facility] [address] [place] [address] Dr. Dimas Bustos WBC 10.9 103/ul Normal 4.0-11.[address] [facility] Comment on above: Performed By: #### C BC #### [facility] [address] [place] [address] Dr. Dimas Bustos PROF 14(COMP METB)on 022 Albumin [Mass/Vol] 2.6 g/dL Critically low 3.4-5.0 [facility] Comment on above: Performed By: #### C VDTBH #### [facility] [address] [place] [address] Dr. Dimas Bustos Albumin/Globulin [Mass ratio] 0.6 {ratio} [facility] Comment on above: Performed By: #### C VDTBH #### [facility] [address] [place] [address] Dr. Dimas Bustos ALP [Catalytic activity/Vol] 97 U/L Normal 46-[address] [facility] Comment on above: Performed By: #### C VDTBH #### [facility] [address] [place] [address] Dr. Dimas Bustos ALT [Catalytic activity/Vol] 33 U/L Normal 16-[address] [facility] Comment on above: Performed By: #### C VDTBH #### [facility] [address] [place] [address] Dr. Dimas Bustos Anion gap [Moles/Vol] 12.8 mmol/L Normal [facility] Comment on above: Performed By: #### C VDTBH #### [facility] [address] [place] [address] Dr. Dimas Bustos AST [Catalytic activity/Vol] 13 U/L Critically low 15-[address] [facility] Comment on above: Performed By: #### C VDTBH #### [facility] [address] [place] [address] Dr. Dimas Bustos Bilirubin [Mass/Vol] 0.2 mg/dL Normal 0.2-1.[address] [facility] Comment on above: Performed By: #### C VDTBH #### [facility] [address] [place] [address] Dr. Dimas Bustos Calcium [Mass/Vol] 9.1 mg/dL Normal 8.5-10.1 [facility] Comment on above: Performed By: #### C VDTBH #### [facility] [address] [place] [address] Dr. Dimas Bustos Chloride [Moles/Vol] 102 mmol/L Normal 98-[address] [facility] Comment on above: Performed By: #### C VDTBH #### [facility] [address] [place] [address] Dr. Dimas Bustos CO2 [Moles/Vol] 26.6 mmol/L Normal 21.0-32.0 [facility] Comment on above: Performed By: #### C VDTBH #### [facility] [address] [place] [address] Dr. Dimas Bustos Creatinine [Mass/Vol] 0.76 mg/dL Normal 0.70-1.[address] [facility] Comment on above: Performed By: #### C VDTBH #### [facility] [address] [place] [address] Dr. Dimas Bustos EGFR-AF SAUDI ARABIAN >60 Normal >=60 [facility] Comment on above: Performed By: #### C VDTBH #### [facility] [address] [place] [address] Dr. Dimas Bustos EGFR-NON AF SAUDI ARABIAN >60 Normal >=[address] [facility] Comment on above: Performed By: #### C VDTBH #### [facility] [address] [place] [address] Dr. Dimas Bustos Globulin (S) [Mass/Vol] 4.4 g/dL Normal [facility] Comment on above: Performed By: #### C VDTBH #### [facility] [address] [place] [address] Dr. Dimas Bustos Glucose [Mass/Vol] 117 mg/dL Critically high 74-106 [facility] Comment on above: Performed By: #### C VDTBH #### [facility] [address] [place] [address] Dr. Dimas Bustos Potassium [Moles/Vol] 4.4 mmol/L Normal 3.5-5.[address] [facility] Comment on above: Performed By: #### C VDTBH #### [facility] [address] [place] [address] Dr. Dimas Bustos Protein [Mass/Vol] 7.0 g/dL Normal 6.4-8.2 [facility] Comment on above: Performed By: #### C VDTBH #### [facility] [address] [place] [address] Dr. Dimas Bustos Sodium [Moles/Vol] 137 mmol/L Normal 136-145 [facility] Comment on above: Performed By: #### C VDTBH #### [facility] [address] [place] [address] Dr. Dimas Bustos Urea nitrogen [Mass/Vol] 11.0 mg/dL Normal 7.0-18.[address] [facility] Comment on above: Performed By: #### C VDTBH #### [facility] [address] [place] [address] Dr. Dimas Bustos Urea nitrogen/Creatinine [Mass ratio] 14.5 mg/mg Normal [facility] Comment on above: Performed By: #### C VDTBH #### [facility] [address] [place] [address] Dr. Dimas Bustos PROTIMEon 12-04-2021 INR Coag (PPP) [Relative time] 1.03 {INR} Normal [facility] Comment on above: Performed By: #### P TTHEP #### [facility] [address] [place] [address] Dr. Dimas Bustos INR GUIDELINES SEE BELOW Normal [facility] Comment on above: Result Comment: GEOVANNI RED INR: 2.0 - 3.0 CONDITIONS NOT LISTED BELOW 2.5 - 3.5 FOR PROSTHETIC HEART VALVE REPLACEMENT 2.5 - 3.5 RECURRENT THROMBOSIS Performed By: #### P TTHEP #### [facility] [address] [place] [address] Dr. Dimas Bustos PT Coag (PPP) [Time] 11.1 s Normal 9.0-11.6 [facility] Comment on above: Performed By: #### P TTHEP #### [facility] [address] [place] [address] Dr. Dimas Bustos PTT HEPARIN MONITORon 2021 aPTT Coag (Bld) [Time] 41.6 s Normal 39.5-54.[address] [facility] Comment on above: Performed By: #### P TTHEP #### [facility] [address] [place] [address] Dr. Dimas Bustos aPTT Coag (Bld) [Time] 42.1 s Normal 39.5-54.2 [facility] Comment on above: Performed By: #### P TT #### [facility] [address] [place] [address] Dr. Dimas Bustos aPTT Coag (Bld) [Time] 42.4 s Normal 39.5-54.2 [facility] Comment on above: Performed By: #### P TTHEP #### [facility] [address] [place] [address] Dr. Dimas Bustos aPTT Coag (Bld) [Time] 40.7 s Normal 39.5-54.2 [facility] Comment on above: Performed By: #### C VDTBH #### [facility] [address] [place] [address] Dr. Dimas Bustos CBC AUTO DIFFon 12-03-2021 BASO # 0.0 103/ul Normal 0.0-0.[address] [facility] Comment on above: Performed By: #### P TTHEP #### [facility] [address] [address] [address] Dimas Bustos Basophils/100 WBC (Bld) 0.3 % Normal 0.2-2.[address] [facility] Comment on above: Performed By: #### P TTHEP #### [facility] [address] [place] [address] Dr. Dimas Bustos EO # 0.1 103/ul Normal 0.0-0.[address] [facility] Comment on above: Performed By: #### P TTHEP #### [facility] [address] [place] [address] Dr. Dimas Bustos Eosinophils/100 WBC (Bld) 0.8 % Critically low 0.9-7.[address] [facility] Comment on above: Performed By: #### P TTHEP #### [facility] [address] [place] [address] Dr. Dimas Bustos Erythrocyte distribution width (RBC) [Ratio] 12.3 % Normal 11.0-15.[address] [facility] Comment on above: Performed By: #### P TTHEP #### [facility] [address] [place] [address] Dr. Dimas Bustos Hematocrit (Bld) [Volume fraction] 40.8 % Critically low 42.0-54.[address] [facility] Comment on above: Performed By: #### P TTHEP #### [facility] [address] [place] [address] Dr. Dimas Bustos Hemoglobin (Bld) [Mass/Vol] 13.8 g/dL Critically low 14.0-18.[address] [facility] Comment on above: Performed By: #### P TTHEP #### [facility] [address] [place] [address] Dr. Dimas Bustos IG # 0.06 10e3/ul Critically high 0.00-0.03 [facility] Comment on above: Performed By: #### P TTHEP #### [facility] [address] [place] [address] Dr. Dimas Bustos IG % 0.5 % Normal 0.0-0.[address] [facility] Comment on above: Performed By: #### P TTHEP #### [facility] [address] [address] [address] Diams Bustos LYMPH # 1.6 103/ul Normal 1.2-3.8 [facility] Comment on above: Performed By: #### P TTHEP #### [facility] [address] [address] [address] Dimas Bustos Lymphocytes/100 WBC (Bld) 13.7 % Critically low 20.5-60.[address] [facility] Comment on above: Performed By: #### P TTHEP #### [facility] [address] [address] [address] Dimas Bustos MANUAL DIFF REQ NO Normal [facility] Comment on above: Performed By: #### P TTHEP #### [facility] [address] [address] [address] Dimas Bustos MCH (RBC) [Entitic mass] 31.4 pg Normal 25.9-34.[address] [facility] Comment on above: Performed By: #### P TTHEP #### [facility] [address] [address] [address] Dimas Bustos MCHC (RBC) [Mass/Vol] 33.8 g/dL Normal 29.9-35.[address] [facility] Comment on above: Performed By: #### P TTHEP #### [facility] [address] [address] [address] Dimas Bustos MCV (RBC) [Entitic vol] 92.7 fL Normal 80.0-94.[address] [facility] Comment on above: Performed By: #### P TTHEP #### [facility] [address] [address] [address] Dimas Bustos MONO # 1.0 103/ul Critically high 0.3-0.8 [facility] Comment on above: Performed By: #### P TTHEP #### [facility] [address] [address] [address] Dimas Bustos Monocytes/100 WBC (Bld) 8.5 % Normal 1.7-12.[address] [facility] Comment on above: Performed By: #### P TTHEP #### [facility] [address] [address] [address] Dimas Bustos NEUT # 8.8 103/ul Critically high 1.4-6.5 [facility] Comment on above: Performed By: #### P TTHEP #### [facility] [address] [address] [address] Dimas Bustos Neutrophils/100 WBC (Bld) 76.2 % Critically high 43.0-75.[address] [facility] Comment on above: Performed By: #### P TTHEP #### [facility] [address] [place] [address] Dr. Dimas Bustos Platelet mean volume (Bld) [Entitic vol] 8.7 fL Critically low 9.5-13.[address] [facility] Comment on above: Performed By: #### P TTHEP #### [facility] [address] [place] [address] Dr. Dimas Bustos PLT 309 103/ul Normal 150-[address] [facility] Comment on above: Performed By: #### P TTHEP #### [facility] [address] [place] [address] Dr. Dimas Bustos RBC 4.40 106/ul Critically low 4.70-6.10 [facility] Comment on above: Performed By: #### P TTHEP #### [facility] [address] [place] [address] Dr. Dimas Bustos WBC 11.5 103/ul Critically high 4.0-11.0 [facility] Comment on above: Performed By: #### P TTHEP #### [facility] [address] [place] [address] Dr. Dimas Bustos PROF 14(COMP METB)on 022 Albumin [Mass/Vol] 2.7 g/dL Critically low 3.4-5.0 [facility] Comment on above: Performed By: #### P TTHEP #### [facility] [address] [place] [address] Dr. Dimas Bustos Albumin/Globulin [Mass ratio] 0.7 {ratio} Normal [facility] Comment on above: Performed By: #### P TTHEP #### [facility] [address] [place] [address] Dr. Dimas Bustos ALP [Catalytic activity/Vol] 87 U/L Normal 46-[address] [facility] Comment on above: Performed By: #### P TTHEP #### [facility] [address] [address] [address] Dimas Bustos ALT [Catalytic activity/Vol] 23 U/L Normal 16-[address] [facility] Comment on above: Performed By: #### P TTHEP #### [facility] [address] [place] [address] Dr. Dimas Bustos Anion gap [Moles/Vol] 10.6 mmol/L Normal [facility] Comment on above: Performed By: #### P TTHEP #### [facility] [address] [place] [address] Dr. Dimas Bustos AST [Catalytic activity/Vol] 9 U/L Critically low 15-[address] [facility] Comment on above: Performed By: #### P TTHEP #### [facility] [address] [place] [address] Dr. Dimas Bustos Bilirubin [Mass/Vol] 0.4 mg/dL Normal 0.2-1.[address] [facility] Comment on above: Performed By: #### P TTHEP #### [facility] [address] [address] [address] Dimas Bustos Calcium [Mass/Vol] 8.7 mg/dL Normal 8.5-10.1 [facility] Comment on above: Performed By: #### P TTHEP #### [facility] [address] [place] [address] Dr. Dimas Bustos Chloride [Moles/Vol] 102 mmol/L Normal 98-[address] [facility] Comment on above: Performed By: #### P TTHEP #### [facility] [address] [place] [address] Dr. Dimas Bustos CO2 [Moles/Vol] 26.5 mmol/L Normal 21.0-32.0 [facility] Comment on above: Performed By: #### P TTHEP #### [facility] [address] [place] [address] Dr. Dimas Bustos Creatinine [Mass/Vol] 0.71 mg/dL Normal 0.70-1.[address] [facility] Comment on above: Performed By: #### P TTHEP #### [facility] [address] [address] [address] Dimas Bustos EGFR-AF SAUDI ARABIAN >60 Normal >=60 [facility] Comment on above: Performed By: #### P TTHEP #### [facility] [address] [place] [address] Dr. Dimas Bustos EGFR-NON AF SAUDI ARABIAN >60 Normal >=[address] [facility] Comment on above: Performed By: #### P TTHEP #### [facility] [address] [place] [address] Dr. Dimas Bustos Globulin (S) [Mass/Vol] 4.1 g/dL Normal [facility] Comment on above: Performed By: #### P TTHEP #### [facility] [address] [place] [address] Dr. Dimas Bustos Glucose [Mass/Vol] 120 mg/dL Critically high 74-106 [facility] Comment on above: Performed By: #### P TTHEP #### [facility] [address] [place] [address] Dr. Dimas Bustos Potassium [Moles/Vol] 4.1 mmol/L Normal 3.5-5.[address] [facility] Comment on above: Performed By: #### P TTHEP #### [facility] [address] [place] [address] Dr. Dimas Bustos Protein [Mass/Vol] 6.8 g/dL Normal 6.4-8.2 [facility] Comment on above: Performed By: #### P TTHEP #### [facility] [address] [place] [address] Dr. Dimas Bustos Sodium [Moles/Vol] 135 mmol/L Critically low 136-145 [facility] Comment on above: Performed By: #### P TTHEP #### [facility] [address] [place] [address] Dr. Dimas Bustos Urea nitrogen [Mass/Vol] 13.0 mg/dL Normal 7.0-18.[address] [facility] Comment on above: Performed By: #### P TTHEP #### [facility] [address] [place] [address] Dr. Dimas Bustos Urea nitrogen/Creatinine [Mass ratio] 18.3 mg/mg Normal [facility] Comment on above: Performed By: #### P TTHEP #### [facility] [address] [place] [address] Dr. Dimas Bustos PROTIMEon 12-03-2021 INR Coag (PPP) [Relative time] 0.98 {INR} Normal [facility] Comment on above: Performed By: #### C VDTBH #### [facility] [address] [place] [address] Dr. Dimas Bustos INR GUIDELINES SEE BELOW Normal [facility] Comment on above: Result Comment: GEOVANNI RED INR: 2.0 - 3.0 CONDITIONS NOT LISTED BELOW 2.5 - 3.5 FOR PROSTHETIC HEART VALVE REPLACEMENT 2.5 - 3.5 RECURRENT THROMBOSIS Performed By: #### C VDTBH #### [facility] [address] [place] [address] Dr. Dimas Bustos PT Coag (PPP) [Time] 10.6 s Normal 9.0-11.[address] [facility] Comment on above: Performed By: #### C VDTBH #### [facility] [address] [place] [address] Dr. Dimas Bustos PTT HEPARIN MONITORon 2021 aPTT Coag (Bld) [Time] 37.9 s Critically low 39.5-54.[address] [facility] Comment on above: Performed By: #### P TTHEP #### [facility] [address] [place] [address] Dr. Dimas Bustos aPTT Coag (Bld) [Time] 35.2 s Critically low 39.5-54.[address] [facility] Comment on above: Performed By: #### C MP #### [facility] [address] [place] [address] Dr. Dimas Bustos aPTT Coag (Bld) [Time] 39.3 s Critically low 39.5-54.[address] [facility] Comment on above: Performed By: #### P TTHEP #### [facility] [address] [place] [address] Dr. Dimas Bustos aPTT Coag (Bld) [Time] 37.2 s Critically low 39.5-54.[address] [facility] Comment on above: Performed By: #### P TTHEP #### [facility] [address] [place] [address] Dr. Dimas Bustos CARDIAC JOELLEN ADMITon 022 CK [Catalytic activity/Vol] 66 U/L Normal 39-[address] [facility] Comment on above: Performed By: #### P TTHEP #### [facility] [address] [place] [address] Dr. Dimas Bustos CK.MB [Mass/Vol] 0.93 ng/mL Normal <=3.60 [facility] Comment on above: Performed By: #### P TTHEP #### [facility] [address] [place] [address] Dr. Dimas Bustos HSTROP 6.7 pg/mL Normal 4.0-76.1 [facility] Comment on above: Result Comment: CUT- OFF POINTS HAVE BEEN ESTABLISHED BASED ON THE FOURTH UNIVERSAL DEFINITIONS OF MYOCARDIAL INFARCTION. THE UPPER REFERENCE LIMIT (URL) OF TROPONIN, DEFINED THE 99TH PERCENTILE OF cTnI DISTRIBUTION IN A REFERENCE POPULATION, HAS BEEN CONFIRMED THE DECISION THRESHOLD FOR NC DIAGNOSIS. Performed By: #### P TTHEP #### [facility] [address] [place] [address] Dr. Dimas Bustos KRIS 39 ng/mL Normal 16-96 [facility] Comment on above: Performed By: #### P TTHEP #### [facility] [address] [place] [address] Dr. Dimas Bustos CBC AUTO DIFFon 12-02-2021 BASO # 0.0 103/ul Normal 0.0-0.[address] [facility] Comment on above: Performed By: #### P TT #### [facility] [address] [address] [address] Dimas Bustos Basophils/100 WBC (Bld) 0.3 % Normal 0.2-2.[address] [facility] Comment on above: Performed By: #### P TT #### [facility] [address] [address] [address] Dimas Bustos EO # 0.1 103/ul Normal 0.0-0.[address] [facility] Comment on above: Performed By: #### P TT #### [facility] [address] [place] [address] Dr. Dimas Bustos Eosinophils/100 WBC (Bld) 0.6 % Critically low 0.9-7.[address] [facility] Comment on above: Performed By: #### P TT #### [facility] [address] [place] [address] Dr. Dimas Bustos Erythrocyte distribution width (RBC) [Ratio] 12.4 % Normal 11.0-15.[address] [facility] Comment on above: Performed By: #### P TT #### [facility] [address] [place] [address] Dr. Dimas Bustos Hematocrit (Bld) [Volume fraction] 40.0 % Critically low 42.0-54.[address] [facility] Comment on above: Performed By: #### P TT #### [facility] [address] [place] [address] Dr. Dimas Bustos Hemoglobin (Bld) [Mass/Vol] 13.7 g/dL Critically low 14.0-18.[address] [facility] Comment on above: Performed By: #### P TT #### [facility] [address] [place] [address] Dr. Dimas Bustos IG # 0.07 10e3/ul Critically high 0.00-0.03 [facility] Comment on above: Performed By: #### P TT #### [facility] [address] [place] [address] Dr. Dimas Bustos IG % 0.5 % Normal 0.0-0.[address] [facility] Comment on above: Performed By: #### P TT #### [facility] [address] [place] [address] Dr. Dimas Bustos LYMPH # 1.8 103/ul Normal 1.2-3.8 [facility] Comment on above: Performed By: #### P TT #### [facility] [address] [place] [address] Dr. Dimas Bustos Lymphocytes/100 WBC (Bld) 12.9 % Critically low 20.5-60.[address] [facility] Comment on above: Performed By: #### P TT #### [facility] [address] [place] [address] Dr. Dimas Bustos MANUAL DIFF REQ NO Normal [facility] Comment on above: Performed By: #### P TT #### [facility] [address] [place] [address] Dr. Dimas Bustos MCH (RBC) [Entitic mass] 31.8 pg Normal 25.9-34.[address] [facility] Comment on above: Performed By: #### P TT #### [facility] [address] [place] [address] Dr. Dimas Bustos MCHC (RBC) [Mass/Vol] 34.3 g/dL Normal 29.9-35.2 [facility] Comment on above: Performed By: #### P TT #### [facility] [address] [place] [address] Dr. Dimas Bustos MCV (RBC) [Entitic vol] 92.8 fL Normal 80.0-94.0 [facility] Comment on above: Performed By: #### P TT #### [facility] [address] [place] [address] Dr. Dimas Bustos MONO # 1.4 103/ul Critically high 0.3-0.8 [facility] Comment on above: Performed By: #### P TT #### [facility] [address] [place] [address] Dr. Dimas Bustos Monocytes/100 WBC (Bld) 10.0 % Normal 1.7-12.0 [facility] Comment on above: Performed By: #### P TT #### [facility] [address] [address] [address] Dimas Bustos NEUT # 10.3 103/ul Critically high 1.4-6.5 [facility] Comment on above: Performed By: #### P TT #### [facility] [address] [address] [address] Dimas Bustos Neutrophils/100 WBC (Bld) 75.7 % Critically high 43.0-75.[address] [facility] Comment on above: Performed By: #### P TT #### [facility] [address] [address] [address] Dimas Bustos Platelet mean volume (Bld) [Entitic vol] 8.6 fL Critically low 9.5-13.[address] [facility] Comment on above: Performed By: #### P TT #### [facility] [address] [address] [address] Dimas Bustos PLT 280 103/ul Normal 150-450 [facility] Comment on above: Performed By: #### P TT #### [facility] [address] [place] [address] Dr. Dimas Bustos RBC 4.31 106/ul Critically low 4.70-6.10 [facility] Comment on above: Performed By: #### P TT #### [facility] [address] [place] [address] Dr. Dimas Bustos WBC 13.7 103/ul Critically high 4.0-11.0 [facility] Comment on above: Performed By: #### P TT #### [facility] [address] [address] [address] Dimas Bustos ECHOCARDIO M/2D COMPLETEon 0 12-02-2021 ECHOCARDIO M/2D COMPLETE Patient: BUCK DISLA Exam Date: 12/02/2021 : 1975 Gender:M Ordering : SATURNINO WONG Admission #: [id number] Family : DR MAYNOR HOUGH . Order #: [id number] CLICK HERE TO VIEW EXAM ECHOCARDIOGRAM REPORT [...] Davis M.D. on 12/03/2021 at 17:[address] [facility] MRI [facility] CONon 12-03-19 MRI [facility] CON EXAMINATION: MRI [facility] CON HISTORY: Lumbar radiculopathy , left leg [...] BUCK HOWARD Date: 2021-12-02 13:12 Normal [facility] PROF CHEM 8 (BAS METB)on Anion gap [Moles/Vol] 10.8 mmol/L Normal [facility] Comment on above: Performed By: #### C MP #### [facility] [address] [address] [address] Dimas Bustos Calcium [Mass/Vol] 8.6 mg/dL Normal 8.5-10.1 [facility] Comment on above: Performed By: #### C MP #### [facility] [address] [address] [address] Dimas Bustos Chloride [Moles/Vol] 102 mmol/L Normal 98-[address] [facility] Comment on above: Performed By: #### C MP #### [facility] [address] [address] [address] Dimas Bustos CO2 [Moles/Vol] 25.1 mmol/L Normal 21.0-32.0 [facility] Comment on above: Performed By: #### C MP #### [facility] [address] [address] [address] Dimas Bustos Creatinine [Mass/Vol] 0.79 mg/dL Normal 0.70-1.[address] [facility] Comment on above: Performed By: #### C MP #### [facility] [address] [address] [address] Dimas Bustos EGFR-AF SAUDI ARABIAN >60 Normal >=60 [facility] Comment on above: Performed By: #### C MP #### [facility] [address] [address] [address] Dimas Bustos EGFR-NON AF SAUDI ARABIAN >60 Normal >=[address] [facility] Comment on above: Performed By: #### C MP #### [facility] [address] [address] [address] Dimas Bustos Glucose [Mass/Vol] 122 mg/dL Critically high 74-106 T [facility] Comment on above: Performed By: #### C MP #### [facility] [address] [address] [address] Dimas Bustos Potassium [Moles/Vol] 3.9 mmol/L Normal 3.5-5.[address] [facility] Comment on above: Performed By: #### C MP #### [facility] [address] [place] [address] Dr. Dimas Bustos Sodium [Moles/Vol] 134 mmol/L Critically low 136-145 [facility] Comment on above: Performed By: #### C MP #### [facility] [address] [place] [address] Dr. Dimas Bustos Urea nitrogen [Mass/Vol] 18.0 mg/dL Normal 7.0-18.[address] [facility] Comment on above: Performed By: #### C MP #### [facility] [address] [place] [address] Dr. Dimas Bustos Urea nitrogen/Creatinine [Mass ratio] 22.8 mg/mg Normal [facility] Comment on above: Performed By: #### C MP #### [facility] [address] [place] [address] Dr. Dimas Bustos PTT HEPARIN MONITORon 2021 aPTT Coag (Bld) [Time] 36.5 s Critically low 39.5-54.[address] [facility] Comment on above: Performed By: #### P TTHEP #### [facility] [address] [place] [address] Dr. Dimas Bustos aPTT Coag (Bld) [Time] 39.0 s Critically low 39.5-54.[address] [facility] Comment on above: Performed By: #### P TTHEP #### [facility] [address] [place] [address] Dr. Dimas Bustos BNPon 12-01-2021 Natriuretic peptide B (Bld) [Mass/Vol] 153.0 pg/mL Normal <=450.0 [facility] Comment on above: Performed By: #### P TTHEP #### [facility] [address] [place] [address] Dr. Dimas Bustos CBC AUTO DIFFon 12-01-2021 BASO # 0.1 103/ul Normal 0.0-0.1 [facility] Comment on above: Performed By: #### P TT #### [facility] [address] [place] [address] Dr. Dimas Bustos Basophils/100 WBC (Bld) 0.4 % Normal 0.2-2.[address] [facility] Comment on above: Performed By: #### P TT #### [facility] [address] [place] [address] Dr. Dimas Bustos EO # 0.1 103/ul Normal 0.0-0.7 [facility] Comment on above: Performed By: #### P TT #### [facility] [address] [place] [address] Dr. Dimas Bustos Eosinophils/100 WBC (Bld) 0.6 % Critically low 0.9-7.[address] [facility] Comment on above: Performed By: #### P TT #### [facility] [address] [place] [address] Dr. Dimas Bustos Erythrocyte distribution width (RBC) [Ratio] 12.6 % Normal 11.0-15.0 [facility] Comment on above: Performed By: #### P TT #### [facility] [address] [place] [address] Dr. Dimas Bustos Hematocrit (Bld) [Volume fraction] 44.5 % Normal 42.0-54.[address] [facility] Comment on above: Performed By: #### P TT #### [facility] [address] [place] [address] Dr. Dimas Bustos Hemoglobin (Bld) [Mass/Vol] 15.4 g/dL Normal 14.0-18.[address] [facility] Comment on above: Performed By: #### P TT #### [facility] [address] [place] [address] Dr. Dimas Bustos IG # 0.09 10e3/ul Critically high 0.00-0.03 [facility] Comment on above: Performed By: #### P TT #### [facility] [address] [place] [address] Dr. Dimas Bustos IG % 0.6 % Critically high 0.0-0.5 [facility] Comment on above: Performed By: #### P TT #### [facility] [address] [place] [address] Dr. Dimas Bustos LYMPH # 1.9 103/ul Normal 1.2-3.[address] [facility] Comment on above: Performed By: #### P TT #### [facility] [address] [place] [address] Dr. Dimas Bustos Lymphocytes/100 WBC (Bld) 13.1 % Critically low 20.5-60.[address] [facility] Comment on above: Performed By: #### P TT #### [facility] [address] [place] [address] Dr. Dimas Bustos MANUAL DIFF REQ NO Normal [facility] Comment on above: Performed By: #### P TT #### [facility] [address] [place] [address] Dr. Dimas Bustos MCH (RBC) [Entitic mass] 31.8 pg Normal 25.9-34.[address] [facility] Comment on above: Performed By: #### P TT #### [facility] [address] [place] [address] Dr. Dimas Bustos MCHC (RBC) [Mass/Vol] 34.6 g/dL Normal 29.9-35.[address] [facility] Comment on above: Performed By: #### P TT #### [facility] [address] [place] [address] Dr. Dimas Bustos MCV (RBC) [Entitic vol] 91.9 fL Normal 80.0-94.0 [facility] Comment on above: Performed By: #### P TT #### [facility] [address] [address] [address] Dimas Bustos MONO # 1.3 103/ul Critically high 0.3-0.8 [facility] Comment on above: Performed By: #### P TT #### [facility] [address] [address] [address] Dimas Bustos Monocytes/100 WBC (Bld) 8.8 % Normal 1.7-12.0 [facility] Comment on above: Performed By: #### P TT #### [facility] [address] [place] [address] Dr. Dimas Bustos NEUT # 10.8 103/ul Critically high 1.4-6.5 [facility] Comment on above: Performed By: #### P TT #### [facility] [address] [place] [address] Dr. Dimas Bustos Neutrophils/100 WBC (Bld) 76.5 % Critically high 43.0-75.0 [facility] Comment on above: Performed By: #### P TT #### [facility] [address] [place] [address] Dr. Dimas Bustos Platelet mean volume (Bld) [Entitic vol] 8.7 fL Critically low 9.5-13.5 [facility] Comment on above: Performed By: #### P TT #### [facility] [address] [place] [address] Dr. Dimas Bustos PLT 313 103/ul Normal 150-450 [facility] Comment on above: Performed By: #### P TT #### [facility] [address] [address] [address] Dimas Bustos RBC 4.84 106/ul Normal 4.70-6.10 [facility] Comment on above: Performed By: #### P TT #### [facility] [address] [place] [address] Dr. Dimas Bustos WBC 14.2 103/ul Critically high 4.0-11.0 [facility] Comment on above: Performed By: #### P TT #### [facility] [address] [address] [address] Dimas Bustos CTA CHEST WO W [...] BUCK HOWARD Date: 2021-12-01 21:51 Normal [facility] Covid-19 PCR (CVDTB)on 11-12 SARS-CoV-2 (COVID-19) RNA JURGEN+probe Ql (Unsp spec) Not detected Normal NOT DETECTED [facility] Comment on above: Result Comment: When diagnostic [...] for this test is supported by the [place] of Health and Human Service's declaration that [...] used). Performed By: #### C VDTB #### [facility] [address] [place] [address] Dr. Dimas Bustos PROF 14(COMP METB)on 022 Albumin [Mass/Vol] 3.4 g/dL Normal 3.4-5.0 [facility] Comment on above: Performed By: #### C MP #### [facility] [address] [place] [address] Dr. Dimas Bustos Albumin/Globulin [Mass ratio] 0.8 {ratio} Normal [facility] Comment on above: Performed By: #### C MP #### [facility] [address] [place] [address] Dr. Dimas Bustos ALP [Catalytic activity/Vol] 121 U/L Critically high 46-[address] [facility] Comment on above: Performed By: #### C MP #### [facility] [address] [place] [address] Dr. Dimas Bustos ALT [Catalytic activity/Vol] 26 U/L Normal 16-[address] [facility] Comment on above: Performed By: #### C MP #### [facility] [address] [place] [address] Dr. Dimas Bustos Anion gap [Moles/Vol] 14.9 mmol/L Normal [facility] Comment on above: Performed By: #### C MP #### [facility] [address] [place] [address] Dr. Dimas Bustos AST [Catalytic activity/Vol] 13 U/L Critically low 15-[address] [facility] Comment on above: Performed By: #### C MP #### [facility] [address] [address] [address] Dimas Bustos Bilirubin [Mass/Vol] 1.2 mg/dL Critically high 0.2-1.[address] [facility] Comment on above: Performed By: #### C MP #### [facility] [address] [address] [address] Dimas Bustos Calcium [Mass/Vol] 9.2 mg/dL Normal 8.5-10.1 [facility] Comment on above: Performed By: #### C MP #### [facility] [address] [address] [address] Dimas Bustos Chloride [Moles/Vol] 100 mmol/L Normal 98-[address] [facility] Comment on above: Performed By: #### C MP #### [facility] [address] [place] [address] Dr. Dimas Bustos CO2 [Moles/Vol] 23.0 mmol/L Normal 21.0-32.0 [facility] Comment on above: Performed By: #### C MP #### [facility] [address] [address] [address] Dimas Bustos Creatinine [Mass/Vol] 0.96 mg/dL Normal 0.70-1.[address] [facility] Comment on above: Performed By: #### C MP #### [facility] [address] [place] [address] Dr. Dimas Bustos EGFR-AF SAUDI ARABIAN >60 Normal >=60 [facility] Comment on above: Performed By: #### C MP #### [facility] [address] [address] [address] Dimas Bustos EGFR-NON AF SAUDI ARABIAN >60 Normal >=[address] [facility] Comment on above: Performed By: #### C MP #### [facility] [address] [place] [address] Dr. Dimas Bustos Globulin (S) [Mass/Vol] 4.2 g/dL Normal [facility] Comment on above: Performed By: #### C MP #### [facility] [address] [address] [address] Dimas Bustos Glucose [Mass/Vol] 127 mg/dL Critically high 74-106 T [facility] Comment on above: Performed By: #### C MP #### [facility] [address] [address] [address] Dimas Bustos Potassium [Moles/Vol] 3.9 mmol/L Normal 3.5-5.[address] [facility] Comment on above: Performed By: #### C MP #### [facility] [address] [address] [address] Dimas Bustos Protein [Mass/Vol] 7.6 g/dL Normal 6.4-8.2 [facility] Comment on above: Performed By: #### C MP #### [facility] [address] [address] [address] Dimas Bustos Sodium [Moles/Vol] 134 mmol/L Critically low 136-145 Th [facility] Comment on above: Performed By: #### C MP #### [facility] [address] [address] [address] Dimas Bustos Urea nitrogen [Mass/Vol] 13.0 mg/dL Normal 7.0-18.[address] [facility] Comment on above: Performed By: #### C MP #### [facility] [address] [place] [address] Dr. Dimas Bustos Urea nitrogen/Creatinine [Mass ratio] 13.5 mg/mg Normal [facility] Comment on above: Performed By: #### C MP #### [facility] [address] [address] [address] Dimas Bustos PROTIMEon 12-01-2021 INR Coag (PPP) [Relative time] 0.98 {INR} Normal [facility] Comment on above: Performed By: #### P TT #### [facility] [address] [place] [address] Dr. Dimas Bustos INR GUIDELINES SEE BELOW Normal [facility] Comment on above: Result Comment: GEOVANNI RED INR: 2.0 - 3.0 CONDITIONS NOT LISTED BELOW 2.5 - 3.5 FOR PROSTHETIC HEART VALVE REPLACEMENT 2.5 - 3.5 RECURRENT THROMBOSIS Performed By: #### P TT #### [facility] [address] [address] [address] Dimas Bustos PT Coag (PPP) [Time] 10.6 s Normal 9.0-11.6 [facility] Comment on above: Performed By: #### P TT #### [facility] [address] [address] [address] Dimas Bustos PTTon 12-01-2021 aPTT Coag (Bld) [Time] 33.3 s Normal 22.3-36.2 [facility] Comment on above: Performed By: #### P TT #### [facility] [address] [address] [address] Dimas Bustos US JUAN DOP LEG [...] VINAYAK ROSS Date: 2021-11-23 13:00 Normal [facility] INSULINon 11-22-2021 Insulin 16.3 uIU/mL Normal 2.6-24.9 [facility] Comment on above: Performed By: #### P TT #### [facility] [address] [place] [address] Dr. Dimas Bustos T4, T3U, FTI LABCORPon 11-21 Free Thyroxine Index 2.7 Normal 1.2-4.9 [facility] Comment on above: Performed By: #### P TT #### [facility] [address] [place] [address] Dr. Dimas Bustos T3 Uptake 26 % Normal 24-39 [facility] Comment on above: Performed By: #### P TT #### [facility] [address] [place] [address] Dr. Dimas Bustos T4 [Mass/Vol] 10.5 ug/dL Normal 4.5-12.0 [facility] Comment on above: Performed By: #### P TT #### [facility] [address] [place] [address] Dr. Dimas Bustos TESTOSTERONE, TOTALon 2021 Testosterone [Mass/Vol] 319 ng/dL Normal 264-916 [facility] Comment on above: Result Comment: Adul t male reference interval is based on a population of healthy nonobese males (BMI <30) between 19 and 39 years old. Aramis et.al. JCEM 2017,102;4909-5843. PMID: [id number]. Performed By: #### P TTHEP #### [facility] [address] [place] [address] Dr. Dimas Bustos CBC AUTO DIFFon 11-20-2021 BASO # 0.1 103/ul Normal 0.0-0.[address] [facility] Comment on above: Performed By: #### C MP #### [facility] [address] [place] [address] Dr. Dimas Bustos Basophils/100 WBC (Bld) 0.6 % Normal 0.2-2.[address] [facility] Comment on above: Performed By: #### C MP #### [facility] [address] [place] [address] Dr. Dimas Bustos EO # 0.1 103/ul Normal 0.0-0.7 [facility] Comment on above: Performed By: #### C MP #### [facility] [address] [place] [address] Dr. Dimas Bustos Eosinophils/100 WBC (Bld) 0.8 % Critically low 0.9-7.0 [facility] Comment on above: Performed By: #### C MP #### [facility] [address] [place] [address] Dr. Dimas Bustos Erythrocyte distribution width (RBC) [Ratio] 12.9 % Normal 11.0-15.[address] [facility] Comment on above: Performed By: #### C MP #### [facility] [address] [address] [address] Dimas Bustos Hematocrit (Bld) [Volume fraction] 47.7 % Normal 42.0-54.[address] [facility] Comment on above: Performed By: #### C MP #### [facility] [address] [address] [address] Dimas Bustos Hemoglobin (Bld) [Mass/Vol] 16.1 g/dL Normal 14.0-18.[address] [facility] Comment on above: Performed By: #### C MP #### [facility] [address] [address] [address] Dimas Bustos IG # 0.32 10e3/ul Critically high 0.00-0.03 [facility] Comment on above: Performed By: #### C MP #### [facility] [address] [address] [address] Dimas Bustos IG % 2.0 % Critically high 0.0-0.5 [facility] Comment on above: Performed By: #### C MP #### [facility] [address] [address] [address] Dimas Bustos LYMPH # 2.8 103/ul Normal 1.2-3.[address] [facility] Comment on above: Performed By: #### C MP #### [facility] [address] [address] [address] Dimas Bustos Lymphocytes/100 WBC (Bld) 17.6 % Critically low 20.5-60.[address] [facility] Comment on above: Performed By: #### C MP #### [facility] [address] [address] [address] Dimas Bustos MANUAL DIFF REQ NO Normal [facility] Comment on above: Performed By: #### C MP #### [facility] [address] [address] [address] Dimas Bustos MCH (RBC) [Entitic mass] 31.7 pg Normal 25.9-34.[address] [facility] Comment on above: Performed By: #### C MP #### [facility] [address] [address] [address] Dimas Bustos MCHC (RBC) [Mass/Vol] 33.8 g/dL Normal 29.9-35.[address] [facility] Comment on above: Performed By: #### C MP #### [facility] [address] [address] [address] Dimas Bustos MCV (RBC) [Entitic vol] 93.9 fL Normal 80.0-94.[address] [facility] Comment on above: Performed By: #### C MP #### [facility] [address] [address] [address] Dimas Bustos MONO # 1.2 103/ul Critically high 0.3-0.8 [facility] Comment on above: Performed By: #### C MP #### [facility] [address] [place] [address] Dr. Dimas Bustos Monocytes/100 WBC (Bld) 7.7 % Normal 1.7-12.[address] [facility] Comment on above: Performed By: #### C MP #### [facility] [address] [address] [address] Dimas Bustos NEUT # 11.3 103/ul Critically high 1.4-6.5 [facility] Comment on above: Performed By: #### C MP #### [facility] [address] [address] [address] Dimas Bustos Neutrophils/100 WBC (Bld) 71.3 % Normal 43.0-75.0 [facility] Comment on above: Performed By: #### C MP #### [facility] [address] [address] [address] Dimas Bustos Platelet mean volume (Bld) [Entitic vol] 8.9 fL Critically low 9.5-13.[address] [facility] Comment on above: Performed By: #### C MP #### [facility] [address] [address] [address] Dimas Bustos PLT 331 103/ul Normal 150-450 [facility] Comment on above: Performed By: #### C MP #### [facility] [address] [address] [address] Dimas Bustos RBC 5.08 106/ul Normal 4.70-6.[address] [facility] Comment on above: Performed By: #### C MP #### [facility] [address] [address] [address] Dimas Bustos WBC 15.8 103/ul Critically high 4.0-11.0 [facility] Comment on above: Performed By: #### C MP #### [facility] [address] [address] [address] Dimas Bustos CULTURE URINEon 11-20-2021 CULTURE URINE Culture Observations : NO GROWTH. Normal [facility] Comment on above: Performed By: #### C VDTBH #### [facility] [address] [place] [address] Dr. Dimas Bustos GLYCOHEMOGLOBIN A1Con 2021 ADA RECOMMENDATION SEE BELOW Normal [facility] Comment on above: Result Comment: ADA RECOMMENDED LIMIT 4.0 - 6.0 ADA THERAPEUTIC TARGET < 7.0 ACTION SUGGESTED > 7.0 Performed By: #### C VDTBH #### [facility] [address] [address] [address] Dimas Bustos Glucose [Mass/Vol] 117 mg/dL Normal [facility] Comment on above: Performed By: #### C VDTBH #### [facility] [address] [address] [address] Dimas Bustos HbA1c (Bld) [Mass fraction] 5.7 % Normal 4.5-6.[address] [facility] Comment on above: Performed By: #### C VDTBH #### [facility] [address] [address] [address] Dimas Bustos LIPID PROFILEon 11-20-2021 CHOL-HDL RATIO NORM SEE BELOW Normal [facility] Comment on above: Result Comment: 3.3 - 4.4 LOW RISK 4.4 - 7.1 AVERAGE RISK 7.1 - 11.0 MODERATE RISK >11.0 HIGH RISK Performed By: #### P TTHEP #### [facility] [address] [address] [address] Dimas Bustos Cholesterol [Mass/Vol] 232 mg/dL Critically high <=[address] [facility] Comment on above: Performed By: #### P TTHEP #### [facility] [address] [address] [address] Dimas Bustos Cholesterol in HDL [Mass/Vol] 73 mg/dL Critically high 40-[address] [facility] Comment on above: Performed By: #### P TTHEP #### [facility] [address] [address] [address] Dimas Bustos Cholesterol in LDL [Mass/Vol] 138.8 mg/dL Normal [facility] Comment on above: Performed By: #### P TTHEP #### [facility] [address] [address] [address] Dimas Bustos Cholesterol.total/Ch olesterol in HDL [Mass ratio] 3.2 {ratio} Normal [facility] Comment on above: Performed By: #### P TTHEP #### [facility] [address] [address] [address] Diams Bustos HDL NORMAL > or = 60 mg/dl - LO W CARDIOVASCULAR RISK <40 mg/dl - HIGH CARDIOVASCULAR RISK Normal [facility] Comment on above: Performed By: #### P TTHEP #### [facility] [address] [address] [address] Dimas Bustos LDL CALC NORMAL SEE BELOW Normal [facility] Comment on above: Result Comment: <100 mg/dl OPTIMAL 100 - 129 mg/dl NEAR OR ABOVE OPTIMAL 130 - 159 mg/dl BORDERLINE HIGH 160 - 189 mg/dl HIGH >190 mg/dl VERY HIGH Performed By: #### P TTHEP #### [facility] [address] [address] [address] Dimas Bustos Triglyceride [Mass/Vol] 101 mg/dL Normal <=[address] [facility] Comment on above: Performed By: #### P TTHEP #### [facility] [address] [address] [address] Dimas Bustos VLDL CALC 20.2 mg/dL Normal [facility] Comment on above: Performed By: #### P TTHEP #### [facility] [address] [place] [address] Dr. Dimas Bustos PROF 14(COMP METB)on 022 Albumin [Mass/Vol] 3.7 g/dL Normal 3.4-5.0 [facility] Comment on above: Performed By: #### C VDTBH #### [facility] [address] [place] [address] Dr. Dimas Bustos Albumin/Globulin [Mass ratio] 0.9 {ratio} Normal [facility] Comment on above: Performed By: #### C VDTBH #### [facility] [address] [place] [address] Dr. Dimas Bustos ALP [Catalytic activity/Vol] 112 U/L Normal 46-[address] [facility] Comment on above: Performed By: #### C VDTBH #### [facility] [address] [place] [address] Dr. Dimas Bustos ALT [Catalytic activity/Vol] 38 U/L Normal 16-[address] [facility] Comment on above: Performed By: #### C VDTBH #### [facility] [address] [place] [address] Dr. Dimas Bustos Anion gap [Moles/Vol] 13.6 mmol/L Normal [facility] Comment on above: Performed By: #### C VDTBH #### [facility] [address] [place] [address] Dr. Dimas Bustos AST [Catalytic activity/Vol] 14 U/L Critically low 15-[address] [facility] Comment on above: Performed By: #### C VDTBH #### [facility] [address] [place] [address] Dr. Dimas Bustos Bilirubin [Mass/Vol] 0.5 mg/dL Normal 0.2-1.[address] [facility] Comment on above: Performed By: #### C VDTBH #### [facility] [address] [place] [address] Dr. Dimas Bustos Calcium [Mass/Vol] 9.2 mg/dL Normal 8.5-10.1 [facility] Comment on above: Performed By: #### C VDTBH #### [facility] [address] [place] [address] Dr. Dimas Bustos Chloride [Moles/Vol] 101 mmol/L Normal 98-[address] [facility] Comment on above: Performed By: #### C VDTBH #### [facility] [address] [place] [address] Dr. Dimas Bustos CO2 [Moles/Vol] 29.9 mmol/L Normal 21.0-32.0 [facility] Comment on above: Performed By: #### C VDTBH #### [facility] [address] [place] [address] Dr. Dimas Bustos Creatinine [Mass/Vol] 0.88 mg/dL Normal 0.70-1.[address] [facility] Comment on above: Performed By: #### C VDTBH #### [facility] [address] [place] [address] Dr. Dimas Bustos EGFR-AF SAUDI ARABIAN >60 Normal >=60 [facility] Comment on above: Performed By: #### C VDTBH #### [facility] [address] [place] [address] Dr. Dimas Bustos EGFR-NON AF SAUDI ARABIAN >60 Normal >=[address] [facility] Comment on above: Performed By: #### C VDTBH #### [facility] [address] [place] [address] Dr. Dimas Bustos Globulin (S) [Mass/Vol] 3.9 g/dL Normal [facility] Comment on above: Performed By: #### C VDTBH #### [facility] [address] [place] [address] Dr. Dimas Bustos Glucose [Mass/Vol] 115 mg/dL Critically high 74-106 [facility] Comment on above: Performed By: #### C VDTBH #### [facility] [address] [place] [address] Dr. Dimas Bustos Potassium [Moles/Vol] 4.5 mmol/L Normal 3.5-5.[address] [facility] Comment on above: Performed By: #### C VDTBH #### [facility] [address] [place] [address] Dr. Dimas Bustos Protein [Mass/Vol] 7.6 g/dL Normal 6.4-8.2 [facility] Comment on above: Performed By: #### C VDTBH #### [facility] [address] [place] [address] Dr. Dimas Bustos Sodium [Moles/Vol] 140 mmol/L Normal 136-145 [facility] Comment on above: Performed By: #### C VDTBH #### [facility] [address] [place] [address] Dr. Dimas Bustos Urea nitrogen [Mass/Vol] 17.0 mg/dL Normal 7.0-18.[address] [facility] Comment on above: Performed By: #### C VDTBH #### [facility] [address] [place] [address] Dr. Dimas Bustos Urea nitrogen/Creatinine [Mass ratio] 19.3 mg/mg Normal [facility] Comment on above: Performed By: #### C VDTBH #### [facility] [address] [place] [address] Dr. Dimas Bustos TSHon 11-20-2021 TSH 3.616 uIU/mL Normal 0.358-3.740 [facility] Comment on above: Performed By: #### P TTHEP #### [facility] [address] [place] [address] Dr. Dimas Bustos UA RANDOM W/MICROSCOPICon BACTERIA NONE SEEN Normal NONE SEEN [facility] Comment on above: Performed By: #### P TT #### [facility] [address] [place] [address] Dr. Dimas Bustos Bilirubin Ql (U) Negative Normal NEGATIVE [facility] Comment on above: Performed By: #### P TT #### [facility] [address] [place] [address] Dr. Dimas Bustos CAST NONE SEEN Normal NONE SEEN [facility] Comment on above: Performed By: #### P TT #### [facility] [address] [place] [address] Dr. Dimas Bustos Clarity (U) CLEAR Normal CLEAR [facility] Comment on above: Performed By: #### P TT #### [facility] [address] [place] [address] Dr. Dimas Bustos Color (U) YELLOW Normal YELLOW [facility] Comment on above: Performed By: #### P TT #### [facility] [address] [address] [address] Dimas Bustos Crystals LM Nom (Urine sed) NONE SEEN Normal NONE SEEN [facility] Comment on above: Performed By: #### P TT #### [facility] [address] [place] [address] Dr. Dimas Bustos Epithelial cells LM Ql (Urine sed) RARE Normal NONE SEEN /RARE [facility] Comment on above: Performed By: #### P TT #### [facility] [address] [place] [address] Dr. Dimas Bustos Glucose Ql (U) Negative Normal NEGATIVE [facility] Comment on above: Performed By: #### P TT #### [facility] [address] [place] [address] Dr. Dimas Bustos Hemoglobin Ql (U) Negative Normal NEGATIVE [facility] Comment on above: Performed By: #### P TT #### [facility] [address] [place] [address] Dr. Dimas Bustos Ketones Ql (U) Negative Normal NEGATIVE [facility] Comment on above: Performed By: #### P TT #### [facility] [address] [place] [address] Dr. Dimas Bustos LEUKOCYTES Negative Normal NEGATIVE [facility] Comment on above: Performed By: #### P TT #### [facility] [address] [place] [address] Dr. Dimas Bustos MUCOUS NONE SEEN Normal NONE SEEN [facility] Comment on above: Performed By: #### P TT #### [facility] [address] [place] [address] Dr. Dimas Bustos Nitrite Ql (U) Negative Normal NEGATIVE [facility] Comment on above: Performed By: #### P TT #### [facility] [address] [address] [address] Dimas Bustos pH (U) 7.0 [pH] Normal 5-9 [facility] Comment on above: Performed By: #### P TT #### [facility] [address] [address] [address] Dimas Bustos RBC NONE SEEN Abnormal 0-2 [facility] Comment on above: Performed By: #### P TT #### [facility] [address] [address] [address] Dimas Bustos SPEC GRAVITY 1.015 Normal 1.005-<=1.025 [facility] Comment on above: Performed By: #### P TT #### [facility] [address] [place] [address] Dr. Dimas Bustos UA PROTEIN Negative Normal NEGATIVE/ TRACE [facility] Comment on above: Performed By: #### P TT #### [facility] [address] [place] [address] Dr. Dimas Bustos Urobilinogen Qn (U) 0.2 {Adeline'U}/dL Normal 0.2 - 1. 0 [facility] Comment on above: Performed By: #### P TT #### [facility] [address] [place] [address] Dr. Dimas Bustos WBC NONE SEEN Normal NONE SEEN [facility] Comment on above: Performed By: #### P TT #### [facility] [address] [place] [address] Dr. Dimas Bustos US JUAN DOP LEG [...] VINAYAK ROSS Date: 2021-11-20 11:15 Normal [facility] Vital Signs Date Time Vital Sign Value Performing Clinician Sylvia lyons 11-20-2023 09:04-0400 Blood Pressure Location Johnie OCHOA [facility] 11-20-2023 09:04-0400 Diastolic blood pressure 90 mm[Hg] Johnie OCHOA [facility] 11-20-2023 09:04-0400 Heart rate 88 /min Johnie OCHOA [facility] 11-20-2023 09:04-0400 Systolic blood pressure 142 mm[Hg] Johnie OCHOA [facility] Encounters Encounter Date Encounter Type Care Provider Facility Start: 06-06-2024 ambulatory FLORA VERNON Facility:[facility] Start: 05-04-2024 End: 05-04-2024 Emergency department patient visit Alba Batista Facility:[facility] Start: 05-03-2024 End: 05-03-2024 ambulatory Johnie OCHOA Facility:[facility] Start: 05-03-2024 End: 05-03-2024 Patient encounter procedure Johnie OCHOA [facility] Start: 12-12-2023 End: 12-12-2023 ambulatory Johnie OCHOA [place] Start: 12-12-2023 End: 12-12-2023 Patient encounter procedure Johnie OCHOA [facility] Start: 11-20-2023 End: 11-20-2023 ambulatory Johnie OCHOA [place] Start: 11-20-2023 End: 11-20-2023 Lab Drop off Johnie Martel GABRIELA [facility] Start: 11-20-2023 End: 11-20-2023 ambulatory Johnie OCHOA Facility:[facility] Start: 11-20-2023 End: 11-20-2023 Patient encounter procedure Johnie Tahmina OCHOA [facility] Start: 09-28-2023 ambulatory Johnie OCHOA Facility :[facility] Start: 06-14-2023 End: 06-14-2023 ambulatory Maynor Houhg Facility:[facility] Start: 07-19-2022 End: 07-20-2022 ambulatory Jessica Borjas PA-C Facility:[facility] Start: 03-15-[address] CRYSTAL COATES Facility :[facility] Start: 12-31-2021 End: 01-01-[address] MAYNOR HOUGH Facility:[facility] Start: 12-02-2021 End: 12-07-2021 Evaluation and management of inpatient DR MAYNOR HOUGH Facility:[facility] Start: 11-26-2021 Encounter for genera l adult medical examination without abnormal findings DR MAYNOR HOUGH [facility] Start: 11-24-2021 Telephone encounter No Pcp Ref [...] above: Performed By: #### P TTHEP #### [facility] [address] [place], [place] [address] Dr. Dimas Bustos Start: 03-13-2021 Removal of thrombus Tanya moreno OCHOA Start: 10-22-2019 Amputation of toe Syed garza GABRIELA Cholecystectomy Johnie AUSTIN RENDON Immunizations Immunization Date Immunization Notes Care Provider Fa cility 04-03-2020 tetanus toxoid, redu saul diphtheria toxoid, and acellular pertussis vaccine, adsorbed Johnie OCHOA [facility] Payers Date Payer Category Payer Self-pay 1975 Unknown [id number] 2.16.84 [id number] 1975 Unknown [id number] 2.16.84 [id number] 1975 Unknown [id number] 2.16.84 [id number] 1975 Unknown [id number] 2.16.84 [id number] 1974 Unknown [id number] 2.16.84 [id number] 1974 Unknown [id number] 2.16.8 [id number] 1974 Unknown [id number] 2.16.8 [id number] 1974 Unknown [id number] 2.16.8 [id number] 1974 Unknown [id number] 2.16.8 [id number] 1974 Unknown [id number] 2.16.8 [id number] 1974 Unknown [id number] 2.16.8 [id number] 1959 Unknown [id number] Unknown [id number] 2.16.8 [id number] Unknown [id number] 2.16.8 [id number] Social History Date Type Detail Facility Tobacco smoking status DCIS Tobacco smoking consumption unknown [facility] Start: 1975 Sex Assigned At Not on file [facility] Start: 11-20-2023 Tobacco smoking status Never smoked tobacco (finding) [facility] Tobacco smoking status Ex-smoker (finding) [facility] Tobacco smoking status Never [facility] Sex Assigned At Male [facility] Functional Status Date Assessment Result Facility 12-12-2023 Functional Status N/A [facility] 11-20-2023 Functional Status N/A [facility] Clinical Notes 11-24-2021 to 11-20-2023 Telephone Encounter - Natalie Glass - 11/24/2021 8:44 AM EDT Note Date & Type Note Facility 11-20-2023 Hospital Discharg e instructions Follow Up Care 11/20/2023 16:18:52 With:Johnie OCHOA Address: [address] [place], [place] [id number]- [facility] (1) When:04/13/2024 09:44:12 [facility] 11-20-2023 Hospital Discharg e instructions Patient [...] include: ?8 oz (237 mL) of milk, rnbabgx-xwvdzmkjtene-yewpt milk, and calcium-fortifiedfruit juice. Calcium-fortified means that [...] ?Spinach (cooked), rhubarb, beets, sweet potatoes, and [place] Citizen chard. ?Peanuts. ?Potato chips, cymraes fries, and baked potatoes with skin on. ?Nuts and nut products. ?Chocolate. If you regularly take a diuretic medicine, make sure to eat at least 1 or 2 servings of fruits or vegetables that are high in potassium each day. These include: ?Avocado. ?Banana. ?Osceola, prune, carrot, or tomato juice. ?Baked potato. [...] magnesium, fish oil, or vitamin B6. Take mzfm-yqq-luxmfpo and prescription medicines only as told by [...] Casseroles. Pizza. Lasagna. Frozen meals. Potato chips. Sri Lankan fries. The items listed above may not [...] provider. Document Revised: 06/09/2022 Document Reviewed: 06/09/2022 [employer] Patient Education 2023 Consignd. Follow Up Care 10/02/2023 13:19:58 With:GABRIELA SOLANO, Johnie Martel, URL Address: [facility] [address] [place] [id number]- When: Unknown [facility] 11-20-2023 Note Urology Office/Clini c Note Chief Complaint referral- kidney stones HPI Staff New pt referred by Dr. Maynor Hough for kidney stones. Never seen in our office before (verified on [employer]). Had gross hematuria at PCP appt 09/25/23 and was rx'd Levaquin 750mg qd [id number]. JALEN 09/27/23 [facility] showed nonobstructing left nephrolithiasis. [...] 2. Kidney stone (N20.0: Calculus of kidney) JALEN 09/27/23 [facility] - Two nonobstructing L renal [...] ago, also had (more content not included)... [facility] Comment on above: Result Comment: Elec tronically [...] ? 8 oz (237 mL) of milk, nbatjhq-jcumhgafanaq-cwnao milk, and calcium-fortifiedfruit juice. Calcium-fortified means that [...] Spinach (cooked), rhubarb, beets, sweet potatoes, and [place] Citizen chard. ? Peanuts. ? Potato chips, cymraes fries, and baked potatoes with skin on. ? Nuts and nut products. ? Chocolate. ? If you regularly take a diuretic medicine, make sure to eat at least 1 or 2 servings of fruits or vegetables that are high in potassium each day. These include: ? Avocado. ? Banana. ? Osceola, prune, carrot, or tomato juice. ? Baked [...] fish oil, or vitamin B6. ? Take xcdm-efp-byxxwaz and prescription medicines only as told by your health care provider. These include suppleme (more content not included)... [facility] 11-24-2021 Miscellaneous Notes Summary: VASCULAR Patient: Buck Disla Date of : 1975 Patient phone number: [phone] Referring Provider for the encounter: Maynor Hough Requesting Provider: Reason for requesting visit (RFV/signs and symptoms/diagnosis): deep venous thrombophlebitis leg Person calling: Via RP Fax Return call to: self Medical Records/Insurance Card scanned into Epic: Comments: documented in this encounter [facility] Evaluation + Plan note Future Appointments Appointment Date:12/11/2023 01:00:00 PM Scheduled Provider: Location:[facility] Appointment Type:Urology CALL PAT FT Appointment Date:12/12/2023 09:30:00 AM Scheduled Provider: Location:[facility] Appointment Type:Urology FT [facility] Evaluation + Plan note Future Appointments Appointment Date:12/11/2023 01:00:00 PM Scheduled Provider: Location:[facility] Appointment Type:Urology CALL PAT FT Appointment Date:12/12/2023 09:30:00 AM Scheduled Provider: Location:[facility] Appointment Type:Urology FT Diagnostic Tests PendingUroVysion Fish and Urine Cyto ([facility]) 11/20/23 [facility] Evaluation + Plan note Future Appointments Appointment Date:05/03/2024 10:15:00 AM Scheduled Provider:Johnie OCHOA MD Location:[facility] Appointment Type:URO Office Visit [facility] Evaluation + Plan note Future Appointments Appointment Date:06/06/2024 10:20:00 AM Scheduled Provider:FLORA VERNON MD Location:[facility] Appointment Type:URO Office Visit [facility] Hospital course Narrative No data available for this section [facility] Hospital Discharge instructions No data available for this section [facility] Progress note No data available for this section [facility] Summary Purpose Family History No Family [...] or prosecute any alcohol or drug abuse patient.[facility] Reason for Visit (unrecogniz ed section and content) Reason Comments External Referrals/resources Care Teams (unrecognized sec tion and content) 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 Start Date End Date Maynor Hough MD [address] [id number] Referring Family Practice 11/24/21 (unrecognized sect ion and content) No Status Records FoundNo Status Records FoundNo Status Records FoundNo Status Records FoundNo Status Records Found INFORMATION SOURCE (unrecogn ized section and content) DATE CREATED AUTHOR 03/15/2022 [facility] DATE CREATED AUTHOR AUTHOR'S ORGANIZ ATION 07/21/2022 [facility] DATE CREATED AUTHOR AUTHOR'S ORGANIZ ATION 11/27/2023 [facility] DATE CREATED AUTHOR AUTHOR'S ORGANIZ ATION 05/04/2024 [facility] DATE CREATED AUTHOR AUTHOR'S ORGANIZ ATION 05/06/2024 [facility] FOR RECORDS PERTAINING TO PATIENTS WHO ARE [...] BE BASED ON THE PRIMARY CLINICAL RECORDS. [facility] [facility]. provides no warranty or guarantee of the accuracy or completeness of information in this document.
== END 2024-05-08 09:58 | disposition home or self-care (01) ==
LOC: RAD 09:58
PROVIDERS: PCP Family Medicine; Visit Provider Family Medicine
DX: J20.9 Acute bronchitis, unspecified (principal); K59.00 Constipation, unspecified; M51.369 Other intervertebral disc degeneration, lumbar region without mention of lumbar back pain or lower extremity pain; Z90.49 Acquired absence of other specified parts of digestive tract
CPT/HCPCS: 74018

== ENCOUNTER 2024-05-20 14:43 | Outpatient (OUT) | payer OTHER, SELFPAY ==
--- OUTSIDE RECORDS SUMMARY | 2024-05-20 15:00 | XMS_ITS | CCD ---
Author Organization [facility] Care Team Providers Care Paper Bag Inspector Name Role Phone Luis Hough MD Unavailable AMINATA, DR ROJAS Admitting [...] able Jessica Borjas PA-C Attending Unavail able LUIS HOUGH Primary Care Unavailable Luis Hough Primary Care Physician [phone] Johnie OHCOA Attending Unavailable Luis Hough Referring Unavailable Johnie OCHOA Admitting Unavailable Johnie OCHOA Attending Unavailable Alba Batista Attending Unavailable Alba Batista Admitting Unavailable Luis Hough Primary Care Unavailable Flora Vernon Attending Unavail able Flora Vernon Admitting Unavail able Luis Hough Primary Care Unavailable Luis Hough Primary Care Unavailable Iesha Carlisle Attending Unavailable Iesha Carlisle Admitting Unavailable Johnie OCHOA Attending Unavailable Johnie OCHOA Admitting Unavailable Johnie OCHOA Attending Unavailable Johnie OCHOA Referring Unavailable MD FLORA VERNON Attending Unav ailable MD FLORA VERNON Attending Unav ailable MD FLORA VERNON Referring Unav ailable Funmi Price Attending Unavailable Medications Current Medications Medication Drug Class(es) Dates Sig (Normalized) Sig (Original) 24 hr alfuzosin hydrochloride 10 mg extended release oral tablet (5 sources) alpha-Adrenergic Mark Anthony Start: 11-20-2023 End: 11-14-2024 take 1 tablet by mouth once daily alfuzosin 10 mg ER Tab 10 mg = 1 tab(s), Oral, Daily, X 30 day(s), # 30 tab(s), Refills(s) 11, Pharmacy: [facility] [id number], 190, cm, 11/20/23 9:10:00 EDT, Height/Length Dosing, 120, kg, 11/20/23 9:10:00 EDT, Weight Dosing Start Date: 11/20/23 Stop Date: 11/14/24 Status: Ordered apixaban 2.5 mg oral tablet (5 sources) Factor Xa Inhibitor Start: 11-20-2023 take [...] day(s), # 28 cap(s), Refills(s) 0, Pharmacy: [facility] [id number], 190, cm, 12/12/23 8:56:00 EDT, Height/Length Dosing, [...] completed, # 2 tab(s), Refills(s) 0, Pharmacy: [facility] [id number], 190, cm, 11/20/23 9:10:00 EDT, Height/Length Dosing, 120, kg, 11/20/23 9:10:00 EDT, Weight Dosing Start Date: 11/20/23 Status: Ordered Problems Active Problems Problem Classification Problem Date Documented Da te Episodic/Chronic Abdominal pain (1 source) Left lower quadrant pain; Translations: [Left lower quadrant pain] Onset: 5 Episodic Calculus of urinary tract (10 sources) Kidney stone; Translations: [Calculus of kidney] Onset: 4 Episodic Genitourinary symptoms and ill-defined conditions (6 sources) Blood in urine; Translations: [Gross hematuria] Onset: 4 Episodic Hyperplasia of prostate (7 sources) Benign prostatic hypertrophy with outflow obstruction; Translations: [Benign prostatic hyperplasia with lower urinary tract symptoms] Onset: 4 Chronic Other aftercare (2 sources) Long-term current use of anticoagulant; Translations: [[facility] (current) use of anticoagulants] Onset: 4 Episodic Other and unspecified benign neoplasm (5 sources) Polyp of colon 11-15-2023 Episodic Other lower respiratory disease (5 sources) Nodule of lung 11-15-2023 Episodic Other nervous system disorders (1 source) Other chronic pain; Translations: [OTHER CHRONIC PAIN] Onset: 2 Chronic Other screening for suspected conditions (not mental disorders or infectious disease) (4 sources) Abnormal coagulation profile; Translations: [Encounter for screening for malignant neoplasm of prostate] Onset: 2 Episodic Phlebitis; thrombophlebitis and thromboembolism (15 sources) Phlebitis and thrombophlebitis of superficial vessels of left lower extremity; Translations: [Acute embolism and thrombosis of unspecified deep veins of left lower extremity] Onset: 2 Episodic Pulmonary heart disease (6 sources) Other pulmonary embolism without acute cor pulmonale; Translations: [Pulmonary embolism] Onset: 2 11-15-2023 Episodic Screening and history of mental health and substance abuse codes (7 sources) H/O: Disorder; Translations: [Personal history of nicotine dependence] Onset: 4 Episodic Spondylosis; intervertebral disc disorders; other back problems (6 sources) Radiculopathy, lumbar region; Translations: [Lumbar radiculopathy] [...] [LOW BACK PAIN, UNSPECIFIED] Onset: 2 Unclassified (5 sources) Drug therapy finding 11-20-2023 Unclassified (5 sources) Patient encounter status 11-20-2023 Past or Other Problems Problem Classification Problem Date Documented Da te Episodic/Chronic Other aftercare (1 source) [facility] (current) use of anticoagulants; Translations: [CUSTODIAL CURRNT USE ANTICOAGULANTS] Onset: 12-13-2021 Episodic Other [...] Test Name Value Interpretation Reference Range Facility Ambulatory Visit Summaryon 0 05-13-2024 Ambulatory Visit Summary Ambulatory Visit Summary 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 Discharge Vitals Temperature (Temporal Artery) 36.4 ???C Heart Rate (Peripheral) 73 Blood Pressure 138/90 Height 192 cm Height 76 in Weight 124.2 kg Weight 273.814 lb BMI 33.69 What to do next Scheduled Follow-Up Appointments May. 2024 10:20 AM EDT With: FLORA VERNON MD Where: [facility] [address], [address] [place] [address]- Medications What How Much When Instructions Unchanged alfuzosin (alfuzosin 10 mg ER Tab) 1 Tablets By Mouth Every day Duration: 30 Days Unchanged apixaban (Eliquis 2.5 mg oral tablet) 1 Tablets By Mouth 2 times a day Allergies No Known Allergies Problems Ongoing - Any problem that you are currently receiving treatment for. Acute deep vein thrombosis of right lower extremity Anticoagulated Apical lung nodule Bilateral lumbar radiculopathy BPH with obstruction/lower urinary tract symptoms Colon polyp Former smoker Gross hematuria Kidney stone Pulmonary embolism Screening PSA (prostate specific antigen) Patient Survey You may receive a survey via text or e-mail asking about your office visit. Please share your experience with us by completing your survey. We appreciate your feedback and thank you for choosing us for your care. Normal [facility] Provider Letteron 05-13-2024 Provider Letter Provider Letter [address], [place] [address] [phone] May 13, 2024 [address] [address] [place] [address] : 1975 To Whom It May Concern, Please excuse above patient from work. Date of Illness: 05/13/24 May Return to Work On: 05/14/24 Restrictions: none Comments: Sincerely, Funmi Price, MSN, SURGICAL ASSIST, SAFETY PHYSICIAN-C [facility] [address] [facility] [place] [address] [facility] Urology Office/Clinic Noteon 05-13-2024 Urology Office/Clinic Note Urology Office/Clinic Note Chief Complaint stent removal HPI Staff 48 year old male presents for possible stent removal. Stent placed by Dr. Guzman 05/09/24 for left obstructing UPJ with mild hydronephrosis. Pt states he was supposed to remove stent himself, pt states he is having some pain and burning pt states that stent sting is hung up and he is not comfortable removing it History of Present Illness I have reviewed and verified the staff HPI to be accurate for this encounter. Portions of this record may have been created with voice recognition artificial intelligence software, specifically [employer], [employer] and or [employer]. Substitutions may have occurred due to the inherent limitations of voice recognition and artificial intelligence software. Review of Systems PHQ Score Initial Depression Screen Score: 0 SCORE Physical Exam Vitals & Measurements T: 36.4 ???C(Temporal Artery) HR: 73(Peripheral) BP: 138/90 HT: 76 in HT: 192 cm WT: 124.2 kg WT: 273.814 lb BMI: 33.69 General: Well developed, well nourished, in no acute distress. Assessment/Plan 1. Kidney stone (N20.0: Calculus of kidney) JALEN 09/27/23 [facility] - Two nonobstructing L renal stones, largest is 7 mm. PVR 0 cc. [facility] 05/09/24 w/ left flank pain x 1 week CTAP wo con 05/09/24 - 5 mm left UPJ stone w/ hydro s/p cysto, left URS, left laser litho, left ureteral stent to string Pt was to pull string stent 5 days postop, but pt is nervous about this. Presents in office today for string stent removal. Stent removed in office today w/o complications. Pt tolerated well. Increase fluid intake, avoid bladder irritants ER for fever, NV, severe flank pain, inability to urinate He verbalizes understanding. -plan to f/u 6 weeks w/ KUB/JALEN per op note 2. BPH with obstruction/lower urinary tract symptoms (N40.1: Benign prostatic hyperplasia with lower urinary tract symptoms) IPSS 13. Shares he does have difficulty voiding. Steady stream, not hesitant. Sometimes has sudden onset of urge with mild dribbling prior to getting to the bathroom but reports only small volume, feels he doesn't empty completely. Hx of UTI in many years ago, also had gross hematuria. Discussed starting prostate med which will help with urination and may improve urgency. Pt elects to try med. -Start Alfuzosin 10 mg ER qd. SEs discussed. Rx sent to [facility]. [1] Not addressed today Ordered: Urnls Dip Stick Auto w/o Microscopy POC 36514 3. Screening PSA (prostate specific antigen) (Z12.5: Encounter for screening for malignant neoplasm of prostate) PSA: 11/20/21 - 0.63 03/08/23 - 1.03 -Cont PSA screening with PCP. [2] 4. Anticoagulated (Z79.01: [facility] (current) use of anticoagulants) inc risk of periop complications 5. Former smoker (Z87.891: Personal history of nicotine dependence) inc risk of urothelial CA Follow-up No qualifying data available Patient Education Dietary Guidelines to Help Prevent Kidney Stones Benign Prostatic Hyperplasia Problem List/Past Medical History Ongoing Acute deep vein thrombosis of right lower extremity Anticoagulated Apical lung nodule Bilateral lumbar radiculopathy BPH with obstruction/lower urinary tract symptoms Colon polyp Former smoker Gross hematuria Kidney stone Pulmonary embolism Screening PSA (prostate specific antigen) Historical No qualifying data Procedure/Surgical History Thrombectomy (2021), 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 Medications alfuzosin 10 mg ER Tab, 10 mg= 1 tab(s), Oral, Daily, 11 refills Eliquis 2.5 mg oral tablet, 2.5 mg= 1 tab(s), Oral, BID Allergies No Known Allergies Social History Alcohol Never., 05/13/2024 Substance Abuse Never., 05/13/2024 Tobacco Former smoker, quit more than 30 days ago Tobacco Use:. Never Smokeless Tobacco Use:., 05/13/2024 Family History Clotting disorder: Mother. Diabetes mellitus: Father. Heart disease: Father. Hypertension: Father. Immunizations Vaccine Date Status diphtheria/pertussis, acel/tetanus adult 04/03/2020 Recorded Lab Results Ambulatory Point of Care Results Bilirubin Urine Dipstick: Negative (05/13/24 10:04:00) Blood Urine Dipstick: 3+ Large (05/13/24 10:04:00) Glucose Urine Dipstick: Negative (05/13/24 10:04:00) Ketones Urine Dipstick: Negative (05/13/24 10:04:00) Leukocytes Urine Dipstick: Trace (05/13/24 10:04:00) Nitrite Urine Dipstick: Negative (05/13/24 10:04:00) Protein Urine Dipstick: 3+ (300 mg/dl) (05/13/24 10:04:00) Specific [place] Urine Dipstick: >=1.030 (05/13/24 10:04:00) Urine Appearance Urine Dipstick: Clear (05/13/24 10:04:00) Urine Color Urine Dipstick: Dark yellow (05/13/24 10:04:00) Urobilinogen Urine Dipstick: Normal 0.2-1 EU/dl (05/13/24 10:04:00) pH Urine Dipstick: 5.5 (05/13/24 10:04:00) [1] URO - TRANSFORMATION ARCHITECT, referral, kidney stone, hematuria; Johnie OCHOA MD 11/20/2023 09:49 EDT [2] URO - TRANSFORMATION ARCHITECT, referral, kid (more content not included)... Normal [facility] Comment on above: Result Comment: Elec tronically Signed By: EVA Price APRN, Funmi Payne\.br\Date and Time Signed: 05/13/24 12:52 EST Basic Metabolic Panelon 04-14 Anion gap [Moles/Vol] 8.4 mmol/L Normal 6.0-15.0 [facility] Comment on above: Performed By: #### P TT, PT, CBC, LIPASE, BMP, HEPATIC ####[address] Calcium [Mass/Vol] 9.0 mg/dL Normal 8.6-10.3 [facility] Comment on above: Performed By: #### P TT, PT, CBC, LIPASE, BMP, HEPATIC ####[address] Chloride [Moles/Vol] 108 mmol/L High 98-107 [facility] Comment on above: Performed By: #### P TT, PT, CBC, LIPASE, BMP, HEPATIC ####[address] CO2 [Moles/Vol] 26.5 mmol/L Normal 21.0-31.0 [facility] Comment on above: Performed By: #### P TT, PT, CBC, LIPASE, BMP, HEPATIC ####[address] Creatinine [Mass/Vol] 0.86 mg/dL Normal 0.70-1.30 [facility] Comment on above: Performed By: #### P TT, PT, CBC, LIPASE, BMP, HEPATIC ####[address] Creatinine Clr Calc Pharmacy 147.08 Normal [facility] Comment on above: Performed By: #### P TT, PT, CBC, LIPASE, BMP, HEPATIC ####[address] GFR/1.73 sq M.predicted MDRD (S/P/Bld) [Vol rate/Area] mL/min/{1.73_m2} Normal [facility] Comment on above: Performed By: #### P TT, PT, CBC, LIPASE, BMP, HEPATIC ####[address] Glucose [Mass/Vol] 100 mg/dL Normal 70-100 [facility] Comment on above: Result Comment: [place] Glucose Reference Range is dependent on time and content of last meal. Glucose of more than 200 mg/dL in a nonstressed, ambulatory subject supports the diagnosis of Diabetes Mellitus. ADA recommended reference range Performed By: #### P TT, PT, CBC, LIPASE, BMP, HEPATIC ####[address] Potassium [Moles/Vol] 3.9 mmol/L Normal 3.5-5.1 [facility] Comment on above: Performed By: #### P TT, PT, CBC, LIPASE, BMP, HEPATIC ####[address] Sodium [Moles/Vol] 139 mmol/L Normal 136-145 [facility] Comment on above: Performed By: #### P TT, PT, CBC, LIPASE, BMP, HEPATIC ####[address] Urea nitrogen [Mass/Vol] 15 mg/dL Normal 7-25 [facility] Comment on above: Performed By: #### P TT, PT, CBC, LIPASE, BMP, HEPATIC ####[address] Complete Blood Count Auto Di ffon 05-09-2024 Basophils (Bld) [#/Vol] 0.1 10*3/uL Normal 0.0-0.2 [facility] Comment on above: Result Comment: PERF ORMED BY: [address] [place] [address] PATHOLOGIST SERVICE STATION HELPER JENNIFER STYLES M.D. Performed By: #### P TT, PT, CBC, LIPASE, BMP, HEPATIC ####[address] Basophils/100 WBC (Bld) 1.1 % Normal . [facility] Comment on above: Performed By: #### P TT, PT, CBC, LIPASE, BMP, HEPATIC ####[address] Eosinophils (Bld) [#/Vol] 0.5 10*3/uL High 0.0-0.45 [facility] Comment on above: Performed By: #### P TT, PT, CBC, LIPASE, BMP, HEPATIC ####[address] Eosinophils/100 WBC (Bld) 8.7 % Normal . [facility] Comment on above: Performed By: #### P TT, PT, CBC, LIPASE, BMP, HEPATIC ####[address] Erythrocyte distribution width (RBC) [Ratio] 12.5 % Normal 12.0-14.8 [facility] Comment on above: Performed By: #### P TT, PT, CBC, LIPASE, BMP, HEPATIC ####[address] Hematocrit (Bld) [Volume fraction] 39.1 % Normal 38.8-50.0 [facility] Comment on above: Performed By: #### P TT, PT, CBC, LIPASE, BMP, HEPATIC ####[address] Hemoglobin (Bld) [Mass/Vol] 13.7 g/dL Normal 13.0-17.0 [facility] Comment on above: Performed By: #### P TT, PT, CBC, LIPASE, BMP, HEPATIC ####[address] Lymphocytes (Bld) [#/Vol] 1.8 10*3/uL Normal 1.00-4.8 [facility] Comment on above: Performed By: #### P TT, PT, CBC, LIPASE, BMP, HEPATIC ####[address] Lymphocytes/100 WBC (Bld) 30.3 % Normal . [facility] Comment on above: Performed By: #### P TT, PT, CBC, LIPASE, BMP, HEPATIC ####[address] MCH (RBC) [Entitic mass] 31.9 pg Normal 27.5-35.2 [facility] Comment on above: Performed By: #### P TT, PT, CBC, LIPASE, BMP, HEPATIC ####[address] MCV (RBC) [Entitic vol] 90.9 fL Normal 83.5-101 [facility] Comment on above: Performed By: #### P TT, PT, CBC, LIPASE, BMP, HEPATIC ####[address] Mean Corpuscular HGB Conc 35.1 g/dL Normal 32.5-35.6 [facility] Comment on above: Performed By: #### P TT, PT, CBC, LIPASE, BMP, HEPATIC ####[address] Monocytes (Bld) [#/Vol] 0.7 10*3/uL Normal 0.0-0.8 [facility] Comment on above: Performed By: #### P TT, PT, CBC, LIPASE, BMP, HEPATIC ####[address] Monocytes/100 WBC (Bld) 17.82 % Normal 0.00-20.00 [facility] Comment on above: Performed By: #### P TT, PT, CBC, LIPASE, BMP, HEPATIC ####[address] Monocytes/100 WBC (Bld) 11.7 % Normal . [facility] Comment on above: Performed By: #### P TT, PT, CBC, LIPASE, BMP, HEPATIC ####[address] Neutrophils (Bld) [#/Vol] 2.8 10*3/uL Normal 1.8-7.7 [facility] Comment on above: Performed By: #### P TT, PT, CBC, LIPASE, BMP, HEPATIC ####[address] Neutrophils/100 WBC (Bld) 48.2 % Normal . [facility] Comment on above: Performed By: #### P TT, PT, CBC, LIPASE, BMP, HEPATIC ####[address] NRBC% 0.1 /100{WBC} Normal 0-0.5 [facility] Comment on above: Performed By: #### P TT, PT, CBC, LIPASE, BMP, HEPATIC ####[address] Platelet mean volume (Bld) [Entitic vol] 7.7 fL Normal 6.6-10.1 [facility] Comment on above: Performed By: #### P TT, PT, CBC, LIPASE, BMP, HEPATIC ####[address] Platelets (Bld) [#/Vol] 317 10*3/uL Normal 150-450 [facility] Comment on above: Performed By: #### P TT, PT, CBC, LIPASE, BMP, HEPATIC ####[address] RBC (Bld) [#/Vol] 4.30 10*6/uL Normal 3.90-5.60 [facility] Comment on above: Performed By: #### P TT, PT, CBC, LIPASE, BMP, HEPATIC ####[address] WBC (Bld) [#/Vol] 5.8 10*3/uL Normal 4.1-10.5 [facility] Comment on above: Performed By: #### P TT, PT, CBC, LIPASE, BMP, HEPATIC ####[address] Drug Screen,Urineon 05-09-19 25 Amphetamine Screen,Urine Negative Normal Negative [facility] Comment on above: Performed By: #### U RDS ####[address] Barbiturate Screen,Urine Negative Normal Negative [facility] Comment on above: Performed By: #### U RDS ####[address] Benzodiazepines Screen,Urine Negative Normal Negative [facility] Comment on above: Performed By: #### U RDS ####[place] [id number] [facility] Cannabinoid Screen,Urine Positive High Negative [facility] Comment on above: Result Comment: Thes e are unconfirmed results and should not be used for legal purposes. Drug Cut-Off Concentration: AMPH 1000 ng/mL BERONICA 200 ng/mL ANNETTE 200 ng/mL COCM 300 ng/mL OP 300 ng/mL PCP 25 ng/mL THC 20 ng/mL PERFORMED BY: [address] [place] [address] PATHOLOGIST SERVICE STATION HELPER JENNIFER STYLES M.D. Performed By: #### U RDS ####[address] Cocaine Screen,Urine Negative Normal Negative [facility] Comment on above: Performed By: #### U RDS ####[address] Opiate Screen,Urine Positive High Negative [facility] Comment on above: Performed By: #### U RDS ####[address] Phencyclidine Screen,Urine Negative Normal Negative [facility] Comment on above: Performed By: #### U RDS ####[place] [id number] [facility] Hepatic Panelon 05-09-2024 Albumin [Mass/Vol] 4.1 g/dL Normal 3.5-5.7 [facility] Comment on above: Performed By: #### P TT, PT, CBC, LIPASE, BMP, HEPATIC ####[place] [id number] [facility] Albumin/Globulin [Mass ratio] 1.4 {ratio} Normal [facility] Comment on above: Performed By: #### P TT, PT, CBC, LIPASE, BMP, HEPATIC ####[place] [id number] [facility] ALP [Catalytic activity/Vol] 78 U/L Normal 34-104 [facility] Comment on above: Performed By: #### P TT, PT, CBC, LIPASE, BMP, HEPATIC ####[address] ALT [Catalytic activity/Vol] 25 U/L Normal 7-52 [facility] Comment on above: Performed By: #### P TT, PT, CBC, LIPASE, BMP, HEPATIC ####[address] AST [Catalytic activity/Vol] 23 U/L Normal 13-39 [facility] Comment on above: Performed By: #### P TT, PT, CBC, LIPASE, BMP, HEPATIC ####[address] Bilirubin [Mass/Vol] 0.4 mg/dL Normal 0.3-1.0 [facility] Comment on above: Performed By: #### P TT, PT, CBC, LIPASE, BMP, HEPATIC ####[address] Bilirubin,Indirect 0.3 mg/dL Normal [facility] Comment on above: Performed By: #### P TT, PT, CBC, LIPASE, BMP, HEPATIC ####[address] Bilirubin.indirect [Mass/Vol] 0.10 mg/dL Normal 0.03-0.18 [facility] Comment on above: Performed By: #### P TT, PT, CBC, LIPASE, BMP, HEPATIC ####[address] Globulin (S) [Mass/Vol] 2.9 g/dL Normal [facility] Comment on above: Performed By: #### P TT, PT, CBC, LIPASE, BMP, HEPATIC ####[address] Protein [Mass/Vol] 7.0 g/dL Normal 6.4-8.9 [facility] Comment on above: Performed By: #### P TT, PT, CBC, LIPASE, BMP, HEPATIC ####[address] [place] [address] [facility] Lipaseon 05-09-2024 Lipase [Catalytic activity/Vol] 10.0 U/L Low 11.0-82.0 [facility] Comment on above: Result Comment: PERF ORMED BY: [address] [place] [address] PATHOLOGIST SERVICE STATION HELPER JENNIFER STYLES M.D. Performed By: #### P TT, PT, CBC, LIPASE, BMP, HEPATIC ####[place] [address] [place] [address] [facility] Partial Thromboplastin Timeo n 05-09-2024 aPTT Coag (Bld) [Time] 28.1 s Normal 25.1-36.5 [facility] Comment on above: Result Comment: A he matocrit value greater than 55% may lead to inaccurate results in coagulation testing. Patients having hematocrit values >55% require a special collection tube for coagulation studies. Please contact the laboratory at [phone] for redraw instructions. PERFORMED BY: [address] [facility] [address] PATHOLOGIST SERVICE STATION HELPER JENNIFER STYLES M.D. Performed By: #### P TT, PT, CBC, LIPASE, BMP, HEPATIC ####[place] [address] [place] [address] [facility] Prothrombin Time INRon 05-09 INR Coag (PPP) [Relative time] 1.1 {INR} Normal [facility] Comment on above: Result Comment: INR Therapeutic Range A) Pre- and Peroperative OAT started two weeks before surgery. NOT HIP SURGERY: 1.5 - 2.5 HIP SURGERY: 2 - 3 B) Primary and secondary prevention of venous THROMBOSIS: 2 - 3 C) Active venous thrombosis, pulmonary embolism and prevention of recurrent venous thrombosis: 2 - 3 D) Prevention of arterial thromboembolism including patients with mechanical heart valves: 3 - 4.5 Performed By: #### P TT, PT, CBC, LIPASE, BMP, HEPATIC ####[id number] [place] [address] [facility] PT Coag (PPP) [Time] 12.1 s Normal 9.0-12.9 [facility] Comment on above: Result Comment: A he matocrit value greater than 55% may lead to inaccurate results in coagulation testing. Patients having hematocrit values >55% require a special collection tube for coagulation studies. Please contact the laboratory at [phone] for redraw instructions. Performed By: #### P TT, PT, CBC, LIPASE, BMP, HEPATIC ####[place] [id number] [facility] Urinalysison 05-09-2024 Appearance (U) Clear Normal Clear [facility] Comment on above: Order Comment: Name Collection Type:: Clean-Voided Midstream Performed By: #### U A ####[place] [id number] [facility] Bilirubin,Urine Negative Normal Negative [facility] Comment on above: Order Comment: Name Collection Type:: Clean-Voided Midstream Performed By: #### U A ####[place] [id number] [facility] Color (U) Light-Yellow Normal Yellow [facility] Comment on above: Order Comment: Name Collection Type:: Clean-Voided Midstream Performed By: #### U A ####[place] [id number] [facility] Glucose Ql (U) Normal Normal Normal [facility] Comment on above: Order Comment: Name Collection Type:: Clean-Voided Midstream Performed By: #### U A ####[place] [id number] [facility] Ketones Ql (U) Negative Normal Negative [facility] Comment on above: Order Comment: Name Collection Type:: Clean-Voided Midstream Performed By: #### U A ####[place] [id number] [facility] Leukocyte esterase Test strip Ql (U) Negative Normal Negative [facility] Comment on above: Order Comment: Name Collection Type:: Clean-Voided Midstream Performed By: #### U A ####[address] [address] [facility] Nitrite,Urine Negative Normal Negative [facility] Comment on above: Order Comment: Name Collection Type:: Clean-Voided Midstream Performed By: #### U A ####[address] [address] [facility] Occult Blood,Urine Negative Normal Negative [facility] Comment on above: Order Comment: Name Collection Type:: Clean-Voided Midstream Result Comment: PERF ORMED BY: [id number] PATHOLOGIST SERVICE STATION HELPER JENNIFER STYLES M.D. Performed By: #### U A ####[place] [id number] [facility] pH (U) 5.5 [pH] Normal 5.0-9.0 [facility] Comment on above: Order Comment: Name Collection Type:: Clean-Voided Midstream Performed By: #### U A ####[address] [address] [facility] Protein,Urine Negative Normal Negative [facility] Comment on above: Order Comment: Name Collection Type:: Clean-Voided Midstream Performed By: #### U A ####[place] [id number] [facility] Specificy [place],Urine 1.014 Normal 1.001-1.030 [facility] Comment on above: Order Comment: Name Collection Type:: Clean-Voided Midstream Performed By: #### U A ####[address] [address] [facility] Urobilinogen,Urine Normal Normal Normal [facility] Comment on above: Order Comment: Name Collection Type:: Clean-Voided Midstream Performed By: #### U A ####[address] [id number] [facility] XR KUBon 05-09-2024 XR KUB [facility] [address] [place] [address] XRay Report Signed Patient: Buck Disla MR#: [id number] 56 : 1975 Acct:[id number] Age/Sex: 48 / M ADM Date: 05/09/24 Loc: [place] Room: Type: [facility] Attending Dr: Flora Vernon MD Copies to: Flora Vernon MD Ordering Provider: Flora Vernon MD Date of Service: 05/09/24 XR/XR KUB: LEFT STENT PLACEMENT Intraoperative fluoroscopy CLINICAL INFORMATION: Left stent ureteroscopy with laser COMPARISON: KUB 05/09/2024 FINDINGS: 5 fluoroscopic images and 4 mGy dose. Images demonstrate placement of the guidewire and stent into the left ureter. Final images demonstrate a double-J stent with only the the distal aspect is visualized. XR/XR KUB IMPRESSION: Intraoperative imaging demonstrated procedure to the left kidney Impression dictated by: Morro Frost M.D.05/09/2024 6:29 PM Dictation Location: [facility] Transcribed By: [facility] 05/09/241828 Dictated By: Morro Frost MD 05/09/241824 Signed By: 05/09/241828 Normal [facility] XR KUB [place] [address] XRay Report Signed Patient: Buck Disla MR#: [id number] 56 : 1975 Acct:[id number] Age/Sex: 48 / M ADM Date: 05/09/24 Loc: ER Room: Type: [facility] ER Attending Dr: Copies to: Francisco J Camara DO Ordering Provider: Francisc oJ Camara DO Date of Service: 05/09/24 XR/XR KUB: Abdominal Pain XR KUB 05/09/2024 12:00 PM SIGNS AND SYMPTOMS: Left flank pain radiating to left lower/anterior abdomen PROTOCOL: Frontal radiographs of the abdomen and pelvis COMPARISON: 05/02/2024 FINDINGS: There is a 5 mm radiodense stone in the left renal collecting system near the inferior pole similar to the prior CT. There is a 5 mm stone in the proximal left ureter which is unchanged. No evidence of bladder stone. No right-sided renal stones. There is an IVC filter. There is evidence of prior cholecystectomy. There is a levoconvex curvature of the lumbar spine. Degenerative changes are noted in the lumbar spine and hips. XR/XR KUB IMPRESSION: There is a 5 mm radiodense stone in the left renal collecting system near the inferior pole similar to the prior CT. There is a 5 mm stone in the proximal left ureter which is unchanged. Impression dictated by: Joellen Dominique M.D.05/09/2024 12:39 PM Dictation Location: [place] [address] Transcribed By: [facility] 05/09/24 1239 Dictated By: Joellen Dominique II, MD 05/09/24 1237 Signed By: 05/09/24 1239 Normal [facility] B-Type Natriuretic Peptideon 05-04-2024 Natriuretic peptide B (Bld) [Mass/Vol] 87.0 pg/mL Normal 5-100 [facility] Comment on above: Result Comment: PERF ORMED BY: [place] [address] PATHOLOGIST SERVICE [employer] HELPER JENNIFER STYLES M.D. Performed By: #### C BC, BNP, HS TROP #### [address] Basic Metabolic Panelon 04-14 Anion gap [Moles/Vol] 10.9 mmol/L Normal 6.0-15.0 [facility] Comment on above: Performed By: #### L IPASE, BMP, HEPATIC #### [address] Calcium [Mass/Vol] 9.1 mg/dL Normal 8.6-10.3 [facility] Comment on above: Performed By: #### L IPASE, BMP, HEPATIC #### [address] Chloride [Moles/Vol] 108 mmol/L High 98-107 [facility] Comment on above: Performed By: #### L IPASE, BMP, HEPATIC #### [address] [place] [address] [place] CO2 [Moles/Vol] 26.0 mmol/L Normal 21.0-31.0 [facility] Comment on above: Performed By: #### L IPASETERRANCE, HEPATIC #### [address] Creatinine [Mass/Vol] 0.85 mg/dL Normal 0.70-1.30 [facility] Comment on above: Performed By: #### L IPASE BMP, HEPATIC #### [place] [address] [place] Creatinine Clr Calc Pharmacy 149.38 Normal [facility] Comment on above: Performed By: #### L IPATERRANCE SPANN, HEPATIC #### [place] [address] [place] GFR/1.73 sq M.predicted MDRD (S/P/Bld) [Vol rate/Area] mL/min/{1.73_m2} Normal [facility] Comment on above: Performed By: #### L IPASE BMP, HEPATIC #### [address] Glucose [Mass/Vol] 115 mg/dL High 70-100 [facility] Comment on above: Result Comment: [place] Glucose Reference Range is dependent on time and content of last meal. Glucose of more than 200 mg/dL in a nonstressed, ambulatory subject supports the diagnosis of Diabetes Mellitus. ADA recommended reference range Performed By: #### L IPASE BMP, HEPATIC #### [address] Potassium [Moles/Vol] 3.9 mmol/L Normal 3.5-5.1 [facility] Comment on above: Performed By: #### L IPASE BMP, HEPATIC #### [place] [address] [place] Sodium [Moles/Vol] 141 mmol/L Normal 136-145 [facility] Comment on above: Performed By: #### L IPASE BMP, HEPATIC #### [address] Urea nitrogen [Mass/Vol] 24 mg/dL Normal 7-25 [facility] Comment on above: Performed By: #### L IPASE, BMP, HEPATIC #### [facility] [id number] [facility] CT abdomen pelvis wo conon 0 05-04-2024 CT abdomen pelvis wo con [facility] [address] [place] [address] CT Scan Report Signed Patient: Buck Disla MR#: [id number] 56 : 1975 Acct:[id number] Age/Sex: 48 / M ADM Date: 05/04/24 Loc: ER Room: Type: [facility] ER Attending Dr: Copies to: Alba [...] Morro Frost M.D.05/04/2024 11:48 AM Dictation Location: [place] [address] Transcribed By: [facility] 05/04/24 1148 Dictated By: Morro Frost MD 05/04/24 1143 Signed By: 05/04/24 1148 Normal [facility] Complete Blood Count Auto Di ffon 05-04-2024 Basophils (Bld) [#/Vol] 0.1 10*3/uL Normal 0.0-0.2 [facility] Comment on above: Result Comment: PERF ORMED BY: [place] [address] PATHOLOGIST SERVICE [employer] HELPER JENNIFER STYLES M.D. Performed By: #### C BC, BNP, HS TROP #### [address] Basophils/100 WBC (Bld) 0.6 % Normal . [facility] Comment on above: Performed By: #### C BC, BNP, HS TROP #### [place] [address] [place] Eosinophils (Bld) [#/Vol] 0.2 10*3/uL Normal 0.0-0.45 [facility] Comment on above: Performed By: #### C BC, BNP, HS TROP #### [address] Eosinophils/100 WBC (Bld) 1.9 % Normal . [facility] Comment on above: Performed By: #### C BC, BNP, HS TROP #### [address] Erythrocyte distribution width (RBC) [Ratio] 12.6 % Normal 12.0-14.8 [facility] Comment on above: Performed By: #### C BC, BNP, HS TROP #### [address] Hematocrit (Bld) [Volume fraction] 38.8 % Normal 38.8-50.0 [facility] Comment on above: Performed By: #### C BC, BNP, HS TROP #### [address] Hemoglobin (Bld) [Mass/Vol] 13.3 g/dL Normal 13.0-17.0 [facility] Comment on above: Performed By: #### C BC, BNP, HS TROP #### [address] Lymphocytes (Bld) [#/Vol] 1.9 10*3/uL Normal 1.00-4.8 [facility] Comment on above: Performed By: #### C BC, BNP, HS TROP #### [address] Lymphocytes/100 WBC (Bld) 15.0 % Normal . [facility] Comment on above: Performed By: #### C BC, BNP, HS TROP #### [address] MCH (RBC) [Entitic mass] 31.5 pg Normal 27.5-35.2 [facility] Comment on above: Performed By: #### C BC, BNP, HS TROP #### [address] MCV (RBC) [Entitic vol] 91.6 fL Normal 83.5-101 [facility] Comment on above: Performed By: #### C BC, BNP, HS TROP #### [address] Mean Corpuscular HGB Conc 34.3 g/dL Normal 32.5-35.6 [facility] Comment on above: Performed By: #### C BC, BNP, HS TROP #### [address] Monocytes (Bld) [#/Vol] 1.3 10*3/uL High 0.0-0.8 [facility] Comment on above: Performed By: #### C BC, BNP, HS TROP #### [facility] [address] [place] [address] [place] Monocytes/100 WBC (Bld) 16.45 % Normal 0.00-20.00 [facility] Comment on above: Performed By: #### C BC, BNP, HS TROP #### [facility] [address] [place] [address] [place] Monocytes/100 WBC (Bld) 10.3 % Normal . [facility] Comment on above: Performed By: #### C BC, BNP, HS TROP #### [facility] [address] [place] [address] [place] Neutrophils (Bld) [#/Vol] 9.1 10*3/uL High 1.8-7.7 [facility] Comment on above: Performed By: #### C BC, BNP, HS TROP #### [facility] [address] [place] [address] [place] Neutrophils/100 WBC (Bld) 72.2 % Normal . [facility] Comment on above: Performed By: #### C BC, BNP, HS TROP #### [facility] [address] [place] [address] [place] NRBC% 0.1 /100{WBC} Normal 0-0.5 [facility] Comment on above: Performed By: #### C BC, BNP, HS TROP #### [facility] [address] [place] [address] [place] Platelet mean volume (Bld) [Entitic vol] 7.5 fL Normal 6.6-10.1 [facility] Comment on above: Performed By: #### C BC, BNP, HS TROP #### [facility] [address] [place] [address] [place] Platelets (Bld) [#/Vol] 309 10*3/uL Normal 150-450 [facility] Comment on above: Performed By: #### C BC, BNP, HS TROP #### [facility] [address] [place] [address] [place] RBC (Bld) [#/Vol] 4.24 10*6/uL Normal 3.90-5.60 [facility] Comment on above: Performed By: #### C BC, BNP, HS TROP #### [facility] [address] WBC (Bld) [#/Vol] 12.6 10*3/uL High 4.1-10.5 [facility] Comment on above: Performed By: #### C BC, BNP, HS TROP #### [facility] [address] ECG 12 lead ECGon 05-04-2024 ECG 12 lead ECG [facility] [address] [place] [address] Electrocardiograph Report Signed Patient: Buck Disla MR#: [id number] 56 : 1975 Acct:[id number] Age/Sex: 48 / M ADM Date: 05/04/24 Loc: ER Room: Type: [facility] ER Attending Dr: Ordering Provider: Alba [...] was found Confirmed by Alba Batista MD ([id number]) on 05/04/2024 10:52:45 AM Referred By: Electronically Signed By: Alba Batista MD Transcribed By: MUS Signed By Alba Batista MD 04/14 05/07 1052 Normal [facility] Hepatic Panelon 05-04-2024 Albumin [Mass/Vol] 4.1 g/dL Normal 3.5-5.7 [facility] Comment on above: Performed By: #### L IPASE, BMP, HEPATIC #### [address] Albumin/Globulin [Mass ratio] 1.7 {ratio} Normal [facility] Comment on above: Performed By: #### L EMBER BMP, HEPATIC #### [facility] [address] ALP [Catalytic activity/Vol] 80 U/L Normal 34-104 [facility] Comment on above: Performed By: #### L IPASE, BMP, HEPATIC #### [facility] [address] ALT [Catalytic activity/Vol] 31 U/L Normal 7-52 [facility] Comment on above: Performed By: #### L IPASE, BMP, HEPATIC #### [address] AST [Catalytic activity/Vol] 26 U/L Normal 13-39 [facility] Comment on above: Performed By: #### L IPASE, BMP, HEPATIC #### [address] Bilirubin [Mass/Vol] 0.6 mg/dL Normal 0.3-1.0 [facility] Comment on above: Performed By: #### L IPASE, BMP, HEPATIC #### [place] [address] [place] Bilirubin,Indirect 0.5 mg/dL Normal [facility] Comment on above: Performed By: #### L IPASE, BMP, HEPATIC #### [place] [address] [place] Bilirubin.indirect [Mass/Vol] 0.10 mg/dL Normal 0.03-0.18 [facility] Comment on above: Performed By: #### L IPASE, BMP, HEPATIC #### [place] [address] [place] Globulin (S) [Mass/Vol] 2.4 g/dL Normal [facility] Comment on above: Performed By: #### L IPASE, BMP, HEPATIC #### [place] [address] [place] Protein [Mass/Vol] 6.5 g/dL Normal 6.4-8.9 [facility] Comment on above: Performed By: #### L IPASE, BMP, HEPATIC #### [address] Lipaseon 05-04-2024 Lipase [Catalytic activity/Vol] 13.0 U/L Normal 11.0-82.0 [facility] Comment on above: Result Comment: PERF ORMED BY: [place] [address] PATHOLOGIST SERVICE [employer] HELPER JENNIFER STYLES M.D. Performed By: #### L IPASE, BMP, HEPATIC #### [address] Troponin I High Sensitivityo n 05-04-2024 Troponin I High Sensitivity 11 Normal 0-20 [facility] Comment on above: Result Comment: The Troponin units of report have been changed to meet the Chest Pain Accreditation requirement, element EC5.M1l2. Troponin units are changed from pg/ml to ng/L. Also, the decimal is removed and results are in whole numbers. PERFORMED BY: [place] [address] PATHOLOGIST SERVICE STATION HELPER JENNIFER STYLES M.D. Performed By: #### H S TROP #### [address] Troponin I High Sensitivity 11 Normal 0-20 [facility] Comment on above: Result Comment: The Troponin units of report have been changed to meet the Chest Pain Accreditation requirement, element EC5.M1l2. Troponin units are changed from pg/ml to ng/L. Also, the decimal is removed and results are in whole numbers. PERFORMED BY: [place] [address] PATHOLOGIST SERVICE STATION HELPER JENNIFER STYLES M.D. Performed By: #### C BC, BNP, HS TROP #### [address] Urinalysison 05-04-2024 Appearance (U) Clear Normal Clear [facility] Comment on above: Order Comment: Name Collection Type:: Clean-Voided Midstream Performed By: #### U A #### [place] [address] [place] Bilirubin,Urine Negative Normal Negative [facility] Comment on above: Order Comment: Name Collection Type:: Clean-Voided Midstream Performed By: #### U A #### [address] [address] [place] Color (U) Light-Yellow Normal Yellow [facility] Comment on above: Order Comment: Name Collection Type:: Clean-Voided Midstream Performed By: #### U A #### [place] [address] [place] Glucose Ql (U) Normal Normal Normal [facility] Comment on above: Order Comment: Name Collection Type:: Clean-Voided Midstream Performed By: #### U A #### [place] [address] [place] Ketones Ql (U) Negative Normal Negative [facility] Comment on above: Order Comment: Name Collection Type:: Clean-Voided Midstream Performed By: #### U A #### [place] [address] [place] Leukocyte esterase Test strip Ql (U) Negative Normal Negative [facility] Comment on above: Order Comment: Name Collection Type:: Clean-Voided Midstream Performed By: #### U A #### [place] [address] [place] Nitrite,Urine Negative Normal Negative [facility] Comment on above: Order Comment: Name Collection Type:: Clean-Voided Midstream Performed By: #### U A #### [place] [id number] [place] Occult Blood,Urine Negative Normal Negative [facility] Comment on above: Order Comment: Name Collection Type:: Clean-Voided Midstream Result Comment: PERF ORMED BY: [place] [address] PATHOLOGIST SERVICE STATION HELPER JENNIFER STYLES M.D. Performed By: #### U A #### [place] [address] [place] pH (U) 5.0 [pH] Normal 5.0-9.0 [facility] Comment on above: Order Comment: Name Collection Type:: Clean-Voided Midstream Performed By: #### U A #### [address] Protein,Urine Negative Normal Negative [facility] Comment on above: Order Comment: Name Collection Type:: Clean-Voided Midstream Performed By: #### U A #### [address] Specificy [place],Urine 1.019 Normal 1.001-1.030 [facility] Comment on above: Order Comment: Name Collection Type:: Clean-Voided Midstream Performed By: #### U A #### [address] Urobilinogen,Urine Normal Normal Normal [facility] Comment on above: Order Comment: Name Collection Type:: Clean-Voided Midstream Performed By: #### U A #### [address] XR chest 2V*on 05-04-2024 XR chest 2V* [facility] [address] [place] [address] XRay Report Signed Patient: Buck Disla MR#: [id number] 56 : 1975 Acct:[id number] Age/Sex: 48 / M ADM Date: 05/04/24 Loc: ER Room: Type: [facility] ER Attending Dr: Copies to: Alba [...] Morro Frost M.D.05/04/2024 9:50 AM Dictation Location: [place] [address] Transcribed By: GENESIS 05/04/2450 Dictated By: Morro Frost MD 05/04/2449 Signed By: 05/04/2450 Normal [facility] Main [place] Intraoperative Recor ishaan 12-12-2023 Main [place] Intraoperative Record Main [place] Intraoperative Record IntraOp Document Type FTURO Summary Primary Physician: Johnie OCHOA MD Finalized Date/Time: 12/12/23 09:44:49 Pt. Name: BUCK DISLA/Sex: 1975 Male Med Rec #: [id number] Physician: Johnie OCHOA MD Financial #: [id number] Pt. Type: O Room/Bed: / Admit/Disch: 12/12/23 [...] Tyra Acevedo Role Performed Surgeon - Primary Pet [employer] Deboner - Primary Scrub - Primary Time In [...] Outcomes Met? Yes LEFT Last Modified By: Arcelia Tarango RN 12/12/23 09:29:47 Post-Care Text: The patient is [...] Position Verified Availability Equipment, Medication Time Out GABRIELA SOLANO, Johnie Martel, Verified (If Participants Arcelia Tarango RN) Nerissa Collier CST, Tyra Woods Time Out Complete 12/12/23 09:31:00 Allergies Reviewed? [...] By: Arcelia Tarango RN 12/12/23 09:44 Normal [facility] Main [place] Preoperative Recordo n 12-12-2023 Main [place] Preoperative Record Main [place] Preoperative Record Holding Area Document Type FTURO Summary Primary Physician: Johnie OCHOA MD Finalized Date/Time: 12/12/23 08:56:33 Pt. Name: BUCK DISLA/Sex: 1975 Male Med Rec #: [id number] Physician: Johnie OCHOA MD Financial #: [id number] Pt. Type: O Room/Bed: / Admit/Disch: 12/12/23 [...] 12/12/23 08:55 Sarah Talbot 12/12/23 08:56 Normal [facility] Operative Reporton Operative Report Operative Report [...] We will evaluate his renal ultrasound.. Normal [facility] Comment on above: Result Comment: Elec tronically Signed By: Johnie OCHOA MD\.br\Date and Time Signed: 12/12/23 09:50 EDT Patient Educationon 12-12-19 Patient Education Patient Education Normal [facility] UroVysion Fish and Urine Cyt o ([facility])on 11-27-2023 UVFISH & UC Diagnosis Info Invalid Interpretation Code [facility] Comment on above: Result Comment: A:Ur [...] on: 11/27/2023 11:33:21 Performed By: #### 1 [id number] #### [facility] [address] [place] [address] Ambulatory Visit Summaryon 0 11-20-2023 Ambulatory Visit [...] Johnie OCHOA MD Primary Care Physician - Luis Hough MD Referring Physician - Luis Hough MD This Is Your Medications List [...] When: Where: [facility] [address] [place] [address]- Medications What How Much When Instructions Unchanged [...] five serv (more content not included)... Normal [facility] UroVysion Fish and Urine Cyt o ([facility])on 11-20-2023 [facility] Method of Extraction Voided Normal [facility] Comment on above: Performed By: #### 1 [id number] #### [facility] [address] [place] [address] [facility] Number of Jars 1 Invalid Interpretation Code [facility] Comment on above: Performed By: #### 1 [id number] #### [facility] [address] [place] [address] [facility] Specimen Clean Catch Normal [facility] Comment on above: Performed By: #### 1 [id number] #### [facility] [address] [place] [address] [facility] Type of Service Technical Only [facility] Comment on above: Performed By: #### 1 [id number] #### [facility] [address] [place] [address] XR foot LT min 3V*on 024 XR foot LT min 3V* [facility] Main Drake [address] [place] [address] XRay Report Signed Patient: Buck Disla MR#: [id number] [birth year] : 1975 Acct:[id number] Age/Sex: 48 / M ADM Date: 06/14/23 Loc: [id number] Room: Type: [facility] Attending Dr: Iesha Carlisle SURGICAL ASSIST Copies to: Iesha Carlisle APRN Ordering Provider: [...] RECOMMENDED. Impression dictated by: Antonio Ramirez Jr., MarlenaORufus06/14/2023 10:19 AM Dictation Location: [place] [address] Transcribed By: [facility] 06/14/23 1019 Dictated By: Antonio Ramirez Jr, DO 06/14/23 1017 Signed By: 06/14/23 1019 Normal [facility] Coding Summaryon 07-20-2022 Coding Summary HTMLBase 64 JwjpziapJKy2eMa+PGhlY WQ+MS2ZYAKsU78ezVEuvZ 8TS9sQZV2GZJAKTSCXEC5 OGX7niMN4CYlyI1PsezJt HpwxiPQxUR99TMd9WJE6t IxuFPpomX7kuXWbV4d5Aw HvIJ23bW10POkxDDQcUrI 3LjZpbjsgbWFy B1qmVaMfjJQyFbn+PHRhY mxlIHdpZHRoPScxMDAlJy SvcGmeLP1bDp3xNIGbKBI vbGxhcHNlOiBj g3qkCXIdMZslRK3mmWqaU 2EcoDL2WTVnk7z5Rm03zY I+GWAkTSJ1yFkaMVuma02 6DxWhn5mmPRK7 mMGhVJykOJG3Q97zj2R2A MBcAZUrXLJ8bBX4rW5tpO apstfdP8EfuJDeJzE7GEE 2iMHjdT8jcTyb qovyfZ0rQik+B99IYL6UG GDEBM0DMvv7X3PrIsunvO I+VF86HHJgAM16lVJsvSE qy9foqYx3GjNh DAKbUNL1tRqfRLvet0CrT QUbH65goUBpw1Z9PGWqbG ktkAFaMlOxmYM2kX7kTHo chkxfj1sgbcwh Uobow2yqgj59aC19G78sO WvbVTGhNQV0LIYnFIGvvS onqk6ojX2eJp6+NXfyg7q be5pvpDj0XoSf XVOygyLdbUltVVW4n8PoQ k04H5BkyPxby0UdTka1rt 21tXUwn1R7aWD5LArxFWK rqQ1gODjxAyA7 AVDkZqNjvL95cIRnRStwB v3dpDivdMsnVF7nBYHjpx apMPCqwZ6oBFZimLFpxEq zQI3mNRHgigmg x836GrVeDGQ8HBWqmIBiS 7WmrH8jPdTfUZDbAIZbV8 XbqCIdJAoeK123MAmtDjL 0TTRmwiNgA3Yw BEVbtVyqDeO9m8Y0Vx3Bb 9MbrvbaQEV1DEqzOHA6Fw XdSlGwMlM6X6RnPtg9MUJ jlGadXV7hS7Ry TGMcmllmfvnhnOJ6IIGtW FGvmB13aUNkWBtkSl6bw9 G4x305GJLdTEMvaY86Gg9 udDogMTBwdCBU cG7adheya0zydvbmSzJzX KXsAOj7KVr6GBMjiCliEw AmJYV7HdG9FOK3pZZekC4 kwYyealvqvT0m Oyc+Y00cdZ3eOYD5NJE6j cfiFXFudrCxLU79GO74B9 RyPjwvdGFibGU+PGRpdiB zzQkeQF1vNgVm u3pdu5FpSHttE7ZjSHZbJ JnzGvu8TCSvYWP8qCN2wW 4iCJGsGSwsl6M2fPF4Z1O usmKrpu6jn7ah PINvEKwsG46zoGQbk5N9I BBcvYI7MRBicAouAyPjwM 93Oyc+XQPxnFlma1TfLsf gu0xur9qijUj1 MpJiEVNlkfBalOulBJB5c 7OzWo50B09aLVlmXCYjOL FdJRCmGTDylHbprj3vdW0 wIi8+PGNvbCB3 gMS7jO1uSNUgDbT3OHkwN 670RlGvmVQdRyrku7lzy3 tvaDh5AlCpZOAaktAhnTh iESF8b8GtBl44 D43aYUptGQVnCNKmMSEgT FDtxAnoxb0teM1iHa2+PC 2dv2vpdi30vN25yYT+PHR rTZS6mBklCEjf IREckH9lVJsiNfR9PQCrF uWhaR24eCLwAPjgBj2ozH jwaIxaHC8nQTAxcyhyq21 9HyNgc7thBVAn xQXaIZlbVPJ0W07mg2D6G CXpNTTqPEP7jEP0bE8vaD lnbjogbGVmdDsgdmVydGl zNGvgQKbkR776 IHRvcDsnPlBhdGllbnQgT bXwFRa4R4JjPeq6BHMwdU ltRZ3vrTCdDPmzPl4cfMl dzItbXV5cLCGv tqsjb372DyZhf7vqWZDzv DPmPEspFRY8O16aa0J9BR BoAAEyYIA9hKU0lH5qoGs nbjogbGVmdDsg kkBdjBluGIpyQFohL459J HRvcDsnPkJpcnRoIERhdG P7BA93WK32eKKfr4L0nAB 2A1QvFQMmdfro wionnAG4NFRaADRdkX41W i5jdVsmHu5bSDXvAWW0HZ UftPBgX8PkcP6lZuMiIMP dXBIkI6MyaDRg KGrjX599UToaUeO1ZBXjp nMeN1YsCGYusAtfGuV0m2 R6Pu9TN5C5CZ51WV30fNM fg0Y1mLK1V1Of CYIxyovldotzdNM6IKYcB NEbrO10Sn2tkOpdSl3hTK AeSYY0WSIgiJIlF2BrrI3 yOiAjMDAwMDAw B8WvrNNdUChsZ089BGlsT iA2FQPlskWxO6DsRNQpjV afYlF0l7V2Mf5XGHf1GD0 3DC84qMPce8H2 xMK5A7FpYPRpiwulmcrro YI7ROAyZTTaeE45Bu1wzA tyLj6jQVFmYTL4RTGztHM gP6TerJ1eOwPe PGPeOKTrM8IymUNdZMfxQ 702SXyjJcQ3CCLhyyCwE1 XpRTNsjAvvSmZ2z9O3Up2 WCOYyJI52RFA9 wMI0WW81QC72E3AtEmgpw GFibGU+PHRhYmxlIHdpZH RoPScxMDAlJyBzdHlsZT0 aMc9yQAUtHLZq lHzszSTeHdFnh1atUVOuJ VvwCU2lbRfzS7AuwDT9RI Mtj7v9Hi27B12aT5IcaBE +VYXzvOR6pDW9 cR5qBiQzQdI0WFshF291F pTzvWPiHpcqi0dak3ipbJ q0RtC1BMDyjfZddPfnJVC 3l0UbFj50O07z IHdpZHRoPSIxNSUiIHZhb Vtcjy8ylW1mZg5+PGNvbC R9qLV6mB1hNkSpVqI5LRv sI394KrGoqHTl Dzqyt4cza0dicSm7QgGaV UDlvgWxhHrpFXO2q0WyBy 64F1XvmRfny7SuAcq0nx6 4qZGgk0Y9iAI7 T7OnKTMmmfxntVPbkMkqW O0yMVStqctrGKYkbQ0aMG YkN6i8FcTeMgO0PTyaQ7K lsaL2BLXhgNRq KXqkFFM5M34rc8B5BQAfV VQfINK6jGR0nL7kmEncfo ogbGVmdDsgdmVydGljYWw xCPfwI740FOYp dKdhFQAhsG2kWEJxdWWgn LygTG7pZQVrpatgSgXSOS yTScxsIXEBEOVdU4FFYrJ 3O3YxAne9XIGa uHtuLE0bqGRsDMxmWy4zk RhazEepYP2kDXMzxnsqTE HttM0eKCUmgGGmsTveHI9 xWBHowcevm857 IkTgFYO0DALveGGhM0Tyq M2fIhMwSIIhZTKbR1OthR XdJSloC976GSquJbH2ZWI ohrBuY4PpTRXl dVolJwI8h0S8Tr8nZs0bV N7sDKh2FH13PC47fZUug9 D8aPX5R9WzKFUoozgejtd apUY6YHGwOKBz nL00pBCuLBfsTu6yy4C3x 852ULJiIJQhoU62Bi3wkF ilAEVulDRYuJ1zfozqf3q vcjogIzAwMDAw GHr2KTq5DLXfkQgqOqEcW XS2PuP0SMM3tAXdyV6ozS hulpkfgI3zHxm+NDggWWV ijoK8A1AuKeq8 NIEcgSbtZG6zdBFpSVfoA f5leAgowSkxWW4nYKEkfo ukADUzxF9fMVGqoBCvqNl fLQ6wWEUggalv m947EmFwQDN7DTKuvPXmW 1PrbU3wOgVvFVYmQFPgO7 IgmMLsPWjmY088GWjjAjD 4USWqzvMqX2Uf WWQfzJniMzM3q8J1Pq0XV SeLOP71PF64aGYev4W2pJ L8I6KyFCJjcdaxicgcwJN 2IDOxSPTrhY83 lRIkWVnoBk0dw8A2w331R YQkUFGmcV77Fj7enPokLI CvfVGOxF0uwotgk8nwyxm gIzAwMDAwMDt0 VXy7XRWbbAnoNkWhKNB1C cD1BQY3iBPzoO2lfRsdqr rmaV4fCbc+G0C4D1NbAfw vdHI+OI36DKWi BV85bHYlnCPmo0fxsIa4N qCtYZVqESQ9kPcsFZkwz2 RnSDQeB13toSGrx3G4PBU vbGxhcHNlOyBl hAN3iO5nRTschcirk7yda jbeHzdxt9xwia99sR07V0 9sIHdpZHRoPSIzMCUiIHZ bxQggyc4nyK5s Ii8+POBngFI3jRS2kE1aQ qKyTxE6EXhkS417LlLfwB WdVawke4wij3lgoQs0OsT wJSIgdmFsaWdu XYK3s0WiUv72S83pNFadU HRoPSIyMCUiIHZhbGlnbj 4xcB1yUn9+MV2jq2ymhl7 8tG19lZP+PHRk RDM2sIxxIXuvNBBigT4eA QdqZoW4YMZaMyYxpJ29qP AwTVzhMx8hqVqpvFhnEA5 tPRCivywik406 HkNac1fjFCWokXMtMJqyN DM6M25ew3M3OXEvVYDuSJ O2jON4dJ2fsZjgktlhnIF mdDsgdmVydGlj PZkrFCejD850BRUkqSksN qUmhRBuK2uuvzOBGH8kXk wvdGQ+KKFvRLI4lEgnMBo gVLRrpR5lKKAe D5p2RnXeEyI7QAbpZ4Gng mT5FFTxeZWyOMSrhPHXyR 3sxdnqa6kqrshoYaCrVRD tGPv3PFm0BRGg fNuaFfIeJXU0CqL8BTT7n AJaqQ2zrXvrdhyvfF4tHz c+RklOOjwvdGQ+PHRkIHN 0eWxlPSdwYWRk aI3lCHZjB7z6MfInMjJ0K DetU1ZvdrY6IRAtoPVdUD JlhLNPoN0wmtkql6xrbcm gIzAwMDAwMDt0 QCo8PFDixLztMcFiPNL6U oX2FAH8cUZiaJ6pzLmklx ttzB1uGhk+TVJOOjwvdGQ +YPQdZEH9nGtg BIspHVNfgX9kABKpN3z1L bFlDaP7KHoxR1PqgrO5NH YjyISyMPVzcLZDzE2wpvm tx7ogvmxmUoMb GZOxCPb5XLl8VCLvkOzzD iVoFTO7ZpZ0ACD4xGAwsT 7nbPkmgpgryN0eLbm+UGF 6UNY1ZV03HT51 N7TjIheljDRubXG+PHRhY mxlIHdpZHRoPScxMDAlJy WnxEjaKT3oHa6iPDUeDDP vbGxhcHNlOiBj b2x (more content not included)... [facility] US LE Venous Duplex Bilatera elaine [...] Signature): Maurice Smith 07/19/22 3:13 pm Technologist: [facility] Provider Orderson 05-20-2022 Provider Orders [id number] [facility] US JUAN DOP LEG BILon 023 [...] authenticated by: VINAYAK ROSS Date: 2022-03-15 10:21 [facility] US JUAN DOP LEG LTon 01-01-20 [...] BUCK HOWARD Date: 2021-12-31 15:22 Normal [facility] CBC AUTO DIFFon 12-07-2021 BASO # 0.1 103/ul Normal 0.0-0.1 [facility] Comment on above: Performed By: #### P TTHEP #### [facility] [address] [place] [address] Dr. Dimas Bustos Basophils/100 WBC (Bld) 0.8 % Normal 0.2-2.0 [facility] Comment on above: Performed By: #### P TTHEP #### [facility] [address] [place] [address] Dr. Dimas Bustos EO # 0.2 103/ul Normal 0.0-0.7 [facility] Comment on above: Performed By: #### P TTHEP #### [facility] [address] [place] [address] Dr. Dimas Bustos Eosinophils/100 WBC (Bld) 1.5 % Normal 0.9-7.0 [facility] Comment on above: Performed By: #### P TTHEP #### [facility] [address] [place] [address] [address] Dimas Bustos Erythrocyte distribution width (RBC) [Ratio] 12.3 % Normal 11.0-15.0 [facility] Comment on above: Performed By: #### P TTHEP #### [facility] [address] [place] [address] Dr. Dimas Bustos Hematocrit (Bld) [Volume fraction] 41.4 % Critically low 42.0-54.0 [facility] Comment on above: Performed By: #### P TTHEP #### [facility] [address] [place] [address] [address] Dimas Bustos Hemoglobin (Bld) [Mass/Vol] 13.9 g/dL Critically low 14.0-18.0 [facility] Comment on above: Performed By: #### P TTHEP #### [facility] [address] [place] [address] Dr. Dimas Bustos IG # 0.30 10e3/ul Critically high 0.00-0.03 [facility] Comment on above: Performed By: #### P TTHEP #### [facility] [address] [place] [address] Dr. Dimas Bustos IG % 2.5 % Critically high 0.0-0.5 [facility] Comment on above: Performed By: #### P TTHEP #### [facility] [address] [place] [address] Dr. Dimas Bustos LYMPH # 2.8 103/ul Normal 1.2-3.8 [facility] Comment on above: Performed By: #### P TTHEP #### [facility] [address] [place] [address] Dr. Dimas Bustos Lymphocytes/100 WBC (Bld) 23.3 % Normal 20.5-60.0 [facility] Comment on above: Performed By: #### P TTHEP #### [facility] [address] [place] [address] Dr. Dimas Bustos MANUAL DIFF REQ NO Normal [facility] Comment on above: Performed By: #### P TTHEP #### [facility] [address] [place] [address] Dr. Dimas Bustos MCH (RBC) [Entitic mass] 31.2 pg Normal 25.9-34.0 [facility] Comment on above: Performed By: #### P TTHEP #### [facility] [address] [place] [address] Dr. Dimas Bustos MCHC (RBC) [Mass/Vol] 33.6 g/dL Normal 29.9-35.2 [facility] Comment on above: Performed By: #### P TTHEP #### [facility] [address] [place] [address] Dr. Dimas Bustos MCV (RBC) [Entitic vol] 93.0 fL Normal 80.0-94.0 [facility] Comment on above: Performed By: #### P TTHEP #### [facility] [address] [place] [address] Dr. Dimas Bustos MONO # 0.9 103/ul Critically high 0.3-0.8 [facility] Comment on above: Performed By: #### P TTHEP #### [facility] [address] [place] [address] Dr. Dimas Bustos Monocytes/100 WBC (Bld) 7.5 % Normal 1.7-12.0 [facility] Comment on above: Performed By: #### P TTHEP #### [facility] [address] [place] [address] Dr. Dimas Bustos NEUT # 7.8 103/ul Critically high 1.4-6.5 [facility] Comment on above: Performed By: #### P TTHEP #### [facility] [address] [place] [address] Dr. Dimas Bustos Neutrophils/100 WBC (Bld) 64.4 % Normal 43.0-75.0 [facility] Comment on above: Performed By: #### P TTHEP #### [facility] [address] [place] [address] Dr. Dimas Bustos Platelet mean volume (Bld) [Entitic vol] 8.9 fL Critically low 9.5-13.5 [facility] Comment on above: Performed By: #### P TTHEP #### [facility] [address] [place] [address] Dr. Dimas Bustos PLT 420 103/ul Normal 150-450 [facility] Comment on above: Performed By: #### P TTHEP #### [facility] [address] [place] [address] Dr. Dimas Bustos RBC 4.45 106/ul Critically low 4.70-6.10 [facility] Comment on above: Performed By: #### P TTHEP #### [facility] [address] [place] [address] Dr. Dimas Bustos WBC 12.1 103/ul Critically high 4.0-11.0 [facility] Comment on above: Performed By: #### P TTHEP #### [facility] [address] [place] [address] Dr. Dimas Bustos PROF 14(COMP METB)on 022 Albumin [Mass/Vol] 2.8 g/dL Critically low 3.4-5.0 [facility] Comment on above: Performed By: #### C MP #### [facility] [address] [place] [address] Dr. Dimas Bustos Albumin/Globulin [Mass ratio] 0.6 {ratio} Normal [facility] Comment on above: Performed By: #### C MP #### [facility] [address] [place] [address] Dr. Dimas Bustos ALP [Catalytic activity/Vol] 113 U/L Normal 46-116 [facility] Comment on above: Performed By: #### C MP #### [facility] [address] [place] [address] Dr. Dimas Bustos ALT [Catalytic activity/Vol] 56 U/L Normal 16-63 [facility] Comment on above: Performed By: #### C MP #### [facility] [address] [place] [address] Dr. Dimas Bustos Anion gap [Moles/Vol] 15.7 mmol/L Normal [facility] Comment on above: Performed By: #### C MP #### [facility] [address] [place] [address] Dr. Dimas Bustos AST [Catalytic activity/Vol] 22 U/L Normal 15-37 [facility] Comment on above: Performed By: #### C MP #### [facility] [address] [place] [address] Dr. Dimas Bustos Bilirubin [Mass/Vol] 0.2 mg/dL Normal 0.2-1.0 [facility] Comment on above: Performed By: #### C MP #### [facility] [address] [place] [address] Dr. Dimas Bustos Calcium [Mass/Vol] 9.4 mg/dL Normal 8.5-10.1 [facility] Comment on above: Performed By: #### C MP #### [facility] [address] [place] [address] Dr. Dimas Bustos Chloride [Moles/Vol] 100 mmol/L Normal 98-107 [facility] Comment on above: Performed By: #### C MP #### [facility] [address] [place] [address] Dr. Dimas Bustos CO2 [Moles/Vol] 24.5 mmol/L Normal 21.0-32.0 [facility] Comment on above: Performed By: #### C MP #### [facility] [address] [place] [address] Dr. Dimas Bustos Creatinine [Mass/Vol] 0.80 mg/dL Normal 0.70-1.30 [facility] Comment on above: Performed By: #### C MP #### [facility] [address] [place] [address] Dr. Dimas Bustos EGFR-AF SLOVAK >60 Normal >=60 [facility] Comment on above: Performed By: #### C MP #### [facility] [address] [place] [address] Dr. Dimas Bustos EGFR-NON AF SLOVAK >60 Normal >=60 [facility] Comment on above: Performed By: #### C MP #### [facility] [address] [place] [address] Dr. Dimas Bustos Globulin (S) [Mass/Vol] 4.5 g/dL Normal [facility] Comment on above: Performed By: #### C MP #### [facility] [address] [place] [address] Dr. Dimas Bustos Glucose [Mass/Vol] 123 mg/dL Critically high 74-106 [facility] Comment on above: Performed By: #### C MP #### [facility] [address] [place] [address] [address] Dimas Butsos Potassium [Moles/Vol] 4.2 mmol/L Normal 3.5-5.1 [facility] Comment on above: Performed By: #### C MP #### [facility] [address] [place] [address] [address] Dimas Bustos Protein [Mass/Vol] 7.3 g/dL Normal 6.4-8.[address] [facility] Comment on above: Performed By: #### C MP #### [facility] [address] [place] [address] [address] Dimas Bustos Sodium [Moles/Vol] 136 mmol/L Normal 136-[address] [facility] Comment on above: Performed By: #### C MP #### [facility] [address] [place] [address] Dr. Dimas Bustos Urea nitrogen [Mass/Vol] 17.0 mg/dL Normal 7.0-18.0 [facility] Comment on above: Performed By: #### C MP #### [facility] [address] [address] [address] Dimas Bustos Urea nitrogen/Creatinine [Mass ratio] 21.2 mg/mg Normal [facility] Comment on above: Performed By: #### C MP #### [facility] [address] [place] [address] Dr. Dimas Bustos PROTIMEon 12-07-2021 INR Coag (PPP) [Relative time] 1.42 {INR} Normal [facility] Comment on above: Performed By: #### C VDTBH #### [facility] [address] [address] [address] Dimas Bustos INR GUIDELINES SEE BELOW Normal [facility] Comment on above: Result Comment: GEOVANNI RED INR: 2.0 - 3.0 CONDITIONS NOT LISTED BELOW 2.5 - 3.5 FOR PROSTHETIC HEART VALVE REPLACEMENT 2.5 - 3.5 RECURRENT THROMBOSIS Performed By: #### C VDTBH #### [facility] [address] [place] [address] Dr. Dimas Bustos PT Coag (PPP) [Time] 15.0 s Critically high 9.0-11.6 [facility] Comment on above: Performed By: #### C VDTBH #### [facility] [address] [place] [address] Dr. Dimas Bustos PTT HEPARIN MONITORon 2021 aPTT Coag (Bld) [Time] 68.4 s Critically high 39.5-54.2 [facility] Comment on above: Performed By: #### C VDTBH #### [facility] [address] [place] [address] Dr. Dimas Bustos CBC AUTO DIFFon 12-06-2021 BASO # 0.1 103/ul Normal 0.0-0.1 [facility] Comment on above: Performed By: #### P TTHEP #### [facility] [address] [place] [address] Dr. Dimas Bustos Basophils/100 WBC (Bld) 0.7 % Normal 0.2-2.0 [facility] Comment on above: Performed By: #### P TTHEP #### [facility] [address] [place] [address] Dr. Dimas Bustos EO # 0.3 103/ul Normal 0.0-0.7 [facility] Comment on above: Performed By: #### P TTHEP #### [facility] [address] [place] [address] Dr. Dimas Bustos Eosinophils/100 WBC (Bld) 2.2 % Normal 0.9-7.0 [facility] Comment on above: Performed By: #### P TTHEP #### [facility] [address] [place] [address] Dr. Dimas Bustos Erythrocyte distribution width (RBC) [Ratio] 12.4 % Normal 11.0-15.0 [facility] Comment on above: Performed By: #### P TTHEP #### [facility] [address] [place] [address] Dr. Dimas Bustos Hematocrit (Bld) [Volume fraction] 42.3 % Normal 42.0-54.0 [facility] Comment on above: Performed By: #### P TTHEP #### [facility] [address] [address] [address] Dimas Bustos Hemoglobin (Bld) [Mass/Vol] 14.2 g/dL Normal 14.0-18.0 [facility] Comment on above: Performed By: #### P TTHEP #### [facility] [address] [address] [address] Dimas Bustos IG # 0.20 10e3/ul Critically high 0.00-0.03 [facility] Comment on above: Performed By: #### P TTHEP #### [facility] [address] [address] [address] Dimas Bustos IG % 1.8 % Critically high 0.0-0.5 [facility] Comment on above: Performed By: #### P TTHEP #### [facility] [address] [place] [address] Dr. Dimas Bustos LYMPH # 2.9 103/ul Normal 1.2-3.8 [facility] Comment on above: Performed By: #### P TTHEP #### [facility] [address] [address] [address] Dimas Bustos Lymphocytes/100 WBC (Bld) 25.1 % Normal 20.5-60.0 [facility] Comment on above: Performed By: #### P TTHEP #### [facility] [address] [address] [address] Dimas Bustos MANUAL DIFF REQ NO Normal [facility] Comment on above: Performed By: #### P TTHEP #### [facility] [address] [address] [address] Dimas Bustos MCH (RBC) [Entitic mass] 31.6 pg Normal 25.9-34.0 [facility] Comment on above: Performed By: #### P TTHEP #### [facility] [address] [address] [address] Dimas Bustos MCHC (RBC) [Mass/Vol] 33.6 g/dL Normal 29.9-35.2 [facility] Comment on above: Performed By: #### P TTHEP #### [facility] [address] [address] [address] Dimas Bustos MCV (RBC) [Entitic vol] 94.0 fL Normal 80.0-94.0 [facility] Comment on above: Performed By: #### P TTHEP #### [facility] [address] [place] [address] Dr. Dimas Bustos MONO # 0.9 103/ul Critically high 0.3-0.8 [facility] Comment on above: Performed By: #### P TTHEP #### [facility] [address] [place] [address] Dr. Dimas Bustos Monocytes/100 WBC (Bld) 7.7 % Normal 1.7-12.0 [facility] Comment on above: Performed By: #### P TTHEP #### [facility] [address] [place] [address] Dr. Dimas Bustos NEUT # 7.1 103/ul Critically high 1.4-6.5 [facility] Comment on above: Performed By: #### P TTHEP #### [facility] [address] [place] [address] Dr. Dimas Bustos Neutrophils/100 WBC (Bld) 62.5 % Normal 43.0-75.0 [facility] Comment on above: Performed By: #### P TTHEP #### [facility] [address] [place] [address] Dr. Dimas Bustos Platelet mean volume (Bld) [Entitic vol] 8.8 fL Critically low 9.5-13.5 [facility] Comment on above: Performed By: #### P TTHEP #### [facility] [address] [place] [address] Dr. Dimas Bustos PLT 373 103/ul Normal 150-450 [facility] Comment on above: Performed By: #### P TTHEP #### [facility] [facility] [address] [place] [address] Dr. Dimas Bustos RBC 4.50 106/ul Critically low 4.70-6.10 [facility] Comment on above: Performed By: #### P TTHEP #### [facility] [address] [address] [address] Dimas Bustos WBC 11.4 103/ul Critically high 4.0-11.0 [facility] Comment on above: Performed By: #### P TTHEP #### [facility] [address] [address] [address] Dimas Bustos PROF 14(COMP METB)on 022 Albumin [Mass/Vol] 2.7 g/dL Critically low 3.4-5.0 [facility] Comment on above: Performed By: #### P TTHEP #### [facility] [address] [place] [address] Dr. Dimas Bustos Albumin/Globulin [Mass ratio] 0.6 {ratio} Normal [facility] Comment on above: Performed By: #### P TTHEP #### [facility] [address] [place] [address] Dr. Dimas Bustos ALP [Catalytic activity/Vol] 100 U/L Normal 46-116 [facility] Comment on above: Performed By: #### P TTHEP #### [facility] [address] [place] [address] Dr. Dimas Bustos ALT [Catalytic activity/Vol] 51 U/L Normal 16-63 [facility] Comment on above: Performed By: #### P TTHEP #### [facility] [address] [place] [address] Dr. Dimas Bustos Anion gap [Moles/Vol] 8.8 mmol/L Normal [facility] Comment on above: Performed By: #### P TTHEP #### [facility] [address] [place] [address] Dr. Dimas Bustos AST [Catalytic activity/Vol] 21 U/L Normal 15-37 [facility] Comment on above: Performed By: #### P TTHEP #### [facility] [address] [place] [address] Dr. Dimas Bustos Bilirubin [Mass/Vol] 0.2 mg/dL Normal 0.2-1.0 [facility] Comment on above: Performed By: #### P TTHEP #### [facility] [address] [place] [address] Dr. Dimas Bustos Calcium [Mass/Vol] 9.6 mg/dL Normal 8.5-10.1 [facility] Comment on above: Performed By: #### P TTHEP #### [facility] [address] [place] [address] Dr. Dimas Bustos Chloride [Moles/Vol] 101 mmol/L Normal 98-107 [facility] Comment on above: Performed By: #### P TTHEP #### [facility] [address] [place] [address] Dr. Dimas Bustos CO2 [Moles/Vol] 31.2 mmol/L Normal 21.0-32.0 [facility] Comment on above: Performed By: #### P TTHEP #### [facility] [address] [place] [address] Dr. Dimas Bustos Creatinine [Mass/Vol] 0.84 mg/dL Normal 0.70-1.30 [facility] Comment on above: Performed By: #### P TTHEP #### [facility] [address] [place] [address] Dr. Dimas Bustos EGFR-AF SLOVAK >60 Normal >=60 [facility] Comment on above: Performed By: #### P TTHEP #### [facility] [address] [place] [address] Dr. Dimas Bustos EGFR-NON AF SLOVAK >60 Normal >=60 [facility] Comment on above: Performed By: #### P TTHEP #### [facility] [address] [place] [address] Dr. Dimas Bustos Globulin (S) [Mass/Vol] 4.5 g/dL Normal [facility] Comment on above: Performed By: #### P TTHEP #### [facility] [address] [place] [address] Dr. Dimas Bustos Glucose [Mass/Vol] 113 mg/dL Critically high 74-106 [facility] Comment on above: Performed By: #### P TTHEP #### [facility] [address] [place] [address] Dr. Dimas Bustos Potassium [Moles/Vol] 5.0 mmol/L Normal 3.5-5.1 [facility] Comment on above: Performed By: #### P TTHEP #### [facility] [address] [place] [address] Dr. Dimas Bustos Protein [Mass/Vol] 7.2 g/dL Normal 6.4-8.2 [facility] Comment on above: Performed By: #### P TTHEP #### [facility] [address] [place] [address] Dr. Dimas Bustos Sodium [Moles/Vol] 136 mmol/L Normal 136-145 [facility] Comment on above: Performed By: #### P TTHEP #### [facility] [address] [place] [address] Dr. Dimas Bustos Urea nitrogen [Mass/Vol] 14.0 mg/dL Normal 7.0-18.0 [facility] Comment on above: Performed By: #### P TTHEP #### [facility] [address] [place] [address] Dr. Dimas Bustos Urea nitrogen/Creatinine [Mass ratio] 16.7 mg/mg Normal [facility] Comment on above: Performed By: #### P TTHEP #### [facility] [address] [place] [address] Dr. Dimas Bustos PROTIMEon 12-06-2021 INR Coag (PPP) [Relative time] 1.22 {INR} Normal [facility] Comment on above: Performed By: #### P TTHEP #### [facility] [address] [place] [address] Dr. Dimas Bustos INR GUIDELINES SEE BELOW Normal [facility] Comment on above: Result Comment: GEOVANNI RED INR: 2.0 - 3.0 CONDITIONS NOT LISTED BELOW 2.5 - 3.5 FOR PROSTHETIC HEART VALVE REPLACEMENT 2.5 - 3.5 RECURRENT THROMBOSIS Performed By: #### P TTHEP #### [facility] [address] [address] [address] Dimas Bustos PT Coag (PPP) [Time] 13.0 s Critically high 9.0-11.6 [facility] Comment on above: Performed By: #### P TTHEP #### [facility] [address] [address] [address] Dimas Bustos PTTon 12-06-2021 aPTT Coag (Bld) [Time] 61.4 s Critically high 22.3-36.2 [facility] Comment on above: Performed By: #### P TTHEP #### [facility] [address] [place] [address] Dr. Dimas Bustos US JUAN DOP LEG [...] VINAYAK ROSS Date: 2021-12-06 09:03 Normal [facility] CBC AUTO DIFFon 12-05-2021 BASO # 0.1 103/ul Normal 0.0-0.1 [facility] Comment on above: Performed By: #### C BC #### [facility] [address] [place] [address] Dr. Dimas Bustos Basophils/100 WBC (Bld) 0.5 % Normal 0.2-2.0 [facility] Comment on above: Performed By: #### C BC #### [facility] [address] [place] [address] Dr. Dimas Bustos EO # 0.2 103/ul Normal 0.0-0.7 [facility] Comment on above: Performed By: #### C BC #### [facility] [address] [address] [address] Dimas Bustos Eosinophils/100 WBC (Bld) 1.6 % Normal 0.9-7.0 [facility] Comment on above: Performed By: #### C BC #### [facility] [address] [place] [address] Dr. Dimas Bustos Erythrocyte distribution width (RBC) [Ratio] 12.2 % Normal 11.0-15.0 [facility] Comment on above: Performed By: #### C BC #### [facility] [address] [place] [address] Dr. Dimas Bustos Hematocrit (Bld) [Volume fraction] 41.6 % Critically low 42.0-54.0 [facility] Comment on above: Performed By: #### C BC #### [facility] [address] [place] [address] Dr. Dimas Bustos Hemoglobin (Bld) [Mass/Vol] 13.8 g/dL Critically low 14.0-18.0 [facility] Comment on above: Performed By: #### C BC #### [facility] [address] [place] [address] Dr. Dimas Bustos IG # 0.09 10e3/ul Critically high 0.00-0.03 [facility] Comment on above: Performed By: #### C BC #### [facility] [address] [place] [address] Dr. Dimas Bustos IG % 0.9 % Critically high 0.0-0.5 [facility] Comment on above: Performed By: #### C BC #### [facility] [address] [place] [address] Dr. Dimas Bustos LYMPH # 2.1 103/ul Normal 1.2-3.8 [facility] Comment on above: Performed By: #### C BC #### [facility] [address] [place] [address] Dr. Dimas Bustos Lymphocytes/100 WBC (Bld) 20.2 % Critically low 20.5-60.0 [facility] Comment on above: Performed By: #### C BC #### [facility] [address] [place] [address] Dr. Dimas Bustos MANUAL DIFF REQ NO Normal [facility] Comment on above: Performed By: #### C BC #### [facility] [address] [place] [address] Dr. Dimas Bustos MCH (RBC) [Entitic mass] 30.7 pg Normal 25.9-34.0 [facility] Comment on above: Performed By: #### C BC #### [facility] [address] [place] [address] Dr. Dimas Bustos MCHC (RBC) [Mass/Vol] 33.2 g/dL Normal 29.9-35.2 [facility] Comment on above: Performed By: #### C BC #### [facility] [address] [place] [address] Dr. Dimas Bustos MCV (RBC) [Entitic vol] 92.4 fL Normal 80.0-94.0 [facility] Comment on above: Performed By: #### C BC #### [facility] [address] [place] [address] Dr. Dimas Bustos MONO # 0.9 103/ul Critically high 0.3-0.8 [facility] Comment on above: Performed By: #### C BC #### [facility] [address] [place] [address] Dr. Dimas Bustos Monocytes/100 WBC (Bld) 8.4 % Normal 1.7-12.0 [facility] Comment on above: Performed By: #### C BC #### [facility] [address] [place] [address] Dr. Dimas Bustos NEUT # 6.9 103/ul Critically high 1.4-6.5 [facility] Comment on above: Performed By: #### C BC #### [facility] [address] [place] [address] Dr. Dimas Bustos Neutrophils/100 WBC (Bld) 68.4 % Normal 43.0-75.0 [facility] Comment on above: Performed By: #### C BC #### [facility] [address] [address] [address] Dimas Bustos Platelet mean volume (Bld) [Entitic vol] 9.2 fL Critically low 9.5-13.5 [facility] Comment on above: Performed By: #### C BC #### [facility] [address] [address] [address] Dimas Bustos PLT 371 103/ul Normal 150-450 [facility] Comment on above: Performed By: #### C BC #### [facility] [address] [address] [address] Dimas Bustos RBC 4.50 106/ul Critically low 4.70-6.10 [facility] Comment on above: Performed By: #### C BC #### [facility] [address] [place] [address] Dr. Dimas Bustos WBC 10.1 103/ul Normal 4.0-11.0 [facility] Comment on above: Performed By: #### C BC #### [facility] [address] [place] [address] Dr. Dimas Bustos PROF 14(COMP METB)on 022 Albumin [Mass/Vol] 2.7 g/dL Critically low 3.4-5.0 [facility] Comment on above: Performed By: #### C MP #### [facility] [address] [place] [address] Dr. Dimas Bustos Albumin/Globulin [Mass ratio] 0.6 {ratio} Normal [facility] Comment on above: Performed By: #### C MP #### [facility] [address] [place] [address] Dr. Dimas Bustos ALP [Catalytic activity/Vol] 98 U/L Normal 46-116 [facility] Comment on above: Performed By: #### C MP #### [facility] [address] [place] [address] Dr. Dimas Bustos ALT [Catalytic activity/Vol] 43 U/L Normal 16-63 [facility] Comment on above: Performed By: #### C MP #### [facility] [address] [address] [address] Dimas Bustos Anion gap [Moles/Vol] 9.9 mmol/L Normal [facility] Comment on above: Performed By: #### C MP #### [facility] [address] [address] [address] Dimas Bustos AST [Catalytic activity/Vol] 17 U/L Normal 15-37 [facility] Comment on above: Performed By: #### C MP #### [facility] [address] [address] [address] Dimas Bustos Bilirubin [Mass/Vol] 0.3 mg/dL Normal 0.2-1.0 [facility] Comment on above: Performed By: #### C MP #### [facility] [address] [place] [address] Dr. Dimas Bustos Calcium [Mass/Vol] 9.5 mg/dL Normal 8.5-10.[address] [facility] Comment on above: Performed By: #### C MP #### [facility] [address] [place] [address] Dr. Dimas Bustos Chloride [Moles/Vol] 103 mmol/L Normal 98-107 [facility] Comment on above: Performed By: #### C MP #### [facility] [address] [place] [address] Dr. Dimas Bustos CO2 [Moles/Vol] 28.2 mmol/L Normal 21.0-32.0 [facility] Comment on above: Performed By: #### C MP #### [facility] [address] [place] [address] Dr. Dimas Bustos Creatinine [Mass/Vol] 0.77 mg/dL Normal 0.70-1.30 [facility] Comment on above: Performed By: #### C MP #### [facility] [address] [place] [address] Dr. Dimas Bustos EGFR-AF SLOVAK >60 Normal >=60 [facility] Comment on above: Performed By: #### C MP #### [facility] [address] [address] [address] Dimas Bustos EGFR-NON AF SLOVAK >60 Normal >=60 [facility] Comment on above: Performed By: #### C MP #### [facility] [address] [place] [address] Dr. Dimas Bustos Globulin (S) [Mass/Vol] 4.6 g/dL Normal [facility] Comment on above: Performed By: #### C MP #### [facility] [address] [place] [address] Dr. Dimas Bustos Glucose [Mass/Vol] 119 mg/dL Critically high 74-106 [facility] Comment on above: Performed By: #### C MP #### [facility] [address] [place] [address] Dr. Dimas Bustos Potassium [Moles/Vol] 4.1 mmol/L Normal 3.5-5.1 [facility] Comment on above: Performed By: #### C MP #### [facility] [address] [place] [address] Dr. Dimas Bustos Protein [Mass/Vol] 7.3 g/dL Normal 6.4-8.2 [facility] Comment on above: Performed By: #### C MP #### [facility] [address] [place] [address] Dr. Dimas Bustos Sodium [Moles/Vol] 137 mmol/L Normal 136-145 [facility] Comment on above: Performed By: #### C MP #### [facility] [address] [place] [address] Dr. Dimas Bustos Urea nitrogen [Mass/Vol] 11.0 mg/dL Normal 7.0-18.0 [facility] Comment on above: Performed By: #### C MP #### [facility] [address] [place] [address] Dr. Dimas Bustos Urea nitrogen/Creatinine [Mass ratio] 14.3 mg/mg Normal [facility] Comment on above: Performed By: #### C MP #### [facility] [address] [place] [address] Dr. Dimas Bustos PROTIMEon 12-05-2021 INR Coag (PPP) [Relative time] 1.16 {INR} Normal [facility] Comment on above: Performed By: #### P TTHEP #### [facility] [address] [place] [address] Dr. Dimas Bustos INR GUIDELINES SEE BELOW Normal [facility] Comment on above: Result Comment: GEOVANNI RED INR: 2.0 - 3.0 CONDITIONS NOT LISTED BELOW 2.5 - 3.5 FOR PROSTHETIC HEART VALVE REPLACEMENT 2.5 - 3.5 RECURRENT THROMBOSIS Performed By: #### P TTHEP #### [facility] [address] [place] [address] Dr. Dimas Bustos PT Coag (PPP) [Time] 12.4 s Critically high 9.0-11.6 [facility] Comment on above: Performed By: #### P TTHEP #### [facility] [address] [place] [address] Dr. Dimas Bustos PTTon 12-05-2021 aPTT Coag (Bld) [Time] 50.7 s Critically high 22.3-36.2 [facility] Comment on above: Performed By: #### P TT #### [facility] [address] [place] [address] Dr. Dimas Bustos aPTT Coag (Bld) [Time] 51.3 s Critically high 22.3-36.2 [facility] Comment on above: Performed By: #### P TTHEP #### [facility] [address] [place] [address] Dr. Dimas Bustos aPTT Coag (Bld) [Time] 52.7 s Critically high 22.3-36.2 [facility] Comment on above: Performed By: #### C VDTBH #### [facility] [address] [place] [address] Dr. Dimas Bustos PTT HEPARIN MONITORon 2021 aPTT Coag (Bld) [Time] 42.3 s Normal 39.5-54.2 [facility] Comment on above: Performed By: #### P TTHEP #### [facility] [address] [place] [address] Dr. Dimas Bustos CBC AUTO DIFFon 12-04-2021 BASO # 0.0 103/ul Normal 0.0-0.1 [facility] Comment on above: Performed By: #### C BC #### [facility] [address] [address] [address] Dimas Bustos Basophils/100 WBC (Bld) 0.3 % Normal 0.2-2.0 [facility] Comment on above: Performed By: #### C BC #### [facility] [address] [place] [address] Dr. Dimas Bustos EO # 0.1 103/ul Normal 0.0-0.7 [facility] Comment on above: Performed By: #### C BC #### [facility] [address] [place] [address] Dr. Dimas Bustos Eosinophils/100 WBC (Bld) 1.2 % Normal 0.9-7.0 [facility] Comment on above: Performed By: #### C BC #### [facility] [address] [place] [address] Dr. Dimas Bustos Erythrocyte distribution width (RBC) [Ratio] 12.3 % Normal 11.0-15.0 [facility] Comment on above: Performed By: #### C BC #### [facility] [address] [place] [address] Dr. Dimas Bustos Hematocrit (Bld) [Volume fraction] 39.8 % Critically low 42.0-54.0 [facility] Comment on above: Performed By: #### C BC #### [facility] [address] [place] [address] Dr. Dimas Bustos Hemoglobin (Bld) [Mass/Vol] 13.5 g/dL Critically low 14.0-18.0 [facility] Comment on above: Performed By: #### C BC #### [facility] [address] [place] [address] Dr. Dimas Bustos IG # 0.07 10e3/ul Critically high 0.00-0.03 [facility] Comment on above: Performed By: #### C BC #### [facility] [address] [place] [address] Dr. Dimas Bustos IG % 0.6 % Critically high 0.0-0.5 [facility] Comment on above: Performed By: #### C BC #### [facility] [address] [place] [address] Dr. Dimas Bustos LYMPH # 1.8 103/ul Normal 1.2-3.8 [facility] Comment on above: Performed By: #### C BC #### [facility] [address] [place] [address] Dr. Dimas Bustos Lymphocytes/100 WBC (Bld) 16.6 % Critically low 20.5-60.0 [facility] Comment on above: Performed By: #### C BC #### [facility] [address] [place] [address] Dr. Dimas Bustos MANUAL DIFF REQ NO Normal [facility] Comment on above: Performed By: #### C BC #### [facility] [address] [place] [address] Dr. Dimas Bustos MCH (RBC) [Entitic mass] 31.5 pg Normal 25.9-34.0 [facility] Comment on above: Performed By: #### C BC #### [facility] [address] [place] [address] Dr. Dimas Bustos MCHC (RBC) [Mass/Vol] 33.9 g/dL Normal 29.9-35.2 [facility] Comment on above: Performed By: #### C BC #### [facility] [address] [place] [address] Dr. Dimas Bustos MCV (RBC) [Entitic vol] 92.8 fL Normal 80.0-94.0 [facility] Comment on above: Performed By: #### C BC #### [facility] [address] [place] [address] Dr. Dimas Bustos MONO # 0.9 103/ul Critically high 0.3-0.8 [facility] Comment on above: Performed By: #### C BC #### [facility] [address] [place] [address] Dr. Dimas Bustos Monocytes/100 WBC (Bld) 7.9 % Normal 1.7-12.0 [facility] Comment on above: Performed By: #### C BC #### [facility] [address] [place] [address] Dr. Dimas Bustos NEUT # 8.0 103/ul Critically high 1.4-6.5 [facility] Comment on above: Performed By: #### C BC #### [facility] [address] [place] [address] Dr. Dimas Bustos Neutrophils/100 WBC (Bld) 73.4 % Normal 43.0-75.0 [facility] Comment on above: Performed By: #### C BC #### [facility] [address] [place] [address] Dr. Dimas Bustos Platelet mean volume (Bld) [Entitic vol] 8.9 fL Critically low 9.5-13.5 [facility] Comment on above: Performed By: #### C BC #### [facility] [address] [place] [address] Dr. Dimas Bustos PLT 329 103/ul Normal 150-450 [facility] Comment on above: Performed By: #### C BC #### [facility] [address] [place] [address] Dr. Dimas Bustos RBC 4.29 106/ul Critically low 4.70-6.10 [facility] Comment on above: Performed By: #### C BC #### [facility] [address] [place] [address] Dr. Dimas Bustos WBC 10.9 103/ul Normal 4.0-11.0 [facility] Comment on above: Performed By: #### C BC #### [facility] [address] [place] [address] Dr. Dimas Bustos PROF 14(COMP METB)on 022 Albumin [Mass/Vol] 2.6 g/dL Critically low 3.4-5.0 [facility] Comment on above: Performed By: #### C VDTB #### [facility] [address] [place] [address] Dr. Dimas Bustos Albumin/Globulin [Mass ratio] 0.6 {ratio} Normal [facility] Comment on above: Performed By: #### C VDTBH #### [facility] [address] [place] [address] Dr. Dimas Bustos ALP [Catalytic activity/Vol] 97 U/L Normal 46-116 [facility] Comment on above: Performed By: #### C VDTBH #### [facility] [address] [place] [address] Dr. Dimas Bustos ALT [Catalytic activity/Vol] 33 U/L Normal 16-63 [facility] Comment on above: Performed By: #### C VDTBH #### [facility] [address] [place] [address] Dr. Dimas Bustos Anion gap [Moles/Vol] 12.8 mmol/L Normal [facility] Comment on above: Performed By: #### C VDTBH #### [facility] [address] [place] [address] Dr. Dimas Bustos AST [Catalytic activity/Vol] 13 U/L Critically low 15-37 [facility] Comment on above: Performed By: #### C VDTBH #### [facility] [address] [place] [address] Dr. Dimas Bustos Bilirubin [Mass/Vol] 0.2 mg/dL Normal 0.2-1.0 [facility] Comment on above: Performed By: #### C VDTBH #### [facility] [address] [place] [address] Dr. Dimas Bustos Calcium [Mass/Vol] 9.1 mg/dL Normal 8.5-10.1 [facility] Comment on above: Performed By: #### C VDTBH #### [facility] [address] [place] [address] Dr. Dimas Bustos Chloride [Moles/Vol] 102 mmol/L Normal 98-107 [facility] Comment on above: Performed By: #### C VDTBH #### [facility] [address] [place] [address] Dr. Dimas Bustos CO2 [Moles/Vol] 26.6 mmol/L Normal 21.0-32.0 [facility] Comment on above: Performed By: #### C VDTBH #### [facility] [address] [place] [address] Dr. Dimas Bustos Creatinine [Mass/Vol] 0.76 mg/dL Normal 0.70-1.30 [facility] Comment on above: Performed By: #### C VDTBH #### [facility] [address] [place] [address] Dr. Dimas Bustos EGFR-AF SLOVAK >60 Normal >=60 [facility] Comment on above: Performed By: #### C VDTBH #### [facility] [address] [place] [address] Dr. Dimas Bustos EGFR-NON AF SLOVAK >60 Normal >=60 [facility] Comment on above: Performed By: #### C VDTBH #### [facility] [address] [place] [address] Dr. Dimas Bustos Globulin (S) [Mass/Vol] 4.4 g/dL Normal [facility] Comment on above: Performed By: #### C VDTBH #### [facility] [address] [place] [address] Dr. Dimas Bustos Glucose [Mass/Vol] 117 mg/dL Critically high 74-106 [facility] Comment on above: Performed By: #### C VDTBH #### [facility] [address] [place] [address] Dr. Dimas Bustos Potassium [Moles/Vol] 4.4 mmol/L Normal 3.5-5.1 [facility] Comment on above: Performed By: #### C VDTBH #### [facility] [address] [place] [address] Dr. Dimas Bustos Protein [Mass/Vol] 7.0 g/dL Normal 6.4-8.[address] [facility] Comment on above: Performed By: #### C VDTBH #### [facility] [address] [place] [address] Dr. Dimas Bustos Sodium [Moles/Vol] 137 mmol/L Normal 136-145 [facility] Comment on above: Performed By: #### C VDTBH #### [facility] [address] [place] [address] Dr. Dimas Bustos Urea nitrogen [Mass/Vol] 11.0 mg/dL Normal 7.0-18.0 [facility] Comment on above: Performed By: #### C VDTBH #### [facility] [address] [place] [address] Dr. Dimas Bustos Urea nitrogen/Creatinine [Mass ratio] 14.5 mg/mg Normal [facility] Comment on above: Performed By: #### C VDTBH #### [facility] [address] [place] [address] Dr. Dimas Bustos PROTIMEon 12-04-2021 INR Coag (PPP) [Relative time] 1.03 {INR} Normal [facility] Comment on above: Performed By: #### P TTHEP #### [facility] [address] [place] [address] Dr. Dimas Bustos INR GUIDELINES SEE BELOW Normal [facility] Comment on above: Result Comment: GEOVANNI RED INR: 2.0 - 3.0 CONDITIONS NOT LISTED BELOW 2.5 - 3.5 FOR PROSTHETIC HEART VALVE REPLACEMENT 2.5 - 3.5 RECURRENT THROMBOSIS Performed By: #### P TTHEP #### [facility] [address] [place] [address] Dr. Dimas Bustos PT Coag (PPP) [Time] 11.1 s Normal 9.0-11.6 [facility] Comment on above: Performed By: #### P TTHEP #### [facility] [address] [place] [address] Dr. Dimas Bustos PTT HEPARIN MONITORon 2021 aPTT Coag (Bld) [Time] 41.6 s Normal 39.5-54.2 [facility] Comment on above: Performed By: #### P TTHEP #### [facility] [address] [place] [address] Dr. Dimas Bustos aPTT Coag (Bld) [Time] 42.1 s Normal 39.5-54.2 [facility] Comment on above: Performed By: #### P TT #### [facility] [address] [place] [address] Dr. Dimas Bustos aPTT Coag (Bld) [Time] 42.4 s Normal 39.5-54.2 [facility] Comment on above: Performed By: #### P TTHEP #### [facility] [address] [place] [address] Dr. Dimas Bustos aPTT Coag (Bld) [Time] 40.7 s Normal 39.5-54.2 [facility] Comment on above: Performed By: #### C VDTBH #### [facility] [address] [place] [address] Dr. Dimas Bustos CBC AUTO DIFFon 12-03-2021 BASO # 0.0 103/ul Normal 0.0-0.1 [facility] Comment on above: Performed By: #### P TTHEP #### [facility] [address] [place] [address] Dr. Dimas Bustos Basophils/100 WBC (Bld) 0.3 % Normal 0.2-2.0 [facility] Comment on above: Performed By: #### P TTHEP #### [facility] [address] [place] [address] Dr. Dimas Bustos EO # 0.1 103/ul Normal 0.0-0.7 [facility] Comment on above: Performed By: #### P TTHEP #### [facility] [address] [place] [address] Dr. Dimas Bustos Eosinophils/100 WBC (Bld) 0.8 % Critically low 0.9-7.0 [facility] Comment on above: Performed By: #### P TTHEP #### [facility] [address] [place] [address] Dr. Dimas Bustos Erythrocyte distribution width (RBC) [Ratio] 12.3 % Normal 11.0-15.0 [facility] Comment on above: Performed By: #### P TTHEP #### [facility] [address] [address] [address] Dimas Bustos Hematocrit (Bld) [Volume fraction] 40.8 % Critically low 42.0-54.0 [facility] Comment on above: Performed By: #### P TTHEP #### [facility] [address] [address] [address] Dimas Bustos Hemoglobin (Bld) [Mass/Vol] 13.8 g/dL Critically low 14.0-18.0 [facility] Comment on above: Performed By: #### P TTHEP #### [facility] [address] [address] [address] Dimas Bustos IG # 0.06 10e3/ul Critically high 0.00-0.03 [facility] Comment on above: Performed By: #### P TTHEP #### [facility] [address] [place] [address] Dr. Dimas Bustos IG % 0.5 % Normal 0.0-0.5 [facility] Comment on above: Performed By: #### P TTHEP #### [facility] [address] [address] [address] Dimas Bustos LYMPH # 1.6 103/ul Normal 1.2-3.8 [facility] Comment on above: Performed By: #### P TTHEP #### [facility] [address] [place] [address] Dr. Dimas Bustos Lymphocytes/100 WBC (Bld) 13.7 % Critically low 20.5-60.0 [facility] Comment on above: Performed By: #### P TTHEP #### [facility] [address] [place] [address] Dr. Dimas Bustos MANUAL DIFF REQ NO Normal [facility] Comment on above: Performed By: #### P TTHEP #### [facility] [address] [place] [address] Dr. Dimas Bustos MCH (RBC) [Entitic mass] 31.4 pg Normal 25.9-34.0 [facility] Comment on above: Performed By: #### P TTHEP #### [facility] [address] [address] [address] Dimas Bustos MCHC (RBC) [Mass/Vol] 33.8 g/dL Normal 29.9-35.2 [facility] Comment on above: Performed By: #### P TTHEP #### [facility] [address] [address] [address] Dimas Bustos MCV (RBC) [Entitic vol] 92.7 fL Normal 80.0-94.0 [facility] Comment on above: Performed By: #### P TTHEP #### [facility] [address] [address] [address] Dimas Bustos MONO # 1.0 103/ul Critically high 0.3-0.8 [facility] Comment on above: Performed By: #### P TTHEP #### [facility] [address] [place] [address] Dr. Dimas Bustos Monocytes/100 WBC (Bld) 8.5 % Normal 1.7-12.0 [facility] Comment on above: Performed By: #### P TTHEP #### [facility] [address] [address] [address] Dimas Bustos NEUT # 8.8 103/ul Critically high 1.4-6.5 [facility] Comment on above: Performed By: #### P TTHEP #### [facility] [address] [address] [address] Dimas Bustos Neutrophils/100 WBC (Bld) 76.2 % Critically high 43.0-75.0 [facility] Comment on above: Performed By: #### P TTHEP #### [facility] [address] [address] [address] Dimas Bustos Platelet mean volume (Bld) [Entitic vol] 8.7 fL Critically low 9.5-13.5 [facility] Comment on above: Performed By: #### P TTHEP #### [facility] [address] [address] [address] Dimas Bustos PLT 309 103/ul Normal 150-450 [facility] Comment on above: Performed By: #### P TTHEP #### [facility] [address] [address] [address] Dimas Bustos RBC 4.40 106/ul Critically low 4.70-6.10 [facility] Comment on above: Performed By: #### P TTHEP #### [facility] [address] [address] [address] Dimas Bustos WBC 11.5 103/ul Critically high 4.0-11.0 [facility] Comment on above: Performed By: #### P TTHEP #### [facility] [address] [address] [address] Dimas Bustos PROF 14(COMP METB)on 022 Albumin [Mass/Vol] 2.7 g/dL Critically low 3.4-5.0 [facility] Comment on above: Performed By: #### P TTHEP #### [facility] [address] [address] [address] Dimas Bustos Albumin/Globulin [Mass ratio] 0.7 {ratio} Normal [facility] Comment on above: Performed By: #### P TTHEP #### [facility] [address] [address] [address] Dimas Bustos ALP [Catalytic activity/Vol] 87 U/L Normal 46-116 [facility] Comment on above: Performed By: #### P TTHEP #### [facility] [address] [address] [address] Dimas Bustos ALT [Catalytic activity/Vol] 23 U/L Normal 16-63 [facility] Comment on above: Performed By: #### P TTHEP #### [facility] [address] [address] [address] Dimas Bustos Anion gap [Moles/Vol] 10.6 mmol/L Normal [facility] Comment on above: Performed By: #### P TTHEP #### [facility] [address] [address] [address] Dimas Bustos AST [Catalytic activity/Vol] 9 U/L Critically low 15-37 [facility] Comment on above: Performed By: #### P TTHEP #### [facility] [address] [address] [address] Dimas Bustos Bilirubin [Mass/Vol] 0.4 mg/dL Normal 0.2-1.0 [facility] Comment on above: Performed By: #### P TTHEP #### [facility] [address] [place] [address] Dr. Dimas Bustos Calcium [Mass/Vol] 8.7 mg/dL Normal 8.5-10.1 [facility] Comment on above: Performed By: #### P TTHEP #### [facility] [address] [place] [address] Dr. Dimas Bustos Chloride [Moles/Vol] 102 mmol/L Normal 98-107 [facility] Comment on above: Performed By: #### P TTHEP #### [facility] [address] [place] [address] Dr. Dimas Bustos CO2 [Moles/Vol] 26.5 mmol/L Normal 21.0-32.0 [facility] Comment on above: Performed By: #### P TTHEP #### [facility] [address] [place] [address] Dr. Dimas Bustos Creatinine [Mass/Vol] 0.71 mg/dL Normal 0.70-1.30 [facility] Comment on above: Performed By: #### P TTHEP #### [facility] [address] [place] [address] Dr. Dimas Bustos EGFR-AF SLOVAK >60 Normal >=60 [facility] Comment on above: Performed By: #### P TTHEP #### [facility] [address] [place] [address] Dr. Dimas Bustos EGFR-NON AF SLOVAK >60 Normal >=60 [facility] Comment on above: Performed By: #### P TTHEP #### [facility] [address] [place] [address] Dr. Dimas Bustos Globulin (S) [Mass/Vol] 4.1 g/dL Normal [facility] Comment on above: Performed By: #### P TTHEP #### [facility] [address] [address] [address] Dimas Bustos Glucose [Mass/Vol] 120 mg/dL Critically high 74-106 [facility] Comment on above: Performed By: #### P TTHEP #### [facility] [address] [address] [address] Dimas Bustos Potassium [Moles/Vol] 4.1 mmol/L Normal 3.5-5.1 [facility] Comment on above: Performed By: #### P TTHEP #### [facility] [address] [address] [address] Dimas Bustos Protein [Mass/Vol] 6.8 g/dL Normal 6.4-8.2 [facility] Comment on above: Performed By: #### P TTHEP #### [facility] [address] [address] [address] Dimas Bustos Sodium [Moles/Vol] 135 mmol/L Critically low 136-145 [facility] Comment on above: Performed By: #### P TTHEP #### [facility] [address] [address] [address] Dimas Bustos Urea nitrogen [Mass/Vol] 13.0 mg/dL Normal 7.0-18.0 [facility] Comment on above: Performed By: #### P TTHEP #### [facility] [address] [address] [address] Dimas Bustos Urea nitrogen/Creatinine [Mass ratio] 18.3 mg/mg [facility] Comment on above: Performed By: #### P TTHEP #### [facility] [address] [address] [address] Dimas Bustos PROTIMEon 12-03-2021 INR Coag (PPP) [Relative time] 0.98 {INR} Normal [facility] Comment on above: Performed By: #### C VDTBH #### [facility] [address] [address] [address] Dimas Bustos INR GUIDELINES SEE BELOW Normal [facility] Comment on above: Result Comment: GEOVANNI RED INR: 2.0 - 3.0 CONDITIONS NOT LISTED BELOW 2.5 - 3.5 FOR PROSTHETIC HEART VALVE REPLACEMENT 2.5 - 3.5 RECURRENT THROMBOSIS Performed By: #### C VDTBH #### [facility] [address] [place] [address] Dr. Dimas Bustos PT Coag (PPP) [Time] 10.6 s Normal 9.0-11.6 [facility] Comment on above: Performed By: #### C VDTBH #### [facility] [address] [place] [address] Dr. Dimas Bustos PTT HEPARIN MONITORon 2021 aPTT Coag (Bld) [Time] 37.9 s Critically low 39.5-54.2 [facility] Comment on above: Performed By: #### P TTHEP #### [facility] [address] [place] [address] Dr. Dimas Bustos aPTT Coag (Bld) [Time] 35.2 s Critically low 39.5-54.2 [facility] Comment on above: Performed By: #### C MP #### [facility] [address] [place] [address] Dr. Dimas Bustos aPTT Coag (Bld) [Time] 39.3 s Critically low 39.5-54.2 [facility] Comment on above: Performed By: #### P TTHEP #### [facility] [address] [place] [address] Dr. Dimas Bustos aPTT Coag (Bld) [Time] 37.2 s Critically low 39.5-54.2 [facility] Comment on above: Performed By: #### P TTHEP #### [facility] [address] [place] [address] Dr. Dimas Bustos CARDIAC JOELLEN ADMITon 022 CK [Catalytic activity/Vol] 66 U/L Normal 39-308 [facility] Comment on above: Performed By: #### P TTHEP #### [facility] [address] [place] [address] Dr. Dimas Bustos CK.MB [Mass/Vol] 0.93 ng/mL Normal <=3.60 [facility] Comment on above: Performed By: #### P TTHEP #### [facility] [address] [place] [address] Dr. Dimas Bustos HSTROP 6.7 pg/mL Normal 4.0-76.1 [facility] Comment on above: Result Comment: CUT- OFF POINTS HAVE BEEN ESTABLISHED BASED ON THE FOURTH UNIVERSAL DEFINITIONS OF MYOCARDIAL INFARCTION. THE UPPER REFERENCE LIMIT (URL) OF TROPONIN, DEFINED THE 99TH PERCENTILE OF cTnI DISTRIBUTION IN A REFERENCE POPULATION, HAS BEEN CONFIRMED THE DECISION THRESHOLD FOR AR DIAGNOSIS. Performed By: #### P TTHEP #### [facility] [address] [place] [address] Dr. Dimas Bustos KRIS 39 ng/mL Normal 16-96 [facility] Comment on above: Performed By: #### P TTHEP #### [facility] [address] [place] [address] Dr. Dimas Bustos CBC AUTO DIFFon 12-02-2021 BASO # 0.0 103/ul Normal 0.0-0.1 [facility] Comment on above: Performed By: #### P TT #### [facility] [address] [place] [address] Dr. Dimas Bustos Basophils/100 WBC (Bld) 0.3 % Normal 0.2-2.0 [facility] Comment on above: Performed By: #### P TT #### [facility] [address] [place] [address] Dr. Dimas Bustos EO # 0.1 103/ul Normal 0.0-0.7 [facility] Comment on above: Performed By: #### P TT #### [facility] [address] [place] [address] Dr. Dimas Bustos Eosinophils/100 WBC (Bld) 0.6 % Critically low 0.9-7.0 [facility] Comment on above: Performed By: #### P TT #### [facility] [address] [place] [address] Dr. Dimas Bustos Erythrocyte distribution width (RBC) [Ratio] 12.4 % Normal 11.0-15.0 [facility] Comment on above: Performed By: #### P TT #### [facility] [address] [place] [address] Dr. Dimas Bustos Hematocrit (Bld) [Volume fraction] 40.0 % Critically low 42.0-54.0 [facility] Comment on above: Performed By: #### P TT #### [facility] [address] [place] [address] Dr. Dimas Bustos Hemoglobin (Bld) [Mass/Vol] 13.7 g/dL Critically low 14.0-18.0 [facility] Comment on above: Performed By: #### P TT #### [facility] [address] [place] [address] Dr. Dimas Bustos IG # 0.07 10e3/ul Critically high 0.00-0.03 [facility] Comment on above: Performed By: #### P TT #### [facility] [address] [place] [address] Dr. Dimas Bustos IG % 0.5 % Normal 0.0-0.5 [facility] Comment on above: Performed By: #### P TT #### [facility] [address] [place] [address] Dr. Dimas Bustos LYMPH # 1.8 103/ul Normal 1.2-3.8 [facility] Comment on above: Performed By: #### P TT #### [facility] [address] [place] [address] Dr. Dimas Bustos Lymphocytes/100 WBC (Bld) 12.9 % Critically low 20.5-60.0 [facility] Comment on above: Performed By: #### P TT #### [facility] [address] [place] [address] Dr. Dimas Bustos MANUAL DIFF REQ NO Normal [facility] Comment on above: Performed By: #### P TT #### [facility] [address] [place] [address] Dr. Dimas Bustos MCH (RBC) [Entitic mass] 31.8 pg Normal 25.9-34.0 [facility] Comment on above: Performed By: #### P TT #### [facility] [address] [address] [address] Dimas Bustos MCHC (RBC) [Mass/Vol] 34.3 g/dL Normal 29.9-35.2 [facility] Comment on above: Performed By: #### P TT #### [facility] [address] [place] [address] Dr. Dimas Bustos MCV (RBC) [Entitic vol] 92.8 fL Normal 80.0-94.0 [facility] Comment on above: Performed By: #### P TT #### [facility] [address] [place] [address] Dr. Dimas Bustos MONO # 1.4 103/ul Critically high 0.3-0.8 [facility] Comment on above: Performed By: #### P TT #### [facility] [address] [place] [address] Dr. Dimas Bustos Monocytes/100 WBC (Bld) 10.0 % Normal 1.7-12.0 [facility] Comment on above: Performed By: #### P TT #### [facility] [address] [place] [address] Dr. Dimas Bustos NEUT # 10.3 103/ul Critically high 1.4-6.5 [facility] [place] [facility] Comment on above: Performed By: #### P TT #### [facility] [address] [place] [address] Dr. Dimas Bustos Neutrophils/100 WBC (Bld) 75.7 % Critically high 43.0-75.0 [facility] Comment on above: Performed By: #### P TT #### [facility] [address] [place] [address] Dr. Dimas Bustos Platelet mean volume (Bld) [Entitic vol] 8.6 fL Critically low 9.5-13.5 [facility] Comment on above: Performed By: #### P TT #### [facility] [address] [place] [address] Dr. Dimas Bustos PLT 280 103/ul Normal 150-450 [facility] Comment on above: Performed By: #### P TT #### [facility] [address] [place], [place] [address] Dr. Dimas Bustos RBC 4.31 106/ul Critically low 4.70-6.10 [facility] Comment on above: Performed By: #### P TT #### [facility] [address] [place], [place] [address] Dr. Dimas Bustos WBC 13.7 103/ul Critically high 4.0-11.0 [facility] [place] [facility] Comment on above: Performed By: #### P TT #### [facility] [address] [place], [place] [address] Dr. Dimas Bustos ECHOCARDIO M/2D COMPLETEon 0 12-02-2021 ECHOCARDIO M/2D COMPLETE Patient: BUCK DISLA Exam Date: 12/02/2021 : 1975 Gender:M Ordering : SATURNINO WONG Admission #: [id number] Family : DR LUIS HOUGH . Order #: [id number] CLICK HERE TO VIEW EXAM ECHOCARDIOGRAM REPORT [...] Davis M.D. on 12/03/2021 at 17:34 Normal [facility] MRI LSPINE WO CONon 12-03-19 MRI LSHUDGINS WO CON EXAMINATION: MRI LSHUDGINS WO CON HISTORY: Lumbar radiculopathy , left [...] BUCK HOWARD Date: 2021-12-02 13:12 Normal [facility] PROF CHEM 8 (BAS METB)on Anion gap [Moles/Vol] 10.8 mmol/L Normal [facility] Comment on above: Performed By: #### C MP #### [facility] [address] [place] [address] Dr. Dimas Bustos Calcium [Mass/Vol] 8.6 mg/dL Normal 8.5-10.1 [facility] Comment on above: Performed By: #### C MP #### [facility] [address] [address] [address] Dimas Bustos Chloride [Moles/Vol] 102 mmol/L Normal 98-107 [facility] Comment on above: Performed By: #### C MP #### [facility] [address] [address] [address] Dimas Bustos CO2 [Moles/Vol] 25.1 mmol/L Normal 21.0-32.0 [facility] [place] [facility] Comment on above: Performed By: #### C MP #### [facility] [address] [address] [address] Dimas Bustos Creatinine [Mass/Vol] 0.79 mg/dL Normal 0.70-1.30 [facility] Comment on above: Performed By: #### C MP #### [facility] [address] [address] [address] Dimas Bustos EGFR-AF SLOVAK >60 Normal >=60 [facility] [place] [facility] Comment on above: Performed By: #### C MP #### [facility] [address] [place] [address] Dr. Dimas Bustos EGFR-NON AF SLOVAK >60 Normal >=60 [facility] Comment on above: Performed By: #### C MP #### [facility] [address] [address] [address] Dimas Bustos Glucose [Mass/Vol] 122 mg/dL Critically high 74-106 [facility] Comment on above: Performed By: #### C MP #### [facility] [address] [place] [address] Dr. Dimas Bustos Potassium [Moles/Vol] 3.9 mmol/L Normal 3.5-5.1 [facility] Comment on above: Performed By: #### C MP #### [facility] [address] [place] [address] Dr. Dimas Bustos Sodium [Moles/Vol] 134 mmol/L Critically low 136-145 [facility] Comment on above: Performed By: #### C MP #### [facility] [address] [place] [address] Dr. Dimas Bustos Urea nitrogen [Mass/Vol] 18.0 mg/dL Normal 7.0-18.0 [facility] Comment on above: Performed By: #### C MP #### [facility] [address] [place] [address] Dr. Dimas Bustos Urea nitrogen/Creatinine [Mass ratio] 22.8 mg/mg Normal [facility] Comment on above: Performed By: #### C MP #### [facility] [address] [place] [address] Dr. Dimas Bustos PTT HEPARIN MONITORon 2021 aPTT Coag (Bld) [Time] 36.5 s Critically low 39.5-54.2 [facility] Comment on above: Performed By: #### P TTHEP #### [facility] [address] [place] [address] Dr. Dimas Bustos aPTT Coag (Bld) [Time] 39.0 s Critically low 39.5-54.2 [facility] Comment on above: Performed By: #### P TTHEP #### [facility] [address] [place] [address] Dr. Dimas Bustos BNPon 12-01-2021 Natriuretic peptide B (Bld) [Mass/Vol] 153.0 pg/mL Normal <=450.0 [facility] Comment on above: Performed By: #### P TTHEP #### [facility] [address] [place] [address] Dr. Dimas Bustos CBC AUTO DIFFon 12-01-2021 BASO # 0.1 103/ul Normal 0.0-0.1 [facility] Comment on above: Performed By: #### P TT #### [facility] [address] [place] [address] Dr. Dimas Bustos Basophils/100 WBC (Bld) 0.4 % Normal 0.2-2.0 [facility] Comment on above: Performed By: #### P TT #### [facility] [address] [place] [address] Dr. Dimas Bustos EO # 0.1 103/ul Normal 0.0-0.7 [facility] Comment on above: Performed By: #### P TT #### [facility] [address] [place] [address] Dr. Dimas Bustos Eosinophils/100 WBC (Bld) 0.6 % Critically low 0.9-7.0 [facility] Comment on above: Performed By: #### P TT #### [facility] [address] [place] [address] Dr. Dimas Bustos Erythrocyte distribution width (RBC) [Ratio] 12.6 % Normal 11.0-15.0 [facility] Comment on above: Performed By: #### P TT #### [facility] [address] [place] [address] Dr. Dimas Bustos Hematocrit (Bld) [Volume fraction] 44.5 % Normal 42.0-54.0 [facility] Comment on above: Performed By: #### P TT #### [facility] [address] [place] [address] Dr. Dimas Bustos Hemoglobin (Bld) [Mass/Vol] 15.4 g/dL Normal 14.0-18.0 [facility] Comment on above: Performed By: #### P TT #### [facility] [address] [place] [address] Dr. Dimas Bustos IG # 0.09 10e3/ul Critically high 0.00-0.03 [facility] Comment on above: Performed By: #### P TT #### [facility] [address] [place] [address] Dr. Dimas Bustos IG % 0.6 % Critically high 0.0-0.5 [facility] Comment on above: Performed By: #### P TT #### [facility] [address] [place] [address] Dr. Dimas Bustos LYMPH # 1.9 103/ul Normal 1.2-3.8 [facility] Comment on above: Performed By: #### P TT #### [facility] [address] [place] [address] Dr. Dimas Bustos Lymphocytes/100 WBC (Bld) 13.1 % Critically low 20.5-60.0 [facility] Comment on above: Performed By: #### P TT #### [facility] [address] [place] [address] Dr. Dimas Bustos MANUAL DIFF REQ NO Normal [facility] Comment on above: Performed By: #### P TT #### [facility] [address] [place] [address] Dr. Dimas Bustos MCH (RBC) [Entitic mass] 31.8 pg Normal 25.9-34.0 [facility] Comment on above: Performed By: #### P TT #### [facility] [address] [place] [address] Dr. Dimas Bustos MCHC (RBC) [Mass/Vol] 34.6 g/dL Normal 29.9-35.2 [facility] Comment on above: Performed By: #### P TT #### [facility] [address] [place] [address] Dr. Dimas Bustos MCV (RBC) [Entitic vol] 91.9 fL Normal 80.0-94.0 [facility] Comment on above: Performed By: #### P TT #### [facility] [address] [place] [address] Dr. Dimas Bustos MONO # 1.3 103/ul Critically high 0.3-0.8 [facility] Comment on above: Performed By: #### P TT #### [facility] [address] [place] [address] Dr. Dimas Bustos Monocytes/100 WBC (Bld) 8.8 % Normal 1.7-12.0 [facility] Comment on above: Performed By: #### P TT #### [facility] [address] [place] [address] Dr. Dimas Bustos NEUT # 10.8 103/ul Critically high 1.4-6.5 [facility] [place] [facility] Comment on above: Performed By: #### P TT #### [facility] [address] [place] [address] Dr. Dimas Bustos Neutrophils/100 WBC (Bld) 76.5 % Critically high 43.0-75.0 [facility] Comment on above: Performed By: #### P TT #### [facility] [address] [address] [address] Dimas Bustos Platelet mean volume (Bld) [Entitic vol] 8.7 fL Critically low 9.5-13.5 [facility] Comment on above: Performed By: #### P TT #### [facility] [address] [address] [address] Dimas Bustos PLT 313 103/ul Normal 150-450 [facility] Comment on above: Performed By: #### P TT #### [facility] [address] [address] [address] Dimas Bustos RBC 4.84 106/ul Normal 4.70-6.10 [facility] Comment on above: Performed By: #### P TT #### [facility] [address] [address] [address] Dimas Bustos WBC 14.2 103/ul Critically high 4.0-11.0 [facility] [place] [facility] Comment on above: Performed By: #### P TT #### [facility] [address] [address] [address] Dimas Bustos CTA CHEST WO W [...] BUCK HOWARD Date: 2021-12-01 21:51 Normal [facility] Covid-19 PCR (CVDTBH)on 11-12 SARS-CoV-2 (COVID-19) RNA JURGEN+probe Ql (Unsp spec) Not detected Normal NOT DETECTED [facility] Comment on above: Result Comment: When diagnostic [...] for this test is supported by the [place] of Health and Human Service's declaration that [...] used). Performed By: #### C VDTBH #### [facility] [address] [place] [address] Dr. Dimas Bustos PROF 14(COMP METB)on 022 Albumin [Mass/Vol] 3.4 g/dL Normal 3.4-5.0 [facility] Comment on above: Performed By: #### C MP #### [facility] [address] [place] [address] Dr. Dimas Bustos Albumin/Globulin [Mass ratio] 0.8 {ratio} Normal [facility] Comment on above: Performed By: #### C MP #### [facility] [address] [address] [address] Dimas Bustos ALP [Catalytic activity/Vol] 121 U/L Critically high 46-116 [facility] Comment on above: Performed By: #### C MP #### [facility] [address] [address] [address] Dimas Bustos ALT [Catalytic activity/Vol] 26 U/L Normal 16-63 [facility] Comment on above: Performed By: #### C MP #### [facility] [address] [address] [address] Dimas Bustos Anion gap [Moles/Vol] 14.9 mmol/L Normal [facility] Comment on above: Performed By: #### C MP #### [facility] [address] [place] [address] Dr. Dimas Bustos AST [Catalytic activity/Vol] 13 U/L Critically low 15-37 [facility] Comment on above: Performed By: #### C MP #### [facility] [address] [address] [address] Dimas Bustos Bilirubin [Mass/Vol] 1.2 mg/dL Critically high 0.2-1.0 [facility] Comment on above: Performed By: #### C MP #### [facility] [address] [place] [address] Dr. Dimas Bustos Calcium [Mass/Vol] 9.2 mg/dL Normal 8.5-10.1 [facility] Comment on above: Performed By: #### C MP #### [facility] [address] [address] [address] Dimas Bustos Chloride [Moles/Vol] 100 mmol/L Normal 98-107 [facility] Comment on above: Performed By: #### C MP #### [facility] [address] [address] [address] Dimas Bustos CO2 [Moles/Vol] 23.0 mmol/L Normal 21.0-32.0 [facility] Comment on above: Performed By: #### C MP #### [facility] [address] [address] [address] Dimas Bustos Creatinine [Mass/Vol] 0.96 mg/dL Normal 0.70-1.30 [facility] Comment on above: Performed By: #### C MP #### [facility] [address] [address] [address] Dimas Bustos EGFR-AF SLOVAK >60 Normal >=60 [facility] [place] [facility] Comment on above: Performed By: #### C MP #### [facility] [address] [address] [address] Dimas Bustos EGFR-NON AF SLOVAK >60 Normal >=60 [facility] Comment on above: Performed By: #### C MP #### [facility] [address] [address] [address] Dimas Bustos Globulin (S) [Mass/Vol] 4.2 g/dL Normal [facility] Comment on above: Performed By: #### C MP #### [facility] [address] [place] [address] Dr. Dimas Bustos Glucose [Mass/Vol] 127 mg/dL Critically high 74-106 [facility] Comment on above: Performed By: #### C MP #### [facility] [address] [address] [address] Dimas Bustos Potassium [Moles/Vol] 3.9 mmol/L Normal 3.5-5.1 [facility] Comment on above: Performed By: #### C MP #### [facility] [address] [address] [address] Dimas Bustos Protein [Mass/Vol] 7.6 g/dL Normal 6.4-8.2 [facility] Comment on above: Performed By: #### C MP #### [facility] [address] [address] [address] Dimas Bustos Sodium [Moles/Vol] 134 mmol/L Critically low 136-145 [facility] Comment on above: Performed By: #### C MP #### [facility] [address] [address] [address] Dimas Bustos Urea nitrogen [Mass/Vol] 13.0 mg/dL Normal 7.0-18.0 [facility] Comment on above: Performed By: #### C MP #### [facility] [address] [place] [address] Dr. Dimas Bustos Urea nitrogen/Creatinine [Mass ratio] 13.5 mg/mg Normal [facility] Comment on above: Performed By: #### C MP #### [facility] [address] [place] [address] Dr. Dimas Bustos PROTIMEon 12-01-2021 INR Coag (PPP) [Relative time] 0.98 {INR} Normal [facility] Comment on above: Performed By: #### P TT #### [facility] [address] [place] [address] Dr. Dimas Bustos INR GUIDELINES SEE BELOW Normal [facility] Comment on above: Result Comment: GEOVANNI RED INR: 2.0 - 3.0 CONDITIONS NOT LISTED BELOW 2.5 - 3.5 FOR PROSTHETIC HEART VALVE REPLACEMENT 2.5 - 3.5 RECURRENT THROMBOSIS Performed By: #### P TT #### [facility] [address] [place] [address] Dr. Dimas Bustos PT Coag (PPP) [Time] 10.6 s Normal 9.0-11.6 [facility] Comment on above: Performed By: #### P TT #### [facility] [address] [place] [address] Dr. Dimas Bustos PTTon 12-01-2021 aPTT Coag (Bld) [Time] 33.3 s Normal 22.3-36.2 [facility] Comment on above: Performed By: #### P TT #### [facility] [address] [place] [address] Dr. Dimas Bustos US JUAN DOP LEG [...] by: VINAYAK ROSS Date: 2021-11-23 13:00 Normal [facility] INSULINon 11-22-2021 Insulin 16.3 uIU/mL Normal 2.6-24.9 [facility] Comment on above: Performed By: #### P TT #### [facility] [address] [address] [address] Dimas Bustos T4, T3U, FTI LABCORPon 11-21 Free Thyroxine Index 2.7 Normal 1.2-4.9 [facility] Comment on above: Performed By: #### P TT #### [facility] [address] [address] [address] Dimas Bustos T3 Uptake 26 % Normal 24-39 [facility] Comment on above: Performed By: #### P TT #### [facility] [address] [address] [address] Dimas Bustos T4 [Mass/Vol] 10.5 ug/dL Normal 4.5-12.0 [facility] Comment on above: Performed By: #### P TT #### [facility] [address] [address] [address] Dimas Bustos TESTOSTERONE, TOTALon 2021 Testosterone [Mass/Vol] 319 ng/dL Normal 264-916 [facility] Comment on above: Result Comment: Adul t male reference interval is based on a population of healthy nonobese males (BMI <30) between 19 and 39 years old. Aramis et.al. JCEM 2017,102;[id number]. PMID: [id number]. Performed By: #### P TTHEP #### [facility] [address] [address] [address] Dimas Bustos CBC AUTO DIFFon 11-20-2021 BASO # 0.1 103/ul Normal 0.0-0.1 [facility] Comment on above: Performed By: #### C MP #### [facility] [address] [address] [address] Dimas Bustos Basophils/100 WBC (Bld) 0.6 % Normal 0.2-2.0 [facility] Comment on above: Performed By: #### C MP #### [facility] [address] [address] [address] Dimas Bustos EO # 0.1 103/ul Normal 0.0-0.7 [facility] Comment on above: Performed By: #### C MP #### [facility] [address] [address] [address] Dimas Bustos Eosinophils/100 WBC (Bld) 0.8 % Critically low 0.9-7.0 [facility] Comment on above: Performed By: #### C MP #### [facility] [address] [place] [address] Dr. Dimas Bustos Erythrocyte distribution width (RBC) [Ratio] 12.9 % Normal 11.0-15.0 [facility] Comment on above: Performed By: #### C MP #### [facility] [address] [place] [address] Dr. Dimas Bustos Hematocrit (Bld) [Volume fraction] 47.7 % Normal 42.0-54.0 [facility] Comment on above: Performed By: #### C MP #### [facility] [address] [place] [address] Dr. Dimas Bustos Hemoglobin (Bld) [Mass/Vol] 16.1 g/dL Normal 14.0-18.0 [facility] Comment on above: Performed By: #### C MP #### [facility] [address] [address] [address] Dimas Bustos IG # 0.32 10e3/ul Critically high 0.00-0.03 [facility] Comment on above: Performed By: #### C MP #### [facility] [address] [place] [address] Dr. Dimas Bustos IG % 2.0 % Critically high 0.0-0.5 [facility] Comment on above: Performed By: #### C MP #### [facility] [address] [address] [address] Dimas Bustos LYMPH # 2.8 103/ul Normal 1.2-3.8 [facility] Comment on above: Performed By: #### C MP #### [facility] [address] [address] [address] Dimas Bustos Lymphocytes/100 WBC (Bld) 17.6 % Critically low 20.5-60.0 [facility] Comment on above: Performed By: #### C MP #### [facility] [address] [place] [address] Dr. Dimas Bustos MANUAL DIFF REQ NO Normal [facility] Comment on above: Performed By: #### C MP #### [facility] [address] [place] [address] Dr. Dimas Bustos MCH (RBC) [Entitic mass] 31.7 pg Normal 25.9-34.0 [facility] Comment on above: Performed By: #### C MP #### [facility] [address] [place] [address] Dr. Dimas Bustos MCHC (RBC) [Mass/Vol] 33.8 g/dL Normal 29.9-35.2 [facility] Comment on above: Performed By: #### C MP #### [facility] [address] [place] [address] Dr. Dimas Bustos MCV (RBC) [Entitic vol] 93.9 fL Normal 80.0-94.0 [facility] Comment on above: Performed By: #### C MP #### [facility] [address] [place] [address] Dr. Dimas Bustos MONO # 1.2 103/ul Critically high 0.3-0.8 [facility] Comment on above: Performed By: #### C MP #### [facility] [address] [place] [address] Dr. Dimas Bustos Monocytes/100 WBC (Bld) 7.7 % Normal 1.7-12.0 [facility] Comment on above: Performed By: #### C MP #### [facility] [address] [address] [address] Dimas Bustos NEUT # 11.3 103/ul Critically high 1.4-6.5 [facility] Comment on above: Performed By: #### C MP #### [facility] [address] [address] [address] Dimas Bustos Neutrophils/100 WBC (Bld) 71.3 % Normal 43.0-75.0 [facility] Comment on above: Performed By: #### C MP #### [facility] [address] [place] [address] Dr. Dimas Bustos Platelet mean volume (Bld) [Entitic vol] 8.9 fL Critically low 9.5-13.5 [facility] Comment on above: Performed By: #### C MP #### [facility] [address] [place] [address] Dr. Dimas Bustos PLT 331 103/ul Normal 150-450 [facility] Comment on above: Performed By: #### C MP #### [facility] [address] [place] [address] Dr. Dimas Bustos RBC 5.08 106/ul Normal 4.70-6.10 [facility] Comment on above: Performed By: #### C MP #### [facility] [address] [place] [address] Dr. Dimas Bustos WBC 15.8 103/ul Critically high 4.0-11.0 [facility] Comment on above: Performed By: #### C MP #### [facility] [address] [place] [address] Dr. Dimas Bustos CULTURE URINEon 11-20-2021 CULTURE URINE Culture Observations : NO GROWTH. Normal [facility] Comment on above: Performed By: #### C VDTBH #### [facility] [address] [place] [address] Dr. Dimas Bustos GLYCOHEMOGLOBIN A1Con 2021 ADA RECOMMENDATION SEE BELOW Normal [facility] Comment on above: Result Comment: ADA RECOMMENDED LIMIT 4.0 - 6.0 ADA THERAPEUTIC TARGET < 7.0 ACTION SUGGESTED > 7.0 Performed By: #### C VDTBH #### [facility] [address] [address] [address] Dimas Bustos Glucose [Mass/Vol] 117 mg/dL Normal [facility] Comment on above: Performed By: #### C VDTBH #### [facility] [address] [address] [address] Dimas Bustos HbA1c (Bld) [Mass fraction] 5.7 % Normal 4.5-6.2 [facility] Comment on above: Performed By: #### C VDTBH #### [facility] [address] [address] [address] Dmias Bustos LIPID PROFILEon 11-20-2021 CHOL-HDL RATIO NORM SEE BELOW Normal [facility] Comment on above: Result Comment: 3.3 - 4.4 LOW RISK 4.4 - 7.1 AVERAGE RISK 7.1 - 11.0 MODERATE RISK >11.0 HIGH RISK Performed By: #### P TTHEP #### [facility] [address] [place] [address] Dr. Dimas Bustos Cholesterol [Mass/Vol] 232 mg/dL Critically high <=200 [facility] Comment on above: Performed By: #### P TTHEP #### [facility] [address] [place] [address] Dr. Dimas Bustos Cholesterol in HDL [Mass/Vol] 73 mg/dL Critically high 40-60 [facility] Comment on above: Performed By: #### P TTHEP #### [facility] [address] [address] [address] Dimas Bustos Cholesterol in LDL [Mass/Vol] 138.8 mg/dL Normal [facility] Comment on above: Performed By: #### P TTHEP #### [facility] [address] [address] [address] Dimas Bustos Cholesterol.total/Ch olesterol in HDL [Mass ratio] 3.2 {ratio} Normal [facility] Comment on above: Performed By: #### P TTHEP #### [facility] [address] [address] [address] Dimas Bustos HDL NORMAL > or = 60 mg/dl - LO W CARDIOVASCULAR RISK <40 mg/dl - HIGH CARDIOVASCULAR RISK Normal [facility] Comment on above: Performed By: #### P TTHEP #### [facility] [address] [address] [address] Dimas Bustos LDL CALC NORMAL SEE BELOW Normal [facility] Comment on above: Result Comment: <100 mg/dl OPTIMAL 100 - 129 mg/dl NEAR OR ABOVE OPTIMAL 130 - 159 mg/dl BORDERLINE HIGH 160 - 189 mg/dl HIGH >190 mg/dl VERY HIGH Performed By: #### P TTHEP #### [facility] [address] [address] [address] Dimas Bustos Triglyceride [Mass/Vol] 101 mg/dL Normal <=150 [facility] Comment on above: Performed By: #### P TTHEP #### [facility] [address] [address] [address] Dimas Bustos VLDL CALC 20.2 mg/dL Normal [facility] Comment on above: Performed By: #### P TTHEP #### [facility] [address] [address] [address] Dimas Bustos PROF 14(COMP METB)on 022 Albumin [Mass/Vol] 3.7 g/dL Normal 3.4-5.0 [facility] Comment on above: Performed By: #### C VDTBH #### [facility] [address] [address] [address] Dimas Bustos Albumin/Globulin [Mass ratio] 0.9 {ratio} Normal [facility] Comment on above: Performed By: #### C VDTBH #### [facility] [address] [address] [address] Dimas Bustos ALP [Catalytic activity/Vol] 112 U/L Normal 46-116 [facility] Comment on above: Performed By: #### C VDTBH #### [facility] [address] [address] [address] Dimas Bustos ALT [Catalytic activity/Vol] 38 U/L Normal 16-63 [facility] Comment on above: Performed By: #### C VDTBH #### [facility] [address] [address] [address] Dimas Bustos Anion gap [Moles/Vol] 13.6 mmol/L Normal [facility] Comment on above: Performed By: #### C VDTBH #### [facility] [address] [address] [address] Dimas Bustos AST [Catalytic activity/Vol] 14 U/L Critically low 15-37 [facility] Comment on above: Performed By: #### C VDTBH #### [facility] [address] [address] [address] Dimas Bustos Bilirubin [Mass/Vol] 0.5 mg/dL Normal 0.2-1.0 [facility] Comment on above: Performed By: #### C VDTBH #### [facility] [address] [address] [address] Dimas Bustos Calcium [Mass/Vol] 9.2 mg/dL Normal 8.5-10.1 [facility] Comment on above: Performed By: #### C VDTBH #### [facility] [address] [address] [address] Dimas Bustos Chloride [Moles/Vol] 101 mmol/L Normal 98-107 [facility] Comment on above: Performed By: #### C VDTBH #### [facility] [address] [address] [address] Dimas Bustos CO2 [Moles/Vol] 29.9 mmol/L Normal 21.0-32.0 [facility] Comment on above: Performed By: #### C VDTBH #### [facility] [address] [address] [address] Dimas Bustos Creatinine [Mass/Vol] 0.88 mg/dL Normal 0.70-1.30 [facility] Comment on above: Performed By: #### C VDTBH #### [facility] [address] [address] [address] Dimas Bustos EGFR-AF SLOVAK >60 Normal >=60 [facility] Comment on above: Performed By: #### C VDTBH #### [facility] [address] [address] [address] Dimas Bustos EGFR-NON AF SLOVAK >60 Normal >=60 [facility] Comment on above: Performed By: #### C VDTBH #### [facility] [address] [address] [address] Dimas Bustos Globulin (S) [Mass/Vol] 3.9 g/dL Normal [facility] Comment on above: Performed By: #### C VDTBH #### [facility] [address] [address] [address] Dimas Bustos Glucose [Mass/Vol] 115 mg/dL Critically high 74-106 [facility] Comment on above: Performed By: #### C VDTBH #### [facility] [address] [address] [address] Dimas Bustos Potassium [Moles/Vol] 4.5 mmol/L Normal 3.5-5.1 [facility] Comment on above: Performed By: #### C VDTBH #### [facility] [address] [address] [address] Dimas Bustos Protein [Mass/Vol] 7.6 g/dL Normal 6.4-8.2 [facility] Comment on above: Performed By: #### C VDTBH #### [facility] [address] [address] [address] Dimas Bustos Sodium [Moles/Vol] 140 mmol/L Normal 136-[address] [facility] Comment on above: Performed By: #### C VDTBH #### [facility] [address] [address] [address] Dimas Bustos Urea nitrogen [Mass/Vol] 17.0 mg/dL Normal 7.0-18.0 [facility] Comment on above: Performed By: #### C VDTBH #### [facility] [address] [address] [address] Dimas Bustos Urea nitrogen/Creatinine [Mass ratio] 19.3 mg/mg Normal [facility] Comment on above: Performed By: #### C VDTBH #### [facility] [address] [place] [address] Dr. Dimas Bustos TSHon 11-20-2021 TSH 3.616 uIU/mL Normal 0.358-3.740 [facility] Comment on above: Performed By: #### P TTHEP #### [facility] [address] [place] [address] Dr. Dimas Bustos UA RANDOM W/MICROSCOPICon BACTERIA NONE SEEN Normal NONE SEEN [facility] Comment on above: Performed By: #### P TT #### [facility] [address] [place] [address] Dr. Dimas Bustos Bilirubin Ql (U) Negative Normal NEGATIVE [facility] Comment on above: Performed By: #### P TT #### [facility] [address] [place] [address] Dr. Dimas Bustos CAST NONE SEEN Normal NONE SEEN [facility] Comment on above: Performed By: #### P TT #### [facility] [address] [place] [address] Dr. Dimas Bustos Clarity (U) CLEAR Normal CLEAR [facility] Comment on above: Performed By: #### P TT #### [facility] [address] [place] [address] Dr. Dimas Bustos Color (U) YELLOW Normal YELLOW [facility] Comment on above: Performed By: #### P TT #### [facility] [address] [place] [address] Dr. Dimas Bustos Crystals LM Nom (Urine sed) NONE SEEN Normal NONE SEEN [facility] Comment on above: Performed By: #### P TT #### [facility] [address] [place] [address] Dr. Dimas Bustos Epithelial cells LM Ql (Urine sed) RARE Normal NONE SEEN /RARE [facility] Comment on above: Performed By: #### P TT #### [facility] [address] [place] [address] Dr. Dimas Bustos Glucose Ql (U) Negative Normal NEGATIVE [facility] Comment on above: Performed By: #### P TT #### [facility] [address] [address] [address] Dimas Bustos Hemoglobin Ql (U) Negative Normal NEGATIVE [facility] Comment on above: Performed By: #### P TT #### [facility] [address] [address] [address] Dimas Bustos Ketones Ql (U) Negative Normal NEGATIVE [facility] Comment on above: Performed By: #### P TT #### [facility] [address] [place] [address] Dr. Dimas Bustos LEUKOCYTES Negative Normal NEGATIVE [facility] Comment on above: Performed By: #### P TT #### [facility] [address] [place] [address] Dr. Dimas Bustos MUCOUS NONE SEEN Normal NONE SEEN [facility] Comment on above: Performed By: #### P TT #### [facility] [address] [place] [address] Dr. Dimas Bustos Nitrite Ql (U) Negative Normal NEGATIVE [facility] Comment on above: Performed By: #### P TT #### [facility] [address] [place] [address] Dr. Dimas Bustos pH (U) 7.0 [pH] Normal 5-9 [facility] Comment on above: Performed By: #### P TT #### [facility] [address] [place] [address] Dr. Dimas Bustos RBC NONE SEEN Abnormal 0-2 [facility] Comment on above: Performed By: #### P TT #### [facility] [address] [place] [address] Dr. Dimas Bustos SPEC GRAVITY 1.015 Normal 1.005-<=1.025 [facility] Comment on above: Performed By: #### P TT #### [facility] [address] [place] [address] Dr. Dimas Bustos UA PROTEIN Negative Normal NEGATIVE/ TRACE [facility] Comment on above: Performed By: #### P TT #### [facility] [address] [place] [address] Dr. Dimas Bustos Urobilinogen Qn (U) 0.2 {Adeline'U}/dL Normal 0.2 - 1. 0 [facility] Comment on above: Performed By: #### P TT #### [facility] [address] [address] [address] Dimas Bustos WBC NONE SEEN Normal NONE SEEN [facility] Comment on above: Performed By: #### P TT #### [facility] [address] [address] [address] Dimas Bustos US JUAN DOP LEG [...] VINAYAK ROSS Date: 2021-11-20 11:15 Normal [facility] Vital Signs Date Time Vital Sign Value Performing Clinician Facility 05-13-2024 10:07-0500 Blood Pressure Location [facility] 05-13-2024 10:07-0500 Body temperature 97.52 [degF] [facility] 05-13-2024 10:07-0500 Diastolic blood pressure 90 mm[Hg] [facility] 05-13-2024 10:07-0500 Heart rate 73 /min [facility] 05-13-2024 10:07-0500 Systolic blood pressure 138 mm[Hg] Funmi Price [facility] 11-20-2023 09:04-0400 Blood Pressure Location Johnie OCHOA [facility] 11-20-2023 09:04-0400 Diastolic blood pressure 90 mm[Hg] Johnie OCHOA [facility] 11-20-2023 09:04-0400 Heart rate 88 /min Johnie OCHOA [facility] 11-20-2023 09:04-0400 Systolic blood pressure 142 mm[Hg] Johnie OCHOA [facility] Encounters Encounter Date Encounter Type Care Provider Facility Start: 05-13-2024 End: 05-13-2024 ambulatory Funmi Price Facility:[facility] Start: 05-13-2024 End: 05-13-2024 Patient encounter procedure Funmi Price [facility] Start: 05-09-2024 End: 05-09-2024 ambulatory Flora Vernon Facility:[facility] Start: 05-09-2024 End: 05-09-2024 ambulatory MD FLORA VERNON Facility:CD:[id number] Start: 05-04-2024 End: 05-04-2024 Emergency department patient visit Alba Batista Facility:[facility] Start: 05-03-2024 End: 05-03-2024 ambulatory Johnie OCHOA Facility:[facility] Start: 05-03-2024 End: 05-03-2024 Patient encounter procedure Johnie OCHOA [facility] Start: 12-12-2023 End: 12-12-2023 ambulatory Johnie Tahmina GABRIELA Facility:[facility] Start: 12-12-2023 End: 12-12-2023 Patient encounter procedure Johnie Martel GABRIELA [facility] Start: 11-20-2023 End: 11-20-2023 ambulatory Johnie Tahmina GABRIELA Facility:[facility] Start: 11-20-2023 End: 11-20-2023 Lab Drop off Johnie R GABRIELA [facility] Start: 11-20-2023 End: 11-20-2023 ambulatory Johnie OCHOA Facility:[facility] Start: 11-20-2023 End: 11-20-2023 Patient encounter procedure Johnie Martel GABRIELA [facility] Start: 09-28-2023 ambulatory Johnie OCHOA Facility :[facility] Start: 06-14-2023 End: 06-14-2023 ambulatory Luis Hough Facility:[facility] Start: 07-19-2022 End: 07-20-2022 ambulatory Jessica Borjas PA-C Facility:[facility] Start: 03-15-[address] CRYSTAL COATES Facility :[facility] Start: 12-31-2021 End: 01-01-[address] LUIS HOUGH Facility:[facility] Start: 12-02-2021 End: 12-07-2021 Evaluation and management of inpatient DR LUIS HOUGH Facility:[facility] Start: 11-26-2021 Encounter for genera l adult medical examination without abnormal findings DR LUIS HOUGH [facility] Start: 11-24-2021 Telephone encounter No Pcp Ref erring Physician Comment on above: External Referrals/r esources Start: 11-23-2021 End: 11-24-[address] LUIS HOUGH Facility:[facility] Start: 11-20-2021 End: 11-21-[address] LUIS HOUGH Facility:[facility] Start: 11-20-2021 End: 11-21-2021 Encounter for general adult medical examination without abnormal findings DR LUIS HOUGH Facility:[facility] Procedures Date Procedure Procedure Detail Performing Clinician Start: 11-20-[address] CRYSTAL COATES Comment on above: Performed By: #### P TTHEP #### [facility] [address] [place] [address] Dr. Dimas Bustos Start: 03-13-2021 Removal of thrombus Pat josh GABRIELA Start: 10-22-2019 Amputation of toe Patri greg OCHOA Cholecystectomy Johnie RENDON Plan of Treatment Date Care Activity Detail Author Start: 06-06-2024 ambulatory Ambulatory Facility:[facility] [place] Immunizations Immunization Date Immunization Notes Care Provider Fa kyawty 04-03-2020 tetanus toxoid, redu saul diphtheria toxoid, and acellular pertussis vaccine, adsorbed Johnie GABRIELA [facility] Payers Date Payer Category Payer Self-pay 1975 Unknown [id number] 2.16.84 [id number] 1975 Unknown [id number] .16.84 [id number] 1974 Unknown [id number] 2.16.84 0.1.587944.3.579.2.593 1974 Unknown [id number] .16.84 0.1.098111.3.579.2.593 1974 Unknown [id number] .16.84 0.1.378498.3.579.2.593 1974 Unknown [id number] 2.16.8 40.1.394470.3.579.2.718 1974 Unknown [id number] 2.16.8 40.1.666568.3.579.2.727 1974 Unknown [id number] 2.16.8 40.1.369683.3.579.2.727 1974 Unknown [id number] 2.16.8 40.1.997615.3.579.2.727 1974 Unknown [id number] 2.16.8 40.1.369362.3.579.2.727 1974 Unknown [id number] 2.16.8 40.1.363740.3.579.2.727 1974 Unknown [id number] 2.16.8 40.1.153905.3.579.2.727 1974 Unknown [id number] 2.16.8 40.1.844134.3.579.2.727 1959 Unknown [id number] Unknown [id number] 2.16.8 40.1.621805.3.579.2.531 Unknown [id number] 2.16.8 40.1.609464.3.579.2.531 Unknown [id number] 2.16.8 40.1.447596.3.579.2.531 Social History Date Type Detail Facility Tobacco smoking status [facility]IS Tobacco smoking consumption unknown [facility] Start: 1975 Sex Assigned At Not on file [facility] Start: 11-20-2023 Tobacco smoking status Never smoked tobacco (finding) [facility] Start: 05-13-2024 Tobacco smoking status Ex-smoker (finding) [facility] Tobacco smoking status Never [facility] Sex Assigned At Male [facility] Functional Status Date Assessment Result Facility 05-13-2024 Functional Status N/A [facility] 12-12-2023 Functional Status N/A [facility] 11-20-2023 Functional Status N/A [facility] Clinical Notes 11-24-2021 to 05-13-2024 Telephone Encounter - Natalie Glass - 11/24/2021 8:44 AM EDT Note Date & Type Note Facility 05-13-2024 Hospital Discharge instructions Patient Education 05/13/2024 12:51:46 Dietary Guidelines to Help Prevent Kidney Stones [...] include: ?8 oz (237 mL) of milk, flpszrl-jnahltxvuorp-vpbhc milk, and calcium-fortifiedfruit juice. Calcium-fortified means that [...] ?Spinach (cooked), rhubarb, beets, sweet potatoes, and Bahamian chard. ?Peanuts. ?Potato chips, belarusian fries, and baked potatoes with skin on. ?Nuts and nut products. ?Chocolate. If you regularly take a diuretic medicine, make sure to eat at least 1 or 2 servings of fruits or vegetables that are high in potassium each day. These include: ?Avocado. ?Banana. ?[place], prune, carrot, or tomato juice. ?Baked potato. [...] magnesium, fish oil, or vitamin B6. Take rucr-kfe-dypgznm and prescription medicines only as told by [...] Casseroles. Pizza. Lasagna. Frozen meals. Potato chips. Montserratian fries. The items listed above may not [...] provider. Document Revised: 06/09/2022 Document Reviewed: 06/09/2022 [employer] Patient Education 2023 [employer]. 05/13/2024 12:51:44 Benign Prostatic Hyperplasia Benign Prostatic Hyperplasia Benign prostatic hyperplasia (BPH) is an enlarged prostate gland that is caused by the normal aging process. The prostate may get bigger as a man gets older. The condition is not caused by cancer. The prostate is a walnut-sized gland that is involved in the production of semen. It is located in front of the rectum and below the bladder. The bladder stores urine. The urethra carries stored urine out of the body. An enlarged prostate can press on the urethra. This can make it harder to pass urine. The buildup of urine in the bladder can cause infection. Back pressure and infection may progress to bladder damage and kidney (renal) failure. What are the causes? This condition is part of the normal aging process. However, not all men develop problems from this condition. If the prostate enlarges away from the urethra, urine flow will not be blocked. If it enlarges toward the urethra and compresses it, there will be problems passing urine. What increases the risk? This condition is more likely to develop in men older than 50 years. What are the signs or symptoms? Symptoms of this condition include: Getting up often during the night to urinate. Needing to urinate frequently during the day. Difficulty starting urine flow. Decrease in size and strength of your urine stream. Leaking (dribbling) after urinating. Inability to pass urine. This needs immediate treatment. Inability to completely empty your bladder. Pain when you pass urine. This is more common if there is also an infection. Urinary tract infection (UTI). How is this diagnosed? This condition is diagnosed based on your medical history, a physical exam, and your symptoms. Tests will also be done, such as: A post-void bladder scan. This measures any amount of urine that may remain in your bladder after you finish urinating. A digital rectal exam. In a rectal exam, your health care provider checks your prostate by putting a lubricated, gloved finger into your rectum to feel the back of your prostate gland. This exam detects the size of your gland and any abnormal lumps or growths. An exam of your urine (urinalysis). A prostate specific antigen (PSA) screening. This is a blood test used to screen for prostate cancer. An ultrasound. This test uses sound waves to electronically produce a picture of your prostate gland. Your health care provider may refer you to a specialist in kidney and prostate diseases (urologist). How is this treated? Once symptoms begin, your health care provider will monitor your condition (active surveillance or watchful waiting). Treatment for this condition will depend on the severity of your condition. Treatment may include: Observation and yearly exams. This may be the only treatment needed if your condition and symptoms are mild. Medicines to relieve your symptoms, including: ?Medicines to shrink the prostate. ?Medicines to relax the muscle of the prostate. Surgery in severe cases. Surgery may include: ?Prostatectomy. In this procedure, the prostate tissue is removed completely through an open incision or with a laparoscope or robotics. ?Transurethral resection of the prostate (TURP). In this procedure, a tool is inserted through the opening at the tip of the penis (urethra). It is used to cut away tissue of the inner core of the prostate. The pieces are removed through the same opening of the penis. This removes the blockage. ?Transurethral incision (TUIP). In this procedure, small cuts are made in the prostate. This lessens the prostate's pressure on the urethra. ?Transurethral microwave thermotherapy (TUMT). This procedure uses microwaves to create heat. The heat destroys and removes a small amount of prostate tissue. ?Transurethral needle ablation (TUNA). This procedure uses radio frequencies to destroy and remove a small amount of prostate tissue. ?Interstitial laser coagulation (ILC). This procedure uses a laser to destroy and remove a small amount of prostate tissue. ?Transurethral electrovaporization (TUVP). This procedure uses electrodes to destroy and remove a small amount of prostate tissue. ?Prostatic urethral lift. This procedure inserts an implant to push the lobes of the prostate away from the urethra. Follow these instructions at home: Take pxck-vdp-utnbriz and prescription medicines only as told by your health care provider. Monitor your symptoms for any changes. Contact your health care provider with any changes. Avoid drinking large amounts of liquid before going to bed or out in public. Avoid or reduce how much caffeine or alcohol you drink. Give yourself time when you urinate. Keep all follow-up visits. This is important. Contact a health care provider if: You have unexplained back pain. Your symptoms do not get better with treatment. You develop side effects from the medicine you are taking. Your urine becomes very dark or has a bad smell. Your lower abdomen becomes distended and you have trouble passing urine. Get help right away if: You have a fever or chills. You suddenly cannot urinate. You feel light-headed or very dizzy, or you faint. There are large amounts of blood or clots in your urine. Your urinary problems become hard to manage. You develop moderate to severe low back or flank pain. The flank is the side of your body between the ribs and the hip. These symptoms may be an emergency. Get help right away. Call 911. Do not wait to see if the symptoms will go away. Do not drive yourself to the hospital. Summary Benign prostatic hyperplasia (BPH) is an enlarged prostate that is caused by the normal aging process. It is not caused by cancer. An enlarged prostate can press on the urethra. This can make it hard to pass urine. This condition is more likely to develop in men older than 50 years. Get help right away if you suddenly cannot urinate. This information is not intended to replace advice given to you by your health care provider. Make sure you discuss any questions you have with your health care provider. Document Revised: 09/15/2021 Document Reviewed: 09/15/2021 [employer] Patient Education 2023 [employer]. [facility] 05-13-2024 Note Patient Education Nephrology Dietary Guidelines to [...] for following this plan? Reading food labels ??? Choose foods with no salt added or low-salt labels. Limit your salt (sodium) intake to less than 1,500 mg a day. ??? Choose foods with calcium for each meal and snack. Try to eat about 300 mg of calcium at each meal. Foods that contain 200?500 mg of calcium a serving include: ? 8 oz (237 mL) of milk, ggmmsun-sobvwwdxejii-cdwel milk, and calcium-fortifiedfruit juice. Calcium-fortified means that [...] much calcium is recommended for you. Shopping ??? Buy plenty of fresh fruits and vegetables. Most people do not need to avoid fruits and vegetables, even if these foods contain nutrients that may contribute to kidney stones. ??? When shopping for convenience foods, choose: ? Whole pieces of fruit. ? Pre-made salads with dressing on the side. ? Low-fat fruit and yogurt smoothies. ??? Avoid buying frozen meals or prepared deli foods. These can be high in sodium. ??? Look for foods with live cultures, such as yogurt and kefir. ??? Choose high-fiber grains, such as whole-wheat breads, oat bran, and wheat cereals. Cooking ??? Do not add salt to food when cooking. Place a salt shaker on the table and allow each person to add their own salt to taste. ??? Use vegetable protein, such as beans, textured vegetable protein (TVP), or tofu, instead of meat in pasta, casseroles, and soups. Meal planning ??? Eat less salt, if told by your dietitian. To do this: ? Avoid eating processed or pre-made food. ? Avoid eating fast food. ??? Eat less animal protein, including cheese, meat, [...] size of the palm of your hand. ??? Eat at least five servings of fresh fruits and vegetables each day. To do this: ? Keep fruits and vegetables on hand for snacks. ? Eat one piece of fruit or a handful of berries with breakfast. ? Have a salad and fruit at lunch. ? Have two kinds of vegetables at dinner. ??? You may be told to limit foods that are high in a substance called oxalate. These include: ? Spinach (cooked), rhubarb, beets, sweet potatoes, and Bahamian chard. ? Peanuts. ? Potato chips, belarusian fries, and baked potatoes with skin on. ? Nuts and nut products. ? Chocolate. ??? If you regularly take a diuretic medicine, make sure to eat at least 1 or 2 servings of fruits or vegetables that are high in potassium each day. These include: ? Avocado. ? Banana. ? [place], prune, carrot, or tomato juice. ? Baked potato. ? Cabbage. ? Beans and split peas. Lifestyle ??? Drink enough fluid to keep your urine pale yellow. This is the most important thing you can do. Spread your fluid intake throughout the day. ??? If you drink alcohol: ? Limit how [...] oz glass of hard liquor (44 mL). ??? Lose weight if told by your health care provider. Work with your dietitian to find an eating plan and weight loss strategies that work best for you. General information ??? Talk to your health care provider and [...] as magnesium, fish oil, or vitamin B6. ??? Take advz-ubo-fperkkn and prescription medicines only as told by your health (more content not included)... [facility] 11-20-2023 Hospital Discharge instructions Follow Up Care 11/20/2023 16:18:52 With:Johnie OCHOA Address: [address] [place] [id number] Business (1) When:04/13/2024 09:44:12 [facility] 11-20-2023 Hospital Discharge instructions Patient Education 11/20/2023 08:13:17 Dietary Guidelines [...] include: ?8 oz (237 mL) of milk, uuwadfx-fhetkfvpwehf-kohod milk, and calcium-fortifiedfruit juice. Calcium-fortified means that [...] ?Spinach (cooked), rhubarb, beets, sweet potatoes, and Bahamian chard. ?Peanuts. ?Potato chips, belarusian fries, and baked potatoes with skin on. ?Nuts and nut products. ?Chocolate. If you regularly take a diuretic medicine, make sure to eat at least 1 or 2 servings of fruits or vegetables that are high in potassium each day. These include: ?Avocado. ?Banana. ?[place], prune, carrot, or tomato juice. ?Baked potato. [...] magnesium, fish oil, or vitamin B6. Take mmst-cyi-qyjwwjg and prescription medicines only as told by [...] Casseroles. Pizza. Lasagna. Frozen meals. Potato chips. Montserratian fries. The items listed above may not [...] provider. Document Revised: 06/09/2022 Document Reviewed: 06/09/2022 [employer] Patient Education 2023 [employer]. Follow Up Care 10/02/2023 13:19:58 With:GABRIELA SOLANO, Johnie Martel, URL Address: [facility] [address] [place] [address]- When: Unknown [facility] 11-20-2023 Note Urology Office/Clini c Note Chief Complaint referral- kidney stones HPI Staff New pt referred by Dr. Luis Hough for kidney stones. Never seen in our office before (verified on [employer]). Had gross hematuria at PCP appt 09/25/23 and was rx'd Levaquin 750mg qd [id number]. JALEN 09/27/23 [facility] showed nonobstructing left nephrolithiasis. [...] and history for this patient from Dr. Luis Hough . I have reviewed and verified [...] yo male new pt referred by Dr. Luis Hough due to kidney stones. LILIANA 23. [...] ago, also had (more content not included)... [facility] Comment on above: Result Comment: Elec [...] ? 8 oz (237 mL) of milk, mcwziui-fyitsopxanor-tkise milk, and calcium-fortifiedfruit juice. Calcium-fortified means that [...] Spinach (cooked), rhubarb, beets, sweet potatoes, and Bahamian chard. ? Peanuts. ? Potato chips, belarusian fries, and baked potatoes with skin on. ? Nuts and nut products. ? Chocolate. ? If you regularly take a diuretic medicine, make sure to eat at least 1 or 2 servings of fruits or vegetables that are high in potassium each day. These include: ? Avocado. ? Banana. ? [place], prune, carrot, or tomato juice. ? Baked [...] fish oil, or vitamin B6. ? Take dzbm-kwg-qsobzku and prescription medicines only as told by your health care provider. These include suppleme (more content not included)... [facility] 11-24-2021 Miscellaneous Notes Summary: VASCULAR Patient: Buck Disla Date of : 1975 Patient phone number: [phone] Referring Provider for the encounter: Luis Hough Requesting Provider: Reason for requesting visit (RFV/signs and symptoms/diagnosis): deep venous thrombophlebitis leg Person calling: Via RP Fax Return call to: self Medical Records/Insurance Card scanned into [employer]: Comments: documented in this encounter [facility] Evaluation + Plan note Future Appointments Appointment Date:12/11/2023 01:00:00 PM Scheduled Provider: Location:[facility] Appointment Type:Urology CALL PAT Appointment Date:12/12/2023 09:30:00 AM Scheduled Provider: Location:[facility] Appointment Type:Urology FT [facility] Evaluation + Plan note Future Appointments Appointment Date:12/11/2023 01:00:00 PM Scheduled Provider: Location:[facility] Appointment Type:Urology CALL PAT FT Appointment Date:12/12/2023 09:30:00 AM Scheduled Provider: Location:[facility] Appointment Type:Urology FT Diagnostic Tests PendingUroVysion Fish and Urine Cyto ([facility]) 11/20/23 [facility] Evaluation + Plan note Future Appointments Appointment Date:05/03/2024 10:15:00 AM Scheduled Provider:Johnie OCHOA MD Location:[facility] Appointment Type:URO Office Visit [facility] Evaluation + Plan note Future Appointments Appointment Date:06/06/2024 10:20:00 AM Scheduled Provider:FLORA VERNON MD Location:[facility] Appointment Type:URO Office Visit [facility] Hospital course Narrative No data available for this section [facility] Hospital Discharge instructions No data available for this section [facility] Progress note No data available for this section [facility] Summary Purpose Family History No Family [...] or prosecute any alcohol or drug abuse patient.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 Start Date End Date Luis Hough MD [address] [place] [address] Referring Family Practice 11/24/21 (unrecognized sect ion and content) No Status Records FoundNo Status Records FoundNo Status Records FoundNo Status Records FoundNo Status Records Found INFORMATION SOURCE (unrecogn ized section and content) DATE CREATED AUTHOR 03/15/2022 [facility] DATE CREATED AUTHOR AUTHOR'S ORGANIZ ATION 07/21/2022 [facility] DATE CREATED AUTHOR AUTHOR'S ORGANIZ ATION 11/27/2023 [facility] DATE CREATED AUTHOR AUTHOR'S ORGANIZ ATION 05/11/2024 [facility] DATE CREATED AUTHOR AUTHOR'S ORGANIZ ATION 05/15/2024 [facility] FOR RECORDS PERTAINING TO PATIENTS WHO [...] BE BASED ON THE PRIMARY CLINICAL RECORDS. [facility] [employer] [facility]. provides no warranty or guarantee of the accuracy or completeness of information in this document.
--- NOTE | 2024-05-20 16:26 | PE_ITS ---
The [address] [address] Patient Name: BUCK DISLA MRN: [id number] date: 1975 Sex: M Assigned Patient Location: PETCT Current Patient Location: Accession/Order Number: [id number] Exam Date: 05/21/2024 09:44 Report Date: 05/21/2024 13:01 At the request of: MAYNOR HILLMAN MD Procedure: PET skull to mid thigh PET CT WITH FUSION CLINICAL DATA: Right middle lobe lung nodule COMPARISON: CT 04/30/2024 Following the intravenous administration of 12.08 mCi of FDG, SPECT imaging in 3 planes was performed from the level the orbits through the groin. The patient's blood glucose level at the time of injection was 88 g/dL. Spiral unenhanced CT imaging was also performed for anatomic localization. The PET and CT images were fused. This CT exam was performed using one or more following dose reduction techniques: Automated exposure control, adjustment of the mA and/or kV according to patient size, or use of iterative reconstruction technique. NECK: No enlarged or hypermetabolic lymph nodes are identified. There is some physiologic activity at the oral cavity and vocal cords. CHEST: No enlarged or hypermetabolic mediastinal, hilar or axillary lymph nodes are identified. There is no abnormal hypermetabolism associated with the lungs. The patient's right middle lobe nodule is less than a centimeter in size and there is no apparent soft tissue component. Therefore, it is probably too small for diagnostic PET imaging. No other areas of abnormal lung FDG uptake are seen. There is a segment of the distal esophagus which shows increased FDG uptake (SUV 7.4). Although this could be physiologic, correlation and follow-up are suggested to exclude any other underlying pathology. ABDOMEN/PELVIS: No hypermetabolic abdominal or pelvic lymphadenopathy is visualized. There are no FDG avid lesions associated with the liver or adrenal glands. There is physiologic activity involving the urinary tract and bladder. There is also uptake involving the bowel, greatest in the sigmoid region. This may be physiologic though again clinical correlation is suggested. There are multiple sigmoid diverticula. Patient has an IVC filter. PET/PET skull to mid thigh IMPRESSION: NO ABNORMAL FDG UPTAKE ASSOCIATED WITH THE LUNGS WITH THE RIGHT MIDDLE LOBE NODULE SEEN PREVIOUSLY. NODULE IS HOWEVER BELOW SIZE THRESHOLD FOR DIAGNOSTIC PET/CT IMAGING. FOLLOW-UP CT IS THEREFORE RECOMMENDED. INCIDENTAL INCREASED UPTAKE AT THE DISTAL ESOPHAGUS AND SIGMOID COLON. THESE FINDINGS MAY BE PHYSIOLOGIC HOWEVER CORRELATION IS RECOMMENDED TO ANY GI SYMPTOMS OR NEED FOR FURTHER EVALUATION. Impression dictated by: Julia Duran M.D.05/21/2024 1:01 PM Dictation Location: [place] [address] Electronically authenticated by: [id number] Y Date: 05/21/2024 13:01
== END 2024-05-20 14:44 | disposition home or self-care (01) ==
LOC: PETCT 14:43
PROVIDERS: PCP Family Medicine; Visit Provider Family Medicine
DX: R22.9 Localized swelling, mass and lump, unspecified (principal); R91.1 Solitary pulmonary nodule
CPT/HCPCS: 78815; A9552